=== PATIENT | female | born 1950 | race Caucasian/White ===

== ENCOUNTER → 2020-09-11 11:41 | Outpatient (BNVA) | payer MEDICARE, SELFPAY | PROVIDERS: PCP Family Medicine; Visit Provider Physician Assistant | DX: K90.49 Malabsorption due to intolerance, not elsewhere classified (principal); Z98.84 Bariatric surgery status | CPT/HCPCS: 99214 ==

== ENCOUNTER 2020-10-15 11:58 | Outpatient (REF) | payer MEDICARE, SELFPAY ==
--- NOTE | 2020-10-15 12:03 | MM_ITS ---
EXAMINATION: MM SCREENING DIGITAL BREAST TOMOSYNTHESIS, BILATERAL CLINICAL INFORMATION: Screening. Asymptomatic. The lifetime risk of breast cancer based on the Tyrer-Cuzick Model is 4%. COMPARISON: Outside mammography 09/11/2019, 08/22/2018, 08/21/2017 ([facility]). TECHNIQUE: Digital breast tomosynthesis is performed in both the craniocaudal and mediolateral oblique views along with computer-aided detection (CAD). Synthesized 2D images are generated from the tomosynthesis. FINDINGS: There are scattered areas of fibroglandular density (ACR BI-RADS breast composition Category b). Parenchymal pattern is similar to outside studies. There is no significant mass or architectural abnormality or abnormal calcifications. No developing density. Low left axillary tail nodes on MLO view is similar to prior studies 2017. Again, there are bilateral axillary lipomas, right side measuring approximately 5.0 x 5.7 cm and left side measuring 2.3 x 4.1 cm. MM/MM tomosynthesis screening BI IMPRESSION: 1. No mammographic evidence of malignancy. 2. Bilateral axillary lipomas similar to outside studies. ASSESSMENT: BI-RADS 2: Benign RECOMMENDATION: Routine annual mammography screening. This patient's information was entered into a reminder system with a target due date for their next mammogram.
== END 2020-10-15 11:59 | disposition home or self-care (01) ==
LOC: HO.MAMMO 11:58
PROVIDERS: PCP Internal Medicine; Visit Provider Internal Medicine
DX: Z12.31 Encounter for screening mammogram for malignant neoplasm of breast (principal)
CPT/HCPCS: 77063; 77067

== ENCOUNTER → 2020-11-10 08:21 | Outpatient (BNVA) | payer MEDICARE, SELFPAY | PROVIDERS: PCP Internal Medicine; Referring Provider Internal Medicine; Visit Provider Dietitian, Registered | DX: Z76.89 Persons encountering health services in other specified circumstances (principal) ==

== ENCOUNTER → 2020-11-17 08:19 | Outpatient (BNVA) | payer MEDICARE, SELFPAY | PROVIDERS: PCP Internal Medicine; Visit Provider Dietitian, Registered | DX: Z76.89 Persons encountering health services in other specified circumstances (principal) ==

== ENCOUNTER → 2020-12-08 11:21 | Outpatient (BNVA) | payer MEDICARE, SELFPAY | PROVIDERS: PCP Internal Medicine; Visit Provider Dietitian, Registered | DX: Z76.89 Persons encountering health services in other specified circumstances (principal) ==

== ENCOUNTER → 2020-12-15 11:24 | Outpatient (BNVA) | payer MEDICARE, SELFPAY | PROVIDERS: PCP Internal Medicine; Visit Provider Dietitian, Registered ==

== ENCOUNTER → 2021-01-04 08:19 | Outpatient (BNVA) | payer MEDICARE, SELFPAY | PROVIDERS: PCP Internal Medicine; Visit Provider Physician Assistant ==

== ENCOUNTER → 2021-01-21 08:19 | Outpatient (BNVA) | payer MEDICARE, SELFPAY | PROVIDERS: PCP Internal Medicine; Visit Provider Physician Assistant ==

== ENCOUNTER → 2021-01-22 13:20 | Outpatient (BNVA) | payer MEDICARE, SELFPAY | PROVIDERS: Visit Provider Physician Assistant | DX: K90.49 Malabsorption due to intolerance, not elsewhere classified (principal); Z90.3 Acquired absence of stomach [part of]; Z98.84 Bariatric surgery status | CPT/HCPCS: Q3014 ==

== ENCOUNTER → 2021-02-15 11:14 | Outpatient (BNVA) | payer MEDICARE, SELFPAY | PROVIDERS: PCP Internal Medicine; Visit Provider Internal Medicine Cardiovascular Disease | DX: I25.10 Atherosclerotic heart disease of native coronary artery without angina pectoris (principal) | CPT/HCPCS: 93005; 99212 ==

== ENCOUNTER → 2021-04-01 12:27 | Outpatient (BNVA) | payer MEDICARE, SELFPAY | PROVIDERS: PCP Internal Medicine; Visit Provider Physician Assistant | DX: K91.2 Postsurgical malabsorption, not elsewhere classified (principal); K90.49 Malabsorption due to intolerance, not elsewhere classified; Z98.84 Bariatric surgery status; Z90.3 Acquired absence of stomach [part of] | CPT/HCPCS: 99212 ==

== ENCOUNTER 2021-04-05 09:37 | Outpatient (REF) | payer MEDICARE, SELFPAY ==
[2021-04-05 10:24] LABS: MANUAL DIFF FLAG NO
[2021-04-05 10:28] LABS: Basophils Percent Auto 0.8 % (0-2); Eosinophils Absolute Auto 0.1 X10*3/uL (0.0-0.4); Eosinophils Percent Auto 3.3 % (0-4); Hematocrit 37.1 % (37-47); Hemoglobin 12.3 g/dl (12.0-16.0); Imm Gran Abs Auto 0.01 X10*3/uL (0.00-0.03); Imm Gran Pct Auto 0.3 % (0.0-0.4); Lymphocytes Absolute Auto 1.4 X10*3/uL (1.2-4.9); Lymphocytes Percent Auto 39.3 % (20-40); Mean Corpuscular HGB Conc 33.2 g/dl (31.0-35.0); Mean Corpuscular Volume 87.5 fL (80-98); Mean Platelet Volume 10.6 fL (9.4-12.3); Monocytes Absolute Auto 0.2 X10*3/uL (0.1-1.2); Monocytes Percent Auto 5.7 % (2-11); Neutrophils Absolute Auto 1.9 X10*3/uL (2.0-8.3); Neutrophils Percent Auto 50.6 % (45-73); Platelet Count 180 X10*3/uL (160-400); Red Blood Count 4.24 X10*6/uL (4.20-5.50); Red Cell Distribution Width 12.8 % (11.0-16.0); White Blood Count 3.7 X10*3/uL (4.8-10.8)
[2021-04-05 10:49] LABS: Estimated Average Glucose 103 mg/dL; Hemoglobin A1c % 5.2 %
[2021-04-05 10:52] LABS: Alanine Aminotransferase 17 U/L (0-31); Albumin Level 4.2 g/dL (3.5-5.0); Alkaline Phosphatase 86 U/L (39-117); Anion Gap 10 (12-20); Aspartate Amino Transferase 16 U/L (5-31); Blood Urea Nitrogen 23 mg/dL (9-16); C Reactive Protein 0.13 mg/dL (< or = 0.50); Calcium 9.4 mg/dL (8.4-10.2); Carbon Dioxide 29 mmol/L (22-29); Chloride 107 mmol/L (96-108); Cholesterol 109 mg/dL; Estimated Glomerular Filt Rate > 60; Glucose Fasting 106 mg/dL (60-99); HDL Cholesterol 33 mg/dL; Iron 103 mcg/dL (30-160); LDL Cholesterol Calculated 44 mg/dl; Percent Iron Saturation 31 % (15-50); Potassium 4.2 mmol/L (3.3-5.1); Sodium 142 mmol/L (135-145); Total Iron Binding Capacity 332 mcg/dL (228-428); Total Protein 6.6 g/dL (6.5-8.0); Triglycerides 161 mg/dL; Unsaturated Iron Binding 229 ug/dL
[2021-04-05 11:15] LABS: Ferritin 86 ng/mL (10-250); TSH reflex Free T4 1.32 uIU/mL (0.32-4.0)
[2021-04-05 11:30] LABS: Folate 17.5 ng/mL (> or = 4.0); Vitamin B12 456 pg/mL (200-900)
[2021-04-06 08:51] LABS: Insulin Level Total 21.5 uIU/mL
[2021-04-06 19:47] LABS: Calcium (PTHI) 9.5 mg/dL (8.6-10.4); PTHI 65 pg/mL (14-64)
[2021-04-08 06:51] LABS: Zinc 72 mcg/dL (60-130)
[2021-04-08 23:03] LABS: Vitamin A 38 mcg/dL (38-98)
[2021-04-09 11:32] LABS: Vitamin B1 16 nmol/L (8-30)
== END 2021-04-05 09:38 | disposition home or self-care (01) ==
LOC: HO.LAB 09:37
PROVIDERS: PCP Internal Medicine; Visit Provider Physician Assistant
DX: K91.2 Postsurgical malabsorption, not elsewhere classified (principal); E66.01 Morbid (severe) obesity due to excess calories; Z98.84 Bariatric surgery status; Z90.3 Acquired absence of stomach [part of]
CPT/HCPCS: 36415; 80053; 80061; 82306; 82607; 82728; 82746; 83036; 83525; 83540; 83970; 84425; 84443; 84590; 84630; 85025; 86140

== ENCOUNTER → 2021-04-19 14:17 | Outpatient (BNVA) | payer MEDICARE, SELFPAY | PROVIDERS: PCP Internal Medicine; Referring Provider Internal Medicine; Visit Provider Dietitian, Registered | DX: E66.9 Obesity, unspecified (principal); Z68.36 Body mass index [BMI] 36.0-36.9, adult | CPT/HCPCS: 97803 ==

== ENCOUNTER → 2021-05-19 08:14 | Outpatient (BNVA) | payer MEDICARE, SELFPAY | PROVIDERS: PCP Internal Medicine; Visit Provider Dietitian, Registered ==

== ENCOUNTER 2021-08-10 13:20 | Emergency (ER) | payer MEDICARE, SELFPAY ==
--- NOTE | ~2021-08-10 | CT_ITS ---
EXAMINATION: CT ABDOMEN AND PELVIS WITH CONTRAST CLINICAL INFORMATION: Right lower quadrant pain COMPARISON: None TECHNIQUE: Multidetector volumetric images were obtained from the superior aspect of the liver through the pubic symphysis following administration 85 mL of Omnipaque 350 intravenous contrast. Sagittal and coronal reformatted images were obtained on the technologist's workstation. Oral contrast: No This CT examination was performed using dose optimization techniques as appropriate, variously including the following: *Automated exposure control *Adjustment of mA and/or kV according to patient size (this includes techniques or standardized protocols for targeted exams where dose is matched to indication/reason for exam; i.e. extremities or head) *Use of iterative reconstruction technique DLP: 648 mGy-cm FINDINGS: LUNG BASES: The visualized lung bases are unremarkable. LIVER, GALLBLADDER, AND BILIARY TREE: The liver is normal in size, shape, and attenuation. Punctate calcification in the right hepatic lobe. No focal hepatic lesion or biliary ductal dilatation is present. The gallbladder is unremarkable with no evidence of radiopaque gallstones, gallbladder wall thickening, or obvious pericholecystic inflammatory changes. PANCREAS: Unremarkable. SPLEEN: Unremarkable. ADRENAL GLANDS: Unremarkable. KIDNEYS AND URETERS: The kidneys are normal in size, shape, and attenuation. No hydronephrosis, hydroureter, or calculi seen. No perinephric stranding. BLADDER: Unremarkable. GASTROINTESTINAL TRACT: Post surgical changes from sleeve gastrectomy. The small and large bowel are unremarkable. The appendix is not visualized. ABDOMINAL WALL: Small fat containing umbilical hernia. LYMPH NODES: Small mesenteric lymph nodes in the right lower quadrant. VASCULAR: Unremarkable. PELVIC VISCERA: Unremarkable. OSSEOUS STRUCTURES: Unremarkable. CT/CT abdomen pelvis w con IMPRESSION: Small mesenteric lymph nodes in the right lower quadrant, nonspecific. The appendix is not visualized.
[2021-08-10 13:43] VITALS: BP 123/78; PULSE 75; RESP 18; TEMP 36.8; O2SAT 96; BMI 36.6
[2021-08-10 14:33] LABS: MANUAL DIFF FLAG NO
[2021-08-10 14:35] LABS: Basophils Percent Auto 0.5 % (0-2); Eosinophils Absolute Auto 0.1 X10*3/uL (0.0-0.4); Eosinophils Percent Auto 2.1 % (0-4); Hematocrit 38.2 % (37-47); Hemoglobin 12.8 g/dl (12.0-16.0); Imm Gran Abs Auto 0.01 X10*3/uL (0.00-0.03); Imm Gran Pct Auto 0.2 % (0.0-0.4); Lymphocytes Absolute Auto 2.3 X10*3/uL (1.2-4.9); Lymphocytes Percent Auto 40.8 % (20-40); Mean Corpuscular HGB Conc 33.5 g/dl (31.0-35.0); Mean Corpuscular Hemoglobin 29.4 pg (27.0-33.0); Mean Corpuscular Volume 87.6 fL (80-98); Mean Platelet Volume 10.5 fL (9.4-12.3); Monocytes Absolute Auto 0.4 X10*3/uL (0.1-1.2); Monocytes Percent Auto 6.3 % (2-11); Neutrophils Absolute Auto 2.9 X10*3/uL (2.0-8.3); Neutrophils Percent Auto 50.1 % (45-73); Platelet Count 184 X10*3/uL (160-400); Red Blood Count 4.36 X10*6/uL (4.20-5.50); Red Cell Distribution Width 13.1 % (11.0-16.0); White Blood Count 5.7 X10*3/uL (4.8-10.8)
[2021-08-10 14:53] LABS: Alanine Aminotransferase 20 U/L (0-31); Albumin Level 4.3 g/dL (3.5-5.0); Alkaline Phosphatase 90 U/L (39-117); Anion Gap 11 (12-20); Aspartate Amino Transferase 19 U/L (5-31); Bilirubin Total 1.1 mg/dL (0.0-1.0); Blood Urea Nitrogen 14 mg/dL (9-16); Calcium 10.2 mg/dL (8.4-10.2); Carbon Dioxide 30 mmol/L (22-29); Chloride 104 mmol/L (96-108); Creatinine Clr Calc Pharmacy 71.1; Estimated Glomerular Filt Rate > 60; Glucose Random 99 mg/dL (60-115); Lipase 31 U/L (8-78); Potassium 4.7 mmol/L (3.3-5.1); Sodium 140 mmol/L (135-145); Total Protein 6.8 g/dL (6.5-8.0)
[2021-08-10 15:10] LABS: Appearance Urine CLEAR; Color Urine YELLOW; Glucose Urine UA NEG (NEG); Leukocyte Esterase Urine TRACE (NEG); Nitrite Urine NEG (NEG); PH 5.5 (5.0-8.0); Specific Gravity - Urine <= 1.005 (1.005-1.025); UACC Culture Trigger YES; Urine Blood NEG (NEG); Urine Ketones NEG (NEG); Urine Protein NEG (NEG-TRACE)
[2021-08-10 15:44] LABS: Bacteria Urine 1+ /LPF; RBC Urine 0 /HPF (0); Squamous Epithelial Cell Urine TRACE /LPF; Urine Talc Crystals TRACE /LPF; WBC Urine 0-2 /HPF (0-4)
--- NOTE | 2021-08-10 16:36 | ED.ABDPAIN ---
HPI - Abdominal Pain General Chief Complaint: Abdominal Pain Stated Complaint: R SIDE ABD PAIN Time Seen by Provider: 08/10/21 16:23 History of Present Illness HPI narrative: Patient is a 71-year-old female with a history of gastric sleeve surgery done 2 and half years ago. Presents today with having abdominal pain for last 3 days on the right side. Right lower quadrant. It is worsened with movement. Patient denies any nausea vomiting. No fever no chills. No diaphoresis. No pain on urination. Patient denies any coughing congestion upper respiratory symptoms. Patient is from home. No history of kidney stone. No vaginal discharge. No change in bowel movement. Pain is dull constant worse with movement. Related Data Home Medications Medication Instructions Recorded Confirmed calcium citrate malate-vitamin D3 tab PO 09/11/20 04/01/21 500 mg-200 unit tablet fluticasone propionate 50 1 spray INTRANASAL DAILY 09/11/20 04/01/21 mcg/actuation nasal spray,suspension mirtazapine 15 mg tablet 15 mg PO BEDTIME 09/11/20 04/01/21 [id number]-[id number]-[id number] 45 mg-folic cap PO 09/11/20 04/01/21 acid 800 mcg-vit K 120 mcg capsule (Bariatric Multivitamins) propylene glycol 0.6 % eye drops 1 drp OPHTHALMIC (EYE) DAILY PRN 09/11/20 04/01/21 (Systane Balance) saliva substitute combo no.9 15 ml MUCOUS MEMBRANE BID-QID PRN 09/11/20 04/01/21 (Biotene Dry Mouth Oral Rinse) atorvastatin 80 mg tablet 80 mg PO DAILY 02/15/21 04/01/21 loratadine 10 mg tablet 10 mg PO DAILY 02/15/21 04/01/21 Previous Rx's Medication Instructions Recorded clopidogrel 75 mg tablet (Plavix) 75 mg PO DAILY #90 tab 01/27/21 Allergies Allergy/AdvReac Type Severity Reaction Status Date / Time ketorolac [From TORADOL] Allergy Severe SWELLING-FACIAL, Verified 08/10/21 13:43 anaphylaxis aspirin Allergy Unknown blood in Verified 08/10/21 13:43 stool adhesive tape [ADHESIVE TAPE] AdvReac Intermediate RASH Verified 08/10/21 13:43 Seasonal Allergies Allergy Unknown itching Uncoded 04/01/21 12:54 Review of Systems Review of Systems No fever no chills no chest pain or shortness of breath No diaphoresis Positive abdominal pain Yes all other systems are reviewed and are negative Physical Exam Vital Signs: Vital Signs: Last Vital Signs Temp 98.3 F 08/10/21 13:43 Pulse 64 08/10/21 18:22 Resp 16 08/10/21 18:22 BP 108/65 08/10/21 18:22 Pulse Ox 99 08/10/21 18:22 Body Mass Index 36.6 MDM - Abdominal Pain MDM Narrative Medical decision making narrative: Patient well-appearing complaining of abdominal pain in the right lower quadrant. Will get labs. Will get CT scan of the abdomen to check for appendicitis. Will check electrolytes. Patient in no distress. Patient's CT scan of the abdomen grossly negative for any acute evidence of abscess, perforation. No evidence for appendicitis. Well-appearing no distress. Will discharge patient home. In stable condition. No evidence for obstruction noted on the CT scan. Differential Diagnosis Differential diagnosis: Likely abdominal pain, aortic dissection, acute appendicitis, bowel perforation, calculus of kidney, gastroenteritis, gastritis, mesenteric ischemia, ovarian cyst, pancreatitis and peptic ulcer disease Lab Data Result diagrams: 08/10/21 14:23 08/10/21 14:23 Labs: Lab Results 08/10/21 08/10/21 08/10/21 Range/Units 14:23 14:23 14:39 WBC 5.7 (4.8-10.8) X10*3/uL RBC 4.36 (4.20-5.50) X10*6/uL Hgb 12.8 (12.0-16.0) g/dl Hct 38.2 (37-47) % MCV 87.6 (80-98) fL MCH 29.4 (27.0-33.0) pg MCHC 33.5 (31.0-35.0) g/dl RDW 13.1 (11.0-16.0) % Plt Count 184 (160-400) X10*3/uL MPV 10.5 (9.4-12.3) fL Immature Gran % (Auto) 0.2 (0.0-0.4) % Neut % (Auto) 50.1 (45-73) % Lymph % (Auto) 40.8 H (20-40) % Swift % (Auto) 6.3 (2-11) % Eos % (Auto) 2.1 (0-4) % Baso % (Auto) 0.5 (0-2) % Lymph # (Auto) 2.3 (1.2-4.9) X10*3/uL Swift # (Auto) 0.4 (0.1-1.2) X10*3/uL Eos # (Auto) 0.1 (0.0-0.4) X10*3/uL Baso # (Auto) 0.0 (0.0-0.2) X10*3/uL Abs Immat Gran (auto) 0.01 (0.00-0.03) X10*3/uL Absolute Neuts (auto) 2.9 (2.0-8.3) X10*3/uL Absolute Nucleated RBC 0.000 (0.0-0.012) X10*3/uL Nucleated RBC % (auto) 0.0 (0.0-0.2) /100WBC Sodium 140 (135-145) mmol/L Potassium 4.7 (3.3-5.1) mmol/L Chloride 104 (96-108) mmol/L Carbon Dioxide 30 H (22-29) mmol/L Anion Gap 11 L (12-20) BUN 14 (9-16) mg/dL Creatinine 0.76 (0.5-1.4) mg/dL Estim Creat Clear Calc 71.1 Estimated GFR > 60 Random Glucose 99 (60-115) mg/dL Calcium 10.2 D (8.4-10.2) mg/dL Total Bilirubin 1.1 H (0.0-1.0) mg/dL AST 19 (5-31) U/L ALT 20 (0-31) U/L Alkaline Phosphatase 90 (39-117) U/L Total Protein 6.8 (6.5-8.0) g/dL Albumin 4.3 (3.5-5.0) g/dL Lipase 31 (8-78) U/L Urine Color YELLOW Urine Appearance CLEAR Urine pH 5.5 (5.0-8.0) Ur Specific Lawrence <= 1.005 (1.005-1.025) Urine Protein NEG (NEG-TRACE) MG/DL Urine Glucose (UA) NEG (NEG) MG/DL Urine Ketones NEG (NEG) MG/DL Urine Blood NEG (NEG) Urine Nitrite NEG (NEG) Ur Leukocyte Esterase TRACE H (NEG) Urine RBC 0 (0) /HPF Urine WBC 0-2 (0-4) /HPF Ur Squamous Epith Cells TRACE /LPF Talc Crystals TRACE /LPF Urine Bacteria 1+ /LPF Discharge Plan Discharge Clinical Impression: Abdominal pain Patient Disposition: Home, Self-Care Instructions: Abdominal Pain (ED) Prescriptions: No Action clopidogrel [Plavix] 75 mg tablet 75 mg PO DAILY Qty: 90 RF: 2 mirtazapine 15 mg tablet 15 mg PO BEDTIME RF: 0 fluticasone propionate 50 mcg/actuation spray,suspension 1 spray intranasal DAILY RF: 0 Bariatric Multivitamins 45 mg iron- 800 mcg-120 mcg capsule PO RF: 0 calcium citrate malate-vit D3 500-200 mg-unit tablet PO RF: 0 Biotene Dry Mouth Oral Rinse Mouthwash 15 ml mucous membrane BID-QID PRNRF: 0 Systane Balance 0.6 % drops 1 drp ophthalmic (eye) DAILY PRNRF: 0 atorvastatin 80 mg tablet 80 mg PO DAILY RF: 0 loratadine 10 mg tablet 10 mg PO DAILY RF: 0 Referrals: Jason Gunn MD [Primary Care Provider] - 2 days [facility] Past Medical History Attestation statement: The following information was validated with the patient. Medical History Asthma CAD (coronary artery disease) Constipation Diverticulosis Fracture of wrist GERD (gastroesophageal reflux disease) Intestinal malabsorption following gastrectomy Lactose intolerance Lymphoma Malabsorption due to intolerance, not elsewhere classified Obesity (BMI 30-39.9) HEATHER on CPAP Sciatica Sjogren's syndrome UTI (urinary tract infection) Surgical History H/O section History of eyelid surgery S/P laparoscopic sleeve gastrectomy Family History Family History Father No problems noted. Mother No problems noted. Brother No problems noted. Brother No problems noted. Brother No problems noted. Brother No problems noted. Brother No problems noted. Sister No problems noted. Sister No problems noted. Daughter No problems noted. Daughter No problems noted. Daughter No problems noted. Social History Social History Advance Directives: No Advance Directives Information Provided: Yes
[2021-08-10] MEDS: ondansetron HCL 4 MG/2 ML VIAL IVPUSH (16:48)
[2021-08-10] MEDS: HYDROmorphone HCl 0.5 MG/0.5 ML SYRINGE IVPUSH (16:48)
[2021-08-10] MEDS: iohexoL 350 MG/ML 100 ML INFUS..BTL IV (17:26)
[2021-08-10 18:22] VITALS: BP 108/65; PULSE 64; RESP 16; O2SAT 99
== END 2021-08-10 19:37 | disposition home or self-care (01) ==
PROVIDERS: Emergency Provider Emergency Medicine Emergency Medical Services; PCP Internal Medicine
DX: R10.31 Right lower quadrant pain (principal); I25.10 Atherosclerotic heart disease of native coronary artery without angina pectoris; Z98.84 Bariatric surgery status; Z79.899 Other long term (current) drug therapy
CPT/HCPCS: 36415; 74177; 80053; 81001; 81003; 83690; 85025; 87086; 87088; 87186; 96374; 96375; 99284; J1170; J2405; Q9967

== ENCOUNTER 2021-11-24 12:57 | Outpatient (REF) | payer MEDICARE, SELFPAY ==
--- NOTE | ~2021-11-24 | MM_ITS ---
EXAMINATION: MM SCREENING DIGITAL BREAST TOMOSYNTHESIS, BILATERAL CLINICAL INFORMATION: Screening. Asymptomatic. The lifetime risk of breast cancer based on the Tyrer-Cuzick Model is 4%. COMPARISON: Mammography: 10/15/2020, 09/11/2019, 08/22/2018 TECHNIQUE: Digital breast tomosynthesis is performed in both the craniocaudal and mediolateral oblique views along with computer-aided detection (CAD). Synthesized 2D images are generated from the tomosynthesis. FINDINGS: There are scattered areas of fibroglandular density (ACR BI-RADS breast composition Category b). There are no significant masses, abnormal calcifications, or other abnormalities. Skin contours are smooth. Previously noted axillary lipomas are less conspicuous. MM/MM tomosynthesis screening BI IMPRESSION: No mammographic evidence of malignancy. ASSESSMENT: BI-RADS 2: Benign RECOMMENDATION: Routine annual mammography screening. This patient's information was entered into a reminder system with a target due date for their next mammogram.
== END 2021-11-24 12:58 | disposition home or self-care (01) ==
LOC: HO.MAMMO 12:57
PROVIDERS: PCP Internal Medicine; Visit Provider Internal Medicine
DX: Z12.31 Encounter for screening mammogram for malignant neoplasm of breast (principal)
CPT/HCPCS: 77063; 77067

== ENCOUNTER 2022-04-05 14:50 | Outpatient (REF) | payer OTHER, SELFPAY ==
--- NOTE | ~2022-04-05 | MM_ITS ---
EXAMINATION: BONE DENSITOMETRY CLINICAL INDICATION: Menopause. COMPARISON: Baseline BD dated 10/11/2016. TECHNIQUE: Using a [employer] DXA System (software version: 13.1) manufactured by [employer], dual-energy x-ray absorptiometry was performed of the lumbar spine and left hip. The images are of good technical quality. Summary results are attached. FINDINGS: AP SPINE L1-L4: Current: BMD 1.042 g/cm2, Z-score -0.5, T-score -1.1, osteopenia, 4.6% decrease from baseline (<5% change is not significant). Baseline: BMD 1.092 g/cm2. LEFT FEMUR, NECK: Current: BMD 0.830 g/cm2, Z-score -0.4, T-score -1.5, osteopenia. Baseline: BMD 1.033 g/cm2. LEFT FEMUR, TOTAL: Current: BMD 0.918 g/cm2, Z-score 0.1, T-score -0.7, normal, 9.3% decrease from baseline (<5% change is not significant). Baseline: BMD 1.012 g/cm2. IDENTIFIED RISK FACTORS: Height loss, secondary osteoporosis, history of fracture (adult), menopause, right oophorectomy. HISTORY OF FRACTURE: Wrist. MEDICATIONS: Calcium supplements or multivitamin, vitamin D. MM/XR DEXA axial skeleton IMPRESSION: 1. DIAGNOSIS: Osteopenia based on the lowest T-score value of -1.5 in the femoral neck applying World Health Organization criteria. 2. 10-YEAR FRACTURE RISK PREDICTION, FRAX: Major osteoporotic fracture (clinical spine, forearm, hip or shoulder) 8.1%. Hip fracture 1.1%. 3. Treatment Recommendations: NOF guidelines recommend consideration for treatment in postmenopausal women and men age 50 and older presenting with the following: -A hip or vertebral (clinical or morphometric) fracture. -T-score less than or equal to -2.5 at the femoral neck or spine after appropriate evaluation to exclude secondary causes. -Low bone mass at the hip or spine and a 10-year fracture probability by FRAX of greater than or equal to 3% for hip fracture or greater than or equal to 20% for major osteoporotic fracture based on the [place] adapted WHO algorithm. 4. Other Recommendations: All treatment decisions require clinical judgment and consideration of individual patient factors, including patient preferences, comorbidities, previous drug use, risk factors not captured in the FRAX model (e.g. frailty, falls, vitamin D deficiency, increased bone turnover, interval significant decline in bone density) and possible under or overestimation of fracture risk by FRAX. Additional medical evaluation for secondary cause of low bone mineral density may be appropriate. FUTURE SCAN RECOMMENDATION: People with diagnosed cases of osteoporosis or at high risk for fracture should have regular bone mineral density tests. For patients eligible for Medicare, routine testing is allowed once every 2 years. The testing frequency can be increased to one year for patients who have rapidly progressing disease, those who are receiving or discontinuing medical therapy to restore bone mass, or have additional risk factors.
== END 2022-04-05 14:51 | disposition home or self-care (01) ==
LOC: HO.MAMMO 14:50
PROVIDERS: PCP Internal Medicine; Visit Provider Internal Medicine
DX: Z13.820 Encounter for screening for osteoporosis (principal); Z78.0 Asymptomatic menopausal state; M85.80 Other specified disorders of bone density and structure, unspecified site
CPT/HCPCS: 77080

== ENCOUNTER → 2022-04-07 13:46 | Outpatient (BNVA) | payer OTHER, SELFPAY | PROVIDERS: PCP Internal Medicine; Referring Provider Internal Medicine; Visit Provider Internal Medicine Cardiovascular Disease | DX: I20.8 Other forms of angina pectoris (principal) | CPT/HCPCS: 93005; 99212 ==

== ENCOUNTER 2022-11-07 14:46 | Outpatient (REF) | payer OTHER, SELFPAY ==
--- NOTE | ~2022-11-07 | US_ITS ---
EXAMINATION: US THYROID CLINICAL INFORMATION: Nontoxic single thyroid nodule. COMPARISON: Ultrasound thyroid 03/29/2017. TECHNIQUE: Linear transducer grayscale and color Doppler examination with attention to the region of the thyroid. FINDINGS: SIZE: Measurements of the thyroid lobes and nodules are given in sagittal, anteroposterior and transverse dimensions respectively. Right Thyroid Lobe: 3.8 x 1.2 x 1.6 cm, volume 3.8 mL. Previously 4.3 x 1.2 x 1.8 cm, volume 4.9 mL. Parenchyma: The gland echotexture is homogeneous. Thyroid vascularity is normal. Left Thyroid Lobe: 4.5 x 1.4 x 1.5 cm, volume 4.9 mL. Previously 4.2 x 1.2 x 1.6 cm, volume 4.3 mL. Parenchyma: The gland echotexture is homogeneous. Thyroid vascularity is normal. Isthmus: 0.3 cm in maximum AP dimension. Previously 0.3 cm. Estimated total number of nodules greater than or equal to 1 cm: 0. Dialysis Nurse nodules are described as follows: 1. Location: Left medial/inferior. Size: 0.9 x 0.4 x 0.6 cm, volume 0.1 mL. Previously: 0.9 x 0.4 x 0.5 cm, volume 0.09 mL. Nodule characteristics: Composition: Solid (2). Echogenicity: Isoechoic (1). Shape: Not taller than wide (0). Margins: Smooth (0). Echogenic Foci: Comet-tail artifacts (0). ACR TI-RADS total points: 3 ACR TI-RADS category: 3 = NODES: No lymphadenopathy is seen in the tissue surrounding the thyroid gland. US/US thyroid IMPRESSION: Left inferior nodule does not meet criteria for followup. ACR TI-RADS RECOMMENDATION REFERENCE: Ultrasound-guided fine-needle aspiration, followup ultrasound, no further follow up. * TR1 (0 point) and TR 2 (2 points): No FNA or follow up. * TR3 (3 points): FNA if more than or equal to 2.5 cm in maximum dimension, followup ultrasound in 1, 3 and 5 years if 1.5 to 2.4 cm in maximum dimension. * TR4 (4-6 points): FNA if more than or equal to 1.5 cm in maximum dimension, followup ultrasound in 1, 2, 3 and 5 years if 1 to 1.4 cm in maximum dimension. * TR5 (more than or equal to 7 points): FNA if more than or equal to 1 cm in maximum dimension, followup ultrasound every year for 5 years if 0.5 to 0.9 cm in maximum dimension. * TR3, TR4 or TR5 nodules that are below the size threshold for followup receive no follow up.
== END 2022-11-07 14:47 | disposition home or self-care (01) ==
LOC: HO.US 14:46
PROVIDERS: PCP Internal Medicine; Visit Provider Internal Medicine
DX: E04.1 Nontoxic single thyroid nodule (principal)
CPT/HCPCS: 76536

== ENCOUNTER 2022-11-25 13:54 | Outpatient (REF) | payer OTHER, SELFPAY ==
--- NOTE | ~2022-11-25 | MM_ITS ---
EXAMINATION: MM SCREENING DIGITAL BREAST TOMOSYNTHESIS, BILATERAL CLINICAL INFORMATION: Screening. Asymptomatic. The lifetime risk of breast cancer based on the Tyrer-Cuzick Model is 3%. COMPARISON: Mammography: 11/24/2021, 10/15/2020, 09/11/2019 TECHNIQUE: Digital breast tomosynthesis is performed in both the craniocaudal and mediolateral oblique views along with computer-aided detection (CAD). Synthesized 2D images are generated from the tomosynthesis. Additional right MLO view is provided. FINDINGS: There are scattered areas of fibroglandular density (ACR BI-RADS breast composition Category b). There are no significant masses, abnormal calcifications, or other abnormalities. Parenchymal pattern is similar to prior studies. The axilla and skin contours are unremarkable. MM/MM tomosynthesis screening BI IMPRESSION: No mammographic evidence of malignancy. ASSESSMENT: BI-RADS 1: Negative RECOMMENDATION: Routine annual mammography screening. This patient's information was entered into a reminder system with a target due date for their next mammogram.
== END 2022-11-25 13:55 | disposition home or self-care (01) ==
LOC: HO.MAMMO 13:54
PROVIDERS: PCP Internal Medicine; Visit Provider Internal Medicine
DX: Z12.31 Encounter for screening mammogram for malignant neoplasm of breast (principal)
CPT/HCPCS: 77063; 77067

== ENCOUNTER 2022-12-07 14:51 | Outpatient (REF) | payer OTHER, SELFPAY ==
[2022-12-07 17:22] LABS: Urine Cytology See Pathology rpt
== END 2022-12-07 14:52 | disposition home or self-care (01) ==
LOC: HO.LAB 14:51
PROVIDERS: PCP Internal Medicine; Visit Provider Urology
DX: N39.0 Urinary tract infection, site not specified (principal); N32.81 Overactive bladder
CPT/HCPCS: 51798; 88112; 99202

== ENCOUNTER 2023-01-10 12:09 | Outpatient (REF) | payer OTHER, SELFPAY ==
--- NOTE | ~2023-01-10 | US_ITS ---
EXAMINATION: US RETROPERITONEAL LIMITED (RENAL ONLY) CLINICAL INFORMATION: Overactive bladder. COMPARISON: CT abdomen and pelvis with contrast 08/10/2021. US abdomen complete with liver elastography 09/18/2019. TECHNIQUE: Real-time imaging of the kidneys. FINDINGS: RIGHT KIDNEY: 10.5 x 6.1 x 6.1 cm (SAG x AP x TRV). The kidney is normal in size, contour, and echogenicity. There may be mild cortical thinning. No calculi or focal parenchymal lesions. No hydronephrosis. LEFT KIDNEY: 13.2 x 6.6 x 5.6 cm (SAG x AP x TRV). The kidney is normal in size, contour, and echogenicity. There may be mild cortical thinning. No calculi or focal parenchymal lesions. No hydronephrosis. US/US renal BI IMPRESSION: There may be mild cortical thinning. No other significant abnormality is seen.
== END 2023-01-10 12:10 | disposition home or self-care (01) ==
LOC: HO.US 12:09
PROVIDERS: Visit Provider Urology
DX: N32.81 Overactive bladder (principal); N39.0 Urinary tract infection, site not specified
CPT/HCPCS: 76775

== ENCOUNTER → 2023-03-02 13:50 | Outpatient (BNVA) | payer OTHER, SELFPAY | PROVIDERS: PCP Internal Medicine; Visit Provider Urology | DX: N39.0 Urinary tract infection, site not specified (principal); N32.81 Overactive bladder | CPT/HCPCS: 51798; 52000; 99212 ==

== ENCOUNTER 2023-03-23 11:44 | Outpatient (REF) | payer OTHER, SELFPAY ==
[2023-03-23 13:04] LABS: Anion Gap 12 (12-20); Blood Urea Nitrogen 14 mg/dL (9-16); Calcium 9.3 mg/dL (8.4-10.2); Carbon Dioxide 29 mmol/L (22-29); Chloride 107 mmol/L (96-108); Estimated Glomerular Filt Rate > 60; Glucose Random 104 mg/dL (60-115); Potassium 4.3 mmol/L (3.3-5.1); Sodium 144 mmol/L (135-145)
== END 2023-03-23 11:45 | disposition home or self-care (01) ==
LOC: HO.LAB 11:44
PROVIDERS: PCP Internal Medicine; Visit Provider Internal Medicine
DX: R49.0 Dysphonia (principal)
CPT/HCPCS: 36415; 80048

== ENCOUNTER → 2023-05-02 13:30 | Outpatient (BNVA) | payer OTHER, SELFPAY | PROVIDERS: PCP Internal Medicine; Referring Provider Internal Medicine; Visit Provider Nurse Practitioner Family | DX: R07.89 Other chest pain (principal); I25.10 Atherosclerotic heart disease of native coronary artery without angina pectoris; E78.5 Hyperlipidemia, unspecified; G47.33 Obstructive sleep apnea (adult) (pediatric); Z79.899 Other long term (current) drug therapy; Z99.89 Dependence on other enabling machines and devices | CPT/HCPCS: 93005; 99212 ==

== ENCOUNTER → 2023-06-02 09:39 | Outpatient (REF) | payer OTHER, SELFPAY ==
--- NOTE | ~2023-06-02 | NM_ITS ---
Lexiscan Myocardial perfusion study Indication: Chest pain, shortness of breath, assess for ischemia Technique: The patient was brought in for a Lexiscan perfusion study on 06/02/2023 and was injected 0.4 mg of Lexiscan intravenously. Within a minute of this injection 35 mCi of sestamibi was given intravenously. Images were obtained using the SPECT gamma camera interlaced with the gating device. Images were obtained in supine position. Resting perfusion study was performed on 06/06/2023. Patient was administered 35 mCi of sestamibi intravenously at rest. Images were then obtained in supine position. Images were processed with the software and compared side to side in short axis, horizontal long axis and vertical long axis views. Total DLP 131mGy-cm. Findings: Raw acquisition reviewed. The stress perfusion study showed mildly diminished tracer uptake in the inferior septum towards the basal part. There is good improvement with CT attenuation correction suggestive of diaphragmatic attenuation artifact. The gated study shows normal LV systolic function with calculated LVEF of 62%. LV cavity is normal in size. The gated study shows normal wall thickening and contraction of segments. Resting study shows no significant perfusion defects. Gating at rest reveals normal wall motion with ejection fraction at 60%. The findings are consistent with no clear reversible or fixed perfusion defects. NM/NM cardiolite stress test Impression: 1. Myocardial perfusion imaging study shows likely normal myocardial perfusion. 2. Gated LVEF is 60% during stress and 60% during rest. 3. Transient ischemic dilatation not present. EKG component of the test reported separately.
--- NOTE | 2023-06-02 09:42 | CA_ITS ---
Acquisition Time: 2023-06-02 09:54:10 Total Exercise Time: 00:02:00 Test Indications: CHEST PAIN, SOB Medications: Protocol: LEXISCAN Max HR: 106 BPM 71% of Pred: 148 BPM Max BP: 128/076 mmHG Max Work Load: 1.0 METS Pharmacological stress test with Lexiscan injection while sitting and kicking her legs, with mild SOB, no chest discomfort, without arrhythmias, with normotensive response to injection, without non-diagnositic EKGs. Aminophylline 75mg IVP given to reverse Lexiscan injection. Nuclear images pending. Test reviewed with Dr. Espinoza. Referred By: Lisa Jason Overread By: Yoko Cerna
== END ==
LOC: HO.CARD 09:39
PROVIDERS: PCP Internal Medicine; Visit Provider Nurse Practitioner Family
DX: R07.89 Other chest pain (principal); I25.10 Atherosclerotic heart disease of native coronary artery without angina pectoris
CPT/HCPCS: 78452; 93017; A9500; J0280; J2785

== ENCOUNTER → 2023-06-02 09:49 | Outpatient (BNV) | payer OTHER, SELFPAY | PROVIDERS: PCP Internal Medicine; Visit Provider Internal Medicine | DX: R06.02 Shortness of breath (principal); R07.89 Other chest pain | CPT/HCPCS: 78452; 93016; 93018 ==

== ENCOUNTER → 2023-06-07 13:47 | Outpatient (REF) | payer OTHER, SELFPAY ==
--- NOTE | 2023-06-07 13:50 | CA_ITS ---
Transthoracic Echocardiogram Patient (Last, First, Middle): Yesenia Norris, Gender: Female Date of : 1950 Age: 72 Procedure Date: 06/07/2023 Procedure Type: Transthoracic Echocardiogram Location: OP Height: 160.02 cm Weight: 102.06 kg BSA: 2.03 m2 Heart Rate: 77 bpm BP: 122 / 74 mmHg Cabin Worker: REKHA Referring MD: Lisa Jason VP [employer]-Shanice Bulk Driver: Lyndon Geronimo MD Symptoms: R07.89 - Other chest pain Study Quality: Technically Difficult ECG Rhythm: Sinus Conclusions: - 1. Technically difficult study despite use of contrast agent 2. Hyperdynamic LV ejection fraction greater than 70% 3. Limited visualization of cardiac valve with normal cardiac valvular Dopplers 4. Mildly dilated ascending aorta at 3.7 cm 5. Normal measured RV systolic pressure Findings Procedure Information Contrast agent, definity, is being given per protocol without apparent complications. The quality of the study was technically difficult. The study quality is limited by patients body habitus. Left Ventricle The left ventricle was not well visualized. Normal left ventricular cavity size. The left ventricular systolic function is hyperdynamic. The visually estimated ejection fraction is >70%. Spectral Doppler is indicative of an impaired relaxation filling pattern. Right Ventricle The right ventricle was not well visualized. Atria The left atrium is normal in size. Interatrial shunt cannot be excluded. The right atrium was not well visualized. Aortic Valve The aortic valve was not well visualized. There is no aortic valve stenosis. There is no aortic valve regurgitation. Mitral Valve The mitral valve was not well visualized. There is no mitral valve stenosis. Pulmonic Valve The pulmonic valve was not well visualized. Tricuspid Valve The tricuspid valve was not well visualized. There is trace tricuspid valve regurgitation. The right ventricular systolic pressure is normal. The right ventricular systolic pressure is 28 mmHg. There is no evidence of pulmonary hypertension. Great Vessels The pulmonary artery was not well visualized. There is mild dilatation of the ascending aorta measuring 3.70 cm. Venous The inferior vena cava is normal in size and collapses greater than 50% with inspiration. Pericardium/Pleural There is no evidence of pericardial effusion. Prior Study Comparison difficult to compare due to poor quality of current study Measurements 2D Linear Measurements IVSd: 1.19 0.6-0.9/0.6-1.0 cm LVIDd: 4.06 3.9-5.3/4.2-5.9 cm LVIDd Index: 2.00 2.4-3.2/2.2-3.1 cm/m2 LVIDs: 3.01 2.0-3.6 cm LVPWd: 0.80 0.7-1.1 cm LA Diam: 3.70 2.7-3.8/3.0-4.0 cm LAIDs Index: 1.82 1.5-2.3 cm/m2 LV Mass: 160.25 67-162/88-224 g LV Mass Index: 78.94 43-95/49-115 g/m2 LVOT Diam: 2.20 3.0+(-)1.3 cm 2D Systolic Function EF 4C: 73.30 >55% Mitral Valve MV Pk E: 0.49 MV PK A: 0.69 MV Decel Time: 212.00 E/A: 0.70 E'Lateral: 8.05 E'Medial: 5.77 E/E' Med: 8.50 E/E' Lat: 6.10 PHT: 62.00 MVA PHT: 3.55 Decel Elk: 2.31 Aortic Valve AoV Pk Horacio: 0.97 AoV Pk Grad: 4.00 TRACEE: 3.68 LVOT LVOT Pk Horacio: 0.86 LVOT Mn Horacio: 0.61 LVOT VTI: 0.18 LVOT Pk Grad: 3.00 LVOT Mn Grad: 2.00 LVOT Diam: 2.20 LVOT Area: 3.80 Diastolic Function MV Pk E: 0.49 MV Pk A: 0.69 E/A: 0.70 E'Medial: 5.77 E/E' Med: 8.50 E' Laterial: 8.05 E/E' Lat: 6.10 Right Ventricle TAPSE (mm): 17.00 TVS' Horacio: 9.46 Tricuspid Valve TR Pk Horacio: 2.50 TR Pk Grad: 25.00 RA Press: 3.00 RVSP: 28.00 Great Vessels Aorta Sinus of Valsalva: 3.40 2.0-3.5 cm Ao Asc: 3.70 2.1-3.4 cm Pulmonary Veins Pulm Vein S/D 1.20 Pulmonary Valve PV Pk Horacio: 0.80 Peak PV Grad: 3.00 Updated in Other Vendor System with Status of Final Lyndon Geronimo MD electronically signed on 06/08/2023 4:43:03 PM with status of Final
== END ==
LOC: HO.CARD 13:47
PROVIDERS: PCP Internal Medicine; Visit Provider Nurse Practitioner Family
DX: R07.89 Other chest pain (principal); I25.10 Atherosclerotic heart disease of native coronary artery without angina pectoris; G47.33 Obstructive sleep apnea (adult) (pediatric)
CPT/HCPCS: 93306; Q9957

== ENCOUNTER → 2023-06-07 13:50 | Outpatient (BNV) | payer OTHER, SELFPAY | PROVIDERS: PCP Internal Medicine; Visit Provider Internal Medicine Cardiovascular Disease | DX: R07.89 Other chest pain (principal) | CPT/HCPCS: 93306 ==

== ENCOUNTER 2023-07-04 09:59 | Outpatient (REF) | payer OTHER, SELFPAY ==
[2023-07-04 14:31] LABS: MANUAL DIFF FLAG NO
[2023-07-04 14:36] LABS: Basophils Percent Auto 0.8 % (0-2); Eosinophils Absolute Auto 0.2 X10*3/uL (0.0-0.4); Eosinophils Percent Auto 3.7 % (0-4); Hematocrit 41.8 % (37.0-47.0); Lymphocytes Absolute Auto 2.2 X10*3/uL (1.2-4.9); Lymphocytes Percent Auto 44.5 % (20-40); Mean Corpuscular HGB Conc 33.5 g/dl (31.0-35.0); Mean Corpuscular Hemoglobin 29.5 pg (27.0-33.0); Mean Corpuscular Volume 88.2 fL (80.0-98.0); Mean Platelet Volume 11.3 fL (9.4-12.3); Monocytes Absolute Auto 0.3 X10*3/uL (0.1-1.2); Monocytes Percent Auto 6.7 % (2-11); Neutrophils Absolute Auto 2.2 x10*3/uL (2.0-8.3); Neutrophils Percent Auto 44.3 % (45-73); Platelet Count 191 X10*3/uL (160-400); Red Blood Count 4.74 X10*6/uL (4.20-5.50); Red Cell Distribution Width 12.6 % (11.0-16.0); White Blood Count 4.9 X10*3/uL (4.8-10.8)
[2023-07-04 14:50] LABS: Estimated Average Glucose 117 mg/dL; Hemoglobin A1c % 5.7 %
[2023-07-04 15:29] LABS: Alanine Aminotransferase 59 U/L (0-31); Albumin Level 4.1 g/dL (3.5-5.0); Alkaline Phosphatase 82 U/L (39-117); Anion Gap 14 (12-20); Aspartate Amino Transferase 51 U/L (5-31); Bilirubin Total 0.9 mg/dL (0.0-1.0); Blood Urea Nitrogen 13 mg/dL (9-16); Calcium 9.3 mg/dL (8.4-10.2); Carbon Dioxide 28 mmol/L (22-29); Chloride 104 mmol/L (96-108); Cholesterol 109 mg/dL; Estimated Glomerular Filt Rate > 60; Glucose Fasting 89 mg/dL (60-99); HDL Cholesterol 31 mg/dL; LDL Cholesterol Calculated 45 mg/dl; Potassium 3.9 mmol/L (3.3-5.1); Sodium 142 mmol/L (135-145); Total Protein 7.2 g/dL (6.5-8.0); Triglycerides 169 mg/dL
[2023-07-04 15:42] LABS: TSH reflex Free T4 3.09 uIU/mL (0.32-4.0)
== END 2023-07-04 10:00 | disposition home or self-care (01) ==
LOC: HO.CHCLDS 09:59
PROVIDERS: Visit Provider Internal Medicine
DX: I25.118 Atherosclerotic heart disease of native coronary artery with other forms of angina pectoris (principal); G47.00 Insomnia, unspecified
CPT/HCPCS: 36415; 80053; 80061; 83036; 84443; 85025

== ENCOUNTER 2023-08-30 13:45 | Outpatient (REF) | payer OTHER, SELFPAY | END 2023-08-30 13:46 | disposition home or self-care (01) | LOC: HO.XRAY 13:45 | PROVIDERS: Visit Provider Urology | DX: R10.31 Right lower quadrant pain (principal); N32.81 Overactive bladder; N39.0 Urinary tract infection, site not specified | CPT/HCPCS: 73502; 81003; 99212 ==

== ENCOUNTER 2023-08-30 13:45 | Outpatient (AMB) | payer OTHER, SELFPAY ==
--- NOTE | 2023-08-30 13:52 | A.OFFVIS_ITS ---
Intake Intake Visit Reasons: 6m/OAB/recurrant UTI Intake Note: Patient presents today for a follow-up on OAB (overactive bladder) Recurrent UTI: Meds- Fesoterodine Allergies to Antibiotic- No Known Allergies Blood Thinner- None Medical Coding Technician Required: No Accompanied by: Self / Same As Patient Allergies ketorolac [From TORADOL] Allergy (Severe, Verified 08/30/23 14:42) SWELLING-FACIAL, anaphylaxis aspirin Allergy (Unknown, Verified 08/30/23 14:42) blood in stool adhesive tape [ADHESIVE TAPE] Adverse Reaction (Intermediate, Verified 08/30/23 14:42) RASH Seasonal Allergies Allergy (Unknown, Uncoded 08/30/23 14:42) itching HPI HPI Comments History of Present Illness Details Yesenia is a 73-year-old female who presents today to the office for a follow-up. 08/30/2023? She is followed today for recurrent UTI.? She was last seen by me on 03/02/23 for recurrent urinary tract infections. Cystoscopy was performed, findings, No suspicious bladder lesions. Mild Bladder wall thickening.?I discussed that I want her to continue taking cranberry supplements and Toviaz perscribed for OAB symptoms. She was advised to follow- up in 6 months. Patient states that she went to ER at [facility] for acute abdominal pain. She has had a CAT scan during that time. Patient states that her doctor told her that she has a problem with her ureter, and she needs to discuss this with her urologist. She denies any irritative urinary symptoms at this time. The CT results are not available to me at this time. Review of charts: Last visit: 03/02/2023-- The patient is here for follow-up for recurrent UTIs.? She was given trial of medication for OAB symptoms and states having benefits with it.? The patient is taking cranberry supplements.? States having occasional urine leakage first void? in the morning? Denies episodes of nocturia. Denies having UTI in the interim.? Renal US results reviewed?01/10/2023--? Suggestive of mild cortical thinning bilaterally. Negative for parenchyma lesions, hydronephrosis or renal calculi. Evaluation today: Blood: negative, leukocytes: negative. The patient was provided naproxen 500 mg and ciprofloxacin 500 mg x 1 dose pre- procedure today. Cystoscopy: No suspicious bladder lesions. Mild Bladder wall thickening.? I discussed that I want her to continue taking cranberry supplements and Toviaz 08/30/2023: Plan: To obtain CAT scan results from [facility]. Telehealth Follow-up to discuss the pertinent findings of CAT scan. [facility] Medical History Asthma CAD (coronary artery disease) Constipation Diverticulosis Fracture of wrist GERD (gastroesophageal reflux disease) Intestinal malabsorption following gastrectomy Lactose intolerance Lymphoma Malabsorption due to intolerance, not elsewhere classified Obesity (BMI 30-39.9) HEATHER on CPAP Sciatica Sjogren's syndrome UTI (urinary tract infection) Surgical History History of eyelid surgery H/O section S/P laparoscopic sleeve gastrectomy Family History Father No problems noted. Mother No problems noted. Brother No problems noted. Brother No problems noted. Brother No problems noted. Brother No problems noted. Brother No problems noted. Sister No problems noted. Sister No problems noted. Daughter No problems noted. Daughter No problems noted. Daughter No problems noted. Social History Alcohol intake: never Patient Tobacco Use Status: Never used Tobacco Review of Systems Const All systems reviewed & are unremarkable except as noted in HPI and below Reports no additional complaints Eyes Reports no additional complaints ENT Reports no additional complaints Card Denies dyspnea Resp Denies cough and Denies dyspnea GI Reports no additional complaints Reports no additional complaints Musc Reports no additional complaints Skin/Breast Denies rash and Denies unusual bruising Neuro Reports no additional complaints Psych Reports no additional complaints Endo Reports no additional complaints Matthias/Lymph Reports no additional complaints Aller/Immun Reports no additional complaints Results AMB Urinalysis, Automated UA Leukoctes 0 Abdullahi/uL Last Edit by Porsche Green, A on 08/30/23 15:12 UA Nitrite Negative Last Edit by Porsche Green, [facility] on 08/30/23 15:12 UA Urobilinogen 0.2 mg/dL Last Edit by Porsche Green, A on 08/30/23 15:1 2 UA Protein 0 mg/dL Last Edit by Porsche Green, A on 08/30/23 15:12 UA pH 6.0 Last Edit by Porsche Green, A on 08/30/23 15:12 UA Blood 0 Cr/uL Last Edit by Porsche Green, A on 08/30/23 15:12 UA Specific Raymond 1.015 Last Edit by Porsche Green, [facility] on 08/30/23 15: 12 UA Ketone Negative Last Edit by Porsche Green, [facility] on 08/30/23 15:12 UA Bilirubin 0 mg/dL Last Edit by Porsche Green [facility] on 08/30/23 15:12 UA Glucose 0 mg/dL Last Edit by Porsche Green, [facility] on 08/30/23 15:12 Results Reviewed Results Reviewed: Laboratory Last Values Urine pH (Auto) 6.0 08/30/23 15:11 Specific Raymond (Auto) 1.015 08/30/23 15:11 Urine Protein (Auto) 0 mg/dL 08/30/23 15:11 Glucose (UA)(Auto) 0 mg/dL 08/30/23 15:11 Urine Ketones (Auto) Negative 08/30/23 15:11 Urine Blood (Auto) 0 Cr/uL 08/30/23 15:11 Urine Nitrite (Auto) Negative 08/30/23 15:11 Urine Bilirubin (Auto) 0 mg/dL 08/30/23 15:11 Urine Urobilinogen (Auto) 0.2 mg/dL 08/30/23 15:11 Leukocyte Esterase (Auto) 0 Abdullahi/uL 08/30/23 15:11 Assessment & Plan Assessment & Plan (1) OAB (overactive bladder): Code(s): N32.81 - Overactive bladder (2) Recurrent UTI: Code(s): N39.0 - Urinary tract infection, site not specified Plan To obtain CAT scan results from [facility].? Telehealth Follow-up to discuss the pertinent findings of CAT scan. Orders: Orders AMB Urinalysis Automated 08/30/23 Z13.9 - Encounter for screening, unspecified Patient Instructions: The patient had an opportunity to ask questions regarding treatment plan. All questions were answered. Imaging, Laboratory studies and physical exam results were discussed and reviewed in detail. No major barriers to understanding were identified. The patient expressed understanding and agreement with the above treatment plan.? ? ? The patient is aware they should contact our office by phone for worsening of their current condition or the appearance of new symptoms. Compliance is encouraged with any medications and followup testing that is ordered.? ? ? It is a privilege to be allowed the opportunity to participate in the urologic care of your patient. If you have any questions or concerns regarding treatment for the above conditions please do not hesitate to contact me. The office telephone contact is [phone].? ? ? This note is constructed in part using voice recognition software. While every effort has been made to ensure accuracy analysis engineer errors may have been included.? ? ? Yours sincerely,? ? ? Mino Lei MD? Coding Level of Care Code Est Pt Level 3 (29093) Diagnoses OAB (overactive bladder) N32.81 Recurrent UTI N39.0
== END 2023-08-30 15:18 | disposition home or self-care (01) ==
PROVIDERS: PCP Internal Medicine; Visit Provider Urology
DX: N32.81 Overactive bladder (principal); N39.0 Urinary tract infection, site not specified
CPT/HCPCS: 99213

== ENCOUNTER 2023-09-07 13:06 | Outpatient (AMB) | payer OTHER, SELFPAY ==
--- OUTSIDE RECORDS SUMMARY | 2023-09-07 13:08 | XMS_ITS | Continuity of Care Document ---
Author Name Unknown Organization [facility] Address [address] [place] [id number]- Care Team Providers Care Whizzer Operator Name Role Phone Jules Hammer MD, Jason Primary Care Phys ician Encounter [facility] [place] Date(s): 05/31/22 - 06/30/22 [facility] [address] [place] [id number]- Attending Physician: Fam Arreola Admitting Physician: AdmFam fonseca Referring Physician: AdmtrFam Allergies, Adverse Reactions, Alerts Substance Reaction Severity Status Toradol facial swelling, Active aspirin 1 swelling per pt bleeds Severe Active 1Facial swelling/bleeding Immunizations Given and Recorded Vaccine Date Status Refusal Reason pneumococcal 13-valent vaccine 07/31/15 Given Zoster Vaccine Live 09/29/14 Given influenza virus vaccine, inactivated 1 08/27/14 Re corded influenza virus vaccine, inactivated 09/11/13 Give n influenza virus vaccine, inactivated 2 07/23/12 Gi mei tetanus/diphtheria/pertussis, acel(Tdap) 3 05/14/12 Given 1Result Comment: [09/29/2014] ADMINISTERED AT [facility] 2Admin Note: VIS /2 3Admin Note: VIS 12/08 Medications atorvastatin 80 mg oral tablet 1 tablet = 80 mg, By Mouth, Daily, # 30 tablet, 11 Refills, Maintenance, Tablet, Route to Pharmacy Electronically, [id number], [facility]/pharmacy #[id number] Start Date: 09/29/16 Status: Ordered calcium carbonate 1250 mg (500 mg elemental calcium) oral tablet 1,250 mg, 1, tablet, By Mouth, 2 times a day, # 60 tablet, Refills 0, Maintenance, 02/15/18 11:40:00 Start Date: 02/15/18 Status: Ordered CPAP Machine See Instructions, # 1 each, Maintenance, . Patient should be started on CPAP 9 with a heated humidifier. Recommend ordering a machine with compliance data capabilities and following residual AHI. Include all related equipment DX: heather, 12/13/12 12:... Start Date: 12/13/12 Status: Ordered dicyclomine 20 mg oral tablet 1 tablet = 20 mg, By Mouth, 4 times a day, 0 Refills, Maintenance, 09/13/19 9:25:07 EDT Start Date: 09/13/19 Status: Ordered docusate sodium 100 mg oral capsule 200 mg, 2, capsule, By Mouth, Daily at bedtime, PRN, # 20 capsule, Refills 0, Maintenance, for constipation, 12/23/16 10:03:36 Start Date: 12/23/16 Status: Ordered lactulose 20 gm oral powder for reconstitution 1 each = 20 Gm, By Mouth, Daily, 0 Refills, Maintenance, 09/13/19 9:25:24 EDT Start Date: 09/13/19 Status: Ordered loratadine 10 mg oral tablet 10 mg, 1, tablet, By Mouth, Daily, Refills 0, Maintenance, 04/19/17 12:12:10 Start Date: 04/19/17 Status: Ordered Mirtazapine = 15 mg, By Mouth, Daily at bedtime, 0 Refills, Maintenance, 09/03/18 14:11:51 EDT Start Date: 09/03/18 Status: Ordered Omeprazole = 20 mg, By Mouth, Daily, 0 Refills, Maintenance, 03/15/19 13:12:06 EDT Start Date: 03/15/19 Status: Ordered omeprazole 40 mg oral enteric coated capsule 1 capsule = 40 mg, By Mouth, Daily, # 90 capsule, 1 Refills, Maintenance, 09/17/18 15:21:07 EDT, ECCapsule Start Date: 09/17/18 Status: Ordered omeprazole 40 mg oral enteric coated capsule 1 capsule = 40 mg, By Mouth, 2 times a day, hold omeprazole 40mg once daily dosing during 14 days of treatment, # 28 capsule, 0 Refills, Maintenance, 09/28/18 15:47:00 EDT Start Date: 09/28/18 Stop Date: 10/12/18 Status: Ordered pantoprazole 20 mg oral delayed release tablet 1 tablet = 20 mg, By Mouth, Daily, # 30 tablet, 0 Refills, Maintenance, 05/16/22 15:11:00 EDT, CR Tablet Start Date: 05/16/22 Status: Ordered PEG-3350 with Electrolytes (Eqv-NuLYTELY) oral powder for reconstitution 240 mL, By Mouth, Every 10 minutes, # 4,000 mL, 0 Refills, Maintenance, 06/21/22 13:59:00 EDT, [id number], Please fill with any available gallon colon prep, 240 mL By Mouth Every 10 minutes, 160, cm, 05/31/22 10:27:00 EDT, Height Start Date: 06/21/22 Status: Ordered Plavix 75 mg oral tablet 75 mg, 1, tablet, By Mouth, Daily, # 30 tablet, Refills 5, Maintenance, 05/16/22 15:25:00 EDT, Partial fill upon patient request if the prescription is for a schedule II opioid drug. Start Date: 05/16/22 Status: Ordered Systane Balance 2 drops, Eyes, Both, 4 times a day, PRN as needed for dry eyes, 0 Refills, Maintenance, 02/15/18 11:47:35 Start Date: 02/15/18 Status: Ordered Walker See Instructions, # 1 units, Maintenance, use walker to aid in ambulation, 06/08/15 19:38:34, Compound Start Date: 06/08/15 Status: Ordered Problem List Condition Effective Dates Status Health Status Inform ant Belching symptom(Confirmed) Active Cyst of ovary(Confirmed) 1 Active DDD (degenerative disc disea se), lumbar(Confirmed) Active Abdominal pain, acute, epigastric(Confirmed) Active H/O Sjogren's disease(Confirmed) 2 Active Heartburn symptom(Confirmed) Active Helicobacter pylori (H. pylo ri) infection(Confirmed) 09/26/18 Active Lactose intolerance(Confirmed) Active Left lumbar radiculopathy(Confirmed) Active [place] (nonalcoholic steatohepatitis)(Confirmed) Active HEATHER (obstructive sleep apnea)(Confirmed) Active Chronic insomnia(Confirmed) Active Thyroid nodule(Confirmed) 3 Active Tubular adenoma of colon(Confirmed) 4 09/06/12 Active Vitamin D deficiency(Confirmed) Active 11.2 cm cyst adjacent to the left ovary, presumably arising from the left ovary. In addition, a tubular anechoic region is noted nearby which may represent a focal hydrosalpinx or other cystic pathology such as an elongated paraovarian or paratubal cyst. Please note. ASYMPTOMATIC. seen by BUTTON DECORATING MACHINE OPERATOR and advised rpt US if develops symptoms. 2Needs yearly lymph node exam to screen for lymphoma ultrasound with subcentimeter left thyroid nodue 4needs repeat colonoscopy in 5 years ie 2016 Social History Social History Type Response Smoking Status Never smoker entered on: 01/30/14 Sex
--- OUTSIDE RECORDS SUMMARY | 2023-09-07 13:08 | XMS_ITS | Continuity of Care Document ---
Author Name Unknown Organization [facility] Address [address] [place] [id number]- Care Team Providers Care Long Distance Operator Name Role Phone Jules Hammer MD, Jason Primary Care Phys ician [place] [facility] [place] 09/13/22 - 09/13/22 [facility] [address] [place] [id number]- Discharge Disposition: A-D/C Home Attending Physician: Shaun Castanon MD Admitting Physician: Shaun Castanon MD Referring Physician: Shaun Castanon MD Allergies, Adverse Reactions, Alerts Substance Reaction Severity Status aspirin 1 swelling per pt bleeds Severe Active Toradol facial swelling, Active 1Facial swelling/bleeding Immunizations Given and Recorded Vaccine Date Status Refusal Reason pneumococcal 13-valent vaccine 07/31/15 Given Zoster Vaccine Live 09/29/14 Given influenza virus vaccine, inactivated 1 08/27/14 Re corded influenza virus vaccine, inactivated 09/11/13 Give n influenza virus vaccine, inactivated 2 07/23/12 Gi mei tetanus/diphtheria/pertussis, acel(Tdap) 3 05/14/12 Given 1Result Comment: [09/29/2014] ADMINISTERED AT [facility] 2Admin Note: VIS 05/28 3Admin Note: VIS 12/08 Medications atorvastatin 80 mg oral tablet 1 tablet = 80 mg, By Mouth, Daily, # 30 tablet, 11 Refills, Maintenance, Tablet, Route to Pharmacy Electronically, [id number], [facility]/pharmacy #[id number] Start Date: 09/29/16 Status: Ordered calcium [...] 12/13/12 12:... Start Date: 12/13/12 Status: Ordered loratadine 10 mg oral tablet 10 mg, 1, tablet, By Mouth, Daily, Refills 0, Maintenance, 04/19/17 12:12:10 Start Date: 04/19/17 Status: Ordered Mirtazapine = 15 mg, By Mouth, Daily at bedtime, 0 Refills, Maintenance, 09/03/18 14:11:51 EDT Start Date: 09/03/18 Status: Ordered pantoprazole 20 mg oral delayed release tablet 1 tablet = 20 mg, By Mouth, Daily, # 30 tablet, 0 Refills, Maintenance, 05/16/22 15:11:00 EDT, CR Tablet Start Date: 05/16/22 Status: Ordered Plavix 75 mg oral tablet [...] Date: 06/08/15 Status: Ordered Problem List Condition Confirmation Course Effective Dates Status H ealth Status Informant Belching symptom Confirmed Active Cyst of ovary 1 Confirmed Active DDD (degenerative disc disease), lumbar Confirmed Active Abdominal pain, acute, epigastric Confirmed Active H/O Sjogren's disease 2 Confirmed Active Heartburn symptom Confirmed Active Helicobacter pylori (H. pylori) infection Confirmed 09/26/18 Active Lactose intolerance Confirmed Active Left lumbar radiculopathy Confirmed Active [place] (nonalcoholic steatohepatitis) Confirmed Active HEATHER (obstructive sleep apnea) Confirmed Active Chronic insomnia Confirmed Active Severe obesity Confirmed Active Thyroid nodule 3 Confirmed Active Tubular adenoma of colon 4 Confirmed 09/06/12 Active Vitamin D deficiency Confirmed Active 11.2 cm cyst adjacent to the left ovary, presumably arising from the left ovary. In addition, a tubular anechoic region is noted nearby which may represent a focal hydrosalpinx or other cystic pathology such as an elongated paraovarian or paratubal cyst. Please note. ASYMPTOMATIC. seen by [facility] SPECIAL LIBRARY and advised rpt US if develops symptoms. 2Needs yearly lymph node exam to screen for lymphoma ultrasound with subcentimeter left thyroid nodue 4needs repeat colonoscopy in 5 years ie 2017 Procedures Procedure Date Related Diagnosis Body Site Status Colonoscopy, flexible; diagn ostic, including collection of specimen(s) by brushing or washing, when performed (separate procedure) 09/13/22 Completed Vital Signs Most recent to oldest [Reference Range]: 1 2 3 Height 157 cm (09/13/22 12:53 PM) Weight 99.6 kg (09/13/22 12:53 PM) Oxygen Saturation [94-100 %] 96 % (09/13/22 2:17 PM) 100 % (09/13/22 2:05 PM) 96 % (09/13/22 12:53 PM) Pulse Rate [55-90 bpm] 92 bpm *H* (09/13/22 12:53 PM) Body Mass Index [18.5-24.99 kg/m2] 40.41 kg/m2 *>HHI* (09/13/22 12:53 PM) Blood Pressure [90-138/55-84 mm Hg] 105/64mm Hg (09/13/22 2:17 PM) 103/61mm Hg (09/13/22 2:05 PM) 144/77mm Hg *H* (09/13/22 12:53 PM) Respiratory Rate [16-30 br/min] 18 br/min (09/13/22 2:17 PM) 16 br/min (09/13/22 2:05 PM) 21 br/min (09/13/22 12:53 PM) Temperature [96.8-100.4 DegF] 97.4 DegF (09/13/22 12:53 PM) Liters per Minute 6 L/min (09/13/22 2:05 PM) Mode of Delivery (Oxygen) Room air (09/13/22 2:17 PM) Simple face mask (09/13/22 2:05 PM) Room air (09/13/22 12:53 PM) Blood pressure sites Arm, left (09/13/22 2:17 PM) Arm, left (09/13/22 2:05 PM) Arm, left (09/13/22 12:53 PM) Temperature Route Temporal (09/13/22 12:53 PM) Social History Social History Type Response Smoking Status Never smoker entered on: 01/30/14 Sex Patient Care team information Personnel Name: Jason Gunn MD Address: Address: [address] [place] [id number]
--- OUTSIDE RECORDS SUMMARY | 2023-09-07 13:08 | XMS_ITS | Continuity of Care Document ---
Author Name Unknown Organization [facility] Address [address] [place] [address]- Care Team Providers Care Tool Engine Lathe Set Up Operator Name Role Phone Jules Hammer MD, Jason Primary Care Phys ician [id number] Date(s): 01/28/21 - 02/27/[address] [address] Attending Physician: Fam Arreola Admitting Physician: AdmFam fonseca Referring Physician: AdmtrFam Allergies, Adverse Reactions, Alerts Substance Reaction Severity Status Toradol facial swelling, Active Immunizations Given and Recorded Vaccine Date Status Refusal Reason pneumococcal 13-valent vaccine 07/31/15 Given Zoster Vaccine Live 09/29/14 Given influenza virus vaccine, inactivated 1 08/27/14 Re corded influenza virus vaccine, inactivated 09/11/13 Give n influenza virus vaccine, inactivated 2 07/23/12 Gi mei tetanus/diphtheria/pertussis, acel(Tdap) 3 05/14/12 Given 1Result Comment: [09/29/2014] ADMINISTERED AT [facility] 2Admin Note: VIS 05/28 3Admin Note: VIS 12/08 Medications Aspirin Enteric Coated 81 mg oral delayed release tablet 1 tablet = 81 mg, By Mouth, Daily, to replace previous aspirin 81 mgs Rx. with food, # 30 tablet, 11 Refills, Maintenance, 09/22/17 14:13:50 Start Date: 09/22/17 Status: Ordered atorvastatin 80 mg oral tablet 1 tablet = 80 mg, By Mouth, Daily, # 30 tablet, 11 Refills, Maintenance, Tablet, Route to Pharmacy Electronically, [id number], [facility]/pharmacy #[id number] Start Date: 09/29/16 Status: Ordered calcium [...] Date: 09/28/18 Stop Date: 10/12/18 Status: Ordered Systane Balance 2 drops, Eyes, [...] paratubal cyst. Please note. ASYMPTOMATIC. seen by OLDER ADULT SOCIAL WORK SPECIALIST and advised rpt US if develops symptoms. 2Needs yearly lymph node exam to screen for lymphoma ultrasound with subcentimeter left thyroid nodue 4needs repeat colonoscopy in 5 years ie 2016 Social History Social History Type Response Smoking Status Never smoker entered on: 01/30/14 Sex
--- OUTSIDE RECORDS SUMMARY | 2023-09-07 13:09 | XMS_ITS | Continuity of Care Document ---
Author Name Unknown Organization [facility] Address [address] [place] [address] ve [address] [place] [address]- Care Team Providers Care Fisheries Technician Name Role Phone Rich MOSCOSO, Day Judge Primary Care Physici an Encounter [facility] Date(s): 05/10/23 - 08/10/23 [facility] [address] [place] [address]- Attending Physician: David STEPHENS, Dayami Harris Referring Physician: Siddharth Chicas NP Allergies, Adverse Reactions, Alerts No Known Allergies Immunizations Given and Recorded Vaccine Date Status Refusal Reason influenza virus vaccine, inactivated 07/25/22 Clarke rded influenza virus vaccine, inactivated 08/25/21 Clarke rded influenza virus vaccine, inactivated 11/02/20 Clarke rded zoster vaccine, inactivated 12/14/21 Recorded zoster vaccine, inactivated 09/20/21 Recorded pneumococcal 13-valent vaccine 10/07/16 Given pneumococcal 23-valent vaccine 10/12/15 Given Tet/Diphth/Acel, Pertussis (oldterm) 1 11/05/12 Gi mei 1Admin Note: VIS 12/20/2011 Medications albuterol CFC free 90 mcg/inh inhalation aerosol 2, puffs, Inhalation, Every 4 hours, PRN, # 1 each, Refills 2, Tot. Refills 2, Maintenance, 02/17/23 8:54:00 EDT, Route to Pharmacy Electronically, [id number], [facility], 167.6, cm, 02/17/23 8:37:00 EDT, Heig... Start Date: 02/17/23 Status: Ordered calcium (as carbonate)-vitamin D 500 mg-600 intl units oral tablet 1 tablet, By Mouth, 2 times a day, # 60 tablet, 5 Refills, Maintenance, 02/17/23 8:44:00 EDT, Tablet, [facility], 1 tablet By Mouth 2 times a day, 167.6, cm, 02/17/23 8:37:00 EDT, Height, 79.4, kg, 03/24/22 12:47:00 EDT, Dry Weight Start Date: 02/17/23 Status: Ordered Carafate 1 gm oral tablet 1 Gm, 1, tablet, By Mouth, 3 times a day before meals and bedtime, # 120 tablet, Refills 2, Tot. Refills 2, Maintenance, 02/04/22 15:00:00 EST, Route to Pharmacy Electronically, [facility], Partial fill upon patient request if the pres... Start Date: 02/04/22 Stop Date: 05/05/22 Status: Ordered Colace sodium 100 mg oral capsule 100 mg, 1, capsule, By Mouth, 2 times a day, PRN, with plenty of water., # 60 capsule, Refills 3, Tot. Refills 3, Maintenance, Constipation, 02/17/23 8:44:00 EDT, Route to Pharmacy Electronically, [facility], Pls D/c Senna & all its re... Start Date: 02/17/23 Status: Ordered diclofenac 1% topical gel 1 application, Topically, 4 times a day, PRN for pain, # 100 Gm, 2 Refills, Maintenance, 04/04/22 10:16:00 EDT, Gel, [facility], 167.6, cm, 04/04/22 10:00:00 EDT, Height, 79.4, kg, 03/24/22 12:47:00 EDT, Dry Weight Start Date: 04/04/22 Stop Date: 07/03/22 Status: Ordered Melatonin See Instructions, 5 mg Daily at bedtime as needed fr insomnia, 0 Refills, Maintenance, 04/04/22 10:38:00 EDT, Partial fill upon patient request if the prescription is for a schedule II opioid drug. Start Date: 04/04/22 Status: Ordered Prevacid 30 mg oral enteric coated capsule 1 capsule = 30 mg, By Mouth, Daily, # 30 capsule, 2 Refills, Maintenance, 04/04/22 10:15:00 EDT, ECCapsule, [facility] 167.6, cm, 04/04/22 10:00:00 EDT, Height, 79.4, kg, 03/24/22 12:47:00 EDT, Dry Weight Start Date: 04/04/22 Status: Ordered Spacer Spacer, See Instructions, # 1 each, Refills 0, Tot. Refills 0, Maintenance, Use with albuterol inhaler, 02/17/23 8:56:00 EDT, Compound, 167.6, cm, 02/17/23 8:37:00 EDT, Height, 79.4, kg, 03/24/22 12:47:00 EDT, Dry Weight Start Date: 02/17/23 Status: Ordered Problem List Condition Confirmation Course Effective Dates Status Health Status Informant Asthma Confirmed Active Colonoscopy 1, 2 Confirmed 10/19/12 Active Constipation Confirmed Active Stress incontinence Confirmed Active H/O heartburn Confirmed Active Hypercholesterolemia Confirmed 01/25/13 Active Blood glucose elevated Confirmed Active Hyperlipidemia Confirmed Active Reflux Esophagitis Confirmed 10/19/12 Active Bumps on skin Confirmed Active Urinary incontinence Confirmed Active 1due January 2022 2on 02/05- repaert in 10 yrs ( normal) Social History Social History Type Response Smoking Status Never smoker entered on: 01/13/15 Sex Patient Care team information Care Team Personnel Name: Day Villanueva NP Position: [facility] PCO Associate Professional Member Role: PCP Address: Address: [address] [place] [address]- Care Team Related Persons Name: BANG KIDD Address: [place] [address]
--- OUTSIDE RECORDS SUMMARY | 2023-09-07 13:09 | XMS_ITS | Continuity of Care Document ---
Author Name Unknown Organization [facility] Address [address] [place] [address]- Care Team Providers Care Electrical Machinist Name Role Phone Rich MOSCOSO, Day Judge Primary Care Physici an Encounter [facility] R [id number] Date(s): 05/09/23 - 06/28/[address] [address]- Attending Physician: Genie Hoffman MD Admitting Physician: Genie Hoffman MD Allergies, Adverse Reactions, Alerts No Known Allergies [...] 02/17/23 8:54:00 EDT, Route to Pharmacy Electronically, [id number], [facility], 167.6, cm, 02/17/23 8:37:00 EDT, Heig... Start Date: 02/17/23 Status: Ordered calcium (as carbonate)-vitamin D 500 mg-600 intl units oral tablet 1 tablet, By Mouth, 2 times a day, # 60 tablet, 5 Refills, Maintenance, 02/17/23 8:44:00 EDT, Tablet, [facility] [place], 1 tablet By Mouth 2 times a day, 167.6, cm, 02/17/23 8:37:00 EDT, Height, 79.4, kg, 03/24/22 12:47:00 EDT, Dry Weight Start Date: 02/17/23 Status: Ordered Carafate 1 gm oral tablet 1 Gm, 1, tablet, By Mouth, 3 times a day before meals and bedtime, # 120 tablet, Refills 2, Tot. Refills 2, Maintenance, 02/04/22 15:00:00 EST, Route to Pharmacy Electronically, [facility] [place], Partial fill upon patient request if the pres... Start Date: 02/04/22 Stop Date: 05/05/22 Status: Ordered Colace sodium 100 mg oral capsule 100 mg, 1, capsule, By Mouth, 2 times a day, PRN, with plenty of water., # 60 capsule, Refills 3, Tot. Refills 3, Maintenance, Constipation, 02/17/23 8:44:00 EDT, Route to Pharmacy Electronically, [facility] [place], Pls D/c Senna & all its re... Start Date: 02/17/23 Status: Ordered diclofenac 1% topical gel 1 application, Topically, 4 times a day, PRN for pain, # 100 Gm, 2 Refills, Maintenance, 04/04/22 10:16:00 EDT, Gel, [facility] [place], 167.6, cm, 04/04/22 10:00:00 EDT, Height, 79.4, [...] 2 Refills, Maintenance, 04/04/22 10:15:00 EDT, ECCapsule, [facility] 167.6, cm, 04/04/22 10:00:00 EDT, [...] Team Personnel Name: Day Villanueva NP Position: [facility] PCO Associate Professional Member Role: PCP Address: Address: [address] [place] [address]- Care Team Related Persons Name: BANG KIDD Address: [place] [address]
--- OUTSIDE RECORDS SUMMARY | 2023-09-07 13:09 | XMS_ITS | Continuity of Care Document ---
Author Name Unknown Organization [facility] Address [address] [place] [address] Dr ve [address] [place] [address]- Care Team Providers Care Skinner Pelts Name Role Phone Rich MOSCOSO, Day Judge Primary Care Physici an Encounter [facility] [place] Date(s): 08/15/23 - 08/22/23 [facility] [address] [place] [address]- Attending Physician: David STEPHENS, Dayami Harris Referring Physician: Day Villanueva NP Allergies, Adverse Reactions, Alerts Substance Reaction Severity Status Latex 1 Rash Active 1From gloves Immunizations Given and Recorded Vaccine Date Status [...] 02/17/23 8:54:00 EDT, Route to Pharmacy Electronically, [id number], [facility], 167.6, cm, 02/17/23 8:37:00 EDT, [place]ie... Start Date: 02/17/23 Status: Ordered calcium (as carbonate)-vitamin D 500 mg-600 intl units oral tablet 1 tablet, By Mouth, 2 times a day, # 60 tablet, 5 Refills, Maintenance, 02/17/23 8:44:00 EDT, Tablet, [facility], 1 tablet By Mouth 2 times a day, 167.6, cm, 02/17/23 8:37:00 EDT, Height, 79.4, kg, 03/24/22 12:47:00 EDT, Dry Weight Start Date: 02/17/23 Status: Ordered Calcium 600 +D By Mouth, 0 Refills, Maintenance, 08/15/23 10:43:00 EDT, Partial fill upon patient request if the prescription is for a schedule II opioid drug. Start Date: 08/15/23 Status: Ordered Colace sodium 100 mg oral capsule 100 mg, 1, capsule, By Mouth, 2 times a day, PRN, with plenty of water., # 60 capsule, Refills 3, Tot. Refills 3, Maintenance, Constipation, 02/17/23 8:44:00 EDT, Route to Pharmacy Electronically, [facility], Pls D/c Senna & all its re... Start Date: 02/17/23 Status: Ordered Collagen 0 Refills, Maintenance, 08/15/23 10:43:00 EDT, Partial fill upon patient request if the prescription is for a schedule II opioid drug. Start Date: 08/15/23 Status: Ordered Lilli Krill Oil [place]-3 1200 mg oral capsule 1 capsule = 1,200 mg, By Mouth, Daily, # 30 capsule, 0 Refills, Maintenance, 08/15/23 10:43:00 EDT,Capsule, Partial fill upon patient request if the prescription is for a schedule II opioid drug. Start Date: 08/15/23 Status: Ordered Melatonin See Instructions, 5 mg Daily at bedtime as needed fr insomnia, 0 Refills, Maintenance, 04/04/22 10:38:00 EDT, Partial fill upon patient request if the prescription is for a schedule II opioid drug. Start Date: 04/04/22 Status: Ordered Spacer Spacer, [...] 02/05- repaert in 10 yrs ( normal) Vital Signs Most recent to oldest [Reference Range]: 1 Height 167.6 cm (08/15/23 10:44 AM) Weight 76.8 kg (08/15/23 10:44 AM) Pulse Rate [55-90 bpm] 55 bpm (08/15/23 10:44 AM) Body Mass Index [18.5-24.99 kg/m2] 27.34 kg/m2 *H* (08/15/23 10:44 AM) Blood Pressure [90-138/55-84 mm Hg] 116/ 70mm Hg (08/15/23 10:44 AM) Respiratory Rate [16-30 br/min] 16 br/mi n (08/15/23 10:44 AM) Temperature [96.8-100.4 DegF] 97.6 DegF (08/15/23 10:44 AM) Blood pressure sites Arm, right (08/15/23 10:44 AM) Temperature Route Temporal (08/15/23 10:44 AM) Weight Obtained Via Standing scale (08/15/23 10:44 AM) Social History Social History Type Response Smoking Status Never smoker entered on: 01/13/15 Sex Patient Care team information Care Team Personnel Name: Day Villanueva NP Position: [facility] PCO Associate Professional Member Role: PCP Address: Address: [address] [place] [address] Care Team Related Persons Name: BANG KIDD Address: [place] [address]
--- OUTSIDE RECORDS SUMMARY | 2023-09-07 13:09 | XMS_ITS | Continuity of Care Document ---
Author Name Unknown Organization [facility] Address [address] [place] [address]- Care Team Providers Care Street Department Dispatcher Name Role Phone Rich MOSCOSO, Day Judge Primary Care Physici an [place] [facility] [place] [place] [place] [id number] Date(s): 07/27/23 - 08/26/[address] [address]- Attending Physician: AdmFam fonseca Admitting Physician: AdmtrFam Referring Physician: Admtr ArTamir Allergies, Adverse Reactions, Alerts Substance Reaction Severity [...] 02/17/23 8:54:00 EDT, Route to Pharmacy Electronically, [id number], [facility], 167.6, cm, 02/17/23 8:37:00 EDT, Heig... Start Date: 02/17/23 Status: Ordered calcium (as carbonate)-vitamin D 500 mg-600 intl units oral tablet 1 tablet, By Mouth, 2 times a day, # 60 tablet, 5 Refills, Maintenance, 02/17/23 8:44:00 EDT, Tablet, [facility]., 1 tablet By Mouth 2 times a [...] 02/17/23 8:44:00 EDT, Route to Pharmacy Electronically, [facility] [place] [facility], Pls D/c Senna & all its re... Start Date: 02/17/23 Status: Ordered Collagen 0 Refills, Maintenance, 08/15/23 10:43:00 EDT, Partial fill upon patient request if the prescription is for a schedule II opioid drug. Start Date: 08/15/23 Status: Ordered Lilli Krill Oil [place]-3 1200 mg oral capsule 1 capsule = [...] Status Never smoker entered on: 01/13/15 Sex Radiology * Event Display: Non [facility] Radiology Results Authored Date: Note * Carla Garza: PERFORM, SIGN, VERIFY Event Display: Patient Education/Instruction Authored Date: [id number] [facility] Clinical Summary Person Information Name CARLOS ALBERTO KIDD Age 62 Years 1950 12:00 AM PCP Day Beauchamp [id number] Reason for Visit: Allergy Info: NKA Vital Signs Height Weight BMI Blood Pressure / Temperature Pulse Rate Respiratory Rate 02 Sat Mode of Delivery / Medication Information Calcium And Vitamin D Combination (calcium-vitamin D 600 mg-400 intl units oral tablet) , 1 tab, Oral, twice a day, Refills: 5 Estradiol Topical (estradiol 0.01 mg/g vaginal cream) , See Instructions, Vaginally Daily at bedtime, Refills: 2 Omeprazole (omeprazole 20 mg oral enteric coated capsule) 1 capsule, Oral, Daily, 30 days, Refills:5 Simvastatin (simvastatin 10 mg oral tablet) 1 tablet, Oral, Daily at Bedtime, Refills: 3 Problem List Date Problem 02/17/13 Hypercholesterolemia 10/19/12 Reflux Esophagitis 10/19/12 Colonoscopy If the following labs have been performed in the last year, the most recent result is displayed below. Diagnostic Results Lab Result Value Date Lead Hemoglobin A1C 5.5 10/19/12 LDL 141 01/25/13 HDL 80 01/25/13 Triglycerides 95 01/25/13 Total Cholesterol 240 01/25/13 Disclaimer: The information provided is of a general nature and is intended to be used in conjunction with the recommendations and advice of your health care practitioner. Every effort has been made to ensure that the information provided is accurate and complete at the time it is provided to you however, as your needs change, or, as new information becomes available, different or additional instructions may be required. If you have questions, please consult with your primary care provider or pharmacist, as appropriate. This information is not intended to serve as substitution for assessment and evaluation by a qualified health care provider. If you do not have a primary care provider, you may find a [facility] provider by calling [facility] at [phone]. Patient Education Information Follow-up Details: Patient Education Material: Patient Care team information Care Team Personnel Name: Day Villanueva NP Position: [facility] PCO Associate Professional Member Role: PCP Address: Address: [address] [place] [address]- Care Team Related Persons Name: BANG KIDD Address: [place] [address]
--- OUTSIDE RECORDS SUMMARY | 2023-09-07 13:09 | XMS_ITS | Continuity of Care Document ---
Author Name Unknown Organization [facility] Address [address] [place] [address]- Care Team Providers Care Life Tester Outboard Motors Name Role Phone Rich MOSCOSO, Day Judge Primary Care Physici an [place] [facility] 06/06/23 - 08/05/[address] [address]- Attending Physician: Not on Staff, Attending MD Referring Physician: Day Villanueva NP Allergies, Adverse Reactions, Alerts No Known [...] 02/17/23 8:54:00 EDT, Route to Pharmacy Electronically, [id number], [facility], 167.6, cm, 02/17/23 8:37:00 EDT, Heig... Start Date: 02/17/23 Status: Ordered calcium (as carbonate)-vitamin D 500 mg-600 intl units oral tablet 1 tablet, By Mouth, 2 times a day, # 60 tablet, 5 Refills, Maintenance, 02/17/23 8:44:00 EDT, Tablet, [facility], 1 tablet By Mouth 2 times a day, 167.6, cm, 02/17/23 8:37:00 EDT, Height, 79.4, kg, 03/24/22 12:47:00 EDT, Dry Weight Start Date: 02/17/23 Status: Ordered Carafate 1 gm oral tablet 1 Gm, 1, tablet, By Mouth, 3 times a day before meals and bedtime, # 120 tablet, Refills 2, Tot. Refills 2, Maintenance, 02/04/22 15:00:00 EST, Route to Pharmacy Electronically, [facility], Partial fill upon patient request if the pres... Start Date: 02/04/22 Stop Date: 05/05/22 Status: Ordered Colace sodium 100 mg oral capsule 100 mg, 1, capsule, By Mouth, 2 times a day, PRN, with plenty of water., # 60 capsule, Refills 3, Tot. Refills 3, Maintenance, Constipation, 02/17/23 8:44:00 EDT, Route to Pharmacy Electronically, [facility], Pls D/c Senna & all its re... Start Date: 02/17/23 Status: Ordered diclofenac 1% topical gel 1 application, Topically, 4 times a day, PRN for pain, # 100 Gm, 2 Refills, Maintenance, 04/04/22 10:16:00 EDT, Gel, [facility], 167.6, cm, 04/04/22 10:00:00 EDT, Height, [...] 2 Refills, Maintenance, 04/04/22 10:15:00 EDT, ECCapsule, [facility] 167.6, cm, 04/04/22 10:00:00 EDT, [...] Team Personnel Name: Day Villanueva NP Position: [facility] PCO Associate Professional Member Role: PCP Address: Address: [address] [place] [address]- Care Team Related Persons Name: BANG KIDD Address: [place] [address]
--- OUTSIDE RECORDS SUMMARY | 2023-09-07 13:10 | XMS_ITS | Continuity of Care Document ---
Author Name Unknown Organization [facility] Address [address] [place] [address]- Care Team Providers Care Food Service Aide Name Role Phone Rich MOSCOSO, Day Judge Primary [id number]27[facility]23 - 08/12/[address] [address]- Attending Physician: Not on Staff, Attending MD Allergies, Adverse Reactions, Alerts No Known [...] 02/17/23 8:54:00 EDT, Route to Pharmacy Electronically, [id number], [facility], 167.6, cm, 02/17/23 8:37:00 EDT, Brendan... Start Date: 02/17/23 Status: Ordered calcium (as carbonate)-vitamin D 500 mg-600 intl units oral tablet 1 tablet, By Mouth, 2 times a day, # 60 tablet, 5 Refills, Maintenance, 02/17/23 8:44:00 EDT, Tablet, [facility], 1 tablet By Mouth 2 times a day, 167.6, cm, 02/17/23 8:37:00 EDT, Height, 79.4, kg, 03/24/22 12:47:00 EDT, Dry Weight Start Date: 02/17/23 Status: Ordered Carafate 1 gm oral tablet 1 Gm, 1, tablet, By Mouth, 3 times a day before meals and bedtime, # 120 tablet, Refills 2, Tot. Refills 2, Maintenance, 02/04/22 15:00:00 EST, Route to Pharmacy Electronically, [facility], Partial fill upon patient request if the pres... Start Date: 02/04/22 Stop Date: 05/05/22 Status: Ordered Colace sodium 100 mg oral capsule 100 mg, 1, capsule, By Mouth, 2 times a day, PRN, with plenty of water., # 60 capsule, Refills 3, Tot. Refills 3, Maintenance, Constipation, 02/17/23 8:44:00 EDT, Route to Pharmacy Electronically, [facility], Pls D/c Senna & all its re... Start Date: 02/17/23 Status: Ordered diclofenac 1% topical gel 1 application, Topically, 4 times a day, PRN for pain, # 100 Gm, 2 Refills, Maintenance, 04/04/22 10:16:00 EDT, Gel, [facility], 167.6, cm, 04/04/22 10:00:00 EDT, Height, 79.4, [...] 2 Refills, Maintenance, 04/04/22 10:15:00 EDT, ECCapsule, [facility] 167.6, cm, 04/04/22 10:00:00 EDT, [...] Associate Professional Member Role: PCP Address: Address: [address] [place] [address]- Care Team Related Persons Name: BANG KIDD Address: [place] [address]
--- OUTSIDE RECORDS SUMMARY | 2023-09-07 13:10 | XMS_ITS | Continuity of Care Document ---
Author Name Unknown Organization [facility] antoinette Address [address] [place] [address] [address] [place] [address]- Care Team Providers Care Mechanical Assembly Technician Name Role Phone Day Villanueva NP Primary Care Physici an En[facility] Date(s): 05/10/23 - 06/09/[address] [place], [place] [address] Allergies, Adverse Reactions, Alerts No Known Allergies [...] 02/17/23 8:54:00 EDT, Route to Pharmacy Electronically, [id number], [facility], 167.6, cm, 02/17/23 8:37:00 EDT, [place]... Start Date: 02/17/23 Status: Ordered calcium (as carbonate)-vitamin D 500 mg-600 intl units oral tablet 1 tablet, By Mouth, 2 times a day, # 60 tablet, 5 Refills, Maintenance, 02/17/23 8:44:00 EDT, Tablet, [facility], 1 tablet By Mouth 2 times a day, 167.6, cm, 02/17/23 8:37:00 EDT, Height, 79.4, kg, 03/24/22 12:47:00 EDT, Dry Weight Start Date: 02/17/23 Status: Ordered Carafate 1 gm oral tablet 1 Gm, 1, tablet, By Mouth, 3 times a day before meals and bedtime, # 120 tablet, Refills 2, Tot. Refills 2, Maintenance, 02/04/22 15:00:00 EST, Route to Pharmacy Electronically, [facility], Partial fill upon patient request if the pres... Start Date: 02/04/22 Stop Date: 05/05/22 Status: Ordered Colace sodium 100 mg oral capsule 100 mg, 1, capsule, By Mouth, 2 times a day, PRN, with plenty of water., # 60 capsule, Refills 3, Tot. Refills 3, Maintenance, Constipation, 02/17/23 8:44:00 EDT, Route to Pharmacy Electronically, [facility], Pls D/c Senna & all its re... Start Date: 02/17/23 Status: Ordered diclofenac 1% topical gel 1 application, Topically, 4 times a day, PRN for pain, # 100 Gm, 2 Refills, Maintenance, 04/04/22 10:16:00 EDT, Gel, [facility], 167.6, cm, 04/04/22 10:00:00 EDT, Height, [...] 2 Refills, Maintenance, 04/04/22 10:15:00 EDT, ECCapsule, [facility] 167.6, cm, 04/04/22 10:00:00 EDT, Height, [...] Associate Professional Member Role: PCP Address: Address: [address] [place] [address]- Care Team Related Persons Name: BANG KIDD Address: [place] [address]
--- OUTSIDE RECORDS SUMMARY | 2023-09-07 13:10 | XMS_ITS | Continuity of Care Document ---
Author Name Unknown Organization [facility] Address [address] [place] [id number]- Care Team Providers Care Clarifier Operator Helper Name Role Phone Rich MOSCOSO, Day Judge Primary Care Physici an Encounter [facility] Date(s): 05/29/23 - 06/28/[address] [address]- Allergies, Adverse Reactions, Alerts No Known Allergies [...] 02/17/23 8:54:00 EDT, Route to Pharmacy Electronically, [id number], [facility], cm, 02/17/23 8:37:00 EDT, Heig... Start Date: 02/17/23 Status: Ordered calcium (as carbonate)-vitamin D 500 mg-600 intl units oral tablet 1 tablet, By Mouth, 2 times a day, # 60 tablet, 5 Refills, Maintenance, 02/17/23 8:44:00 EDT, Tablet, [facility]., 1 tablet By Mouth 2 times a day, 167.6, cm, 02/17/23 8:37:00 EDT, Height, 79.4, kg, 03/24/22 12:47:00 EDT, Dry Weight Start Date: 02/17/23 Status: Ordered Carafate 1 gm oral tablet 1 Gm, 1, tablet, By Mouth, 3 times a day before meals and bedtime, # 120 tablet, Refills 2, Tot. Refills 2, Maintenance, 02/04/22 15:00:00 EST, Route to Pharmacy Electronically, [facility], Partial fill upon patient request if the pres... Start Date: 02/04/22 Stop Date: 05/05/22 Status: Ordered Colace sodium 100 mg oral capsule 100 mg, 1, capsule, By Mouth, 2 times a day, PRN, with plenty of water., # 60 capsule, Refills 3, Tot. Refills 3, Maintenance, Constipation, 02/17/23 8:44:00 EDT, Route to Pharmacy Electronically, [facility], Pls D/c Senna & all its re... Start Date: 02/17/23 Status: Ordered diclofenac 1% topical gel 1 application, Topically, 4 times a day, PRN for pain, # 100 Gm, 2 Refills, Maintenance, 04/04/22 10:16:00 EDT, Gel, [facility], 167.6, cm, 04/04/22 10:00:00 EDT, Height, [...] Refills, Maintenance, 04/04/22 10:15:00 EDT, ECCapsule, [facility] 167.6, cm, 04/04/22 10:00:00 EDT, Height, [...] Associate Professional Member Role: PCP Address: Address: [address] [place] [address]- Care Team Related Persons Name: BANG KIDD Address: [place] [address]
--- OUTSIDE RECORDS SUMMARY | 2023-09-07 13:10 | XMS_ITS | Continuity of Care Document ---
Author Name Unknown Organization [facility] Jade antoinette Address [address] [place] [address] [address] [place] [address]- Care Team Providers Care M48 M60 Armor Crewman Name Role Phone Day Villanueva NP Primary Care Physici an Encounter [facility] [place] Date(s): 05/10/23 - 06/09/23 [facility] [address] [place], [place] [address] Allergies, Adverse Reactions, Alerts No Known Allergies [...] 02/17/23 8:54:00 EDT, Route to Pharmacy Electronically, [id number], [facility].6, cm, 02/17/23 8:37:00 EDT, Brendan... Start Date: 02/17/23 Status: Ordered calcium (as carbonate)-vitamin D 500 mg-600 intl units oral tablet 1 tablet, By Mouth, 2 times a day, # 60 tablet, 5 Refills, Maintenance, 02/17/23 8:44:00 EDT, Tablet, [facility], 1 tablet By Mouth 2 times a day, 167.6, cm, 02/17/23 8:37:00 EDT, Height, 79.4, kg, 03/24/22 12:47:00 EDT, Dry Weight Start Date: 02/17/23 Status: Ordered Carafate 1 gm oral tablet 1 Gm, 1, tablet, By Mouth, 3 times a day before meals and bedtime, # 120 tablet, Refills 2, Tot. Refills 2, Maintenance, 02/04/22 15:00:00 EST, Route to Pharmacy Electronically, [facility], Partial fill upon patient request if the pres... Start Date: 02/04/22 Stop Date: 05/05/22 Status: Ordered Colace sodium 100 mg oral capsule 100 mg, 1, capsule, By Mouth, 2 times a day, PRN, with plenty of water., # 60 capsule, Refills 3, Tot. Refills 3, Maintenance, Constipation, 02/17/23 8:44:00 EDT, Route to Pharmacy Electronically, [facility], Pls D/c Senna & all its re... Start Date: 02/17/23 Status: Ordered diclofenac 1% topical gel 1 application, Topically, 4 times a day, PRN for pain, # 100 Gm, 2 Refills, Maintenance, 04/04/22 10:16:00 EDT, Gel, [facility], 167.6, cm, 04/04/22 10:00:00 EDT, Height, [...] 2 Refills, Maintenance, 04/04/22 10:15:00 EDT, ECCapsule, [facility] 167.6, cm, 04/04/22 10:00:00 [...] Associate Professional Member Role: PCP Address: Address: [address] [place] [address]- Care Team Related Persons Name: BANG KIDD Address: home [address] [place] [address]
--- OUTSIDE RECORDS SUMMARY | 2023-09-07 13:10 | XMS_ITS | Continuity of Care Document ---
Author Name Unknown Organization [facility] Address [address] [place] [address]- Care Team Providers Care Basketball Referee Name Role Phone Rich MOSCOSO, Day Judge Primary Care Physici an [place] [facility] [place]/07/23 - 07/07/[address] [address]- Allergies, Adverse Reactions, Alerts No Known Allergies [...] 02/17/23 8:54:00 EDT, Route to Pharmacy Electronically, [id number], [facility], 167.6, cm, 02/17/23 8:37:00 EDT, Heig... Start Date: 02/17/23 Status: Ordered calcium (as carbonate)-vitamin D 500 mg-600 intl units oral tablet 1 tablet, By Mouth, 2 times a day, # 60 tablet, 5 Refills, Maintenance, 02/17/23 8:44:00 EDT, Tablet, [facility], 1 tablet By Mouth 2 times a day, 167.6, cm, 02/17/23 8:37:00 EDT, Height, 79.4, kg, 03/24/22 12:47:00 EDT, Dry Weight Start Date: 02/17/23 Status: Ordered Carafate 1 gm oral tablet 1 Gm, 1, tablet, By Mouth, 3 times a day before meals and bedtime, # 120 tablet, Refills 2, Tot. Refills 2, Maintenance, 02/04/22 15:00:00 EST, Route to Pharmacy Electronically, [facility], Partial fill upon patient request if the pres... Start Date: 02/04/22 Stop Date: 05/05/22 Status: Ordered Colace sodium 100 mg oral capsule 100 mg, 1, capsule, By Mouth, 2 times a day, PRN, with plenty of water., # 60 capsule, Refills 3, Tot. Refills 3, Maintenance, Constipation, 02/17/23 8:44:00 EDT, Route to Pharmacy Electronically, [facility], Pls D/c Senna & all its re... Start Date: 02/17/23 Status: Ordered diclofenac 1% topical gel 1 application, Topically, 4 times a day, PRN for pain, # 100 Gm, 2 Refills, Maintenance, 04/04/22 10:16:00 EDT, Gel, [facility], 167.6, cm, 04/04/22 10:00:00 EDT, Height, 79.4, [...] 2 Refills, Maintenance, 04/04/22 10:15:00 EDT, ECCapsule, [facility] 167.6, cm, 04/04/22 10:00:00 EDT, [...] Associate Professional Member Role: PCP Address: Address: [address] [place] [address]- Care Team Related Persons Name: BANG KIDD Address: [place] [address]
--- NOTE | 2023-09-07 13:25 | MHC.OFFVIS ---
Intake Intake Visit Reasons: follow up/CT results Intake Note: Patient presents today for a follow-up on: CT RESULTS, COMPLETED 08/30 Meds- TOVIAZ Allergies to Antibiotic- No Known Allergies Blood Thinner- PLAVIX Allergies ketorolac [From TORADOL] Allergy (Severe, Verified 09/07/23 13:27) SWELLING-FACIAL, anaphylaxis aspirin Allergy (Unknown, Verified 09/07/23 13:27) blood in stool adhesive tape [ADHESIVE TAPE] Adverse Reaction (Intermediate, Verified 09/07/23 13:27) RASH Seasonal Allergies Allergy (Unknown, Uncoded 09/07/23 13:27) itching HPI follow up/CT results HPI Details Yesenia is a 73-year-old female who presents today via tele-visit for a follow-up review of CT scan result. LV -- 08/30/2023? She was last seen by me on 03/02/23 for recurrent urinary tract infections. 08/30/23--Cystoscopy was performed, findings, No suspicious bladder lesions. Mild Bladder wall thickening. I discussed that I want her to continue taking cranberry supplements and Toviaz prescribed for OAB symptoms. She was advised to follow-up in 6 months. Patient states that she went to ER at [facility] for acute abdominal pain. She has had a CAT scan during that time. Patient states that her doctor told her that she has a problem with her ureter, and she needs to discuss this with her urologist. She denies any irritative urinary symptoms at this time. The CT results are not available to me at this time. 10/08/23: She has had chronic back pain. She had concerns regarding her kidneys. I reassured the patient that the pain is not related to kidneys. We reviewed the CTAP w contrast done at [facility]. OAB symptoms stable on Toviaz 4 mg. 08/22/23--CTAP with contrast result reviewed: Kidneys WNL with the impression of no acute abnormality. Plan: Follow-up for overactive bladder. Continue bladder medication as directed. Toviaz 4 mg daily The patient will follow up in 6-9 months. [facility] Medical History Intestinal malabsorption following gastrectomy Fracture of wrist Diverticulosis UTI (urinary tract infection) Lactose intolerance Asthma Constipation Sciatica Sjogren's syndrome HEATHER on CPAP Obesity (BMI 30-39.9) GERD (gastroesophageal reflux disease) CAD (coronary artery disease) Lymphoma Malabsorption due to intolerance, not elsewhere classified Surgical History History of eyelid surgery H/O section S/P laparoscopic sleeve gastrectomy Family History Father No problems noted. Mother No problems noted. Brother No problems noted. Brother No problems noted. Brother No problems noted. Brother No problems noted. Brother No problems noted. Sister No problems noted. Sister No problems noted. Daughter No problems noted. Daughter No problems noted. Daughter No problems noted. Social History Alcohol intake: never Patient Tobacco Use Status: Never used Tobacco Review of Systems Const All systems reviewed & are unremarkable except as noted in HPI and below Reports no additional complaints Eyes Reports no additional complaints ENT Reports no additional complaints Card Reports no additional complaints Resp Reports no additional complaints GI Reports no additional complaints Musc Reports no additional complaints Skin/Breast Reports system reviewed and no additional complaints, except as documented Neuro Reports no additional complaints Psych Reports no additional complaints Endo Reports no additional complaints Matthias/Lymph Reports no additional complaints Aller/Immun Reports no additional complaints Assessment & Plan Assessment & Plan (1) OAB (overactive bladder): Code(s): N32.81 - Overactive bladder (2) Recurrent UTI: Code(s): N39.0 - Urinary tract infection, site not specified (3) Back pain: Code(s): M54.9 - Dorsalgia, unspecified Plan Follow-up for overactive bladder. Continue bladder medication as directed. The patient will follow up in 6-9 months. Patient Instructions: The patient had an opportunity to ask questions regarding treatment plan. All questions were answered. Imaging, Laboratory studies and physical exam results were discussed and reviewed in detail. No major barriers to understanding were identified. The patient expressed understanding and agreement with the above treatment plan. The patient is aware they should contact our office by phone for worsening of their current condition or the appearance of new symptoms. Compliance is encouraged with any medications and followup testing that is ordered. It is a privilege to be allowed the opportunity to participate in the urologic care of your patient. If you have any questions or concerns regarding treatment for the above conditions please do not hesitate to contact me. The office telephone contact is [phone]. This note is constructed in part using voice recognition software. While every effort has been made to ensure accuracy telecommunication operator errors may have been included. Yours sincerely, Mino Lei MD Telehealth Telehealth Location of provider rendering services: practice address Location of patient: address on file Patient Identification confirmed using: Name, : Yes Telehealth method: voice only Patient verbally consented to treatment: Yes Patient verbally consented to billing insurance company: Yes Patient informed of any privacy concerns related to visit: Yes Coding Level of Care Code Tele Est Pt Level 3 (42837) Diagnoses OAB (overactive bladder) N32.81 Recurrent UTI N39.0 Back pain M54.9
== END 2023-09-07 16:29 | disposition home or self-care (01) ==
LOC: HO.HUSH 13:06
PROVIDERS: PCP Internal Medicine; Visit Provider Urology
DX: N32.81 Overactive bladder (principal); N39.0 Urinary tract infection, site not specified; M54.9 Dorsalgia, unspecified
CPT/HCPCS: 99442

== ENCOUNTER → 2023-09-07 13:06 | Outpatient (BNVA) | payer OTHER, SELFPAY | PROVIDERS: PCP Internal Medicine; Visit Provider Urology ==

== ENCOUNTER 2023-11-02 15:01 | Outpatient (AMB) | payer OTHER, SELFPAY ==
[2023-11-02 15:13] VITALS: BP 120/60; PULSE 69; BMI 41.9
--- NOTE | 2023-11-02 15:13 | MHC.OFFVIS ---
Intake Vital Signs 11/02/23 15:13 Height 5 ft 2 in Weight 229 lb 4.492 oz BMI 41.9 BP 120/60 Blood Pressure Location Lt brachial Position Sitting Pulse 69 Pulse Source Pulse Oximeter Intake Visit Reasons: 6 mth f/up Intake Note: 6 mth f/up Pt its fine Commissions Specialist Required: No Accompanied by: Self / Same As Patient Allergies ketorolac [From TORADOL] Allergy (Severe, Verified 11/02/23 15:26) SWELLING-FACIAL, anaphylaxis aspirin Allergy (Unknown, Verified 11/02/23 15:26) blood in stool adhesive tape [ADHESIVE TAPE] Adverse Reaction (Intermediate, Verified 11/02/23 15:26) RASH Seasonal Allergies Allergy (Unknown, Uncoded 11/02/23 15:26) itching Medication List - Last Reconciled 11/02/23 by Yoko Cerna NP atorvastatin 40 mg PO DAILY calcium carbonate (Ultra Strength Antacid) 0 mg PO calcium citrate malate-vit D3 500-200 mg-unit tabs PO DAILY cholecalciferol (vitamin D3) 25 mcg PO DAILY clopidogrel (Plavix) 75 mg PO DAILY fesoterodine ER (Toviaz) 4 mg PO DAILY 90 days fluticasone propionate 50 mcg/actuation 1 spray intranasal DAILY ketotifen fumarate 0.025%(0.035%) (Eye Itch Relief) 0 drps ophthalmic (eye) loratadine 10 mg PO DAILY magnesium gluconate 27 mg PO DAILY mirtazapine 15 mg PO BEDTIME opwpdxaeusos-zyj-nwbw-FA-vit K 45 mg iron- 800 mcg-120 mcg (Bariatric Multivitamins) caps PO pantoprazole 20 mg PO DAILY propylene glycol 0.6% (Systane Balance) 1 drp ophthalmic (eye) DAILY PRN saliva substitute combo no.9 (Biotene Dry Mouth Oral Rinse mouthwash) 15 mL mucous membrane BID-QID PRN trazodone 100 mg PO BEDTIME vitamin B complex (Vitamins B Complex capsule) 1 cap PO DAILY HPI HPI Comments History of Present Illness Details 73-year-old female presents for 6 month follow-up. She had past testing for a continuing chest pain. This is the same pain she has had for some time now. Echocardiogram and pharmacological stress test came back without significant findings. She had a cardiac catheterization in 2016 showing mid LAD 50% stenosis. She only intakes one cup of caffeine a day. [facility] Medical History Intestinal malabsorption following gastrectomy Fracture of wrist Diverticulosis UTI (urinary tract infection) Lactose intolerance Asthma Constipation Sciatica Sjogren's syndrome HEATHER on CPAP Obesity (BMI 30-39.9) GERD (gastroesophageal reflux disease) CAD (coronary artery disease) Lymphoma Malabsorption due to intolerance, not elsewhere classified Surgical History History of eyelid surgery H/O section S/P laparoscopic sleeve gastrectomy Family History Father No problems noted. Mother No problems noted. Brother No problems noted. Brother No problems noted. Brother No problems noted. Brother No problems noted. Brother No problems noted. Sister No problems noted. Sister No problems noted. Daughter No problems noted. Daughter No problems noted. Daughter No problems noted. Social History Alcohol intake: never Patient Tobacco Use Status: Never used Tobacco Review of Systems Const Denies chills, Denies fatigue, Denies fever(s), Denies frequent falls, Denies weakness, Denies weight gain and Denies weight loss ENT Denies dizziness Card Denies chest pain, Denies leg edema, Denies lightheadedness, Denies palpitations, Denies dyspnea and Denies dyspnea on exertion Resp Denies cough, Denies dyspnea and Denies dyspnea on exertion GI Denies hematochezia Musc Denies abnormal gait, Denies muscle weakness, Denies numbness, Denies radiating pain into limb and Denies tingling Neuro Denies abnormal gait, Denies dizziness, Denies frequent falls, Denies numbness, Denies tingling and Denies weakness Endo Denies fatigue and Denies palpitations Physical Exam Vital Signs: Last Vital Signs Pulse 69 11/02/23 15:13 BP 120/60 11/02/23 15:13 BMI result Body Mass Index 41.9 Const General: healthy appearing and no acute distress Orientation/consciousness: patient oriented x3 HEENT Head: Yes normal to inspection Eyes General: appearance normal, both eyes and all related structures Neck Neck: Yes normal visual inspection Chest Chest palpation & inspection: normal inspection of the chest Resp Effort & Inspection: normal respiratory effort Auscultation: clear to auscultation bilaterally Cardio Jugular venous distension: no JVD Palpation: normal PMI Rate: regular rate Rhythm: regular rhythm Heart sounds: S1 normal heart sound present, S2 normal heart sound present, no click, no gallops, no murmurs and no rubs GI Inspection: Yes normal to inspection Palpation (GI): Soft to palpation Skin General skin exam: no rashes or lesions noted Neuro General: patient oriented x3 Extrem General: Yes normal to inspection Psych Appearance: grossly normal Assessment & Plan Assessment & Plan (1) CAD (coronary artery disease): Comment: Stable. Code(s): I25.10 - Atherosclerotic heart disease of [place] coronary artery without angina pectoris (2) Stable angina: Code(s): I20.8 - Other forms of angina pectoris Plan Continue all medications as prescribed. ED care if needed. Will discuss wit Dr. Lindo. Heart heathy diet and weight loss discussed. Coding Level of Care Code Est Pt Level 3 (07873) Diagnoses CAD (coronary artery disease) I25.10 Stable angina I20.8
== END 2023-11-02 15:41 | disposition home or self-care (01) ==
PROVIDERS: PCP Internal Medicine; Visit Provider Nurse Practitioner
DX: I25.118 Atherosclerotic heart disease of native coronary artery with other forms of angina pectoris (principal)
CPT/HCPCS: 99213

== ENCOUNTER → 2023-11-02 15:01 | Outpatient (BNVA) | payer OTHER, SELFPAY | PROVIDERS: PCP Internal Medicine; Visit Provider Nurse Practitioner | DX: I25.118 Atherosclerotic heart disease of native coronary artery with other forms of angina pectoris (principal) | CPT/HCPCS: 99212 ==

== ENCOUNTER 2023-11-15 13:45 | Outpatient (REF) | payer OTHER, SELFPAY ==
[2023-11-15 18:05] LABS: Appearance Urine Cloudy; Color Urine Yellow; Glucose Urine UA Negative (Negative); Leukocyte Esterase Urine Small (1+) (Negative); Nitrite Urine Negative (Negative); PH 5.5 (5.0-9.0); UMIC TRIGGER UA YES; Urine Blood Moderate (2+) (Negative); Urine Ketones Negative (Negative); Urine Protein Trace mg/dL (Neg-Trace)
[2023-11-15 18:09] LABS: Bacteria Urine Trace (None Seen); Hyaline Casts Urine 0-2 /LPF (0-2); Squamous Epithelial Cell Urine 0-2 /HPF (0-2); WBC Urine >50 /HPF (0-5)
== END 2023-11-15 13:46 | disposition home or self-care (01) ==
LOC: HO.CHCLDS 13:45
PROVIDERS: Visit Provider Urology
DX: N39.0 Urinary tract infection, site not specified (principal)
CPT/HCPCS: 81001; 87086; 87088; 87186

== ENCOUNTER 2023-12-07 13:02 | Outpatient (REF) | payer OTHER, SELFPAY | END 2023-12-07 13:03 | disposition home or self-care (01) | LOC: HO.MAMMO 13:02 | PROVIDERS: PCP Internal Medicine; Visit Provider Internal Medicine | DX: Z12.31 Encounter for screening mammogram for malignant neoplasm of breast (principal) | CPT/HCPCS: 77063; 77067 ==

== ENCOUNTER → 2023-12-07 13:30 | Outpatient (BNV) | payer OTHER, SELFPAY | PROVIDERS: PCP Internal Medicine; Visit Provider Radiology Diagnostic Radiology | DX: Z12.31 Encounter for screening mammogram for malignant neoplasm of breast (principal) | CPT/HCPCS: 77063; 77067 ==

== ENCOUNTER 2024-05-23 12:11 | Outpatient (AMB) | payer OTHER, SELFPAY ==
--- NOTE | 2024-05-23 12:11 | MHC.OFFVIS ---
Intake Visit Reasons: 7m follow up Intake Note: Yesenia is a 73 year old female who is a established patient for a telehealth visit for her 7 month follow up. Patient reports she is doing well. Allergies ketorolac [From TORADOL] Allergy (Severe, Verified 05/23/24 12:12) SWELLING-FACIAL, anaphylaxis aspirin Allergy (Unknown, Verified 05/23/24 12:12) blood in stool adhesive tape [ADHESIVE TAPE] Adverse Reaction (Intermediate, Verified 05/23/24 12:12) RASH Seasonal Allergies Allergy (Unknown, Uncoded 11/02/23 15:26) itching Medication List - Last Reconciled 05/23/24 by Mino Lei MD atorvastatin 40 mg PO DAILY calcium carbonate (Ultra Strength Antacid) 0 mg PO calcium citrate malate-vit D3 500-200 mg-unit tabs PO DAILY cholecalciferol (vitamin D3) 25 mcg PO DAILY clopidogrel (Plavix) 75 mg PO DAILY fesoterodine ER (Toviaz) 4 mg PO DAILY 90 days fluticasone propionate 50 mcg/actuation 1 spray intranasal DAILY ketotifen fumarate 0.025%(0.035%) (Eye Itch Relief) 0 drps ophthalmic (eye) loratadine 10 mg PO DAILY magnesium gluconate 27 mg PO DAILY metoprolol tartrate 25 mg PO BID 30 days mirtazapine 15 mg PO BEDTIME gaegyfgtqelc-ves-ixak-FA-vit K 45 mg iron- 800 mcg-120 mcg (Bariatric Multivitamins) caps PO nitrofurantoin monohyd/m-cryst 100 mg (Macrobid) 100 mg PO BID 7 days pantoprazole 20 mg PO DAILY propylene glycol 0.6% (Systane Balance) 1 drp ophthalmic (eye) DAILY PRN saliva substitute combo no.9 (Biotene Dry Mouth Oral Rinse mouthwash) 15 mL mucous membrane BID-QID PRN trazodone 100 mg PO BEDTIME vitamin B complex (Vitamins B Complex capsule) 1 cap PO DAILY HPI Comments Details: 05/23/24--Yesenia is a 73-year-old female who presents today for telehealth follow-up. She is followed for overactive bladder and recurrent UTIs. She is prescribed Toviaz 4 mg for overactive bladder symptoms. She is using daily cranberry supplements and probiotics. She states that she had 1 UTI since her last visit in August. She states that her bladder symptoms are stable on the Toviaz. Will continue the Toviaz 4 mg daily, and I want her to continue to use the cranberry supplements. Follow-up in 1 year. Review of charts: 08/30/2023? She is followed today for recurrent UTI.?She was last seen by me on 03/02/23 for recurrent urinary tract infections. Cystoscopy was performed, findings, No suspicious bladder lesions. Mild Bladder wall thickening.?I discussed that I want her to continue taking cranberry supplements and Toviaz perscribed for OAB symptoms. She was advised to follow-up in 6 months. Patient states that she went to ER at [facility] for acute abdominal pain. She has had a CAT scan during that time. Patient states that her doctor told her that she has a problem with her ureter, and she needs to discuss this with her urologist. She denies any irritative urinary symptoms at this time. The CT results are not available to me at this time. 03/02/2023-- The patient is here for follow-up for recurrent UTIs.?She was given trial of medication for OAB symptoms and states having benefits with it.?The patient is taking cranberry supplements.?States having occasional urine leakage first void? in the morning? Denies episodes of nocturia. Denies having UTI in the interim.?Renal US results reviewed?01/10/2023--? Suggestive of mild cortical thinning bilaterally. Negative for parenchyma lesions, hydronephrosis or renal calculi. Evaluation today: Blood: negative, leukocytes: negative. The patient was provided naproxen 500 mg and ciprofloxacin 500 mg x 1 dose pre-procedure today. Cystoscopy: No suspicious bladder lesions. Mild Bladder wall thickening.?I discussed that I want her to continue taking cranberry supplements and Toviaz PENDING SALE TO [facility] Medical History Intestinal malabsorption following gastrectomy Fracture of wrist Diverticulosis UTI (urinary tract infection) Lactose intolerance Asthma Constipation Sciatica Sjogren's syndrome HEATHER on CPAP Obesity (BMI 30-39.9) GERD (gastroesophageal reflux disease) CAD (coronary artery disease) Lymphoma Malabsorption due to intolerance, not elsewhere classified Surgical History History of eyelid surgery H/O section S/P laparoscopic sleeve gastrectomy Family History Father No problems noted. Mother No problems noted. Brother No problems noted. Brother No problems noted. Brother No problems noted. Brother No problems noted. Brother No problems noted. Sister No problems noted. Sister No problems noted. Daughter No problems noted. Daughter No problems noted. Daughter No problems noted. Social History Alcohol intake: never Patient Tobacco Use Status: Never used Tobacco Review of Systems Const All systems reviewed & are unremarkable except as noted in HPI and below Reports no additional complaints Eyes Reports no additional complaints ENT Reports no additional complaints Card Reports no additional complaints Resp Reports no additional complaints GI Reports no additional complaints Reports as per HPI Musc Reports no additional complaints Skin/Breast Reports system reviewed and no additional complaints, except as documented Neuro Reports no additional complaints Psych Reports no additional complaints Endo Reports no additional complaints Matthias/Lymph Reports no additional complaints Aller/Immun Reports no additional complaints Telehealth Telehealth Telehealth Platform: [facility] Location of provider rendering services: practice address Location of patient: address on file Patient Identification confirmed using: Name, : Yes Telehealth method: voice only Patient verbally consented to treatment: Yes Patient verbally consented to billing insurance company: Yes Patient informed of any privacy concerns related to visit: Yes Minutes spent on Phone/Video with Pt.: 15 Assessment & Plan Assessment & Plan (1) OAB (overactive bladder): Code(s): N32.81 - Overactive bladder Category: Medical (2) Recurrent UTI: Code(s): N39.0 - Urinary tract infection, site not specified Category: Medical Plan Follow-up for overactive bladder. recurrent UTI's Continue bladder medication as directed. The patient will follow up in one year. Medications: Refilled fesoterodine ER (Toviaz) 4 mg PO DAILY 90 days 90 tabs 3RF Patient Instructions: The patient had an opportunity to ask questions regarding treatment plan. The patient expressed understanding and agreement with the above treatment plan. The patient is aware they should contact our office by phone for worsening of their current condition or the appearance of new symptoms. Compliance is encouraged with any medications and followup testing that is ordered. It is a privilege to be allowed the opportunity to participate in the urologic care of your patient. If you have any questions or concerns regarding treatment for the above conditions please do not hesitate to contact me. The office telephone contact is [phone]. This note is constructed in part using voice recognition software. While every effort has been made to ensure accuracy digital pre press operator errors may have been included. Yours sincerely, Mino Lei MD Coding Level of Care Code Tele Est Pt Level 3 (73775) Diagnoses OAB (overactive bladder) N32.81 Recurrent UTI N39.0
--- OUTSIDE RECORDS SUMMARY | 2024-05-23 12:12 | XMS_ITS | Continuity of Care Document ---
Author Organization [facility] Address [address] [place] [address]- Care Team Providers Care Compliance Associate Name Role Phone Day Villanueva NP Primary Care Physici an Encounter [facility] Date(s): 03/12/24 - 04/04/[address] [address]- Encounter Diagnosis Low back pain, unspecified(Final) - Discharge Disposition: A-D/C Home Attending Physician: Genie Hoffman MD Admitting Physician: Genie Hoffman MD Referring Physician: Genie Hoffman MD Allergies, Adverse Reactions, Alerts Substance Reaction Severity Status Latex 1 Rash Active 1From gloves Immunizations Given and Recorded Vaccine Date Status Refusal Reason influenza virus vaccine, inactivated 01/04/24 Give n influenza virus vaccine, inactivated 07/25/22 Clarke rded [...] 02/17/23 8:54:00 EDT, Route to Pharmacy Electronically, [id number], [facility], 167.6, cm, 02/17/23 8:37:00 EDT, [place]... Start Date: 02/17/23 Status: Ordered benzonatate 100 mg oral capsule 1 capsule = 100 mg, By Mouth, 3 times a day, # 30 capsule, 1 Refills, Maintenance, 03/04/24 14:59:00 EDT, [facility], Partial fill upon patient request if the prescription is for a schedule II opioid drug., 168, cm, 03/04/24 14:38:00 E... Start Date: 03/04/24 Stop Date: 03/24/24 Status: Ordered calamine-diphenhydramine 14%-2% topical cream See Instructions, Topically 3 times a day clean affected area before application apply pea sized amount to area of concern, # 60 Gm, 0 Refills, Maintenance, 12/06/23 15:13:00 EST, [facility], Partial fill upon patient request if the... Start Date: 12/06/23 Status: Ordered calcium (as carbonate)-vitamin D 500 mg-600 intl units oral tablet 1 tablet, By Mouth, 2 times a day, # 60 tablet, 11 Refills, Maintenance, 10/25/23 12:41:00 EST, Tablet, [facility], 1 tablet By Mouth 2 times a day, 167.6, cm, 08/15/23 10:44:00 EDT, Height, 79.4, kg, 03/24/22 12:47:00 EDT, Dry Weight Start Date: 10/25/23 Status: Ordered Calcium 600 +D By Mouth, 0 Refills, Maintenance, 08/15/23 10:43:00 EDT, Partial fill upon patient request if the prescription is for a schedule II opioid drug. Start Date: 08/15/23 Status: Ordered Colace sodium 100 mg oral capsule 100 mg, 1, capsule, By Mouth, 2 times a day, PRN, with plenty of water., # 60 capsule, Refills 5, Tot. Refills 5, Maintenance, Constipation, 10/23/23 9:20:00 EST, Route to Pharmacy Electronically, [facility], Pls D/c Senna & all its re... Start Date: 10/23/23 Status: Ordered Collagen 0 Refills, Maintenance, 08/15/23 10:43:00 EDT, Partial fill upon patient request if the prescription is for a schedule II opioid drug. Start Date: 08/15/23 Status: Ordered Lilli Krill Oil [place]-3 1200 mg oral capsule 1 capsule = 1,200 mg, By Mouth, Daily, # 30 capsule, 0 Refills, Maintenance, 08/15/23 10:43:00 EDT,Capsule, Partial fill upon patient request if the prescription is for a schedule II opioid drug. Start Date: 08/15/23 Status: Ordered lidocaine 5% topical ointment See Instructions, APPLY TO ANAL AREA evry 8 hrs NEEDED FOR PAIN, # 70 Gm, 1 Refills, Maintenance, 03/18/24 18:43:00 EDT[facility] APPLY TO ANAL AREA evry 8 hrs NEEDED FOR PAIN, 168, cm, 03/04/24 14:38:00 EDT, Height, 77.5,... Start Date: 03/18/24 Status: Ordered Melatonin See Instructions, 5 mg [...] Dry Weight Start Date: 02/17/23 Status: Ordered Zithromax Z-Ede 250 mg oral tablet 1 pack/packet, By Mouth, Once, # 6 tablet, 0 Refills, Soft Stop, 03/04/24 14:59:00 EDT, Tablet, [facility] Partial fill upon patient request if the prescription is for a schedule II opioid drug., 168, cm, 03/04/24 14:38:00 EDT, Height... Start Date: 03/04/24 Status: Ordered Problem List Condition Confirmation Course Effective Dates Status Health Status Informant Asthma Confirmed Active Colonoscopy 1, 2 Confirmed 10/19/12 Active Constipation Confirmed Active Osteopenia 3 Confirmed Active Stress incontinence Confirmed Active H/O heartburn Confirmed Active Hypercholesterolemia Confirmed 01/25/13 Active Blood glucose elevated Confirmed Active Hyperlipidemia Confirmed Active Reflux Esophagitis Confirmed 10/19/12 Active Bumps on skin Confirmed Active Urinary incontinence Confirmed Active 1due January 2022 2on 02/05- repaert in 10 yrs ( normal) 3Osteopenia of the Spine Social History Social History Type Response Smoking Status Never smoker entered on: 01/13/15 Sex Patient Care team information Care Team Personnel Name: Day Villanueva NP Position: [facility] PCO Associate Professional Member Role: PCP Address: Address: [address] [place] [address]- Care Team Related Persons Name: BANG KIDD Address: home [address] [place] [address]
--- OUTSIDE RECORDS SUMMARY | 2024-05-23 12:12 | XMS_ITS | Continuity of Care Document ---
Author Organization [facility] Address [address] [place] [address]- Care Team Providers Care Director Of Speech Pathology Name Role Phone Rich MOSCOSO, Day Crawford Tagtaylor Primary Care Physici an Encounter [facility] Date(s): 02/24/24 - 04/03/[address] [address] Attending Physician: Genie Hoffman MD Admitting Physician: [...] 02/17/23 8:54:00 EDT, Route to Pharmacy Electronically, [id number], [facility] 167.6, cm, 02/17/23 8:37:00 EDT, [place]... Start Date: 02/17/23 Status: Ordered benzonatate 100 mg oral capsule 1 capsule = 100 mg, By Mouth, 3 times a day, # 30 capsule, 1 Refills, Maintenance, 03/04/24 14:59:00 EDT, [facility], Partial fill upon patient request if the prescription is for a schedule II opioid drug., 168, cm, 03/04/24 14:38:00 E... Start Date: 03/04/24 Stop Date: 03/24/24 Status: Ordered calamine-diphenhydramine 14%-2% topical cream See Instructions, Topically 3 times a day clean affected area before application apply pea sized amount to area of concern, # 60 Gm, 0 Refills, Maintenance, 12/06/23 15:13:00 EST, [facility], Partial fill upon patient request if the... Start Date: 12/06/23 Status: Ordered calcium (as carbonate)-vitamin D 500 mg-600 intl units oral tablet 1 tablet, By Mouth, 2 times a day, # 60 tablet, 11 Refills, Maintenance, 10/25/23 12:41:00 EST, Tablet, [facility], 1 tablet By Mouth 2 times [...] 10/23/23 9:20:00 EST, Route to Pharmacy Electronically, [facility], Pls D/c Senna & all its re... Start Date: 10/23/23 Status: Ordered Collagen 0 Refills, Maintenance, 08/15/23 10:43:00 EDT, Partial fill upon patient request if the prescription is for a schedule II opioid drug. Start Date: 08/15/23 Status: Ordered Lilli Krill Oil [place]-3 1200 mg oral capsule 1 capsule = [...] Gm, 1 Refills, Maintenance, 03/18/24 18:43:00 EDT, [facility] APPLY TO ANAL AREA evry 8 hrs [...] Refills, Soft Stop, 03/04/24 14:59:00 EDT, Tablet, [facility]., Partial fill upon patient request if the [...] Team Personnel Name: Day Villanueva NP Position: [facility] PCO Associate Professional Member Role: PCP Address: Address: [address] [place] [address]- Care Team Related Persons Name: BANG KIDD Address: home [address] [place] [address]
--- OUTSIDE RECORDS SUMMARY | 2024-05-23 12:12 | XMS_ITS | Continuity of Care Document ---
Author Organization [facility] Address [address] [place] [address]- Care Team Providers Care Fraternity House Cook Name Role Phone Rich MOSCOSO, Day Judge Primary Care Physici an Encounter [facility] Date(s): 10/30/23 - 11/29/[address] [address]- Allergies, Adverse Reactions, Alerts Substance Reaction Severity [...] 02/17/23 8:54:00 EDT, Route to Pharmacy Electronically, [id number], [facility], 167.6, cm, 02/17/23 8:37:00 EDT, Brendan... Start Date: 02/17/23 Status: Ordered calcium (as carbonate)-vitamin D 500 mg-600 intl units oral tablet 1 tablet, By Mouth, 2 times a day, # 60 tablet, 11 Refills, Maintenance, 10/25/23 12:41:00 EST, Tablet, [facility]., 1 tablet By Mouth 2 times a [...] 10/23/23 9:20:00 EST, Route to Pharmacy Electronically, [facility], Pls D/c Senna & all its re... Start Date: 10/23/23 Status: Ordered Collagen 0 Refills, Maintenance, 08/15/23 10:43:00 EDT, Partial fill upon patient request if the prescription is for a schedule II opioid drug. Start Date: 08/15/23 Status: Ordered Lilli Krill Oil [place]-3 1200 mg oral capsule 1 capsule = [...] Associate Professional Member Role: PCP Address: Address: [address] [place] [address]- Care Team Related Persons Name: BANG KIDD Address: home [address] [place] [address]
--- OUTSIDE RECORDS SUMMARY | 2024-05-23 12:13 | XMS_ITS | Continuity of Care Document ---
Author Organization [facility] Address [address] [place] [address]- Care Team Providers Care Plug Overwrap Machine Tender Name Role Phone Rich MOSCOSO, Day Yvette Tagtaylor Primary Care Physici an Encounter [id number] Date(s): 02/11/24 - 03/21/[address] [address] Attending Physician: Genie Hoffman MD Admitting Physician: [...] 02/17/23 8:54:00 EDT, Route to Pharmacy Electronically, [id number], [facility], 167.6, cm, 02/17/23 8:37:00 EDT, [place]... Start Date: 02/17/23 Status: Ordered benzonatate 100 mg oral capsule 1 capsule = 100 mg, By Mouth, 3 times a day, # 30 capsule, 1 Refills, Maintenance, 03/04/24 14:59:00 EDT, [facility], Partial fill upon patient request if the prescription is for a schedule II opioid drug., 168, cm, 03/04/24 14:38:00 E... Start Date: 03/04/24 Stop Date: 03/24/24 Status: Ordered calamine-diphenhydramine 14%-2% topical cream See Instructions, Topically 3 times a day clean affected area before application apply pea sized amount to area of concern, # 60 Gm, 0 Refills, Maintenance, 12/06/23 15:13:00 EST, [facility], Partial fill upon patient request if the... Start Date: 12/06/23 Status: Ordered calcium (as carbonate)-vitamin D 500 mg-600 intl units oral tablet 1 tablet, By Mouth, 2 times a day, # 60 tablet, 11 Refills, Maintenance, 10/25/23 12:41:00 EST, Tablet, [facility], 1 tablet By Mouth 2 times [...] 10/23/23 9:20:00 EST, Route to Pharmacy Electronically, [facility], Pls D/c Senna & all its re... Start Date: 10/23/23 Status: Ordered Collagen 0 Refills, Maintenance, 08/15/23 10:43:00 EDT, Partial fill upon patient request if the prescription is for a schedule II opioid drug. Start Date: 08/15/23 Status: Ordered Lilli Krill Oil [place]-3 1200 mg oral capsule 1 capsule = [...] Gm, 1 Refills, Maintenance, 03/18/24 18:43:00 EDT, [facility] APPLY TO ANAL AREA evry 8 hrs [...] Refills, Soft Stop, 03/04/24 14:59:00 EDT, Tablet, [facility]., Partial fill upon patient request if the [...] Team Personnel Name: Day Villanueva NP Position: [facility] PCO Associate Professional Member Role: PCP Address: Address: [address] [place] [address]- Care Team Related Persons Name: BANG KIDD Address: home [address] [place] [address]
--- OUTSIDE RECORDS SUMMARY | 2024-05-23 12:13 | XMS_ITS | Continuity of Care Document ---
Author Organization [facility] Address [address] [place] [address]- Care Team Providers Care Sailing Instructor Name Role Phone Rich MOSCOSO, Day Judge Primary Care Physici an Encounter [facility] Date(s): 10/23/23 - 11/22/[address] [address]- Allergies, Adverse Reactions, Alerts Substance Reaction Severity [...] 02/17/23 8:54:00 EDT, Route to Pharmacy Electronically, [id number], [facility], 167.6, cm, 02/17/23 8:37:00 EDT, Brendan... Start Date: 02/17/23 Status: Ordered calcium (as carbonate)-vitamin D 500 mg-600 intl units oral tablet 1 tablet, By Mouth, 2 times a day, # 60 tablet, 11 Refills, Maintenance, 10/25/23 12:41:00 EST, Tablet, [facility]., 1 tablet By Mouth 2 times [...] 10/23/23 9:20:00 EST, Route to Pharmacy Electronically, [facility], Pls D/c Senna & all its re... Start Date: 10/23/23 Status: Ordered Collagen 0 Refills, Maintenance, 08/15/23 10:43:00 EDT, Partial fill upon patient request if the prescription is for a schedule II opioid drug. Start Date: 08/15/23 Status: Ordered Lilli Krill Oil [place]-3 1200 mg oral capsule 1 capsule = [...] Associate Professional Member Role: PCP Address: Address: [address] [place] [address]- Care Team Related Persons Name: BANG KIDD Address: home [address] [place] [address]
--- OUTSIDE RECORDS SUMMARY | 2024-05-23 12:13 | XMS_ITS | Continuity of Care Document ---
Author Organization [facility] Address [address] [place] [address]- Care Team Providers Care Pediatric Radiologist Name Role Phone Rich MOSCOSO, Day Judge Primary Care Physici an Encounter [facility] Date(s): 03/04/24 - 04/03/[address] [address] Attending Physician: Fam Arreola Admitting Physician: AdmtrFam Referring Physician: AdmtrFam Allergies, Adverse Reactions, Alerts [...] 02/17/23 8:54:00 EDT, Route to Pharmacy Electronically, [id number], [facility], 167.6, cm, 02/17/23 8:37:00 EDT, [place]... Start Date: 02/17/23 Status: Ordered benzonatate 100 mg oral capsule 1 capsule = 100 mg, By Mouth, 3 times a day, # 30 capsule, 1 Refills, Maintenance, 03/04/24 14:59:00 EDT, [facility], Partial fill upon patient request if the prescription is for a schedule II opioid drug., 168, cm, 03/04/24 14:38:00 E... Start Date: 03/04/24 Stop Date: 03/24/24 Status: Ordered calamine-diphenhydramine 14%-2% topical cream See Instructions, Topically 3 times a day clean affected area before application apply pea sized amount to area of concern, # 60 Gm, 0 Refills, Maintenance, 12/06/23 15:13:00 EST, [facility], Partial fill upon patient request if the... Start Date: 12/06/23 Status: Ordered calcium (as carbonate)-vitamin D 500 mg-600 intl units oral tablet 1 tablet, By Mouth, 2 times a day, # 60 tablet, 11 Refills, Maintenance, 10/25/23 12:41:00 EST, Tablet, [facility], 1 tablet By Mouth 2 times [...] 10/23/23 9:20:00 EST, Route to Pharmacy Electronically, [facility], Pls D/c Melinda & all its re... Start Date: 10/23/23 Status: Ordered Collagen 0 Refills, Maintenance, 08/15/23 10:43:00 EDT, Partial fill upon patient request if the prescription is for a schedule II opioid drug. Start Date: 08/15/23 Status: Ordered Lilli Krill Oil [place]-3 1200 mg oral capsule 1 capsule = [...] Gm, 1 Refills, Maintenance, 03/18/24 18:43:00 EDT, [facility] APPLY TO ANAL AREA evry 8 [...] Refills, Soft Stop, 03/04/24 14:59:00 EDT, Tablet, [facility] Partial fill upon patient request if [...] Display: Non BH Radiology Results Authored Date: [id number] Note * Carla Garza: PERFORM, SIGN, VERIFY Event Display: Patient Education/Instruction Authored Date: [id number] [facility] Clinical Summary Person Information Name CARLOS ALBERTO KIDD Age 62 Years 1950 12:00 AM PCP Nito MOSCOSO , Day Judge PCP Reason for Visit: Allergy Info: NKA Vital [...] primary care provider, you may find a [facility] provider by calling [facility] at [phone]. Patient Education Information Follow-up Details: Patient Education Material: Patient Care team information Care Team Personnel Name: Day Villanueva NP Position: [facility] PCO Associate Professional Member Role: PCP Address: Address: [address] [place] [address]- Care Team Related Persons Name: BANG KIDD Address: [place] [address]
--- OUTSIDE RECORDS SUMMARY | 2024-05-23 12:13 | XMS_ITS | Continuity of Care Document ---
Author Organization [facility] Address [address] [place] [id number]- Care Team Providers Care Police Chief Name Role Phone Rich MOSCOSO, Day Crawford Tagtaylor Primary Care Physici an [place] [facility] [place]/04[place]24 - 04/03/[address] [address] Attending Physician: Fam Arreola Admitting Physician: AdmFam [...] 02/17/23 8:54:00 EDT, Route to Pharmacy Electronically, [id number], [facility], 167.6, cm, 02/17/23 8:37:00 EDT, [place]... Start Date: 02/17/23 Status: Ordered benzonatate 100 mg oral capsule 1 capsule = 100 mg, By Mouth, 3 times a day, # 30 capsule, 1 Refills, Maintenance, 03/04/24 14:59:00 EDT, [facility], Partial fill upon patient request if the prescription is for a schedule II opioid drug., 168, cm, 03/04/24 14:38:00 E... Start Date: 03/04/24 Stop Date: 03/24/24 Status: Ordered calamine-diphenhydramine 14%-2% topical cream See Instructions, Topically 3 times a day clean affected area before application apply pea sized amount to area of concern, # 60 Gm, 0 Refills, Maintenance, 12/06/23 15:13:00 EST, [facility], Partial fill upon patient request if the... Start Date: 12/06/23 Status: Ordered calcium (as carbonate)-vitamin D 500 mg-600 intl units oral tablet 1 tablet, By Mouth, 2 times a day, # 60 tablet, 11 Refills, Maintenance, 10/25/23 12:41:00 EST, Tablet, [facility], 1 tablet By Mouth 2 [...] 10/23/23 9:20:00 EST, Route to Pharmacy Electronically, [facility], Pls D/c Senna & all its re... Start Date: 10/23/23 Status: Ordered Collagen 0 Refills, Maintenance, 08/15/23 10:43:00 EDT, Partial fill upon patient request if the prescription is for a schedule II opioid drug. Start Date: 08/15/23 Status: Ordered Lilli Krill Oil [place]-3 1200 mg oral capsule 1 capsule = [...] Gm, 1 Refills, Maintenance, 03/18/24 18:43:00 EDT, [facility] APPLY TO ANAL AREA evry 8 [...] Refills, Soft Stop, 03/04/24 14:59:00 EDT, Tablet, [facility]., Partial fill upon patient request if the [...] Team Personnel Name: Day Villanueva NP Position: [facility] PCO Associate Professional Member Role: PCP Address: Address: [address] [place] [address]- Care Team Related Persons Name: BANG KIDD Address: home [address] [place] [address]
--- OUTSIDE RECORDS SUMMARY | 2024-05-23 12:13 | XMS_ITS | Continuity of Care Document ---
Author Organization [facility] Address [address] [place] [id number]- Care Team Providers Care Bicycle Taxi Driver Name Role Phone Rich MOSCOSO, Day Judge Primary Care Physici an Encounter [facility] Date(s): 01/30/24 - 02/29/[address] [address]- Allergies, Adverse Reactions, Alerts Substance Reaction Severity Status Latex 1 Rash Active 1From gloves Immunizations Given and Recorded Vaccine Date Status Refusal Reason influenza virus vaccine, inactivated 01/04/24 Give n influenza virus vaccine, inactivated 07/25/22 Clarke rded influenza virus vaccine, inactivated 08/25/21 Clarke rded influenza virus vaccine, inactivated 11/02/20 Lcarke rded zoster vaccine, inactivated 12/14/21 Recorded zoster vaccine, inactivated 09/20/21 Recorded pneumococcal 13-valent vaccine 10/07/16 Given pneumococcal 23-valent vaccine 10/12/15 Given Tet/Diphth/Acel, Pertussis (oldterm) 1 11/05/12 Gi mei 1Admin Note: VIS 12/20/2011 Medications albuterol CFC free 90 mcg/inh inhalation aerosol 2, puffs, Inhalation, Every 4 hours, PRN, # 1 each, Refills 2, Tot. Refills 2, Maintenance, 02/17/23 8:54:00 EDT, Route to Pharmacy Electronically, [id number], [facility], 167.6, cm, 02/17/23 8:37:00 EDT, Brendan... Start Date: 02/17/23 Status: Ordered calamine-diphenhydramine 14%-2% topical cream See Instructions, Topically 3 times a day clean affected area before application apply pea sized amount to area of concern, # 60 Gm, 0 Refills, Maintenance, 12/06/23 15:13:00 EST, [facility], Partial fill upon patient request if the... Start Date: 12/06/23 Status: Ordered calcium (as carbonate)-vitamin D 500 mg-600 intl units oral tablet 1 tablet, By Mouth, 2 times a day, # 60 tablet, 11 Refills, Maintenance, 10/25/23 12:41:00 EST, Tablet, [facility], 1 tablet By Mouth 2 times [...] 10/23/23 9:20:00 EST, Route to Pharmacy Electronically, [facility], Pls D/c Melinda & all its re... Start Date: 10/23/23 Status: Ordered Collagen 0 Refills, Maintenance, 08/15/23 10:43:00 EDT, Partial fill upon patient request if the prescription is for a schedule II opioid drug. Start Date: 08/15/23 Status: Ordered Lilli Krill Oil [place]-3 1200 mg oral capsule 1 capsule = 1,200 mg, By Mouth, Daily, # 30 capsule, 0 Refills, Maintenance, 08/15/23 10:43:00 EDT,Capsule, Partial fill upon patient request if the prescription is for a schedule II opioid drug. Start Date: 08/15/23 Status: Ordered lidocaine 5% topical ointment See Instructions, APPLY TO ANAL AREA evry 8 hrs NEEDED FOR PAIN, # 70 Gm, 1 Refills, Maintenance, 01/04/24 15:20:00 EST, [facility], Partial fill upon patient request if the prescription is for a schedule II opioid drug., APPLY TO... Start Date: 01/04/24 Status: Ordered Melatonin See Instructions, 5 mg [...] Team Personnel Name: Day Villanueva NP Position: [facility] PCO Associate Professional Member Role: PCP Address: Address: [address] [place] [id number]- Care Team Related Persons Name: KIDDBANG Porter Address: home [address] [place] [address]
--- OUTSIDE RECORDS SUMMARY | 2024-05-23 12:13 | XMS_ITS | Continuity of Care Document ---
Author Organization [facility] Address [address] [place] [address]- Care Team Providers Care Fibreglass Gun Hand Name Role Phone Day Villanueva NP Primary Care Physici an Encounter [facility] Date(s): 01/30/24 - 01/30/[address] [address]- Encounter Diagnosis Musculoskeletal back pain(Final) - 01/30/24 Discharge Disposition: A-D/C Home Attending Physician: Krishna Woods MD Admitting Physician: Krishna Woods MD Referring Physician: Not on Staff, Referring MD Allergies, Adverse Reactions, Alerts Substance Reaction [...] 02/17/23 8:54:00 EDT, Route to Pharmacy Electronically, [id number], [facility], 167.6, cm, 02/17/23 8:37:00 EDT, [place]... Start Date: 02/17/23 Status: Ordered calamine-diphenhydramine 14%-2% topical cream See Instructions, Topically 3 times a day clean affected area before application apply pea sized amount to area of concern, # 60 Gm, 0 Refills, Maintenance, 12/06/23 15:13:00 EST, [facility], Partial fill upon patient request if the... Start Date: 12/06/23 Status: Ordered calcium (as carbonate)-vitamin D 500 mg-600 intl units oral tablet 1 tablet, By Mouth, 2 times a day, # 60 tablet, 11 Refills, Maintenance, 10/25/23 12:41:00 EST, Tablet, [facility], 1 tablet By Mouth [...] 10/23/23 9:20:00 EST, Route to Pharmacy Electronically, [facility], Pls D/c Senna & all its re... Start Date: 10/23/23 Status: Ordered Collagen 0 Refills, Maintenance, 08/15/23 10:43:00 EDT, Partial fill upon patient request if the prescription is for a schedule II opioid drug. Start Date: 08/15/23 Status: Ordered Lilli Krill Oil [place]-3 1200 mg oral capsule 1 capsule = [...] Gm, 1 Refills, Maintenance, 01/04/24 15:20:00 EST, [facility], Partial fill upon patient request [...] oldest [Reference Range]: 1 2 3 Height 168 cm (01/30/24 9:39 AM) 168 cm (01/30/24 7:39 AM) Oxygen Saturation [94-100 %] 98 % (01/30/24 9:39 AM) 100 % (01/30/24 7:39 AM) 99 % (01/30/24 7:36 AM) Pulse Rate [55-90 bpm] 18 bpm *L* (01/30/24 9:39 AM) 89 bpm (01/30/24 7:39 AM) 104 bpm *H* (01/30/24 7:36 AM) Blood Pressure [90-138/55-84 mm Hg] 96/63mm Hg (01/30/24 9:39 AM) 121/71mm Hg (01/30/24 7:39 AM) Respiratory Rate [16-30 br/min] 20 br/min (01/30/24 9:39 AM) 18 br/min (01/30/24 7:39 AM) 18 br/min (01/30/24 7:36 AM) Temperature [96.8-100.4 DegF] 98 DegF (01/30/24 9:39 AM) 98.2 DegF (01/30/24 7:39 AM) Mode of Delivery (Oxygen) Room air (01/30/24 9:39 AM) Room air (01/30/24 7:39 AM) Room air (01/30/24 7:36 AM) Blood pressure sites Arm, right (01/30/24 9:39 AM) Arm, left (01/30/24:39 AM) Temperature Route Oral (01/30/24 9:39 AM) Oral (01/30/24 7:39 AM) Dry Weight 77.5 kg (01/30/24 9:39 AM) 77.5 kg (01/30/24:39 AM) Dry Weight Obtained Via Patient/family s tated (01/30/24 7:39 AM) Social History Social History Type Response Smoking Status Never smoker entered on: 01/13/15 Sex Note * Krishna Woods MD: PERFORM Event Display: Patient Education Leaflets Authored Date: [id number] Back Pain (Acute or Chronic) ?? [id number] Back Pain (Acute or Chronic) Back pain is one of the most common problems. The good news is that most people feel better in 1 to2 weeks, and most of the rest in 1 to 2 months. Most people can remain active. People who have pain??describe it differently???not??everyone is the same. ??? The pain can be sharp, stabbing, shooting, aching, cramping or burning. ??? Movement, standing,bending, lifting, sitting, or walking may worsen pain. ??? It can be limited to one spot or area, or it can be more generalized. ??? It can spread upwards, to the front, or go down your arms or legs (sciatica). ??? It can cause muscle spasm. Most of the time, mechanical problems with the muscles??or spine cause the pain. Mechanical problems??are usually caused by an injury to the muscles or ligaments. Illness can cause back pain, but it's usually not caused by a serious illness. Mechanical problems include:? Physical activity such as sports, exercise, work, or normal activity ??? Overexertion, lifting,pushing, pulling incorrectly or too aggressively ??? Sudden twisting, bending, or stretching from an accident, or accidental movement ??? Poor posture ??? Stretching or moving wrong, without noticingpain at the time ??? Poor coordination, lack of regular exercise (check with your doctor about this) ??? Spinal disc disease or arthritis ??? Stress Pain can also be related to , or illness such as appendicitis, bladder or kidney infections, kidney stones, and pelvic infections. Acute back pain usually gets better in??1 to 2 weeks. Back pain related to disk disease, arthritis in the spinal joints, or narrowing of the spinal canal (spinal stenosis) can become chronic and lastfor months or years. Unless you had a physical injury such as a car accident or fall, X-rays are usually not needed for the first assessment of back pain. If pain continues and does not respond to medical treatment, you may need X-rays and other tests. Home care Try this home care advice: ??? When in bed, try??to find a position of comfort. A firm mattress is best. Try lying flat on your back with pillows under your knees. You can also try lying on your side with your knees bent up toward your chest and a pillow between your knees. ??? At first, don't try to stretch out the sore spots. If there is a strain, it's not like the good soreness you get after exercising without an injury. In this case, stretching may make it worse. ??? Don't sit for long periods, as in a long car ride or during other??travel. This puts more stress on the lower back than standing or walking. ??? During the first 24 to 72 hours after an acute injury or flare up of chronic back pain, apply an ice pack to the painful area for 20 minutes and then remove it for 20 minutes. Do this over a period of 60 to 90 minutes or several times a day. This will reduce swelling and pain. Wrap the ice pack in a thintowel or plastic to protect your skin. ??? You can start with ice, then switch to heat. Heat (hot shower, hot bath, or heating pad) reduces pain and works well for muscle spasms. Heat can be applied to the painful area for 20 minutes then remove it for 20 minutes. Do this over a period of 60 to 90 minutes or several times a day. Don't sleep on a heating pad. It can lead to skin estrada or tissue damage. ??? You can alternate ice and heat therapy. Talk with your doctor about??the best treatment for your back pain. ??? Therapeutic massage can help relax the back muscles without stretching them. ??? Be aware of safe lifting methods. Don't lift anything without stretching first. Medicines Talk to your doctor before using medicine, especially if you have other medical problems or are taking other medicines. ??? You may use [id number]-zeg-[id number] medicine as directed on the bottle to control pain, unless another pain medicine was prescribed. Talk with your healthcare provider before using these medicines if you have chronic conditions such as diabetes, liver or kidney disease, stomach ulcers, or digestive bleeding. Also talk with your provider if you take blood thinners. ??? Be careful if you are given a prescription medicines, narcotics, or medicine for muscle spasms. They can cause drowsiness, affect your coordination, reflexes, and judgment. Don't drive or operate heavy machinery. ?? Follow-up care Follow up with your healthcare provider, or as advised.?? If X-rays were taken, you will be told of any new findings that may affect your care. ?? Call 911 Call 911 if any of the following occur: ??? Trouble breathing ??? Confusion ??? Very drowsy or trouble awakening ??? Fainting or loss of consciousness ??? Rapid or very slow heart rate ??? Loss of bowel or bladder control ?? When to seek medical advice Call your healthcare provider right away if any of these occur:? Pain gets worse or spreads toyour legs ??? Your bowel or bladder control changes ??? Fever ??? Blood in your urine ??? Weakness or numbness in one or both legs ??? Numbness in the groin or genital area ?? Last Reviewed Date: 2021 ?? [id number] [employer]. All rights reserved. This information is not intended as a substitute for professional medical care. Always follow your healthcare professional's instructions. ?? Patient Care team information Care Team Personnel Name: Day Villanueva NP Position: [facility] PCO Associate Professional Member Role: PCP Address: Address: [address] [place] [address] Care Team Related Persons Name: BANG KIDD Address: [place] [address]
--- OUTSIDE RECORDS SUMMARY | 2024-05-23 12:14 | XMS_ITS | Continuity of Care Document ---
Author Organization [facility] ter Address [address] [place] [address]- Care Team Providers Care Cottage Master Name Role Phone Day Villanueva NP Primary Care Physici an [facility]counter [facility] Date(s): 12/06/23 - 12/07/[address] [address]- Encounter Diagnosis LLQ pain(Final) - 12/06/23 Discharge Disposition: A-D/C Walkout Attending Physician: Shira Nieto DO Admitting Physician: Shira Nieto DO Referring Physician: Not on Staff, Referring MD [...] 02/17/23 8:54:00 EDT, Route to Pharmacy Electronically, [id number][facility], cm, 02/17/23 8:37:00 EDT, He[place]... Start Date: 02/17/23 Status: Ordered calamine-diphenhydramine 14%-2% topical cream See Instructions, Topically 3 times a day clean affected area before application apply pea sized amount to area of concern, # 60 Gm, 0 Refills, Maintenance, 12/06/23 15:13:00 EST, [facility], Partial fill upon patient request if the... Start Date: 12/06/23 Status: Ordered calcium (as carbonate)-vitamin D 500 mg-600 intl units oral tablet 1 tablet, By Mouth, 2 times a day, # 60 tablet, 11 Refills, Maintenance, 10/25/23 12:41:00 EST, Tablet, [facility], 1 tablet By Mouth 2 times a [...] 10/23/23 9:20:00 EST, Route to Pharmacy Electronically, [facility] Pl[facility] D/c Senna & all its re... Start Date: 10/23/23 Status: Ordered Collagen 0 Refills, Maintenance, 08/15/23 10:43:00 EDT, Partial fill upon patient request if the prescription is for a schedule II opioid drug. Start Date: 08/15/23 Status: Ordered Lilli Krill Oil [place]-3 1200 mg oral capsule 1 capsule = [...] 02/05- repaert in 10 yrs ( normal) Results Radiology Reports * Exam Date Time Procedure Performing Provider Status 12/06/23 11:[address] Abd/Pelvis W/ IV Contrast Only Sakina Rojo; Auth (Verified) Notes: (CT Abd/Pelvis W/ IV Contrast Only) Reason For Exam: LLQ abdominal pain;Other: RESULT: CT Abd/Pelvis W/ IV Contrast Only CT Abd/Pelvis W/ IV Contrast Only Hx of Present Illness: pt failed treatment for UTI Kidney infection last month. Continued back pain, dysuria and frequency.; Reason: Other:; LLQ abdominal pain; Clinical Question(s): Diverticulitis; Order Comment: TECHNIQUE: Spiral CT through the abdomen and pelvis with IV contrast formatted in 3 planes. 100 cc of Omnipaque 300 was administered intravenously. This study was performed without oral contrast. Weight-based protocol using automatic tube modulation was used to optimize exposure parameters. COMPARISON: None. 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 Visualized Chest: Lung bases are clear. No pleural effusion. The heart is normal in size. No pericardial effusion. Diaphragm: Normal. Liver: A few subcentimeter low-attenuation liver lesions which are too small to fully characterize,but likely represent simple cysts. Gallbladder: Absent consistent with prior cholecystectomy. Bile ducts: Moderate intrahepatic bile duct dilatation with common bile duct measuring up to 1 cm with tapering within the pancreatic head. Spleen: Normal. Pancreas: Normal. Adrenal glands: Normal. Kidneys and ureters: No hydronephrosis, stones, or suspicious masses. There is simple cyst within the midpole of the right kidney. Bladder: Clinical thickening.. Reproductive organs: Unremarkable. Stomach, small bowel, and large bowel: There is moderate amount of stool throughout the colon. Appendix: Normal. Peritoneum and retroperitoneum: No ascites or pneumoperitoneum. No omental or mesenteric lesions. Lymph nodes: No enlarged lymph nodes. Blood vessels: Normal. No aneurysm. No evidence of venous thrombosis. Abdominal and pelvic wall: Unremarkable. Bones: No acute abnormality. IMPRESSION: Possible cystitis in the right clinical setting. Recommend correlation patient's urinalysis. Moderate intrahepatic bile dictation, Dr. 1 cm with tapering in the pancreatic head. WSN: [id number] Ordering Physician: Hailey Carmona Dictated By: Fernanda Huizar MD Dictated Date/Time: 12/06/23 11:11 p Reviewed By: Fernanda Huizar MD Signed By: Fernanda Huizar MD Signed Date/Time: 12/06/23 11:11 pm Transcribed By: JEANMARIE Transcribed Date/Time: 12/06/23 11:02 pm Vital Signs Most recent to oldest [Reference Range]: 1 2 3 Height 168 cm (12/06/23 10:33 PM) 168 cm (12/06/23 10:00 AM) Oxygen Saturation [94-100 %] 98 % (12/06/23 10:33 PM) 96 % (12/06/23 8:00 PM) 96 % (12/06/23 5:00 PM) Pulse Rate [55-90 bpm] 55 bpm (12/06/23 10:33 PM) 59 bpm (12/06/23 8:00 PM) 69 bpm (12/06/23 5:00 PM) Blood Pressure [90-138/55-84 mm Hg] 112/66mm Hg (12/06/23 10:33 PM) 120/80mm Hg (12/06/23 8:00 PM) 120/76mm Hg (12/06/23 5:00 PM) Respiratory Rate [16-30 br/min] 18 br/min (12/06/23 10:33 PM) 17 br/min (12/06/23 8:00 PM) 17 br/min (12/06/23 5:00 PM) Temperature [96.8-100.4 DegF] 98.3 DegF (12/06/23 8:00 PM) 98.3 DegF (12/06/23 5:00 PM) 98.5 DegF (12/06/23 4:00 PM) Mode of Delivery (Oxygen) Room air (12/06/23 10:33 PM) Room air (12/06/23 8:00 PM) Room air (12/06/23 5:00 PM) Blood pressure sites Arm, left (12/06/23 8:00 PM) Arm, left (12/06/23 5:00 PM) Arm, left (12/06/23 4:00 PM) Temperature Route Oral (12/06/23 8:00 PM) Oral (12/06/23 5:00 PM) Oral (12/06/23 4:00 PM) Dry Weight 79.4 kg (12/06/23 10:33 PM) 79.4 kg (12/06/23 10:00 AM) Dry Weight Obtained Via Patient/family s tated (12/06/23 10:00 AM) Social History Social History Type Response Smoking Status Never smoker entered on: 01/13/15 Sex Note * James JOHNSON, Yelitza aRya: PERFORM Event Display: Patient Education Leaflets Authored Date: [id number] Unknown Causes of Abdominal Pain(Adult) ?? [id number] Unknown Causes of Abdominal Pain(Adult) The exact cause of your belly (abdominal) pain is not clear. Your exam and tests don't suggest a dangerous cause at this time. This does not mean that this is something to worry about. Everyone likesto know the exact cause of the problem. But sometimes with belly pain, there is no clear-cut cause,and this could be a good thing. Your symptoms can be treated, and you should feel better.?? Your condition does not seem serious now. But sometimes the signs of a serious problem may take more time to appear. For this reason,??it's important for you to watch for any new symptoms, problems,??or worsening of your condition. Over the next few days, the abdominal pain may come and go. Or it may be constant. Other common symptoms can include nausea and vomiting. Sometimes it can be difficult to tell if you feel nauseous. You may just feel bad and not connect that feeling to nausea. Constipation, diarrhea, and a fever maygo along with the pain. The pain may continue even if treated correctly over the following days. Depending on how things go, sometimes the cause can become clear and you may need more??or different treatment. You may also need other evaluations, medicines, or tests. Home care Your healthcare provider may prescribe medicine for pain, symptoms, or an infection. ??Follow the healthcare provider's instructions for taking these medicines. General care ??? Rest as much as you can until your next exam. No strenuous activities. ??? Try to not do anything that may have caused your symptoms. This might be not taking any medicines unless otherwise directed by your healthcare provider. It might be not eating certain foods or doing certain activities. ??? Find positions that ease discomfort. A small pillow placed on your belly may help relieve pain. ??? Something warm on your belly such as a heating pad may help, but be careful not to burn yourself. Diet ??? Don???t??force yourself to eat, especially if having cramps, vomiting, or diarrhea. ??? Water is important so you don't get dehydrated. Soup may also be good. Sports drinks may also help, especially if they are not too acidic. Don't drink sugary drinks as this can make things worse. Take liquids in small amounts. Don???t??guzzle them. ??? Caffeine sometimes makes the pain and cramping worse. ??? Don???t take??dairy products if you have vomiting or diarrhea. ??? Don't eat large amounts at a time. Eat several small meals during the day instead of 2 or 3 larger meals. Wait a few minutesbetween bites. ??? Eat a diet low in fiber (called a low-residue diet). Foods allowed include refined breads, white rice, fruit and vegetable juices without pulp, tender meats. These foods will pass more easily through the intestine. ??? Don???t have??whole-grain foods, whole fruits and vegetables,meats, seeds and nuts, fried or fatty foods, dairy, alcohol and spicy foods until your symptoms go away. ?? Follow-up care Follow up with your healthcare provider, or as advised, if your pain does not begin to improve in the next 24 hours. ?? Call 911 Call?? 911 if any of these occur: ??? Trouble breathing ??? Confusion ??? Fainting or loss of consciousness ??? Rapid heart rate ??? Seizure ?? When to seek medical advice Call your healthcare provider right away if any of these occur: ??? Pain gets worse or moves to theright lower abdomen ??? New or worsening vomiting or diarrhea ??? Swelling of the abdomen ??? Unable to pass stool for more than??3 days ??? Fever of 100.4??F (38??C) or higher, or as directed by your healthcare provider ??? Blood in vomit or bowel movements (dark red or black color) ??? Yellow color of eyes and skin (jaundice) ??? Weakness, dizziness ??? Chest, arm, back, neck, or jaw pain ??? Can't keep down medicines, liquids, or water because of too much vomiting ??? If you have a vagina: unexpected vaginal bleeding or missed period ?? Last Reviewed Date: 2021 ?? [phone] [employer] All rights reserved. This information is not intended as a substitute for professional medical care. Always follow your healthcare professional's instructions. ?? Patient Care team information Care Team Personnel Name: Day Villanueva NP Position: [facility] PCO Associate Professional Member Role: PCP Address: Address: [address] [place] [address] Name: Shira Nieto DO Position: [facility] Resident Member Role: ED Attending Physician Address: Address: [address] [place] [address] Name: Yelitza Gomez Position: [facility] Associate Professional Member Role: ED Physician Traffic Line Painter Address: Address: [address] [place] [address] Name: Shanae Villagomez Position: [facility] ED [facility] Name: [facility] HERNANDEZ, Maryuri Position: S ED RN W/OE and Tasks Member Role: Research Care Team Related Persons Name: BANG KIDD Address: [address] [address]
--- OUTSIDE RECORDS SUMMARY | 2024-05-23 12:14 | XMS_ITS | Continuity of Care Document ---
Author Organization [facility] Address [address] [place] [address]- Care Team Providers Care Investment Manager Name Role Phone Day Villanueva NP Primary Care Physici an Encounter [facility] Date(s): 04/03/24 - 05/03/[address] [address] Attending Physician: AdmFam fonseca Admitting Physician: AdmtrFam Referring Physician: Admtr, Ar8 Allergies, Adverse Reactions, Alerts Substance Reaction Severity [...] 02/17/23 8:54:00 EDT, Route to Pharmacy Electronically, [id number], [facility], 167.6, cm, 02/17/23 8:37:00 EDT, Heig... Start Date: 02/17/23 Status: Ordered benzonatate 100 mg oral capsule 1 capsule = 100 mg, By Mouth, 3 times a day, # 30 capsule, 1 Refills, Maintenance, 03/04/24 14:59:00 EDT, [facility], Partial fill upon patient request if the prescription is for a schedule II opioid drug., 168, cm, 03/04/24 14:38:00 E... Start Date: 03/04/24 Stop Date: 03/24/24 Status: Ordered calamine-diphenhydramine 14%-2% topical cream See Instructions, Topically 3 times a day clean affected area before application apply pea sized amount to area of concern, # 60 Gm, 0 Refills, Maintenance, 12/06/23 15:13:00 EST, [facility], Partial fill upon patient request if the... Start Date: 12/06/23 Status: Ordered calcium (as carbonate)-vitamin D 500 mg-600 intl units oral tablet 1 tablet, By Mouth, 2 times a day, # 60 tablet, 11 Refills, Maintenance, 10/25/23 12:41:00 EST, Tablet, [facility], 1 tablet By Mouth 2 times a [...] 10/23/23 9:20:00 EST, Route to Pharmacy Electronically, [facility], Pl[facility] D/c Senna & all its re... Start Date: 10/23/23 Status: Ordered Collagen 0 Refills, Maintenance, 08/15/23 10:43:00 EDT, Partial fill upon patient request if the prescription is for a schedule II opioid drug. Start Date: 08/15/23 Status: Ordered Lilli Krill Oil [place]-3 1200 mg oral capsule 1 capsule = [...] Gm, 1 Refills, Maintenance, 03/18/24 18:43:00 EDT, [facility] APPLY TO ANAL AREA evry 8 hrs NEEDED FOR PAIN, 168, cm, 03/04/24 14:38:00 EDT, Height, 77.5,... Start Date: 03/18/24 Status: Ordered loratadine 10 mg oral tablet 10 mg, 1, tablet, By Mouth, Daily, PRN, # 30 tablet, Refills 0, Tot. Refills 0, Maintenance, Congestion, 04/30/24 15:23:00 EDT, Route to Pharmacy Electronically, [facility] 168, cm, 04/30/24 14:24:00 EDT, Height, 77.5, kg, 01/30/24 9:... Start Date: 04/30/24 Status: Ordered Melatonin See Instructions, 5 mg [...] Refills, Soft Stop, 03/04/24 14:59:00 EDT, Tablet[facility] upon patient request [...] Villanueva NP Position: [facility] PCO Associate Professional Member Role: PCP Address: Address: [address] [place] [address]- Care Team Related Persons Name: BANG KIDD Address: home [address] [place] [address]
--- OUTSIDE RECORDS SUMMARY | 2024-05-23 12:14 | XMS_ITS | Continuity of Care Document ---
Author Organization [facility] Address [address] [place] [address] [address] [place] [address]- Care Team Providers Care Family Preservation Caseworker Name Role Phone Rich MOSCOSO, Day Crawford Tagtaylor Primary Care Physici an Encounter [facility] Date(s): 08/15/23 - 09/14/[address] [place] [address]- Attending Physician: Fam Arreola Admitting Physician: AdmtrFam Referring Physician: Admtr Ar8 Allergies, Adverse Reactions, Alerts Substance Reaction [...] 02/17/23 8:54:00 EDT, Route to Pharmacy Electronically, [id number], [facility], 167.6, cm, 02/17/23 8:37:00 EDT, Heig... Start Date: 02/17/23 Status: Ordered calcium (as carbonate)-vitamin D 500 mg-600 intl units oral tablet 1 tablet, By Mouth, 2 times a day, # 60 tablet, 5 Refills, Maintenance, 02/17/23 8:44:00 EDT, Tablet, [facility], 1 tablet By Mouth 2 times [...] 02/17/23 8:44:00 EDT, Route to Pharmacy Electronically, [facility] D/c Senna & all its re... Start Date: 02/17/23 Status: Ordered Collagen 0 Refills, Maintenance, 08/15/23 10:43:00 EDT, Partial fill upon patient request if the prescription is for a schedule II opioid drug. Start Date: 08/15/23 Status: Ordered Lilli Krill Oil [place]-3 1200 mg oral capsule 1 capsule = [...] Associate Professional Member Role: PCP Address: Address: [address] [place] [address]- Care Team Related Persons Name: BANG KIDD Address: home [address] [place] [address]
== END 2024-05-23 13:39 | disposition home or self-care (01) ==
LOC: HO.HUSH 12:11
PROVIDERS: PCP Internal Medicine; Visit Provider Urology
DX: N32.81 Overactive bladder (principal); N39.0 Urinary tract infection, site not specified
CPT/HCPCS: 99213; 99442

== ENCOUNTER → 2024-05-23 12:11 | Outpatient (BNVA) | payer OTHER, SELFPAY | PROVIDERS: PCP Internal Medicine; Visit Provider Urology ==

== ENCOUNTER 2024-07-03 14:12 | Outpatient (AMB) | payer OTHER, SELFPAY ==
[2024-07-03 14:22] VITALS: BP 130/60; PULSE 81; BMI 42.4
--- NOTE | 2024-07-03 14:22 | MHC.OFFVIS ---
Vital Signs 07/03/24 14:22 Height 5 ft 2 in Weight 231 lb 14.821 oz BMI 42.4 BP 130/60 Blood Pressure Location Lt brachial Position Sitting Pulse 81 Pulse Source Monitor Intake Visit Reasons: follow up Intake Note: f/up Organic Preparation Analyst Required: No Accompanied by: Self / Same As Patient Allergies ketorolac [From TORADOL] Allergy (Severe, Verified 05/23/24 12:12) SWELLING-FACIAL, anaphylaxis aspirin Allergy (Unknown, Verified 05/23/24 12:12) blood in stool adhesive tape [ADHESIVE TAPE] Adverse Reaction (Intermediate, Verified 05/23/24 12:12) RASH Seasonal Allergies Allergy (Unknown, Uncoded 11/02/23 15:26) itching Medication List - Last Reconciled 07/03/24 by Jaime Lindo MD atorvastatin 40 mg PO DAILY calcium carbonate (Ultra Strength Antacid) 0 mg PO calcium citrate malate-vit D3 500-200 mg-unit tabs PO DAILY cholecalciferol (vitamin D3) 25 mcg PO DAILY clopidogrel (Plavix) 75 mg PO DAILY fesoterodine ER (Toviaz) 4 mg PO DAILY 90 days fluticasone propionate 50 mcg/actuation 1 spray intranasal DAILY ketotifen fumarate 0.025%(0.035%) (Eye Itch Relief) 0 drps ophthalmic (eye) loratadine 10 mg PO DAILY magnesium gluconate 27 mg PO DAILY metoprolol tartrate 25 mg PO BID 30 days mirtazapine 15 mg PO BEDTIME hrtbnfdelvbq-wji-wkna-FA-vit K 45 mg iron- 800 mcg-120 mcg (Bariatric Multivitamins) caps PO pantoprazole 20 mg PO DAILY propylene glycol 0.6% (Systane Balance) 1 drp ophthalmic (eye) DAILY PRN saliva substitute combo no.9 (Biotene Dry Mouth Oral Rinse mouthwash) 15 mL mucous membrane BID-QID PRN trazodone 100 mg PO BEDTIME vitamin B complex (Vitamins B Complex capsule) 1 cap PO DAILY HPI Comments Details: 73-year-old female here for follow-up. She has background history of coronary disease with 50% mid LAD stenosis. She was seen for perioperative cardiovascular risk assessment and underwent surgery successfully without any complications. She is on Plavix without any significant issues. She has hyperlipidemia has been taking atorvastatin. 07/03/2024: She is here for follow-up. She previously did not complain of any symptoms but on this visit she is saying she has been getting left-sided upper chest discomfort which happens at rest and with activities. She is unable to describe the character but is describing a discomfort. She previously had bleeding with aspirin and has tolerated Plavix better and has been taking Plavix instead of aspirin. Blood pressure is well controlled. [facility] Medical History Intestinal malabsorption following gastrectomy Fracture of wrist Diverticulosis UTI (urinary tract infection) Lactose intolerance Asthma Constipation Sciatica Sjogren's syndrome HEATHER on CPAP Obesity (BMI 30-39.9) GERD (gastroesophageal reflux disease) CAD (coronary artery disease) Lymphoma Malabsorption due to intolerance, not elsewhere classified Surgical History History of eyelid surgery H/O section S/P laparoscopic sleeve gastrectomy Family History Father No problems noted. Mother No problems noted. Brother No problems noted. Brother No problems noted. Brother No problems noted. Brother No problems noted. Brother No problems noted. Sister No problems noted. Sister No problems noted. Daughter No problems noted. Daughter No problems noted. Daughter No problems noted. Social History Alcohol intake: never Patient Tobacco Use Status: Never used Tobacco Review of Systems Const Denies chills, Denies fatigue, Denies fever(s), Denies frequent falls, Denies weakness, Denies weight gain and Denies weight loss ENT Denies dizziness Card Denies chest pain, Denies leg edema, Denies lightheadedness, Denies palpitations, Denies dyspnea and Denies dyspnea on exertion Resp Denies cough, Denies dyspnea and Denies dyspnea on exertion GI Denies hematochezia Musc Denies abnormal gait, Denies muscle weakness, Denies numbness, Denies radiating pain into limb and Denies tingling Neuro Denies abnormal gait, Denies dizziness, Denies frequent falls, Denies numbness, Denies tingling and Denies weakness Endo Denies fatigue and Denies palpitations Physical Exam Vital Signs: Last Vital Signs Pulse 81 08/07/24 14:22 BP 130/60 07/03/24 14:22 BMI result Body Mass Index 42.4 GENERAL APPEARANCE: in no acute distress, well developed, well nourished. NECK/THYROID: no carotid bruit, no jugular venous distention. SKIN: no suspicious lesions, warm and dry. HEART: no murmurs, regular rate and rhythm, S1, S2 normal. LUNGS: clear to auscultation bilaterally. ABDOMEN: normal, bowel sounds present, soft, nontender, nondistended. EXTREMITIES: no clubbing, cyanosis, or edema. PERIPHERAL PULSES: equal. NEUROLOGIC: nonfocal, alert and oriented. PSYCH: mood/affect full range. Office Procedures EKG Details: Sinus rhythm 81 beats per minute, normal axis, QTC 476 milliseconds. [id number], Complete Assessment & Plan Assessment & Plan (1) CAD (coronary artery disease): Comment: Stable. Code(s): I25.10 - Atherosclerotic heart disease of [place] coronary artery without angina pectoris Category: Medical (2) Chest pain: Code(s): R07.9 - Chest pain, unspecified Category: Medical Plan Pleasant 73 year female who is here for follow-up. She has known history of coronary disease with 50% mid LAD stenosis in the past. She previously did not have any symptoms but is returning now is complaining of left upper chest discomfort with activity and at rest. Given known history of coronary disease we will arrange a stress Mibi for her. She has some joint pains and we will use modified Ricardo protocol during the nuclear stress test. Obviously if she can not exercise for long then we may have to change to Lexiscan. This will be decided on the day of stress test. Blood pressure well controlled. Continue Plavix. Her should with aspirin is that she had bleeding on aspirin but has never bled on Plavix. Thank you for allowing me to participate in the care of your patient. Please feel free to contact me if you have any questions. Orders: Orders NM cardiolite stress test Today R07.9 - Chest pain, unspecified Coding Level of Care Code Est Pt Level 4 (05373) Diagnoses CAD (coronary artery disease) I25.10 Chest pain R07.9 CPT Codes EKG - CPT: 83532-[id number], Complete ([id number])
== END 2024-07-03 15:01 | disposition home or self-care (01) ==
PROVIDERS: PCP Internal Medicine; Visit Provider Internal Medicine Cardiovascular Disease
DX: I25.10 Atherosclerotic heart disease of native coronary artery without angina pectoris (principal); R07.9 Chest pain, unspecified
CPT/HCPCS: 93010; 99214

== ENCOUNTER → 2024-07-03 14:12 | Outpatient (BNVA) | payer OTHER, SELFPAY | PROVIDERS: PCP Internal Medicine; Visit Provider Internal Medicine Cardiovascular Disease | DX: I25.10 Atherosclerotic heart disease of native coronary artery without angina pectoris (principal); R07.9 Chest pain, unspecified | CPT/HCPCS: 93005; 99212 ==

== ENCOUNTER → 2024-08-09 07:49 | Outpatient (REF) | payer OTHER, SELFPAY ==
--- NOTE | ~2024-08-09 | NM_ITS ---
Lexiscan Myocardial perfusion study Indication: Chest pain Technique: The patient was brought in for a Lexiscan perfusion study on 08/09/2024 and was injected 0.4 mg of Lexiscan intravenously. Within a minute of this injection 30 mCi of sestamibi was given intravenously. Images were obtained using the SPECT gamma camera interlaced with the gating device. Images were obtained in supine position. Resting perfusion study was performed on 08/14/2024. Patient was administered 30 mCi of sestamibi intravenously at rest. Images were then obtained in supine position. Total DLP 141 mGy-cm. Images were processed with the software and compared side to side in short axis, horizontal long axis and vertical long axis views. Findings: Raw aquisition reviewed. The stress perfusion study showed no significant perfusion abnormality. Both uncorrected as well as CT attenuation corrected images were reviewed. The gated study shows normal LV systolic function with calculated LVEF of 66%. LV cavity is normal in size. The gated study shows normal wall thickening and contraction of segments. Resting study shows no significant perfusion abnormality. Gating at rest reveals normal wall motion with ejection fraction at 59%. The findings are consistent with no clear reversible or fixed perfusion abnormality. NM/NM cardiolite stress test Impression: 1. Myocardial perfusion imaging study shows normal myocardial perfusion. 2. Gated LVEF is 66% during stress and 59% during rest. 3. Transient ischemic dilatation not present. EKG component of the test reported separately. Electronically signed by: Dave Espinoza MD 08/14/2024 03:16 PM EDT
--- NOTE | 2024-08-09 08:02 | CA_ITS ---
Acquisition Time: 2024-08-09 08:19:32 Total Exercise Time: 00:01:37 Test Indications: CHEST PAIN Medications: Protocol: MOD QUINTON Max HR: 104 BPM 71% of Pred: 146 BPM Max BP: 148/086 mmHG Max Work Load: 2.0 METS Exercise stress test exercise 1 min 37 sec of modified Quinton protocol achieivng 71%, with request to stop due to knee pain and shortness of breab, with moderate SOB, without chest discomfort, without arrhythmias, with normotensive response to exercise, with nondiagnoisitic EKGs. Once breathing returned to baseline test changed to pharmacological stress test with Lexiscan injection. Pharmacological stress test with Lexiscan injection, with moderate SOB, 9/10 chest pressure, without arrhythmias, with normotensive response to injection, with nondiagnoitic EKGs. Aminophylline 75mg IVP given to reverse Lexisacn. Breathing and chest discomfort returned to baseline. Nuclear images pending. Test reviewed with Dr. Lindo. Referred By: Yoko Cerna Overread By: Yoko Cerna
== END ==
LOC: HO.CARD 07:49
PROVIDERS: PCP Internal Medicine; Visit Provider Internal Medicine Cardiovascular Disease
DX: R07.9 Chest pain, unspecified (principal)
CPT/HCPCS: 78452; 93017; A9500; J0280; J2785

== ENCOUNTER → 2024-08-09 08:02 | Outpatient (BNV) | payer OTHER, SELFPAY | PROVIDERS: PCP Internal Medicine; Visit Provider Nurse Practitioner | DX: R07.9 Chest pain, unspecified (principal) | CPT/HCPCS: 78452; 93016; 93018 ==

== ENCOUNTER 2024-08-14 10:48 | Outpatient (REF) | payer OTHER, SELFPAY ==
[2024-08-14 11:03] LABS: MANUAL DIFF FLAG NO
[2024-08-14 11:57] LABS: Basophils Absolute Auto 0.1 X10*3/uL (0.0-0.2); Basophils Percent Auto 1.1 % (0-2); Eosinophils Absolute Auto 0.1 X10*3/uL (0.0-0.4); Eosinophils Percent Auto 2.6 % (0-4); Hematocrit 40.2 % (37.0-47.0); Hemoglobin 13.8 g/dl (12.0-16.0); Imm Gran Abs Auto 0.01 X10*3/uL (0.00-0.03); Imm Gran Pct Auto 0.2 % (0.0-0.4); Lymphocytes Absolute Auto 2.2 X10*3/uL (1.2-4.9); Lymphocytes Percent Auto 46.2 % (20-40); Mean Corpuscular HGB Conc 34.3 g/dl (31.0-35.0); Mean Corpuscular Hemoglobin 30.1 pg (27.0-33.0); Mean Corpuscular Volume 87.8 fL (80.0-98.0); Mean Platelet Volume 10.7 fL (9.4-12.3); Monocytes Absolute Auto 0.4 X10*3/uL (0.1-1.2); Monocytes Percent Auto 7.4 % (2-11); Neutrophils Percent Auto 42.5 % (45-73); Platelet Count 185 X10*3/uL (160-400); Red Blood Count 4.58 X10*6/uL (4.20-5.50); Red Cell Distribution Width 12.8 % (11.0-16.0); White Blood Count 4.7 X10*3/uL (4.8-10.8)
[2024-08-14 12:29] LABS: Alanine Aminotransferase 42 U/L (0-31); Albumin Level 4.2 g/dL (3.5-5.0); Alkaline Phosphatase 73 U/L (39-117); Anion Gap 9 (12-20); Aspartate Amino Transferase 38 U/L (5-31); Bilirubin Total 0.5 mg/dL (0.0-1.0); Blood Urea Nitrogen 14 mg/dL (9-16); Calcium 9.2 mg/dL (8.4-10.2); Carbon Dioxide 30 mmol/L (22-29); Chloride 107 mmol/L (96-108); Cholesterol 137 mg/dL (<200); Estimated Glomerular Filt Rate > 60; Glucose Random 112 mg/dL (60-115); HDL Cholesterol 29 mg/dL (>40); LDL Cholesterol Calculated 53 mg/dL (<100); Potassium 4.3 mmol/L (3.3-5.1); Sodium 142 mmol/L (135-145); Total Protein 7.4 g/dL (6.5-8.0); Triglycerides 279 mg/dL (<150)
== END 2024-08-14 10:49 | disposition home or self-care (01) ==
LOC: HO.LAB 10:48
PROVIDERS: PCP Internal Medicine; Visit Provider Internal Medicine
DX: I25.118 Atherosclerotic heart disease of native coronary artery with other forms of angina pectoris (principal)
CPT/HCPCS: 36415; 80053; 80061; 85025

== ENCOUNTER → 2024-11-04 15:00 | Outpatient (AMB) | payer OTHER, SELFPAY ==
[2024-11-04 15:30] VITALS: BP 120/64; PULSE 75; BMI 41.4
--- NOTE | 2024-11-04 15:30 | A.OFFVIS_ITS ---
Vital Signs 11/04/24 15:30 Height 5 ft 2 in Weight 226 lb 10.163 oz BMI 41.4 BP 120/64 Blood Pressure Location Lt brachial Position Sitting Pulse 75 Pulse Source Pulse Oximeter Intake Visit Reasons: r/s 10/21/24 3 mos followup s/p mibi Intake Note: R/S 3 mth f/up/ mibi Liturgical Music Director Required: No Accompanied by: Self / Same As Patient Allergies ketorolac [From TORADOL] Allergy (Severe, Verified 07/25/24 15:41) SWELLING-FACIAL, anaphylaxis aspirin Allergy (Unknown, Verified 07/25/24 15:41) blood in stool adhesive tape [ADHESIVE TAPE] Adverse Reaction (Intermediate, Verified 07/25/24 15:41) RASH Seasonal Allergies Allergy (Unknown, Uncoded 07/25/24 15:41) itching Medication List - Last Reconciled 11/04/24 by Jaime Lindo MD atorvastatin 40 mg PO DAILY calcium carbonate (Ultra Strength Antacid) 0 mg PO calcium citrate malate-vit D3 500-200 mg-unit tabs PO DAILY cholecalciferol (vitamin D3) 25 mcg PO DAILY clopidogrel (Plavix) 75 mg PO DAILY fesoterodine ER (Toviaz) 4 mg PO DAILY 90 days fluticasone propionate 50 mcg/actuation 1 spray intranasal DAILY ketotifen fumarate 0.025%(0.035%) (Eye Itch Relief) 0 drps ophthalmic (eye) loratadine 10 mg PO DAILY magnesium gluconate 27 mg PO DAILY metoprolol tartrate 25 mg PO BID 90 days mirtazapine 15 mg PO BEDTIME [id number]-nat-mfem-FA-vit K 45 mg iron- 800 mcg-120 mcg (Bariatric Multivitamins) caps PO pantoprazole 20 mg PO DAILY propylene glycol 0.6% (Systane Balance) 1 drp ophthalmic (eye) DAILY PRN saliva substitute combo no.9 (Biotene Dry Mouth Oral Rinse mouthwash) 15 mL mucous membrane BID-QID PRN trazodone 100 mg PO BEDTIME vitamin B complex (Vitamins B Complex capsule) 1 cap PO DAILY HPI Comments Details: 74-year-old female here for follow-up. She has background history of coronary disease with 50% mid LAD stenosis. She was seen for perioperative cardiovascular risk assessment and underwent surgery successfully without any complications. She is on Plavix without any significant issues. She has hyper lipidemia has been taking atorvastatin. 07/03/2024: She is here for follow-up. She previously did not complain of any symptoms but on this visit she is saying she has been getting left-sided upper c hest discomfort which happens at rest and with activities. She is unable to describe the character but is describing a discomfort. She previously had bleeding with aspirin and has tolerated Plavix better and has been taking Plavix instead of aspirin. Blood pressure is well controlled. 11/04/2024: She returns for follow-up. She underwent exercise stress test where initially she tried exercise and was hardly able to exercise for 1-1/2 minute and stopped because of breathing issues. She was changed to Lexiscan and perfusion imaging was normal. She returns and continues to get atypical stabb ing sensation in the left upper chest and dyspnea on exertion. [facility] Medical History Intestinal malabsorption following gastrectomy Fracture of wrist Diverticulosis UTI (urinary tract infection) Lactose intolerance Asthma Constipation Sciatica Sjogren's syndrome HEATHER on CPAP Obesity (BMI 30-39.9) GERD (gastroesophageal reflux disease) CAD (coronary artery disease) Lymphoma Malabsorption due to intolerance, not elsewhere classified Surgical History History of eyelid surgery H/O section S/P laparoscopic sleeve gastrectomy Family History Father No problems noted. Mother No problems noted. Brother No problems noted. Brother No problems noted. Brother No problems noted. Brother No problems noted. Brother No problems noted. Sister No problems noted. Sister No problems noted. Daughter No problems noted. Daughter No problems noted. Daughter No problems noted. Social History Alcohol intake: never Patient Tobacco Use Status: Never used Tobacco Review of Systems Const Denies chills, Denies fatigue, Denies fever(s), Denies frequent falls, Denies weakness, Denies weight gain and Denies weight loss ENT Denies dizziness Card Denies chest pain, Denies leg edema, Denies lightheadedness, Denies palpitations, Denies dyspnea and Denies dyspnea on exertion Resp Denies cough, Denies dyspnea and Denies dyspnea on exertion GI Denies hematochezia Musc Denies abnormal gait, Denies muscle weakness, Denies numbness, Denies radiating pain into limb and Denies tingling Neuro Denies abnormal gait, Denies dizziness, Denies frequent falls, Denies numbness, Denies tingling and Denies weakness Endo Denies fatigue and Denies palpitations Physical Exam Vital Signs: Last Vital Signs Pulse 75 11/04/24 15:30 BP 120/64 11/04/24 15:30 BMI result Body Mass Index 41.4 GENERAL APPEARANCE: in no acute distress. NECK/THYROID: no carotid bruit, no jugular venous distention. SKIN: no suspicious lesions, warm and dry. HEART: no murmurs, regular rate and rhythm, S1, S2 normal. LUNGS: clear to auscultation bilaterally. ABDOMEN: normal, bowel sounds present, soft, nontender, nondistended. EXTREMITIES: no clubbing, cyanosis, or edema. PERIPHERAL PULSES: equal. NEUROLOGIC: nonfocal, alert and oriented. Office Procedures EKG Details: In error, please do not bill. [id number], Complete Assessment & Plan Assessment & Plan (1) CAD (coronary artery disease): Comment: Stable. Code(s): I25.10 - Atherosclerotic heart disease of [place] coronary artery without angina pectoris Category: Medical (2) Chest pain: Code(s): R07.9 - Chest pain, unspecified Category: Medical Plan Pleasant 74-year-old female who is here for follow-up. She has known history of coronary disease with 50% mid LAD stenosis in the past. She previously did not have any symptoms but is returning now is complaining of left upper chest d iscomfort with activity and at rest. The chest discomfort is quite atypical and she feels a stabbing sensation off and on. She had exercise MIBI where she had dyspnea but stopped her from exercising after 1-1/2 minutes. She was changed to Lexiscan which did not show any perfusion defect. She is quite sedentary due to knee arthritis. I think dyspnea could be deconditioning too. I have explained to her that the stress test did not show perfusion defect but her exercise part of the stress test is abnormal because she has very poor functional capacity. I have advised her to join a gym and do exercise bike or by an exercise bike because he is she is unable to exercise otherwise on a treadmill due to knee arthritis. She will see us back in few months. If dyspnea continues over said she will call us and we will arrange diagnostic angiogram otherwise at 3 months we will reassess her and consider diagnostic angiography if she has persistent symptoms. Blood pressure well controlled. Continue Plavix. Thank you for allowing me to participate in the care of your patient. Please feel free to contact me if you have any questions. Coding Level of Care Code Est Pt Level 4 (65770) Diagnoses CAD (coronary artery disease) I25.10 Chest pain R07.9 CPT Codes EKG - CPT: 59700-[id number], Complete ([id number])
== END ==
PROVIDERS: PCP Internal Medicine; Visit Provider Internal Medicine Cardiovascular Disease
DX: I25.10 Atherosclerotic heart disease of native coronary artery without angina pectoris (principal); R07.9 Chest pain, unspecified
CPT/HCPCS: 93010; 99214

== ENCOUNTER → 2024-11-04 15:00 | Outpatient (BNVA) | payer OTHER, SELFPAY | PROVIDERS: PCP Internal Medicine; Visit Provider Internal Medicine Cardiovascular Disease | DX: R07.9 Chest pain, unspecified (principal); I25.10 Atherosclerotic heart disease of native coronary artery without angina pectoris; I10 Essential (primary) hypertension; E78.5 Hyperlipidemia, unspecified | CPT/HCPCS: 93005; 99212 ==

== ENCOUNTER 2024-12-12 13:44 | Outpatient (REF) | payer OTHER, SELFPAY | END 2024-12-12 13:45 | disposition home or self-care (01) | LOC: HO.MAMMO 13:44 | PROVIDERS: PCP Internal Medicine; Visit Provider Internal Medicine | DX: Z12.31 Encounter for screening mammogram for malignant neoplasm of breast (principal) | CPT/HCPCS: 77063; 77067 ==

== ENCOUNTER 2025-02-17 13:26 | Outpatient (REF) | payer OTHER, SELFPAY ==
[2025-02-17 16:56] LABS: Hematocrit 39.5 % (37.0-47.0); Hemoglobin 13.4 g/dl (12.0-16.0); Mean Corpuscular HGB Conc 33.9 g/dl (31.0-35.0); Mean Corpuscular Hemoglobin 30.1 pg (27.0-33.0); Mean Corpuscular Volume 88.8 fL (80.0-98.0); Platelet Count 186 X10*3/uL (160-400); Red Blood Count 4.45 X10*6/uL (4.20-5.50); Red Cell Distribution Width 13.1 % (11.0-16.0); White Blood Count 5.8 X10*3/uL (4.8-10.8)
[2025-02-17 17:00] LABS: Prothrombin Time 11.8 SEC (10.9-12.4)
[2025-02-17 17:33] LABS: Anion Gap 13 (12-20); Blood Urea Nitrogen 20 mg/dL (9-16); Calcium 9.5 mg/dL (8.4-10.2); Carbon Dioxide 28 mmol/L (22-29); Chloride 106 mmol/L (96-108); Estimated Glomerular Filt Rate > 60; Glucose Random 90 mg/dL (60-115); Potassium 4.2 mmol/L (3.3-5.1); Sodium 143 mmol/L (135-145)
== END 2025-02-17 13:27 | disposition home or self-care (01) ==
LOC: HO.LAB 13:26
PROVIDERS: PCP Internal Medicine; Visit Provider Internal Medicine Cardiovascular Disease
DX: R07.9 Chest pain, unspecified (principal); I25.10 Atherosclerotic heart disease of native coronary artery without angina pectoris; R06.09 Other forms of dyspnea
CPT/HCPCS: 36415; 80048; 85027; 85610; 99212

== ENCOUNTER 2025-02-17 13:26 | Outpatient (AMB) | payer OTHER, SELFPAY ==
--- NOTE | 2025-02-17 14:18 | MHC.OFFVIS ---
Vital Signs 02/17/25 14:21 Height 5 ft 2 in Weight 222 lb 10.67 oz BMI 40.7 BP 120/64 Blood Pressure Location Lt brachial Position Sitting Pulse 76 Pulse Source Pulse Oximeter Intake Visit Reasons: 3 mth f/up Intake Note: 3 mth f/up Bowling Alley Manager Required: No Accompanied by: Self / Same As Patient Allergies ketorolac [From TORADOL] Allergy (Severe, Verified 07/25/24 15:41) SWELLING-FACIAL, anaphylaxis aspirin Allergy (Unknown, Verified 07/25/24 15:41) blood in stool adhesive tape [ADHESIVE TAPE] Adverse Reaction (Intermediate, Verified 07/25/24 15:41) RASH Seasonal Allergies Allergy (Unknown, Uncoded 07/25/24 15:41) itching Medication List - Last Reconciled 02/17/25 by Jaime Lindo MD atorvastatin 40 mg PO DAILY calcium carbonate (Ultra Strength Antacid) 0 mg PO calcium citrate malate-vit D3 500-200 mg-unit tabs PO DAILY cholecalciferol (vitamin D3) 25 mcg PO DAILY clopidogrel (Plavix) 75 mg PO DAILY fesoterodine ER (Toviaz) 4 mg PO DAILY 90 days fluticasone propionate 50 mcg/actuation 1 spray intranasal DAILY ketotifen fumarate 0.025%(0.035%) (Eye Itch Relief) 0 drps ophthalmic (eye) loratadine 10 mg PO DAILY magnesium gluconate 27 mg PO DAILY metoprolol tartrate 25 mg PO BID 90 days mirtazapine 15 mg PO BEDTIME dqztpvnexgdl-fhi-wynw-FA-vit K 45 mg iron- 800 mcg-120 mcg (Bariatric Multivitamins) caps PO pantoprazole 20 mg PO DAILY propylene glycol 0.6% (Systane Balance) 1 drp ophthalmic (eye) DAILY PRN saliva substitute combo no.9 (Biotene Dry Mouth Oral Rinse mouthwash) 15 mL mucous membrane BID-QID PRN trazodone 100 mg PO BEDTIME vitamin B complex (Vitamins B Complex capsule) 1 cap PO DAILY HPI Comments Details: 74-year-old female here for follow-up. She has background history of coronary disease with 50% mid LAD stenosis. She was seen for perioperative cardiovascular risk assessment and underwent surgery successfully without any complications. She is on Plavix without any significant issues. She has hyperlipidemia has been taking atorvastatin. 07/03/2024: She is here for follow-up. She previously did not complain of any symptoms but on this visit she is saying she has been getting left-sided upper chest discomfort which happens at rest and with activities. She is unable to describe the character but is describing a discomfort. She previously had bleeding with aspirin and has tolerated Plavix better and has been taking Plavix instead of aspirin. Blood pressure is well controlled. 11/04/2024: She returns for follow-up. She underwent exercise stress test where initially she tried exercise and was hardly able to exercise for 1-1/2 minute and stopped because of breathing issues. She was changed to Lexiscan and perfusion imaging was normal. She returns and continues to get atypical stabbing sensation in the left upper chest and dyspnea on exertion. 02/17/2025: She is here for follow-up. She continues to get shortness of breath with activities. She is saying this is ongoing for approximately couple of years but over the last year things are progressed for her. Denying any chest discomfort. [facility] Medical History Intestinal malabsorption following gastrectomy Fracture of wrist Diverticulosis UTI (urinary tract infection) Lactose intolerance Asthma Constipation Sciatica Sjogren's syndrome HEATHER on CPAP Obesity (BMI 30-39.9) GERD (gastroesophageal reflux disease) CAD (coronary artery disease) Lymphoma Malabsorption due to intolerance, not elsewhere classified Surgical History History of eyelid surgery H/O section S/P laparoscopic sleeve gastrectomy Family History Father No problems noted. Mother No problems noted. Brother No problems noted. Brother No problems noted. Brother No problems noted. Brother No problems noted. Brother No problems noted. Sister No problems noted. Sister No problems noted. Daughter No problems noted. Daughter No problems noted. Daughter No problems noted. Social History Alcohol intake: never Patient Tobacco Use Status: Never used Tobacco Review of Systems Const Denies chills, Denies fatigue, Denies fever(s), Denies frequent falls, Denies weakness, Denies weight gain and Denies weight loss ENT Denies dizziness Card Denies chest pain, Denies leg edema, Denies lightheadedness, Denies palpitations, Denies dyspnea and Denies dyspnea on exertion Resp Denies cough, Denies dyspnea and Denies dyspnea on exertion GI Denies hematochezia Musc Denies abnormal gait, Denies muscle weakness, Denies numbness, Denies radiating pain into limb and Denies tingling Neuro Denies abnormal gait, Denies dizziness, Denies frequent falls, Denies numbness, Denies tingling and Denies weakness Endo Denies fatigue and Denies palpitations Physical Exam Vital Signs: Last Vital Signs Pulse 76 02/17/25 14:21 BP 120/64 02/17/25 14:21 BMI result Body Mass Index 40.7 GENERAL APPEARANCE: in no acute distress. NECK/THYROID: no carotid bruit, no jugular venous distention. SKIN: no suspicious lesions, warm and dry. HEART: no murmurs, regular rate and rhythm, S1, S2 normal. LUNGS: clear to auscultation bilaterally. ABDOMEN: normal, bowel sounds present, soft, nontender, nondistended. EXTREMITIES: no clubbing, cyanosis, or edema. PERIPHERAL PULSES: equal. NEUROLOGIC: nonfocal, alert and oriented. Assessment & Plan Assessment & Plan (1) Chest pain: Code(s): R07.9 - Chest pain, unspecified Category: Medical (2) Dyspnea on exertion: Code(s): R06.09 - Other forms of dyspnea Category: Medical (3) CAD (coronary artery disease): Comment: Stable. Code(s): I25.10 - Atherosclerotic heart disease of [place] coronary artery without angina pectoris Category: Medical Plan Pleasant 74-year-old female who is here for follow-up. She has known history of coronary disease with 50% mid LAD stenosis in the past. She previously did not have any symptoms but recently started complaining of left upper chest discomfort with activity and at rest. The chest discomfort is quite atypical and she feels a stabbing sensation off and on. She had exercise MIBI where she had dyspnea but stopped her from exercising after 1-1/2 minutes. She was changed to Lexiscan which did not show any perfusion defect. Her main complaint is dyspnea with activities. She is hardly able to walk 1 block. This has been ongoing for couple of years but over the last year things have progressed for her. She has known history of coronary disease in the past with LAD 50% stenosis. I have discussed with her that we need to have some clarity about the coronary disease status. Given her dyspnea and known history of coronary disease-I am arranging a diagnostic angiogram for her to reassess the coronary artery disease. If LAD disease appear to be progressed on the angiogram then we will performed PCI. Blood pressure well controlled. Continue Plavix. Thank you for allowing me to participate in the care of your patient. Please feel free to contact me if you have any questions. Orders: Orders Cardiac Cath LT Diagnostic Today I25.10 - Atherosclerotic heart disease of [place] coronary artery without angina pectoris Complete Blood Count no Diff Today I25.10 - Atherosclerotic heart disease of [place] coronary artery without angina pectoris Basic Metabolic Panel Today I25.10 - Atherosclerotic heart disease of [place] coronary artery without angina pectoris Prothrombin Time INR Today I25.10 - Atherosclerotic heart disease of [place] coronary artery without angina pectoris Coding Level of Care Code Est Pt Level 4 (25895) Diagnoses Chest pain R07.9 Dyspnea on exertion R06.09 CAD (coronary artery disease) I25.10
[2025-02-17 14:21] VITALS: BP 120/64; PULSE 76; BMI 40.7
== END 2025-02-17 15:01 | disposition home or self-care (01) ==
LOC: HO.HCS 13:27
PROVIDERS: PCP Internal Medicine; Visit Provider Internal Medicine Cardiovascular Disease
DX: R07.9 Chest pain, unspecified (principal); R06.09 Other forms of dyspnea; I25.10 Atherosclerotic heart disease of native coronary artery without angina pectoris
CPT/HCPCS: 99214

== ENCOUNTER → 2025-03-13 23:59 | Outpatient (BNV) | payer OTHER, SELFPAY | PROVIDERS: PCP Internal Medicine; Visit Provider Internal Medicine Cardiovascular Disease | DX: I20.89 Other forms of angina pectoris (principal) | CPT/HCPCS: 93458; 99152 ==

== ENCOUNTER 2025-03-18 11:19 | Outpatient (REF) | payer OTHER, SELFPAY ==
--- OUTSIDE RECORDS SUMMARY | 2025-03-18 13:38 | XMS_ITS | Encounter Summary ---
Author Organization [employer] Address [address] [facility] [address] [facility] [address] [place] [address] Care Team Providers Care Polysomnography Technician Name Role Phone Jason Gunn MD Primary Care Prov ider Encounter Details Date Type Department Care Team (Late st Contact Info) Description 12/02/2022 Orders Only [facility] MEDICINE [address] [place] [address] Jason Gunn MD [address] [place] [address] Vitamin D deficiency (Primary Dx) Social History Tobacco Use Types Packs/Day Years Used Date Smoking Tobacco: Never Assessed Comments Unknown Sex and Gender Information Value Date Recorded Sex Assigned at Female 09/26/2022 10:22 AM EDT Legal Sex Female 10:22 AM EDT Gender Identity Female 09/26/2022 10:22 AM EDT Sexual Orientation Straight 09/26/2022 10 :22 AM EDT documented as of this encounter Plan of Treatment Upcoming Encounters Date Type Department Care Team (Late st Contact Info) Description 03/21/2025 10:00 AM EDT Office Visit [facility] [address] [place] [address] Karey Pisano, DDS [address] [place] [address] 05/13/2025 2:30 PM EDT Telemedicine [facility] MED & PEDS [address] [place] [address] Jason Gunn MD [address] [place] [address] documented as of this encounter Visit Diagnoses Diagnosis Vitamin D deficiency- Primary documented in this encounter Care Teams Polysomnography Technician Relationship Specialty Start Date End Date Jason Gunn MD [address] [place] [address] PCP - General Internal Medicine 04/17/20 documented as of this encounter
--- OUTSIDE RECORDS SUMMARY | 2025-03-18 13:38 | XMS_ITS | Encounter Summary ---
Author Organization [employer] Address [address] [facility] [address] [place] [address] Care Team Providers Care Systems Software Specialist Name Role Phone Jason Gunn MD Primary Care Prov ider Encounter Details Date Type Department Care Team (Late st Contact Info) Description 11/30/2022 Telephone [facility] MED[facility]INE [address] [place] [address] Jason Gunn MD [address] [place] [address] Social History Tobacco Use Types Packs/Day Years Used Date Smoking Tobacco: Never Assessed Comments Unknown Sex and Gender Information Value Date Recorded Sex Assigned at Female 09/26/2022 10:22 AM EDT Legal Sex Female 10:22 AM EDT Gender Identity Female 09/26/2022 10:22 AM EDT Sexual Orientation Straight 09/26/2022 10 :22 AM EDT documented as of this encounter Miscellaneous Notes * Telephone Encounter - Ania Palomares LPN - 11/30/2022 4:22 PM EST Please read message . Medication not on pt list * Telephone Encounter - Moustapha Patel - 11/30/2022 2:45 PM EST Tc from [facility] requesting med refill Cholecalciferol ( vitamin D3 ) 1000 documented in this encounter Plan of Treatment Upcoming Encounters Date Type Department Care Team (Late st Contact Info) Description 03/21/2025 10:00 AM EDT Office Visit [facility] AD[facility] [address] [place] [address] Karey Pisano, DDS [address] [place], [place] [phone] 05/13/2025 2:30 PM EDT Telemedicine [facility] MED [facility] PEDS [address] [place], [place] [phone] Jason Gunn MD [address] [place] [address] documented as of this encounter Visit Diagnoses Not on filedocumented in this encounter Care Teams Systems Software Specialist Relationship Specialty Start Date End Date Jason Gunn MD [address] [place], [place] [phone] PCP - General Internal Medicine 04/17/20 documented as of this encounter
--- OUTSIDE RECORDS SUMMARY | 2025-03-18 13:38 | XMS_ITS | Clinical Summary ---
Author Organization [employer] Address [address] [place] [address] Care Team Providers Care Juice Standardizer Name Role Phone Jason Gunn MD Primary Care Prov ider Allergies Active Allergy Reactions Criticality Noted Date Comments Aspirin Swelling High 04/14/2021 Facial swelling/bleeding Ketorolac Tromethamine 09/29/2015 Other reaction(s): facial swelling, Latex Rash Low 03/28/2022 Other reaction(s): Blister, Rash Medications * This document contains information received from the source organization and may not represent a complete record from that organization. clopidogrel (Plavix) 75 MG tablet Take 75 mg by mouth. 04/14/20 21 Active ibuprofen 600 MG tablet Take 1 tablet by mouth in the morning and 1 tablet in the evening. 04/04/20 19 Active Vitamins-Lipot ropics (B Complex Formula 1, Lipotrop,) tablet Take 1 tablet PO qdaily 10/04/20 22 Active Propylene Glycol 0.6 % solution apply 2 drops 4 times a day as needed 09/04/20 19 Active metoprolol tartrate (Lopressor) 25 MG tablet Take 25 mg by mouth 2 times daily. Active traZODone (Desyrel) 100 MG tabletIndicati ons:Adjustment insomnia Take 1 tablet (100 mg) by mouth at bedtime. 30 tablet 11 04/18/20 24 025 Active pseudoephedrin e (Sudafed) 60 MG tablet Take 1 tablet (60 mg) by mouth every 6 (six) hours if needed for congestion for up to 10 days. 30 tablet 07/16/20 24 Active loratadine (Claritin) 10 MG tablet Take 1 tablet (10 mg) by mouth Once per day. 90 tablet 3 09/27/20 24 025 Active magnesium, as gluconate, (Mag-G) 500 (27 Mg) MG tabletIndicati ons:Gastroesop hageal reflux disease without esophagitis TAKE 1 TABLET BY MOUTH EVERY DAY 30 tablet 5 10/07/20 24 Active chlorhexidine (Peridex) 0.12 % solution SWISH 15 ML IN THE MORNING AND AT BEDTIME FOR 1 MINUTE. SPIT, DO NOT SWALLOW. DO NOT EAT OR DRINK FOR 30 MINUTES AFTER USE. 473 mL 10/07/20 24 Active Additional Information Patient not taking.Reported on 10/10/2024 cholecalcifero l (Vitamin D-3) 25 MCG (1000 UT) tabletIndicati ons:Vitamin D deficiency TAKE 1 TABLET BY MOUTH EVERY DAY 30 tablet 5 10/07/20 24 Active senna-docusate sodium (Senokot-S) 8.6-50 MG tablet TAKE 1 TABLET BY MOUTH EVERY MORNING 30 tablet 11 11/01/20 24 Active pantoprazole (ProtoNix) 20 MG EC tabletIndicati ons:Gastroesop hageal reflux disease without esophagitis TAKE 1 TABLET BY MOUTH BEFORE BREAKFAST 90 tablet 3 11/28/19 25 Active atorvastatin (Lipitor) 40 MG tablet Take 1 tablet (40 mg) by mouth Once per day. 90 tablet 3 02/19/20 25 026 Active B Complex capsuleIndicat ions:Vitamin B deficiency TAKE 1 CAPSULE BY MOUTH EVERY DAY 30 capsule 5 02/19/20 25 Active mirtazapine (Remeron) 15 MG tablet TAKE 1 TABLET BY MOUTH AT BEDTIME 30 tablet 3 02/19/20 25 Active fluticasone (Flonase) 50 MCG/ACT nasal spray Administer 1 spray into each nostril Once per day. 16 g 03/18/20 25 Active Oyster Shell Calcium 500 MG tablet Take 1 tablet (500 mg) by mouth Once per day. 30 tablet 3 03/18/20 25 Active Semaglutide,0. 25 or 0.5MG/DOS, (Ozempic, 0.25 or 0.5 MG/DOSE,) 2 MG/3ML solution pen-injectorIn dications:Pred iabetes,Mello ry artery disease involving napaimute heart with other form of angina pectoris, unspecified vessel or lesion type (CMS/HCC) Inject 0.5 mg under the skin 1 (one) time per week. 3 mL 3 03/18/20 25 Active atorvastatin (Lipitor) 40 MG tablet Take 1 tablet (40 mg) by mouth in the morning. 90 tablet 3 02/26/20 24 025 Discontinued(R eorder (will not trigger notification to Pharmacy)) B Complex capsuleIndicat ions:Vitamin B deficiency TAKE 1 CAPSULE BY MOUTH EVERY DAY 30 capsule 5 04/12/20 24 025 Discontinued(R eorder (will not trigger notification to Pharmacy)) fluticasone (Flonase) 50 MCG/ACT nasal spray Administer 1 spray into each nostril Once per day. 16 g 5 08/07/20 24 025 Discontinued(R eorder (will not trigger notification to Pharmacy)) mirtazapine (Remeron) 15 MG tablet TAKE 1 TABLET BY MOUTH AT BEDTIME 30 tablet 3 11/01/20 24 025 Discontinued(R eorder (will not trigger notification to Pharmacy)) Oyster Shell Calcium 500 MG tablet Take 1 tablet (500 mg) by mouth Once per day. 30 tablet 3 01/23/20 25 025 Discontinued(R eorder (will not trigger notification to Pharmacy)) Active Problems Problem Noted Date Diagnosed Date Prediabetes 04/03/2024 Assessment & Plan (03/18/2025 10:43 AM EDT): Patient with prediabetes, elevated blood pressure, obesity and Coronary artery disease, will start on ozempic, risk vs benefits were discussed Assessment & Plan (12/16/2024 9:56 AM EST): Encouraged weight loss, exercise as tolerated, decrease carbohydrates and avoid sugars, will follow up on next visit Assessment & Plan (04/03/2024 11:32 PM EDT): Stable, continue low carb, no sugar diet, encouraged weight loss Abdominal pain, acute, epigastric 10/26/2023 10/26/2023 Belching symptom 10/26/2023 10/26/2023 Cyst of ovary 10/26/2023 10/26/2023 Overview (10/26/2023): 1.2 cm cyst adjacent to the left ovary, presumably arising from the left ovary. In addition, a tubular anechoic region is noted nearby which may represent a focal hydrosalpinx or other cystic pathology such as an elongated paraovarian or paratubal cyst. Please note. ASYMPTOMATIC. seen by ENERGY SYSTEMS ENGINEER and advised rpt US if develops symptoms. DDD (degenerative disc disease), lumbar 10/26/20 23 10/26/2023 Heartburn symptom 10/26/2023 10/26/2023 Left lumbar radiculopathy 10/26/20232022 Severe obesity 10/26/2023 10/26/2023 Vitamin D deficiency 10/26/2023 10/26/2023 Screening for colon cancer 07/03/2023 Assessment & Plan (07/03/2023 2:52 PM EDT): Done on 09/13/22 good for 10 years CHD (coronary heart disease) 07/03/2023 Assessment & Plan (03/18/2025 10:49 AM EDT): Patient underwent cardiac cath, coronary lesion has remained stable, will follow up cardiology reccomendations Assessment & Plan (12/16/2024 9:53 AM EST): Followed by cardiology, underwent stress test recently and was negative, Assessment & Plan (12/21/2023 2:44 PM EST): Followed by cardiology, she is taking metoprolol, no changes will be made, no reported anginal episode Chronic pain of left knee 07/03/2023 Assessment & Plan (07/03/2023 5:38 PM EDT): Chronic left knee pain, will refer to [facility]os, she used to get knee injections, last over 1 year, no erythema, no swelling Adjustment insomnia 07/03/2023 Assessment & Plan (07/03/2023 5:43 PM EDT): Will increase trazodone to 100mg, reinforced lifestyle changes Hoarseness 03/06/2023 Assessment & Plan (12/21/2023 2:49 PM EST): Ct scan performed did not showed any mass/lesions, will refer to ENT Assessment & Plan (03/06/2023 3:59 PM EDT): Patient symptoms started 2 months ago, most likely related to post nasal drip, she has hx of vocal cord nodules, ultrasound of thyroid found with small nodule that does not need follow up. Will order neck ct scan to evaluete vocal cords due to her hx Anxiety 03/06/2023 Assessment & Plan (03/06/2023 4:00 PM EDT): No suicidal/homicidal ideas, will refer to [facility] Helicobacter pylori (H. pylori) infection 201710/26/2023 Constipation 08/03/2018 10/26/2023 Diverticula of intestine 08/03/201810/26/ 023 Gastroesophageal reflux disease without esophagi tis 08/03/2018 10/26/2023 Hyperlipidemia 08/03/2018 10/26/2023 Assessment & Plan (03/18/2025 10:48 AM EDT): On atorvastatin, will order new labs for guidance of therapy Assessment & Plan (12/16/2024 9:57 AM EST): On statin therapy, her LDL is stable Assessment & Plan (04/03/2024 11:31 PM EDT): On atorvastatin therapy, new labs will be ordered, continue diet reccoemdations Assessment & Plan (01/09/2024 11:08 PM EST): On atorvastatin, reinforced diet and exercise as tolerated, continue current therapy Mood disorder 08/03/2018 10/26/2023 Nonalcoholic steatohepatitis ([place]) 08/03/2018 10/26/2023 Obstructive sleep apnea syndrome 08/03/2018 10/26/2023 Polyarthropathy 08/03/2018 10/26/2023 Sciatica 08/03/2018 10/26/2023 Seasonal allergies 08/03/2018 10/26/2023 Sjogren's syndrome with keratoconjunctivitis sic ca 08/03/2018 10/26/2023 Overview (10/26/2023): Needs yearly lymph node exam to screen for lymphoma Thyroid nodule 08/03/2018 10/26/2023 Overview (10/26/2023): 11/12/14 ultrasound with subcentimeter left thyroid nodue Xerostomia 08/03/2018 10/26/2023 Tubular adenoma of colon 09/06/2012 023 Overview (10/26/2023): needs repeat colonoscopy in 5 years ie 2017 Encounters Date Type Department Care Team Description 03/18/2025 10:30 AM EDT Office Visit [facility] [address] [place] [address] Jason Gunn MD Prediabetes (Primary Dx); Need for hepatitis C screening test; Mixed hyperlipidemia; Coronary artery disease involving napaimute heart with other form of angina pectoris, unspecified vessel or lesion type (CMS/HCC) 03/18/2025 Travel 03/11/2025 Telephone [facility] [address] [place] [address] Jason Gunn MD Reschedule appointment 02/26/2025 11:00 AM EDT Office Visit [facility] [address] [place] [address] Karey Pisano DDS 02/17/2025 Orders Only GENERIC EXTERNAL DATA DEPARTMENT Provider, Generic External Data 02/17/2025 Refill [facility] [address] [place] [address] Jason Gunn MD Vitamin B deficiency 01/23/2025 Refill [facility] [address] [place] [address] Jason Gunn MD 01/08/2025 10:45 AM EST Office Visit [facility] [address] [facility] [place] [address] Lio Lucas DMD from Last 3 Months Immunizations Name Administration Dates Next Due INFLUENZA VACCINE QUADRIVALE NT RECOMBINANT PRESERVATIVE FREE RIV4 08/22/2020 Influenza High-dose Quadriva lent Preservative Free 08/25/2023,08/24/2022 Influenza Quadrivalent Adjuvanted 08/30/2021 Influenza injectable quadriv alent IIV4 with preservative 08/22/2016 Influenza injectable quadriv alent preservative free 09/14/2017 Influenza, High Dose Seasona l, Preservative Free 08/22/2019,09/14/2018 Influenza, IIV3, injectable 08/27/2014, 3,07/23/2012 Pneumococcal Conjugate PCV 13 07/31/2015 Pneumococcal Polysaccharide PPSV23 10/03/2016 RSV Adjuvant 11/09/2023 Tdap 08/24/2022,03/18/2016,05/14/2012 Zoster, Recombinant 11/16/2021,09/01/2021 Zoster, live 09/29/2014 Social History Tobacco Use Types Packs/Day Years Used Date Smoking Tobacco: Never Passive Smoke Exposure: Never Smokeless Tobacco: Never Tobacco Cessation:Counseling Given: Not Answered Alcohol Use Standard Drinks/Week Comments Never 0 (1 standard drink = 0.6 oz pur e alcohol) Depression Answer Date Recorded Patient Health Questionnaire-9 Score 0 03/18/2025 Patient Health Questionnaire-9 Score 0 03/18/2025 Last PHQ-9: Questionnaire Data Not on file 0 03/18/2025 Housing Stability Answer Date Recorded What is your housing situation today? I have ida cheung 03/18/[address] you li ve. Do you have problems with any of the following? None of the above 03/18/2025 Food Insecurity Answer Date Recorded Within the past 12 months, y ou worried that your food would run out before you got money to buy more: Never True 03/18/2025 Within the past 12 months,th e food you bought just didn't last and you didn't have enough money to get more: Never True Transportation Answer Date Recorded In the past 12 months, has l ack of transportation kept you from medical appts, meetings, work or from getting things needed for daily living? No 03/18/2025 Utilities Answer Date Recorded In the past 12 months, has t he electric, gas, oil or water company threatened to shut off services in your home? No 03/18/2025 Depression Answer Date Recorded Patient Health Questionnaire-2 Score 0 03/18/2025 Internet Access Answer Date Recorded Internet Access Q1 Yes 03/18/2025 Internet Access Q2 Not on file 03/18/2025 Comments No Sex and Gender Information Value Date Recorded Sex Assigned at Female 09/26/2022 10:22 AM EDT Legal Sex Female 10:22 AM EDT Gender Identity Female 09/26/2022 10:22 AM EDT Sexual Orientation Straight 09/26/2022 10 :22 AM EDT Last Filed Vital Signs Vital Sign Reading Time Taken Comments Blood Pressure 125/63 03/18/2025 10:13 AM EDT Pulse 66 03/18/2025 10:13 AM EDT Temperature 36.7 ??C (98.1 ??F) 03/18/2025 10:13 AM E DT Respiratory Rate 20 03/18/2025 10:13 AM EDT Oxygen Saturation 98% 03/18/2025 10:13 AM EDT Inhaled Oxygen Concentration - - Weight 101 kg (222 lb 3.2 oz) 03/18/2025 10:13 A M EDT Height 157.5 cm (5' 2 ) 03/18/2025 10:13 AM EDT Body Mass Index 40.64 03/18/2025 10:13 AM EDT Plan of Treatment Upcoming Encounters Date Type Department Care Team (Late st Contact Info) Description 03/21/2025 10:00 AM EDT Office Visit [facility] [address] [place] [address] Karey Pisano, SHAUN [address] [place] [address] 05/13/2025 2:30 PM EDT Telemedicine [facility] [address] [place] [address] Jason Gunn MD [address] [place], [place] [phone] Health Maintenance Due Date Last Done Comments CT Colonography 1950 FIT DNA/Cologuard 1950 FIT 1950 FOBT 1950 Sigmoidoscopy 1950 Hepatitis C Screening 1968 Hepatitis A Vaccines (1 of 2 - Risk 2-dose series) 1969 Hepatitis B Vaccines (1 of 3 - Risk 3-dose series) 2010 COVID-19 Vaccine ( season) 2024 11/09/2023, 09/23/2021, 03/05/2021 Influenza Vaccine (#1) 2024 , 08/24/2022, 08/30/2021, Additional history exists Dental Oral Exam 04/10/2025 10/10/2024 Dental Prophylaxis 04/10/2025 10/10/2024, 06/29/2023 Dental X-Ray: Bitewings 10/11/2025 10/10/2024, 03/07 Dental X-Ray: Full Mouth 12/10/2025 12/09/2022 Tobacco Screening 02/26/2026 02/26/2025 Alcohol/Substance Use Screening 03/18/2026 03/18/2025 Depression Screening 03/18/2026 03/18/2025, 03/18/20 25 Diabetes: Hemoglobin A1C 03/18/2026 025, 04/02/2024, 01/02/2024, Additional history exists SDOH Screening 03/18/2026 03/18/2025 Mammogram 12/12/2026 12/12/2024, 11/27, 11/25/2022, Additional history exists Lipid Panel 08/14/2029 08/14/2024, 08/0 06/2023, 03/29/2022, Additional history exists DTaP/Tdap/Td Vaccines (4 - Td or Tdap) 08/24/2032 08/24/2022, 03/18/2016, 05/14/2012 Colonoscopy 09/13/2032 09/13/2022 Colorectal Cancer Screening 09/13/2032 Pneumococcal Vaccine: 50+ Years Completed 10/03/2016, 07/31/2015 Zoster Vaccines Completed 11/16/2021, 10/0 04/2021, 09/29/2014 RSV Patients and Patients Aged 60 years or older Completed 11/09/2023 HIB Vaccines Aged Out No longer eligi ble based on patient's age to complete this topic HPV Vaccines Aged Out No longer eligi ble based on patient's age to complete this topic IPV Vaccines Aged Out No longer eligi ble based on patient's age to complete this topic Meningococcal Vaccine Aged Out No ann marie glen eligible based on patient's age to complete this topic RSV under 20 months Aged Out No longe r eligible based on patient's age to complete this topic Rotavirus Vaccines Aged Out No longer eligible based on patient's age to complete this topic Procedures Procedure Name Priority Date/Time Associated Diagnosis Comments POCT GLYCATED HEMOGLOBIN, TOTAL Routine 03/18/2025 10:56 AM EDT Prediabetes POCT GLUCOSE Routine 03/18/2025 10:47 AM EDT Prediabetes DENTURE FOLLOWUP Routine 02/26/2025 11:0 0 AM EDT BASIC METABOLIC PANEL Routine 02/17/2025 3:19 PM EDT PROTHROMBIN TIME-INR Routine 02/17/2025 3:19 PM EDT CBC Routine 02/17/2025 3:19 PM EDT BI MAMMOGRAM SCREENING TOMOSYNTHESIS BILATERAL Routine 12/12/2024 2:00 PM EST PROPHYLAXIS - ADULT Routine 10/10/2024 2 :00 PM EST BITEWINGS - 4 RADIOGRAPHIC IMAGES Routine 10/10/2024 2:00 PM EST PERIODIC ORAL EVALUATION - ESTABLISHED PATIENT Routine 10/10/2024 2:00 PM EST LIPID PANEL, STANDARD Routine 08/14/2024 11:02 AM EDT Coronary artery disease involving napaimute heart with other form of angina pectoris, unspecified vessel or lesion type (CMS/HCC) PANORAMIC RADIOGRAPHIC IMAGE Routine 12/09/2022 11:00 AM EST HM COLONOSCOPY Routine 09/13/2022 12:11 PM EDT from Last 3 Months or Most Recently Relevant to Health Maintenance Results * POCT HGB A1C (03/18/2025 10:56 AM EDT) Pathologist [facility] [place] Hemoglobin A1C 5.9 4.0 - 6.0 % QC Media Lot # [id number] Lot# Expiration Date , Blood 03/18/2025 10:5 6 AM EDT Jason Hammer MD POINT OF CARE TEST ENTER/EDIT ORDERABLES Final Result * POCT Glucose (03/18/2025 10:47 AM EDT) Pathologist [facility] [place] Glucose Blood, POC 115 60 - 200 mg/dL QC Media Lot # [id number] Lot# Expiration Date 73,025 Blood Capillary blood specimen / Unknown 03/18/2025 10:47 AM EDT Jason Hammer MD POINT OF CARE TEST ENTER/EDIT ORDERABLES Final Result * Prothrombin Time-INR (02/17/2025 3:19 PM EDT) [facility] Prothrombin Time 11.8 10.9 - 12.4 SEC [facility] INTERNATIONAL NORM RATIO 1.0 0.9 - 1.1 [facility] Comment:INTERNATIONAL NORMAL IZED RATIO (INR) REFERENCE RANGES Reference RangeFor patients not on anticoagulant therapy: 0.9 - 1.1INR ranges for oral anticoagulanttherapy:For prevention and treatment of venous thrombosis and pulmonary embolism: 2.0 - 3.0For acute myocardial infarction with aspirin therapy: 2.0 - 3.0For acute myocardial infarction without aspirin therapy: 3.0 - 4.0For patients with mechanical prosthetic heart valves: 2.5 - 3.5 02/17/2025 3:19 PM EDT 02/17/2025 3:19 PM EDT Generic External Data Provider LAB BLOOD ORDERAB LES Final Result [facility] [address] [place] [address] [phone] * CBC (02/17/2025 3:19 PM EDT) [facility] White Blood Count 5.8 4.8 - 10.8 X10*3/uL [facility] Red Blood Count 4.45 4.20 - 5.50 X10*6/uL [facility] Hemoglobin 13.4 12.0 - 16.0 g/dl [facility] Hematocrit 39.5 37.0 - 47.0 % [facility] Mean Corpuscular Volume 88.8 80.0 - 98.0 fL [facility] Mean Corpuscular Hemoglobin 30.1 27.0 - 33.0 pg [facility] Mean Corpuscular HGB Conc 33.9 31.0 - 35.0 g/dl [facility] Red Cell Distribution Width 13.1 11.0 - 16.0 % [facility] Platelet Count 186 160 - 400 X10*3/uL [facility] Mean Platelet Volume 11.0 9.4 - 12.3 fL [facility] NRBC Pct Auto 0.0 0.0 - 0.2 /100WBC [facility] NRBC Abs Auto 0.000 0.0 - 0.012 X10*3/uL [facility] 02/17/2025 3:19 PM EDT 02/17/2025 3:19 PM EDT us Generic External Data Provider LAB BLOOD ORDERAB LES Final Result Performing Organization Address City/[facility]/ZIP Co de Phone Number [facility] [address] [place] [address] [phone] * (ABNORMAL) Basic Metabolic Panel (02/17/2025 3:19 PM EDT) [facility] Sodium 143 135 - 145 mmol/L [facility] Potassium 4.2 3.3 - 5.1 mmol/L [facility] Chloride 106 96 - 108 mmol/L [facility] Carbon Dioxide 28 22 - 29 mmol/L [facility] Anion Gap 13 12 - 20 [facility] Urea Nitrogen (BUN) 20(H) 9 - 16 mg/dL [facility] Creatinine, Serum 0.77 0.5 - 1.4 mg/dL [facility] Estimated Glomerular Filt Rate >60 [facility] Comment:Chronic Kidney Disea se: Estimated GFR < 60 mL/min/1.72h6Pylznf Kidney Disease: Estimated GFR < 15 mL/min/1.73m2 Glucose 90 60 - 115 mg/dL [facility] Calcium 9.5 8.4 - 10.2 mg/dL [facility] 02/17/2025 3:19 PM EDT 02/17/2025 3:19 PM EDT us Generic External Data Provider LAB BLOOD ORDERAB LES Final Result Performing Organization Address City/State/[facility] Co de Phone Number [facility] [address] [place] [address] [phone] * BI Mammogram Screening Tomosynthesis Bilateral (12/12/2024 2:00 PM EST) Anatomical Region Laterality Modality Breast Bilateral Mammography 12/12/2024 2:00 PM EST Narrative 12/22/2024 1:26 PM EST ? [facility] [place] ? [address] ?[place] [address] ? Mammography Report ? Signed ? Patient: Montoya Randell,Yesenia ?MR#: [id number] ?? [id number] ? : 1950 ?Acct:[id number] ? Age/Sex: 74 / F ?ADM Date: 01/16/25 ? Loc: HO.MAMMO ? Attending : Jason Hammer MD ? Ordering Physician: Jason Gunn MD ?Res ?? ults: 1Negative ? Date of Service: 12/12/24 ?Follow Up: 1 Year From Orig ?? inal Mammogram ? Procedure(s): MM tomosynthesis screening BI ?? Accession Number(s): [id number] ? cc: Jason Gunn MD ? EXAMINATION: ?? MM SCREENING DIGITAL BREAST TOMOSYNTHESIS, BILATERAL ? CLINICAL INFORMATION: ? Screening. Asymptomatic. ? COMPARISON: ?? Mammography: Comparison is made with available priors ? TECHNIQUE: ?? Digital breast mammography with tomosynthesis is performed in both the ?? craniocaudal and mediolateral oblique views along with computer-aided ?? detection (CAD). ? FINDINGS: ?? There are scattered areas of fibroglandular density (ACR BI-RADS breast ?? composition Category b). ? There are no significant masses, abnormal calcifications, or other ?? abnormalities. ? MM/MM tomosynthesis screening BI ?? IMPRESSION: ?? No mammographic evidence of malignancy. ? ASSESSMENT: ? BI-RADS BI-RADS 1 - Negative ? RECOMMENDATION: ?? Routine annual mammography screening. ? 1 year F/U ? This examination should not preclude the clinical evaluation of a ?? suspicious palpable abnormality. ? This patient's information was entered into a reminder system with a ?? target due date for their next mammogram. ? Electronically signed by: ??Anni Stinson DO ??12/22/2024 01:23 PM EST ?? RP ? Dictated By: ?Anni Stinson DO ? Signed By: ?<Electronically signed by Anni Stinson, DO in OV> ? 12/22/24 1323 ? DD/ 1400 ? TD/TT: 12/12/24 1412 ? Paper Slitter: ? Procedure Note Donotuseinterpreter, Image - 12/22/2024 [place] [facility] [address] [place], [place] [address] Mammography Report Signed Patient: Yesenia NorrisMR#: [id number] : 1950Acct:[id number] Age/Sex: 74 / FADM Date: 12/12/24 Loc: HO.MAMMO Attending Dr: Jason Hammer MD Ordering Physician: Jason Gunn ults: 1Negative Date of Service: 12/12/24Follow Up: 1 Year From Orig inal Mammogram Procedure(s): MM tomosynthesis screening BI Accession Number(s): [id number] cc: Jason Gunn MD EXAMINATION: MM SCREENING DIGITAL BREAST TOMOSYNTHESIS, BILATERAL CLINICAL INFORMATION: Screening. Asymptomatic. COMPARISON: Mammography: Comparison is made with available priors TECHNIQUE: Digital breast mammography with tomosynthesis is performed in both the craniocaudal and mediolateral oblique views along with computer-aided detection (CAD). FINDINGS: There are scattered areas of fibroglandular density (ACR BI-RADS breast composition Category b). There are no significant masses, abnormal calcifications, or other abnormalities. MM/MM tomosynthesis screening BI IMPRESSION: No mammographic evidence of malignancy. ASSESSMENT: BI-RADS BI-RADS 1 - Negative RECOMMENDATION: Routine annual mammography screening. 1 year F/U This examination should not preclude the clinical evaluation of a suspicious palpable abnormality. This patient's information was entered into a reminder system with a target due date for their next mammogram. Electronically signed by: Anni Stinson DO 12/22/2024 01:23 PM [facility] Dictated By: Anni Stinson DO Signed By: <Electronically signed by Anni Stinson DO in OV> 12/22/24 1323 DD/ 1400 TD/TT: 12/12/24 1412 Paper Slitter: Jason Hammer MD IMG BI PROCEDURES Edited Result - Final * (ABNORMAL) Lipid Panel, Standard (08/14/2024 11:02 AM EDT) Triglycerides 279(H) <150 mg/dL [facility] Comment:Desirable Triglyceri de: less than 150 mg/dLBorderline High Triglyceride 150-199 mg/dLHigh Triglyceride: 200-499 mg/dLVery High Triglyceride: greater than or equal to 5OO mg/dL Cholesterol 137 <200 mg/dL [facility] Comment:Desirable Cholestero l: less than 200 mg/dLBorderline High Cholesterol: 200-239 mg/dLHigh Cholesterol: greater than 239 mg/dL LDL Cholesterol Calculated 53 <100 mg/dL [facility] Comment:Desirable LDL: less than 100 mg/dLNear Optimal/Above Optimal LDL: 110- 129 mg/dLBorderline High LDL: 130-159 mg/dLHigh LDL: 160-189 mg/dLVery High LDL: greater than or equal to 190 mg/dL HDL Cholesterol 29(L) >40 mg/dL [facility] Comment:Desirable HDL: great er than 40 mg/dL Note: This HDL assay may give artificially low results in patients with liver disease. Blood Venous blood specimen / Unknown 08/14/2024 11:02 AM EDT 08/14/2024 11:02 AM EDT Jason Hammer MD LAB BLOOD ORDERABL ES Final Result [facility] [address] [place] [address] [phone] * Hm Colonoscopy (09/13/2022 12:11 PM EDT) Mike Smith MD HEALTH MAINTENANCE Final Result from Last 3 Months or Most Recently Relevant to Health Maintenance Insurance * Guarantor: Yesenia Montoya Account Type Relation to Patient Date of Phone Billing Address Personal/Family Self 1950 [address] [place] [address] [facility] Member Subscriber Plan / Payer (Ef fective 2016-Present) Name:Yesenia Montoya Relation to Subscriber:Self Name:Yesenia Montoya Payer ID:Not on file Group ID:[id number] Type:Not on file Address: [address] [employer] (O D-SNP) * Guarantor: Yesenia Montoya Account Type Relation to Patient Date of Phone Billing Address Dental Self [address] [place] [address] DENTAL - [facility] * Guarantor: Yesenia Montoya Account Type Relation to Patient Date of Phone Billing Address Personal/Family Self [address] [place] [address] * Guarantor: Yesenia Montoya Account Type Relation to Patient Date of Phone Billing Address Personal/Family Self [address] [place] [address] * Guarantor: Yesenia Montoya Account Type Relation to Patient Date of Phone Billing Address Personal/Family Self [address] [place] [address] Care Teams Juice Standardizer Relationship Specialty Start Date End Date Jason Gunn MD [address] [place] [address] PCP - General Internal Medicine 04/17/20
--- OUTSIDE RECORDS SUMMARY | 2025-03-18 13:38 | XMS_ITS | Clinical Summary ---
Author Organization [employer] [facility] ity Address [address] [place] [address] Care Team Providers Care Motor Assembler Name Role Phone Unavailable Primary Care Provider Unavailabl e Social History Tobacco Use Types Packs/Day Years Used Date Smoking Tobacco: Never Assessed Comments Unknown Sex and Gender Information Value Date Recorded Sex Assigned at Not on file Legal Sex Female 4:29 AM EST Gender Identity Not on file Sexual Orientation Not on file Plan of Treatment Health Maintenance Due Date Last Done Comments Breast Cancer Screening 1950 DTaP,Tdap,and Td Vaccines (1 - Tdap) 1969 Pneumococcal Vaccine: 50+ Ye ars (1 of 1 - PCV) 2000 Zoster Vaccines (1 of 2) 2000 Colorectal Cancer Screening: Colonoscopy 12/26/2023 Depression Screening 12/26/2023 Falls Risk Assessment 12/26/2023 Hepatitis C Screening 12/26/2023 Osteoporosis Screening (Bone Density Screening) 12/26/2023 Social Influencers of Health Screening 12/26/2023 COVID-19 Vaccine ( - 2023-2 5 season) 2024 RSV Immunization Adult Patie nts (1 - 1-dose 75+ series) 2025 Influenza Vaccine (Season Ended) 2025 HIB Vaccines Aged Out No longer eligi ble based on patient's age to complete this topic HPV Vaccines Aged Out No longer eligi ble based on patient's age to complete this topic Hepatitis A Vaccines Aged Out No long er eligible based on patient's age to complete this topic Hepatitis B Vaccines Aged Out No long er eligible based on patient's age to complete this topic IPV Vaccines Aged Out No longer eligi ble based on patient's age to complete this topic MMR Vaccines Aged Out No longer eligi ble based on patient's age to complete this topic Meningococcal ACWY Vaccine Aged Out N o longer eligible based on patient's age to complete this topic Meningococcal B Vaccine Aged Out No l onger eligible based on patient's age to complete this topic RSV Immunization Patients Un rolando 20 months Aged Out No longer eligible b ased on patient's age to complete this topic Varicella Vaccines Aged Out No longer eligible based on patient's age to complete this topic
--- OUTSIDE RECORDS SUMMARY | 2025-03-18 13:38 | XMS_ITS | Encounter Summary ---
Author Organization [employer] Address [address] [facility] 7t [place] [address] Care Team Providers Care Outpatient Clerk Name Role Phone Jsaon Gunn MD Primary Care Prov ider Encounter Details Date Type Department Care Team (Latest Contact Info) Description 04/14/2021 Abstract [facility] CONVERSIONS Dental, Provider, DDS Social History Tobacco Use Types Packs/Day Years [...] Description 03/21/2025 10:00 AM EDT Office Visit [facility] ADULT DENTAL [address] [place] [address] Karey Pisano, DDS [address] [place] [address] 05/13/2025 2:30 PM EDT Telemedicine [facility] [address] [place], [place] [phone] Jason Gunn MD 505 [place] [address] documented as of this encounter Visit Diagnoses Not on filedocumented in this encounter Care Teams Outpatient Clerk Relationship Specialty Start Date End Date Jason Gunn MD [address] [place] [phone] PCP - General Internal Medicine 04/17/20 documented as of this encounter
--- OUTSIDE RECORDS SUMMARY | 2025-03-18 13:38 | XMS_ITS | Encounter Summary ---
Author Organization [employer] Address 75 [facility] [address] 7t [place] [address] Care Team Providers Care Inspector Structural Bonding Name Role Phone Jason Gunn MD Primary Care Prov ider Reason for Visit * Reason Onset Date Comments Med Refill 04/18/2024 Encounter Details Date Type Department Care Team (Late st Contact Info) Description 04/18/2024 Refill [facility] MEDICINE [address] [place] [address] Jason Gunn MD [address] [place] [address] Adjustment insomnia Social History Tobacco Use Types Packs/Day Years Used Date Smoking Tobacco: Never Passive Smoke Exposure: Never Smokeless Tobacco: Never Alcohol Use Standard Drinks/Week Comments Never 0 (1 standard drink = 0.6 oz pur e alcohol) Depression Answer Date Recorded Patient Health Questionnaire-9 Score 0 03/06/2023 Housing Stability Answer Date Recorded What is your housing situation today? I have ida cheung 09/12/[address] you li ve. Do you have problems with any of the following? None of the above 09/12/2023 Food Insecurity Answer Date Recorded Within the past 12 months, y ou worried that your food would run out before you got money to buy more: Never True 09/12/2023 Within the past 12 months,th e food you bought just didn't last and you didn't have enough money to get more: Never True Transportation Answer Date Recorded In the past 12 months, has l ack of transportation kept you from medical appts, meetings, work or from getting things needed for daily living? No 09/12/2023 Utilities Answer Date Recorded In the past 12 months, has t he electric, gas, oil or water company threatened to shut off services in your home? No 09/12/2023 Depression Answer Date Recorded Patient Health Questionnaire-2 Score 0 03/06/2023 Comments No Sex and Gender Information Value Date Recorded Sex Assigned at Female 09/26/2022 10:22 AM EDT Legal Sex Female 10:22 AM EDT Gender Identity Female 09/26/2022 10:22 AM EDT Sexual Orientation Straight 09/26/2022 10 :22 AM EDT documented as of this encounter Miscellaneous Notes * Telephone Encounter - Osbaldo Santoro - 04/18/2024 9:15 AM EDT TC from pt requesting medication refill. Medications needing refill : traZODone (Desyrel) 100 MG tablet To be sent to: [facility] [address] [place] [address] - [facility] The patient will be leaving out of town starting 04/19 and would need a 2 month supply documented in this encounter Plan of Treatment Upcoming Encounters Date Type Department Care Team (Late st Contact Info) Description 03/21/2025 10:00 AM EDT Office Visit [facility] [address] [place] [address] Karey Pisano DDS 230 [place] [address] 05/13/2025 2:30 PM EDT Telemedicine [facility] [address] [place], [place] [phone] Jason Gunn MD [address] [place] [address] documented as of this encounter Visit Diagnoses Diagnosis Adjustment insomnia Insomnia, unspecified documented in this encounter Additional Health Concerns Assessment Noted Time PHQ-9 Depression Total Score: 0 03/06/20 23 1:43 PM EDT documented as of this encounter Care Teams Inspector Structural Bonding Relationship Specialty Start Date End Date Jason Gunn MD [address] [place] [id number] PCP - General Internal Medicine 04/17/20 documented as of this encounter
--- OUTSIDE RECORDS SUMMARY | 2025-03-18 13:38 | XMS_ITS | Encounter Summary ---
Author Organization [facility] Address 75 [facility] 7t [place] [address] Care Team Providers Care Street Light Cleaner Name Role Phone Jason Gunn MD Primary Care Prov ider Encounter Details Date Type Department Care Team (Latest Contact Info) Description 09/09/2022 Abstract [facility] CONVERSIONS Dental, Provider, DDS Social History [...] Description 03/21/2025 10:00 AM EDT Office Visit [facility] ADULT DENTAL 505 [place] [address] Karey Pisano, DDS 230 [place] [address] 05/13/2025 2:30 PM EDT Telemedicine [facility] [address] [place], [place] [phone] Jason Gunn MD 505 [place] [address] documented as of this encounter Visit Diagnoses Not on filedocumented in this encounter Care Teams Street Light Cleaner Relationship Specialty Start Date End Date Jason Gunn MD [address] [place] [address] PCP - General Internal Medicine 04/17/20 documented as of this encounter
--- OUTSIDE RECORDS SUMMARY | 2025-03-18 13:38 | XMS_ITS | Encounter Summary ---
Author Organization [employer] Address [address] [facility] [address] 7t [place] [address] Care Team Providers Care Test Kitchen Home Economist Name Role Phone Jason Gunn MD Primary Care Prov ider Encounter Details Date Type Department Care Team (Latest Contact Info) Description 03/18/2025 Travel Social History Tobacco Use Types Packs/Day Years [...] is your housing situation today? I have idajosette cheung 03/18/[address] you [...] the past 12 months, has t he [employer], gas, oil or water company threatened to [...] Description 03/21/2025 10:00 AM EDT Office Visit [facility] ADULT DENTAL [address] [place] [address] Karey Pisano, DDS 230 [place] [address] 05/13/2025 2:30 PM EDT Telemedicine [facility] PED[facility] [address] [place] [address] Jason Gunn MD [address] [place] [address] documented as of this encounter Visit Diagnoses Not on filedocumented in this encounter Additional Health Concerns Assessment Noted Time PHQ-9 Depression Total Score: 0 03/18/20 25 10:15 AM EDT documented as of this encounter Care Teams Test Kitchen Home Economist Relationship Specialty Start Date End Date Jason Gunn MD [address] [place] [address] PCP - General Internal Medicine 04/17/20 documented as of this encounter
--- OUTSIDE RECORDS SUMMARY | 2025-03-18 13:38 | XMS_ITS | Encounter Summary ---
Author Organization [employer] Address [address] [facility] [address] 7[address] [place] [address] Care Team Providers Care Family Intervention Specialist Name Role Phone Jason Gunn MD Primary Care Prov ider Reason for Visit * Reason Onset Date Comments Medication Question 11/13/2023 Encounter Details Date Type Department Care Team (Late st Contact Info) Description 11/13/2023 Telephone [facility] MEDICINE 230 [place] [address] Jason Gunn MD [address] [place] [address] Medication Question Social History Tobacco Use Types Packs/Day Years [...] Patient Health Questionnaire-2 Score 0 03/06/2023 Comments Unknown Sex and Gender Information Value Date Recorded Sex Assigned at Female 09/26/2022 10:22 AM EDT Legal Sex Female 10:22 AM EDT Gender Identity Female 09/26/2022 10:22 AM EDT Sexual Orientation Straight 09/26/2022 10 :22 AM EDT documented as of this encounter Miscellaneous Notes * Telephone Encounter - Tamie Lewis RN - 11/14/2023 1:48 PM EST Placed call to pt regarding message below. Pt states having appt with PCP on 10/23/23 and discussing need for senna. No mention of this in chart. Pt informed message will be sent to PCP for review and advise if pt can get Senna rx. * Telephone Encounter - Osbaldo Santoro - 11/13/2023 12:12 PM EST Tc from patient calling to see status on medication that was discussed and prescribed by PCP however consumer loan underwriter does not see anything on file please clarify documented in this encounter Plan of Treatment Upcoming Encounters Date Type Department Care Team (Late st Contact Info) Description 03/21/2025 10:00 AM EDT Office Visit [facility] ADULT [facility] [address] [place], [place] [phone] Karey Pisano DDS 230 [place] [address] 05/13/2025 2:30 PM EDT Telemedicine [facility] [address] [place], [place] [phone] Jason Gunn MD [address] [place] [address] documented as of this encounter Visit Diagnoses Not on filedocumented in this encounter Additional Health Concerns Assessment Noted Time PHQ-9 Depression Total Score: 0 03/06/20 23 1:43 PM EDT documented as of this encounter Care Teams Family Intervention Specialist Relationship Specialty Start Date End Date Vicente Jason Hammer MD [address] [place] [address] PCP - General Internal Medicine 04/17/20 documented as of this encounter
--- OUTSIDE RECORDS SUMMARY | 2025-03-18 13:38 | XMS_ITS | Encounter Summary ---
Author Organization [employer] [facility] Address 75 [facility] 7t [place] [address] Care Team Providers Care Scouring Machine Operator Name Role Phone Jason Gunn MD Primary Care Prov ider Encounter Details Date Type Department Care Team (Latest Contact Info) Description 07/11/2019 Abstract [facility] CONVERSIONS Dental, Provider, DDS Social History [...] AM EDT Office Visit [facility] ADULT DENTAL [address] [place] [address] Karey Pisano, DDS 230 [place] [address] 05/13/2025 2:30 PM EDT Telemedicine [facility] [address] [place], [place] [phone] Jason Gunn MD 505 [place] [address] documented as of this encounter Visit Diagnoses Not on filedocumented in this encounter Care Teams Scouring Machine Operator Relationship Specialty Start Date End Date Jason Gunn MD [address] [place] [address] PCP - General Internal Medicine 04/17/20 documented as of this encounter
--- OUTSIDE RECORDS SUMMARY | 2025-03-18 13:38 | XMS_ITS | Encounter Summary ---
Author Organization [employer] Address [address] [facility] [address] 7t [place] [address] Care Team Providers Care Net Developer Consultant Name Role Phone Jason Gunn MD Primary Care Prov ider Reason for Visit * Reason Onset Date Comments Medication Question 08/09/2024 Encounter Details Date Type Department Care Team (Late st Contact Info) Description 08/09/2024 Telephone [facility] MEDICINE [address] [place] [address] Jason Gunn MD [address] [place] [address] Medication Question Social History Tobacco Use Types Packs/Day Years Used Date Smoking Tobacco: Never Passive Smoke Exposure: Never Smokeless Tobacco: Never Alcohol Use Standard Drinks/Week Comments Never 0 (1 standard drink = 0.6 oz pur e alcohol) Depression Answer Date Recorded Patient Health Questionnaire-9 Score 0 07/16/2024 Patient Health Questionnaire-9 Score 0 07/16/2024 Last PHQ-9: Questionnaire Data Not on file 0 07/16/2024 Housing Stability Answer Date Recorded What is your housing situation today? I have idajosette cheung 09/12/[address] you [...] Date Recorded Patient Health Questionnaire-2 Score 0 07/16/2024 Comments No Sex and Gender Information Value Date Recorded Sex Assigned at Female 09/26/2022 10:22 AM EDT Legal Sex Female 10:22 AM EDT Gender Identity Female 09/26/2022 10:22 AM EDT Sexual Orientation Straight 09/26/2022 10 :22 AM EDT documented as of this encounter Miscellaneous Notes * Telephone Encounter - Shruthi Plummer - 08/20/2024 4:08 PM EDT Tc from norris with [facility] calling in regards to an alternative for B Complex capsule ( [employer] ). Please see notes. Please contact at [phone] * Telephone Encounter - Cale Morales - 08/09/2024 3:58 PM EDT Tc from [facility] calling in regards to Vitamins-Lipotropics (B Complex Formula 1, Lipotrop,) tablet stating medication is currently on back order and they're requesting [employer]caps as an alternative. If any questions you can contact pt at [phone]. documented in this encounter Plan of Treatment Upcoming Encounters Date Type Department Care Team (Late st Contact Info) Description 03/21/2025 10:00 AM EDT Office Visit [facility] ADULT DENTAL [address] [place] [address] Karey Pisano, DDS 230 [place] [address] 05/13/2025 2:30 PM EDT Telemedicine [facility] MED [facility] PEDS [address] [place] [address] Jason Gunn MD [address] [place] [address] documented as of this encounter Visit Diagnoses Not on filedocumented in this encounter Additional Health Concerns Assessment Noted Time PHQ-9 Depression Total Score: 0 07/16/20 24 1:04 PM EDT documented as of this encounter Care Teams Net Developer Consultant Relationship Specialty Start Date End Date Jason Gunn MD [address] [place] [address] PCP - General Internal Medicine 04/17/20 documented as of this encounter
--- OUTSIDE RECORDS SUMMARY | 2025-03-18 13:38 | XMS_ITS | Encounter Summary ---
Author Organization [employer] Address [address] [facility] [address] 7[address] [place] [address] Care Team Providers Care Dispatcher Street Department Name Role Phone Jason Gunn MD Primary Care Prov ider Encounter Details Date Type Department Care Team (Late st Contact Info) Description 03/12/2024 Orders Only [facility] MEDICINE [address] [place] [address] ProviderMike MD Social History Tobacco Use Types Packs/Day Years [...] Description 03/21/2025 10:00 AM EDT Office Visit [facility] ADULT DENTAL 505 [place], [place] [phone] Karey Pisano DDS 230 [place] [address] 05/13/2025 2:30 PM EDT Telemedicine [facility] MED [facility] PEDS 505 [place], [place] [phone] Jason Gunn MD [address] [place] [address] documented as of this encounter Procedures Procedure Name Priority Date/Time Associated Diagnosis Comments HM COLONOSCOPY Routine 09/13/2022 12:11 PM EDT documented in this encounter Results * Hm Colonoscopy (09/13/2022 12:11 PM EDT) Historical Provider HEALTH MAINTENANCE Final Result documented in this encounter Visit Diagnoses Not on filedocumented in this encounter Additional Health Concerns Assessment Noted Time PHQ-9 Depression Total Score: 0 03/06/20 23 1:43 PM EDT documented as of this encounter Care Teams Dispatcher Street Department Relationship Specialty Start Date End Date Jason Gunn MD [address] [place] [address] PCP - General Internal Medicine 04/17/20 documented as of this encounter
--- OUTSIDE RECORDS SUMMARY | 2025-03-18 13:38 | XMS_ITS | Encounter Summary ---
Author Organization [employer] Address [address] [facility] [address] [place] [address] Care Team Providers Care Jackspooler Name Role Phone Jason Gunn MD Primary Care Prov ider Reason for Visit * Reason Onset Date Comments medication 03/28/2024 Encounter Details Date Type Department Care Team (Late st Contact Info) Description 03/28/2024 Telephone [facility] ADULT DENTAL [address] [place] [address] Karey Pisano, DDS 230 [facility] [place] [address] medication Social History Tobacco Use Types Packs/Day Years [...] encounter Miscellaneous Notes * Telephone Encounter - Nakia Astudillo - 04/08/2024 9:00 AM EDT Patient having a lot pain .shes is out of antidotic and pain medicine.her apt w dr Lucas not till 05/22 . * Telephone Encounter - Karey Pisano DDS - 03/29/2024 10:42 AM EDT Prescription was resent * Telephone Encounter - Bette Montoya - 03/28/2024 4:16 PM EDT Patient states medication was to be sent to pharmacy and states that pharmacy has not received script documented in this encounter Plan of Treatment Upcoming Encounters Date Type Department Care Team (Late st Contact Info) Description 03/21/2025 10:00 AM EDT Office Visit [facility] ADULT DENTAL [address] [place] [address] Karey Pisano DDS 230 [place] [address] 05/13/2025 2:30 PM EDT Telemedicine [facility] MED & PEDS 505 [place] [address] Jason Gunn MD 505 [place] [address] documented as of this encounter Visit Diagnoses Not on filedocumented in this encounter Additional Health Concerns Assessment Noted Time PHQ-9 Depression Total Score: 0 03/06/20 23 1:43 PM EDT documented as of this encounter Care Teams Jackspooler Relationship Specialty Start Date End Date Jason Gunn MD 505 [place] [address] PCP - General Internal Medicine 04/17/20 documented as of this encounter
--- OUTSIDE RECORDS SUMMARY | 2025-03-18 13:38 | XMS_ITS | Encounter Summary ---
Author Organization [employer] Address [address] [facility] 7t [place] [address] Care Team Providers Care Rn Clinical Name Role Phone Jason Gunn MD Primary Care Prov ider Encounter Details Date Type Department Care Team (Late st Contact Info) Description 04/09/2024 Orders Only [facility] MED [facility] PEDS 505 [place], [place] [phone] Jason Gunn MD [address] [place] [address] Social History Tobacco Use Types Packs/Day Years [...] 10:00 AM EDT Office Visit [facility] ADULT DENTAL [address] [place] [address] Karey Pisano, DDS 230 [place], [place] [phone] 05/13/2025 2:30 PM EDT Telemedicine [facility] MED [facility] [address] [place] [address] Jason Gunn MD [address] [place] [address] documented as of this encounter Visit Diagnoses Not on filedocumented in this encounter Additional Health Concerns Assessment Noted Time PHQ-9 Depression Total Score: 0 03/06/20 23 1:43 PM EDT documented as of this encounter Care Teams Rn Clinical Relationship Specialty Start Date End Date Jason Gunn MD [address] [place] [address] PCP - General Internal Medicine 04/17/20 documented as of this encounter
--- OUTSIDE RECORDS SUMMARY | 2025-03-18 13:38 | XMS_ITS | Encounter Summary ---
Author Organization [employer] Address [address] [facility] [address] 7[address] [place] [address] Care Team Providers Care Acrobatic Dancer Name Role Phone Jason Gunn MD Primary Care Prov ider Reason for Visit * Reason Onset Date Comments Reschedule appointment 03/11/2025 Encounter Details Date Type Department Care Team (Late st Contact Info) Description 03/11/2025 Telephone [facility] MEDICINE [address] [place] [address] Jason Gunn MD [address] [place] [address] Reschedule appointment Social History Tobacco Use Types Packs/Day Years [...] encounter Miscellaneous Notes * Telephone Encounter - Brittney Cook - 03/11/2025 10:54 AM EDT Tc from pt requesting if appointment with pcp for f/u bp on 05/07 can be for March because she's going on vacation all summer to [place]. documented in this encounter Plan of Treatment Upcoming Encounters Date Type Department Care Team (Late st Contact Info) Description 03/21/2025 10:00 AM EDT Office Visit [facility] ADULT DENTAL [address] [place] [address] Karey Pisano DDS 230 [place] [address] 05/13/2025 2:30 PM EDT Telemedicine [facility] MED [facility] PEDS [address] [place], [place] [phone] Jason Gunn MD 505 [place], [place] [phone] documented as of this encounter Visit Diagnoses Not on filedocumented in this encounter Additional Health Concerns Assessment Noted Time PHQ-9 Depression Total Score: 0 07/16/20 24 1:04 PM EDT documented as of this encounter Care Teams Acrobatic Dancer Relationship Specialty Start Date End Date Jason Gunn MD [address] [place] [address] PCP - General Internal Medicine 04/17/20 documented as of this encounter
--- OUTSIDE RECORDS SUMMARY | 2025-03-18 13:38 | XMS_ITS | Encounter Summary ---
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, unspecified vessel or lesion type (CMS/HCC) Jason Gunn MD [address] [place] [address] Phone: tel: fax: Referral ID Status Reason Start Date Expiration Date Visits Re quested Visits Authorized [id number] Closed 03/18/2025 03/18/2026 1 1 Encounter Details Date Type Department Care Team (Late st Contact Info) Description 03/18/2025 10:30 AM EDT Office Visit [facility] MED & PEDS [address] [place] [address] Jason Gunn MD [address] [place] [id number] Prediabetes (Primary Dx); Need for hepatitis C screening test; Mixed hyperlipidemia; 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 female who presents for No chief complaint on file.. Diabetes She presents for her follow-up diabetic visit. She has type 2 diabetes mellitus. Pertinent negatives for diabetes include no fatigue, no foot paresthesias, no foot ulcerations, no polydipsia, no polyphagia and no polyuria. Review of Systems Constitutional: Negative for fatigue. Endocrine: Negative for polydipsia, polyphagia and polyuria. Objective Physical Exam Constitutional: Appearance: Normal appearance. Cardiovascular: Rate and Rhythm: Normal rate. Heart sounds: No murmur heard. Pulmonary: Effort: Pulmonary effort is normal. No respiratory distress. Breath sounds: No stridor. No wheezing or rhonchi. Neurological: General: No focal deficit present. Mental Status: She is alert and oriented to person, place, and time. Psychiatric: Mood and Affect: Mood normal. Behavior: Behavior normal. Assessment/Plan Problem List Items Addressed This Visit CHD (coronary heart disease) Patient underwent cardiac cath, coronary lesion has remained stable, will follow up cardiology reccomendations Relevant Medications Semaglutide,0.25 or 0.5MG/DOS, (Ozempic, 0.25 or 0.5 MG/DOSE,) 2 MG/3ML solution pen-injector Hyperlipidemia On atorvastatin, will order new labs for guidance of therapy Prediabetes - Primary Patient with prediabetes, elevated blood pressure, obesity and Coronary artery disease, will start on ozempic, risk vs benefits were discussed Relevant Medications Semaglutide,0.25 or 0.5MG/DOS, (Ozempic, 0.25 or 0.5 MG/DOSE,) 2 MG/3ML solution pen-injector Other Relevant Orders Lipid Panel, Standard Comprehensive Metabolic Panel Hemoglobin A1c POCT Glucose (Completed) POCT HGB A1C (Completed) Other Visit Diagnoses Need for hepatitis C screening test Relevant Orders Hepatitis C Antibody with Reflex to HCV, RNA, Quantitative, Real-Time PCR documented in this encounter Miscellaneous Notes * Assessment & Plan Note - Jason Hammer MD - 03/18/2025 10:49 AM EDTAssociated Problem(s): CHD (coronary heart disease) Patient underwent cardiac cath, coronary lesion has remained stable, will follow up cardiology reccomendations * Assessment & Plan Note - Jason Hammer MD - 03/18/2025 10:48 AM EDTAssociated Problem(s): Hyperlipidemia On atorvastatin, will order new labs for guidance of therapy * Assessment & Plan Note - Jason Hammer MD - 03/18/2025 10:43 AM EDTAssociated Problem(s): Prediabetes Patient with prediabetes, elevated blood pressure, obesity and Coronary artery disease, will start on ozempic, risk vs benefits were discussed documented in this encounter Plan of Treatment Upcoming Encounters Date Type Department Care Team (Late st Contact Info) Description 03/21/2025 10:00 AM EDT Office Visit [facility] ADULT DENTAL [address] [place] [address] Karey Pisano, SHAUN [address] [place] [address] 05/13/2025 2:30 PM EDT Telemedicine [facility] MED & PEDS [address] [place] [address] Jason Gunn MD [address] [place] [address] Scheduled Orders Name Type Priority Associated Diagnoses Orde r Schedule Lipid Panel, Standard Lab Routine Prediabetes Expected: 03/18/2025 (Approximate), Expires: 03/18/2026 Comprehensive Metabolic Panel Lab Routine Prediabetes Expected: 03/18/2025 (Approximate), Expires: 03/18/2026 Hemoglobin A1c Lab Routine Prediabetes Expected: 03/18/2025 (Approximate), Expires: 03/18/2026 Hepatitis C Antibody with Reflex to HCV, RNA, Quantitative, Real-Time PCR Lab Routine Need for hepatitis C screening test Expected: 03/18/2025, Expires: 03/18/2026 documented as of this encounter Procedures Procedure Name Priority Date/Time Associated Diagnosis Comments POCT GLYCATED HEMOGLOBIN, TOTAL Routine 03/18/2025 10:56 AM EDT Prediabetes POCT GLUCOSE Routine 03/18/2025 10:47 AM EDT Prediabetes documented in this encounter Results * POCT HGB A1C (03/18/2025 10:56 AM EDT) Hemoglobin A1C 5.9 4.0 - 6.0 % QC Media Lot # [id number] Lot# Expiration Date , Blood 03/18/2025 10:5 6 AM EDT Jason Hammer MD POINT OF CARE TEST ENTER/EDIT ORDERABLES Final Result * POCT Glucose (03/18/2025 10:47 AM EDT) Glucose Blood, POC 115 60 - 200 mg/dL QC Media Lot # [id number] Lot# Expiration Date ,025 Blood Capillary blood specimen / Unknown 03/18/2025 10:47 AM EDT us Jason Hammer MD POINT OF CARE TEST ENTER/EDIT ORDERABLES Final Result documented in this encounter Visit Diagnoses Diagnosis Prediabetes- Primary Other abnormal glucose Need for hepatitis C screening test Special screening examination for other specified viral diseases Mixed hyperlipidemia 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
[2025-03-18 14:40] LABS: Estimated Average Glucose 108 mg/dL; Hemoglobin A1C 119.6907 umol/L; Hemoglobin A1c % 5.4 % (<6.0); Total Hemoglobin (HGBA1C) 3380.9832 umol/L
[2025-03-18 14:45] LABS: Alanine Aminotransferase 32 U/L (0-31); Albumin Level 4.2 g/dL (3.5-5.0); Alkaline Phosphatase 70 U/L (39-117); Anion Gap 10 (12-20); Aspartate Amino Transferase 34 U/L (5-31); Bilirubin Total 0.7 mg/dL (0.0-1.0); Blood Urea Nitrogen 16 mg/dL (9-16); Calcium 9.4 mg/dL (8.4-10.2); Carbon Dioxide 27 mmol/L (22-29); Chloride 107 mmol/L (96-108); Cholesterol 112 mg/dL (<200); Estimated Glomerular Filt Rate > 60; Glucose Random 100 mg/dL (60-115); HDL Cholesterol 30 mg/dL (>40); LDL Cholesterol Calculated 43 mg/dL (<100); Sodium 140 mmol/L (135-145); Triglycerides 195 mg/dL (<150)
[2025-03-19 08:46] LABS: ~HepC Num1 0.11 S/CO (0.00-0.79); ~Hepatitis C Antibody Nonreactive (Nonreactive)
== END 2025-03-18 11:20 | disposition home or self-care (01) ==
LOC: HO.CHCLDS 11:19
PROVIDERS: Visit Provider Internal Medicine
DX: R73.03 Prediabetes (principal); Z11.59 Encounter for screening for other viral diseases; Z13.6 Encounter for screening for cardiovascular disorders
CPT/HCPCS: 36415; 80053; 80061; 83036; 86803

== ENCOUNTER 2025-03-28 13:48 | Outpatient (AMB) | payer OTHER, SELFPAY ==
[2025-03-28 14:01] VITALS: BP 114/62; PULSE 79; BMI 41.0
--- NOTE | 2025-03-28 14:01 | A.OFFVIS_ITS ---
Vital Signs 03/28/25 14:01 Height 5 ft 2 in Weight 223 lb 15.834 oz BMI 41.0 BP 114/62 Blood Pressure Location Lt brachial Position Sitting Pulse 79 Pulse Source Pulse Oximeter Intake Visit Reasons: 2 wk follow ups/p Cardiac cath Linen Tech Required: No Allergies ketorolac [From TORADOL] Allergy (Severe, Verified 03/28/25 14:05) SWELLING-FACIAL, anaphylaxis aspirin Allergy (Unknown, Verified 03/28/25 14:05) blood in stool adhesive tape [ADHESIVE TAPE] Adverse Reaction (Intermediate, Verified 03/28/25 14:05) RASH Seasonal Allergies Allergy (Unknown, Uncoded 03/28/25 14:05) itching Medication List - Last Reconciled 03/28/25 by SHANIQUA Russell atorvastatin 40 mg PO DAILY calcium carbonate (Ultra Strength Antacid) 0 mg PO calcium citrate malate-vit D3 500-200 mg-unit tabs PO DAILY cholecalciferol (vitamin D3) 25 mcg PO DAILY clopidogrel (Plavix) 75 mg PO DAILY fesoterodine ER (Toviaz) 4 mg PO DAILY 90 days fluticasone propionate 50 mcg/actuation 1 spray intranasal DAILY ketotifen fumarate 0.025%(0.035%) (Eye Itch Relief) 0 drps ophthalmic (eye) loratadine 10 mg PO DAILY magnesium gluconate 27 mg PO DAILY metoprolol tartrate 25 mg PO BID 90 days mirtazapine 15 mg PO BEDTIME rwlwivrfuhrb-rvs-vlmk-FA-vit K 45 mg iron- 800 mcg-120 mcg (Bariatric Multivitamins) caps PO pantoprazole 20 mg PO DAILY propylene glycol 0.6% (Systane Balance) 1 drp ophthalmic (eye) DAILY PRN saliva substitute combo no.9 (Biotene Dry Mouth Oral Rinse mouthwash) 15 mL mucous membrane BID-QID PRN trazodone 100 mg PO BEDTIME vitamin B complex (Vitamins B Complex capsule) 1 cap PO DAILY HPI HPI 2 wk follow ups/p Cardiac cath: Details: Yesenia is a 74 yo female with PMH of HLD, nonobstructive CAD who reported shortness of breath with exertion and underwent repeat cardiac catheterization for further evaluation showing stable CAD. Today she reports having some intermittent and random discomfort in her chest. No discomfort directly related to exertion. She will get some shortness of breath with exertion which is not new. She also reports left hip discomfort with prolonged walking. No PND, orthopnea or edema. No palpitations, lightheadeness, falls. Right radial cath site feels good. No bleeding issues with plavix use. Complaint with meds. [facility] Medical History Intestinal malabsorption following gastrectomy Fracture of wrist Diverticulosis UTI (urinary tract infection) Lactose intolerance Asthma Constipation Sciatica Sjogren's syndrome HEATHER on CPAP Obesity (BMI 30-39.9) GERD (gastroesophageal reflux disease) CAD (coronary artery disease) Lymphoma Malabsorption due to intolerance, not elsewhere classified Surgical History (Updated 03/31/25 @ 12:55 by Lisa Jason, PERSONNEL TECHNICIAN-C) History of cardiac cath History of eyelid surgery H/O section S/P laparoscopic sleeve gastrectomy Family History Father No problems noted. Mother No problems noted. Brother No problems noted. Brother No problems noted. Brother No problems noted. Brother No problems noted. Brother No problems noted. Sister No problems noted. Sister No problems noted. Daughter No problems noted. Daughter No problems noted. Daughter No problems noted. Social History Alcohol intake: never Patient Tobacco Use Status: Never used Tobacco Review of Systems Const All systems reviewed & are unremarkable except as noted in HPI and below ENT Denies dizziness Card Denies chest pain, Denies chest pain at rest, Denies chest pain with activity, Denies rapid heart rate, Denies pedal edema, Denies edema, Denies leg edema, Denies lightheadedness, Denies palpitations, Denies dyspnea, Denies dyspnea on exertion and Denies orthopnea Resp Denies cough, Denies dyspnea and Denies dyspnea on exertion GI Denies hematochezia and Denies change in stool character Musc Denies abnormal gait, Denies limited range of motion, Denies muscle cramps, Denies muscle weakness, Denies numbness, Denies radiating pain into limb, Denies stiffness and Denies tingling Neuro Denies abnormal gait, Denies dizziness, Denies numbness and Denies tingling Endo Denies palpitations Physical Exam Vital Signs: Last Vital Signs Pulse 79 03/28/25 14:01 BP 114/62 03/28/25 14:01 BMI result Body Mass Index 41.0 Const General: cooperative, healthy appearing, comfortable and no acute distress Orientation/consciousness: patient oriented x3 Neck Neck: Yes normal visual inspection Resp Effort & Inspection: normal respiratory effort Auscultation: clear to auscultation bilaterally, no crackles, no rales, no rhonchi and no wheezes Cardio Rate: regular rate Rhythm: regular rhythm Heart sounds: S1 normal heart sound present, S2 normal heart sound present, no gallops, no murmurs and no rubs Neuro General: patient oriented x3 Extrem Other: right radial pulse easily palpable - hand assessment normal General: Yes normal to inspection, No no pedal edema and No calf tenderness Psych Appearance: grossly normal Mental Status: mental status grossly normal Speech and movement: Normal speech and movement present Assessment & Plan Assessment & Plan (1) CAD (coronary artery disease): Comment: Stable. Code(s): I25.10 - Atherosclerotic heart disease of rosebud coronary artery without angina pectoris Category: Medical Plan: Hx of CAD with prior cardiac cath showing mid LAD 50% stenosis. Recently reported increasing sob with exertion and had nuclear stress test which showed normal myocardial perfusion imaging, however her exercise capacity was poor. Cardiac cath was done on 03/13/25 which showed mid LAD 40-50% stenosis. Last echo 06/07/23 showed EF > 70%, normal valve dopplers. Her is noncardiac and may shortness of breath may be related to morbid obesity, deconditioning. Reviewed with her. Signs and symptoms of angina reviewed. Continue Plavix and Metoprolol. Continue Atorvastatin with LDL goal 70. Labs done 03/18/25 shows LDL 43. Cardiology followup 6 mo sooner if needed (2) History of cardiac cath: Comment: 03/13/25 mid LAD 40-50% stenosis Code(s): Z98.890 - Other specified postprocedural states Category: Surgical (3) Chest pain: Code(s): R07.9 - Chest pain, unspecified Category: Medical (4) Hyperlipidemia: Code(s): E78.5 - Hyperlipidemia, unspecified Category: Medical Plan: LDL goal < 70. Continue atorvastatin. Plan Time spent on chart review, documentation, interview and assessment The patient's coronary artery disease is stable with no current indication for stenting. She will continue with Plavix, metoprolol, atorvastatin as part of her management plan to mitigate cardiovascular risks. The patient should report any new or worsening symptoms promptly. Her sleep apnea management through CPAP remains effective. Musculoskeletal pain hinders her activity level, yet regular walking should be maintained within her comfort level. Patient was informed and verbally consented to the use of an ambient scribe for clinic note documentation during this visit. . Medications: Discontinued clopidogrel (Plavix) Discontinued Reason: Doctor's Order 75 mg PO DAILY 90 tabs 3RF Patient Instructions: - Continue taking Plavix and metoprolol as prescribed. - Use CPAP every night for sleep apnea. - Engage in regular walking as tolerated by musculoskeletal pain. - Report any new chest pain or changes in symptom severity immediately. - Follow-up with Dr. Lindo in six months, or sooner if symptoms worsen. Coding Level of Care Code Est Pt Level 4 (30881) Diagnoses CAD (coronary artery disease) I25.10 History of cardiac cath Z98.890 Chest pain R07.9 Hyperlipidemia E78.5 Time Spent (min) 32
--- OUTSIDE RECORDS SUMMARY | 2025-03-28 14:05 | XMS_ITS | Encounter Summary ---
Author Organization [employer] Address [address] [place] [address] Care Team Providers Care Harm Reduction Worker Name Role Phone Jason Gunn MD Primary Care Prov ider Encounter Details Date Type Department Care Team (Late st Contact Info) Description 03/12/2024 Orders Only [facility] MEDICINE [address] [place] [address] ProviderMike MD Social History Tobacco Use Types [...] Care Team (Late st Contact Info) Description 04/17/2025 2:30 PM EDT Office Visit [facility] ADULT DENTAL [address] [place], [place] [phone] Karey Pisano DDS [address] [place] [address] 05/13/2025 2:30 PM EDT Telemedicine [facility] MED & PEDS [address] [place], [place] [phone] Jason Gunn MD [address] [place] [address] documented as of this encounter Procedures Procedure [...] documented as of this encounter Care Teams Harm Reduction Worker Relationship Specialty Start Date End Date Jason Gunn MD [address] [place], [place] [phone] PCP - General Internal Medicine 04/17/20 documented as of this encounter
--- OUTSIDE RECORDS SUMMARY | 2025-03-28 14:05 | XMS_ITS | Encounter Summary ---
Author Organization [employer] Address [address] [facility] [address] [facility] [address] [place] [address] Care Team Providers Care Talent Development Consultant Name Role Phone Jason Gunn MD Primary Care Prov ider Reason for Visit * Reason Onset Date Comments Reschedule appointment 03/11/2025 Encounter Details Date Type Department Care Team (Late st Contact Info) Description 03/11/2025 Telephone [facility] MEDICINE [address] [place] [address] Jason Gunn MD [address] [place] [address] Reschedule appointment Social History Tobacco Use Types [...] she's going on vacation all summer to [place]. documented in this encounter Plan of Treatment Upcoming Encounters Date Type Department Care Team (Late st Contact Info) Description 04/17/2025 2:30 PM EDT Office Visit [facility] ADULT DENTAL [address] [place] [address] Karey Pisano DDS [address] [place] [address] 05/13/2025 2:30 PM EDT Telemedicine [facility] MED & PEDS [address] [place], [place] [phone] Jason Gunn MD [address] [place], [place] [phone] documented as of this encounter Visit Diagnoses Not on filedocumented in this encounter Additional Health Concerns Assessment Noted Time PHQ-9 Depression Total Score: 0 07/16/20 24 1:04 PM EDT documented as of this encounter Care Teams Talent Development Consultant Relationship Specialty Start Date End Date Jason Gunn MD [address] [place] [phone] PCP - General Internal Medicine 04/17/20 documented as of this encounter
--- OUTSIDE RECORDS SUMMARY | 2025-03-28 14:05 | XMS_ITS | Encounter Summary ---
Author Organization [employer] Address [address] [facility] [address] [facility] [address] [address] 7[address] [place] [address] Care Team Providers Care Pearl Glue Operator Name Role Phone Jason Gunn MD Primary Care Prov ider Reason for Visit * Reason Onset Date Comments Prior Auth Prescription 03/26/2025 Encounter Details Date Type Department Care Team (Late st Contact Info) Description 03/26/2025 Telephone [facility] MEDICINE [address] [place] [address] Jason Gunn MD [address] [place] [address] Prior Auth Prescription Social History Tobacco Use Types Packs/Day Years [...] encounter Miscellaneous Notes * Telephone Encounter - Estuardo Damon - 03/26/2025 11:51 AM EDT TC from [facility] reports [place] needed for Semaglutide,0.25 or 0.5MG/DOS, (Ozempic, 0.25 or 0.5 MG/DOSE,) 2 MG/3ML solution pen-injector documented in this encounter Plan of Treatment Upcoming Encounters Date Type Department Care Team (Late st Contact Info) Description 04/17/2025 2:30 PM EDT Office Visit [facility] ADULT DENTAL [address] [place], [place] [phone] Karey Pisano DDS [address] [place] [address] 05/13/2025 2:30 PM EDT Telemedicine [facility] MED & PEDS [address] [place], [place] [phone] Jason Gunn MD [address] [place], [place] [phone] documented as of this encounter Visit Diagnoses Not on filedocumented in this encounter Additional Health Concerns Assessment Noted Time PHQ-9 Depression Total Score: 0 03/18/20 25 10:15 AM EDT documented as of this encounter Care Teams Pearl Glue Operator Relationship Specialty Start Date End Date Jason Gunn MD [address] [place] [address] PCP - General Internal Medicine 04/17/20 documented as of this encounter
--- OUTSIDE RECORDS SUMMARY | 2025-03-28 14:05 | XMS_ITS | Encounter Summary ---
Author Organization [employer] Address [address] [facility] 7t [place] [address] Care Team Providers Care Lead Technologist In Cytogenetics Name Role Phone Jason Gunn MD Primary Care Prov ider Encounter Details Date Type Department Care Team (Late st Contact Info) Description 12/02/2022 Orders Only [facility] MEDICINE [address] [place] [address] Jason Gunn MD [address] [place] [address] Vitamin D deficiency (Primary Dx) Social History [...] Description 04/17/2025 2:30 PM EDT Office Visit [facility] ADULT DENTAL [address] [place] [address] Karey Pisano, DDS [address] [place] [address] 05/13/2025 2:30 PM EDT Telemedicine [facility] MED & PEDS [address] [place] [address] Jason Gunn MD [address] [place] [address] documented as of this encounter Visit Diagnoses Diagnosis Vitamin D deficiency- Primary documented in this encounter Care Teams Lead Technologist In Cytogenetics Relationship Specialty Start Date End Date Jason Gunn MD [address] [place] [address] PCP - General Internal Medicine 04/17/20 documented as of this encounter
--- OUTSIDE RECORDS SUMMARY | 2025-03-28 14:05 | XMS_ITS | Encounter Summary ---
Author Organization [employer] Address [address] [place] [address] Care Team Providers Care Naval Aircrewman Tactical Helicopter Name Role Phone Jason Gunn MD Primary Care Prov ider Reason for Visit * Reason Onset Date Comments Medication Question 11/13/2023 Encounter Details Date Type Department Care Team (Late st Contact Info) Description 11/13/2023 Telephone [facility] MEDICINE [address] [place] [address] Jason Gunn MD [address] [place] [address] Medication Question Social History Tobacco Use Types [...] was discussed and prescribed by PCP however telegraphic typewriter repairer does not see anything on file please clarify documented in this encounter Plan of Treatment Upcoming Encounters Date Type Department Care Team (Late st Contact Info) Description 04/17/2025 2:30 PM EDT Office Visit [facility] ADULT DENTAL [address] [place], [place] [phone] Karey Pisano DDS [address] [place] [address] 05/13/2025 2:30 PM EDT Telemedicine [facility] MED & PEDS [address] [place], [place] [phone] Jason Gunn MD [address] [place] [address] documented as of this encounter Visit Diagnoses Not on filedocumented in this encounter Additional Health Concerns Assessment Noted Time PHQ-9 Depression Total Score: 0 03/06/20 23 1:43 PM EDT documented as of this encounter Care Teams Naval Aircrewman Tactical Helicopter Relationship Specialty Start Date End Date Vicente Jason Hammer MD [address] [place] [address] PCP - General Internal Medicine 04/17/20 documented as of this encounter
--- OUTSIDE RECORDS SUMMARY | 2025-03-28 14:05 | XMS_ITS | Encounter Summary ---
Author Organization [employer] Address [address] [place] [address] Care Team Providers Care Housing Project Manager Name Role Phone Jason Gunn MD Primary Care Prov ider Reason for Visit * Reason Onset Date Comments Med Refill 04/18/2024 Encounter Details Date Type Department Care Team (Late st Contact Info) Description 04/18/2024 Refill [facility] MEDICINE [address] [place] [address] Jason Gunn MD [address] [place] [address] Adjustment insomnia Social History Tobacco Use Types [...] tablet To be sent to: [facility] [address] [place] [address] - [facility] The patient will be leaving out of town starting 04/19 and would need a 2 month supply documented in this encounter Plan of Treatment Upcoming Encounters Date Type Department Care Team (Late st Contact Info) Description 04/17/2025 2:30 PM EDT Office Visit [facility] ADULT DENTAL [address] [place] [address] Karey Pisano DDS [address] [place] [address] 05/13/2025 2:30 PM EDT Telemedicine [facility] MED & PEDS [address] [place], [place] [phone] Jason Gunn MD [address] [place] [address] documented as of this encounter Visit Diagnoses Diagnosis Adjustment insomnia Insomnia, unspecified documented in this encounter Additional Health Concerns Assessment Noted Time PHQ-9 Depression Total Score: 0 03/06/20 23 1:43 PM EDT documented as of this encounter Care Teams Housing Project Manager Relationship Specialty Start Date End Date Jason Gunn MD [address] [place] [id number] PCP - General Internal Medicine 04/17/20 documented as of this encounter
--- OUTSIDE RECORDS SUMMARY | 2025-03-28 14:05 | XMS_ITS | Encounter Summary ---
Author Organization [employer] Address [address] [place] [address] Care Team Providers Care Puppy Trainer Name Role Phone Jason Gunn MD Primary Care Prov ider Reason for Visit * Reason Onset Date Comments medication 03/28/2024 Encounter Details Date Type Department Care Team (Late st Contact Info) Description 03/28/2024 Telephone [facility] ADULT DENTAL [address] [place] [address] Karey Pisano, DDS [address] [facility] [place] [address] medication Social History Tobacco Use Types Packs/Day [...] Description 04/17/2025 2:30 PM EDT Office Visit [facility] ADULT D[facility]AL [address] [place] [address] Karey Pisano DDS 230 [place] [address] 05/13/2025 2:30 PM EDT Telemedicine [facility] MED [facility] PEDS [address] [place] [address] Jason Gunn MD 505 [place] [address] documented as of this encounter Visit Diagnoses Not on filedocumented in this encounter Additional Health Concerns Assessment Noted Time PHQ-9 Depression Total Score: 0 03/06/20 23 1:43 PM EDT documented as of this encounter Care Teams Puppy Trainer Relationship Specialty Start Date End Date Jason Gunn MD 505 [place] [address] PCP - General Internal Medicine 04/17/20 documented as of this encounter
--- OUTSIDE RECORDS SUMMARY | 2025-03-28 14:05 | XMS_ITS | Clinical Summary ---
Author Organization [facility] [employer] [facility] ity Address [address] [place] [address] Care Team Providers Care Dinkey Engine Operator Name Role Phone Unavailable Primary Care Provider [...]
--- OUTSIDE RECORDS SUMMARY | 2025-03-28 14:05 | XMS_ITS | Clinical Summary ---
Author Organization [employer] Address [address] 7t [place] [address] Care Team Providers Care Epoxy Coatings Installer Name Role Phone Jason Gunn MD Primary [...] pen-injectorIn dications:Pred iabetes,Mello ry artery disease involving nondalton heart with other form of angina pectoris, unspecified vessel or lesion type (CMS/HCC) Inject 0.5 mg under the skin 1 (one) time per week. 3 mL 3 03/18/20 25 Active mometasone (Nasonex) 50 MCG/ACT nasal spray SPRAY 1 SPRAY INTO EACH NOSTRIL EVERY DAY 17 g 5 03/19/20 25 Active fluticasone (Flonase) 50 MCG/ACT nasal [...] paratubal cyst. Please note. ASYMPTOMATIC. seen by [facility] and advised rpt US if develops symptoms. [...] No suicidal/homicidal ideas, will refer to [facility] Helicobacter pylori (H. pylori) infection 201710/26/2023 Constipation 08/03/2018 10/26/2023 Diverticula of intestine 08/03/2018 023 Gastroesophageal reflux disease without esophagi tis [...] Encounters Date Type Department Care Team Description 03/26/2025 2:00 PM EDT Office Visit [facility] ADULT DENTAL [address] [place] [address] Karey Pisano DDS 03/26/2025 Telephone [facility] [address] [place] [phone] Jason Gunn MD Prior Auth Prescription 03/21/2025 1:00 PM EDT Office Visit [facility] ADULT DENTAL [address] [place] [address] Karey Pisano DDS 03/19/2025 Refill [facility] [address] [place] [address] Jason Gunn MD 03/19/2025 Telephone [facility] ADULT DENTAL [address] [place] [address] Lio Lucas, LIZA 03/18/2025 10:30 AM EDT Office Visit [facility] [address] [place] [address] Jason Gunn MD Prediabetes (Primary Dx); Need for hepatitis C screening test; Mixed hyperlipidemia; 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, unspecified vessel or lesion type (CMS/HCC) 03/18/2025 Telephone [facility] ADULT DENTAL [address] [place] [address] Karey Pisano DDS 03/18/2025 Travel 03/11/2025 Telephone [facility] [address] [place] [address] Jason Gunn MD Reschedule appointment 02/26/2025 11:00 AM EDT Office Visit [facility] ADULT DENTAL [address] [place] [address] Karey Pisano DDS 02/17/2025 Orders Only GENERIC EXTERNAL DATA DEPARTMENT Provider, Generic External Data 02/17/2025 Refill [facility] [address] [place] [address] Jason Gunn MD Vitamin B deficiency 01/23/2025 Refill [facility] [address] [place] [address] Jason Gunn MD 01/08/2025 10:45 AM EST Office Visit [facility] ADULT DENTAL [address] [place] [address] Lio Lucas DMD from Last 3 Months [...] Description 04/17/2025 2:30 PM EDT Office Visit [facility] ADULT DENTAL [address] [place] [address] Karey Pisano, SHAUN [address] [place] [address] 05/13/2025 2:30 PM EDT Telemedicine [facility] [address] [place] [address] Jason Gunn MD 505 [place] [address] Health Maintenance Due Date Last Done Comments CT Colonography 1950 FIT DNA/Cologuard 1950 FIT 1950 FOBT 1950 Sigmoidoscopy 1950 Hepatitis A Vaccines (1 of 2 - Risk 2-dose series) 1969 Hepatitis B Vaccines (1 of 3 - Risk 3-dose series) 2010 COVID-19 Vaccine ( season) 2024 11/09/2023, 09/23/2021, 03/05/2021 Influenza Vaccine (#1) 2024 , 08/24/2022, 08/30/2021, Additional history exists Dental Oral Exam 04/10/2025 10/10/2024 Dental Prophylaxis 04/10/2025 10/10/2024, 06/29/2023 Dental X-Ray: Bitewings 10/11/2025 10/10/2024, 03/07 Alcohol/Substance Use Screening 03/18/2026 03/18/2025 Depression Screening 03/18/2026 03/18/2025, 03/18/20 Diabetes: Hemoglobin A1C 03/18/2026 025, 03/18/2025, 04/02/2024, Additional history exists SDOH Screening 03/18/2026 03/18/2025 Tobacco Screening 03/26/2026 03/26/2025 Mammogram 12/12/2026 12/12/2024, 11/27, 11/25/2022, Additional history exists Dental X-Ray: Full Mouth 03/22/2028 03/21/2025, 11/27 Lipid Panel 03/18/2030 03/18/2025, 07/28, 07/04/2023, Additional history exists DTaP/Tdap/Td Vaccines (4 - Td or Tdap) 08/24/2032 08/24/2022, 03/18/2016, 05/14/2012 Colonoscopy 09/13/2032 09/13/2022, 09/13/2022 Colorectal Cancer Screening 09/13/2032 Pneumococcal Vaccine: 50+ Years Completed 10/03/2016, 07/31/2015 Zoster Vaccines Completed 11/16/2021, 04/2021, 09/29/2014 RSV Patients and Patients Aged 60 years or older Completed 11/09/2023 Hepatitis C Screening Completed 03/18/2025 HIB Vaccines Aged Out No longer eligi [...] Procedure Name Priority Date/Time Associated Diagnosis Comments DENTURE IMPRESSION Routine 03/26/2025 2: 00 PM EDT PANORAMIC RADIOGRAPHIC IMAGE Routine 03/21/2025 1:00 PM EDT HEPATITIS C AB W/REFL TO HCV RNA, QN, PCR Routine 03/18/2025 11:20 AM EDT Need for hepatitis C screening test HEMOGLOBIN A1C Routine 03/18/2025 11:20 AM EDT Prediabetes COMPREHENSIVE METABOLIC PANEL Routine 03/18/2025 11:20 AM EDT Prediabetes LIPID PANEL, STANDARD Routine 03/18/2025 11:20 AM EDT Prediabetes POCT GLYCATED HEMOGLOBIN, TOTAL Routine 03/18/2025 10:56 [...] ESTABLISHED PATIENT Routine 10/10/2024 2:00 PM EST HM COLONOSCOPY Routine 09/13/2022 12:11 PM EDT from Last 3 Months or Most Recently Relevant to Health Maintenance Results * Hepatitis C Antibody with Reflex to HCV, RNA, Quantitative, Real-Time PCR (03/18/2025 11:20 AM EDT) Hepatitis C Antibody Nonreactive Nonreactive [facility] Comment:Antibodies to HCV no t detected; does not exclude early acuteHCV infection. Blood Venous blood specimen / Unknown 03/18/2025 11:20 AM EDT 03/18/2025 2:04 PM EDT us Jason Hammer MD LAB BLOOD ORDERABL ES Final Result [facility] [address] [place] [address] [phone] * Hemoglobin A1c (03/18/2025 11:20 AM EDT) Hemoglobin A1c 5.4 <6.0 % [facility] Comment:Hemoglobin A1C Refer ence Range Adults: 4.8 - 6.0 % Non diabetic: < 6.0 % Goal: < 7.0 %Additional Action Suggested: > 8.0 %Note: Hemoglobin A1c results are invalid for patients with abnormal amounts of HbF. Blood transfusions may impact the HbA1c concentration in the patient sample. Estimated Average Glucose 108 mg/dL [facility] Comment:eAG = Estimated ave rage glucose which is %A1C expressed asaverage glucose, using the formula of the Z2W-OlpkscePtrdiug Glucose study (ADAG), Diabetes Care, Vol.31,#8,Jun. 2007 Blood Venous blood specimen / Unknown 03/18/2025 11:20 AM EDT 03/18/2025 2:04 PM EDT us Jason Hammer MD LAB BLOOD ORDERABL ES Final Result [facility] [address] [place] [phone] * (ABNORMAL) Lipid Panel, Standard (03/18/2025 11:20 AM EDT) Triglycerides 195(H) <150 mg/dL [facility] Comment:Desirable Triglyceri de: less than 150 mg/dLBorderline High Triglyceride 150-199 mg/dLHigh Triglyceride: 200-499 mg/dLVery High Triglyceride: greater than or equal to 5OO mg/dL Cholesterol 112 <200 mg/dL [facility] Comment:Desirable Cholestero l: less than 200 mg/dLBorderline High Cholesterol: 200-239 mg/dLHigh Cholesterol: greater than 239 mg/dL LDL Cholesterol Calculated 43 <100 mg/dL [facility] Comment:Desirable LDL: less than 100 mg/dLNear Optimal/Above Optimal LDL: 110- 129 mg/dLBorderline High LDL: 130-159 mg/dLHigh LDL: 160-189 mg/dLVery High LDL: greater than or equal to 190 mg/dL HDL Cholesterol 30(L) >40 mg/dL [facility] Comment:Desirable HDL: great er than 40 mg/dL Note: This HDL assay may give artificially low results in patients with liver disease. Blood Venous blood specimen / Unknown 03/18/2025 11:20 AM EDT 03/18/2025 2:04 PM EDT us Jason Hammer MD LAB BLOOD ORDERABL ES Final Result [facility] [address] [place] [address] [phone] * (ABNORMAL) Comprehensive Metabolic Panel (03/18/2025 11:20 AM EDT) Sodium 140 135 - 145 mmol/L [facility] Potassium 4.0 3.3 - 5.1 mmol/L [facility] Chloride 107 96 - 108 mmol/L [facility] Carbon Dioxide 27 22 - 29 mmol/L [facility] Anion Gap 10(L) 12 - 20 [facility] Urea Nitrogen (BUN) 16 9 - 16 mg/dL [facility] Creatinine, Serum 0.75 0.5 - 1.4 mg/dL [facility] Estimated Glomerular Filt Rate >60 [facility] Comment:Chronic Kidney Disea se: Estimated GFR < 60 mL/min/1.00y0Jsxwwx Kidney Disease: Estimated GFR < 15 mL/min/1.73m2 Glucose 100 60 - 115 mg/dL [facility] Calcium 9.4 8.4 - 10.2 mg/dL [facility] Bilirubin, Total 0.7 0.0 - 1.0 mg/dL [facility] Aspartate Amino Transferase 34(H) 5 - 31 U/L [facility] Alanine Aminotransferase 32(H) 0 - 31 U/L [facility] Total Protein 7.0 6.5 - 8.0 g/dL [facility] Albumin Level 4.2 3.5 - 5.0 g/dL [facility] Alkaline Phosphatase 70 39 - 117 U/L [facility] Blood Venous blood specimen / Unknown 03/18/2025 11:20 AM EDT 03/18/2025 2:04 PM EDT Jason Hammer MD LAB BLOOD ORDERABL ES Final Result [facility] [address] [place] [phone] * POCT HGB A1C (03/18/2025 10:56 AM [...] * Prothrombin Time-INR (02/17/2025 3:19 PM EDT) Prothrombin Time 11.8 10.9 - 12.4 SEC [facility] INTERNATIONAL NORM RATIO 1.0 0.9 - 1.1 [facility] Comment:INTERNATIONAL NORMAL IZED RATIO (INR) [...] ORDERAB LES Final Result Performing Organization Address City/[facility]/ZIP Co de Phone Number [facility] [address] [place] [address] [phone] * CBC (02/17/2025 3:19 PM EDT) White Blood Count 5.8 4.8 - 10.8 X10*3/uL [facility] Red Blood Count 4.45 4.20 - 5.50 X10*6/uL [facility] Hemoglobin 13.4 12.0 - 16.0 g/dl [facility] Hematocrit 39.5 37.0 - 47.0 % [facility] Mean Corpuscular Volume 88.8 80.0 - 98.0 fL [facility] Mean Corpuscular Hemoglobin 30.1 27.0 - 33.0 pg [facility] Mean Corpuscular HGB Conc 33.9 31.0 - 35.0 g/dl [facility] Red Cell Distribution Width 13.1 11.0 - 16.0 % [facility] Platelet Count 186 160 - 400 X10*3/uL [facility] Mean Platelet Volume 11.0 9.4 - 12.3 fL [facility] NRBC Pct Auto 0.0 0.0 - 0.2 /100WBC [facility] NRBC Abs Auto 0.000 0.0 - 0.012 X10*3/uL [facility] 02/17/2025 3:19 PM EDT 02/17/2025 3:19 PM EDT us Generic External Data Provider LAB BLOOD ORDERAB LES Final Result Performing Organization Address [facility] Co de Phone Number [facility] [address] [place] [address] [phone] * (ABNORMAL) Basic Metabolic Panel (02/17/2025 3:19 PM EDT) Sodium 143 135 - 145 mmol/L [facility] Potassium 4.2 3.3 - 5.1 mmol/L [facility] Chloride 106 96 - 108 mmol/L [facility] Carbon Dioxide 28 22 - 29 mmol/L [facility] Anion Gap 13 12 - 20 [facility] Urea Nitrogen (BUN) 20(H) 9 - 16 mg/dL [facility] Creatinine, Serum 0.77 0.5 - 1.4 mg/dL [facility] Estimated Glomerular Filt Rate >60 [facility] Comment:Chronic Kidney Disea se: Estimated GFR < 60 mL/min/1.80y2Hfyzbf Kidney Disease: Estimated GFR < 15 mL/min/1.73m2 Glucose 90 60 - 115 mg/dL [facility] Calcium 9.5 8.4 - 10.2 mg/dL [facility] 02/17/2025 3:19 PM EDT 02/17/2025 3:19 PM EDT us Generic External Data Provider LAB BLOOD ORDERAB LES Final Result Performing Organization Address [facility]/State/[facility] de Phone Number [facility] [address] [place] [phone] * BI Mammogram Screening Tomosynthesis Bilateral (12/12/2024 2:00 PM EST) Anatomical Region Laterality Modality Breast Bilateral Mammography 12/12/2024 2:00 PM EST Narrative 12/22/2024 1:26 PM EST ? [facility] ? [address] ?[place] [address] ? Mammography Report ? Signed ? Patient: Montoya Randell,Yesenia ?MR#: [id number] ?? [id number] ? : 1950 ?Acct:[id number] ? Age/Sex: 74 / F ?ADM Date: 01/16/25 ? Loc: HO.MAMMO ? Attending Dr: Jason Hammer MD ? Ordering Physician: Jason Gunn MD ?Res ?? ults: 1Negative ? Date of Service: 12/12/24 ?Follow Up: 1 Year From Orig ?? inal Mammogram ? Procedure(s): MM tomosynthesis screening BI ?? Accession Number(s): [id number] ? cc: Jason Gunn MD ? EXAMINATION: [...] DD/ 1400 ? TD/TT: 12/12/24 1412 ? Metal Spinner: ? Procedure Note Donotuseinterpreter, Image - 12/22/2024 [facility] [address] [place] [address] Dr. Cantu, [place] [address] Mammography Report Signed Patient: Yesenia NorrisMR#: [id number] : 1950Acct:[id number] Age/Sex: 74 / FADM Date: 12/12/24 Loc: HO.MAMMO Attending Dr: Jason Hammer MD Ordering Physician: Jason Gunn ults: 1Negative Date of Service: 12/12/24Follow Up: 1 Year From Orig inal Mammogram Procedure(s): MM tomosynthesis screening BI Accession Number(s): [id number] cc: Jason Gunn MD EXAMINATION: MM SCREENING [...] by: Anni Stinson DO 12/22/2024 01:23 PM [facility] Dictated By: Anni Stinson DO Signed By: <Electronically signed by Anni Stinson DO in OV> 12/22/24 1323 DD/ 1400 TD/TT: 12/12/24 1412 Metal Spinner: Jason Hammer MD IMG BI PROCEDURES Edited Result - Final * Hm Colonoscopy (09/13/2022 12:11 PM EDT) us Historical Provider HEALTH MAINTENANCE Final Result from Last 3 Months or Most Recently Relevant to Health Maintenance Insurance * Guarantor: Yesenia Montoya Account Type Relation to Patient Date of Phone Billing Address Personal/Family Self 1950 [address] [place] [address] [facility] [employer] OPT[employer] (O D-SNP) [place]ON[place] [id number] [facility] [employer] (O D-SNP) [place] [id number] * Guarantor: Yesenia Montoya Account Type Relation to Patient Date of Phone Billing Address Dental Self 1950 [address] [place] [address] [facility] * Guarantor: Yesenia Montoya Account Type Relation to Patient Date of Phone Billing Address Personal/Family Self [address] [place] [address] * Guarantor: Yesenia Montoya Account Type Relation to Patient Date of Phone Billing Address Personal/Family Self [address] [place] [address] * Guarantor: Yesenia Montoya Account Type Relation to Patient Date of Phone Billing Address Personal/Family Self [address] [place] [address] Care Teams Epoxy Coatings Installer Relationship Specialty Start Date End Date Jason Gunn MD [address] [place] [phone] PCP - General Internal Medicine 04/17/20
--- OUTSIDE RECORDS SUMMARY | 2025-03-28 14:05 | XMS_ITS | Encounter Summary ---
Author Organization [employer] [facility] Address [address] 7t [place] [address] Care Team Providers Care Smokehouse Operator Name Role Phone Jason Gunn MD Primary Care Prov ider Encounter Details Date Type Department Care Team (Latest Contact Info) Description 04/14/2021 Abstract [facility] CONVERSIONS Dental, Provider, DDS Social History Tobacco [...] Description 04/17/2025 2:30 PM EDT Office Visit [facility] ADULT DENTAL [address] [place] [address] Karey Pisano, DDS [address] [place] [address] 05/13/2025 2:30 PM EDT Telemedicine [facility] [address] [place], [place] [phone] Jason Gunn MD [address] [place] [address] documented as of this encounter Visit Diagnoses Not on filedocumented in this encounter Care Teams Smokehouse Operator Relationship Specialty Start Date End Date Jason Gunn MD [address] [place] [phone] PCP - General Internal Medicine 04/17/20 documented as of this encounter
--- OUTSIDE RECORDS SUMMARY | 2025-03-28 14:05 | XMS_ITS | Encounter Summary ---
Author Organization [employer] Address [address] [facility] 7t [place] [address] Care Team Providers Care Silk Screen Cutter Name Role Phone Jason Gunn MD Primary Care Prov ider Encounter Details Date Type Department Care Team (Late st Contact Info) Description 04/09/2024 Orders Only [facility] [address] [place], [place] [phone] Jason Gunn MD [address] [place] [address] Social History Tobacco Use Types Packs/Day Years [...] Description 04/17/2025 2:30 PM EDT Office Visit [facility] ADULT DENTAL [address] [place] [address] Karey Pisano, DDS [address] [place], [place] [phone] 05/13/2025 2:30 PM EDT Telemedicine [facility] MED & PEDS [address] [place] [address] Jason Gunn MD [address] [place] [address] documented as of this encounter Visit Diagnoses Not on filedocumented in this encounter Additional Health Concerns Assessment Noted Time PHQ-9 Depression Total Score: 0 03/06/20 23 1:43 PM EDT documented as of this encounter Care Teams Silk Screen Cutter Relationship Specialty Start Date End Date Jason Gunn MD [address] [place] [address] PCP - General Internal Medicine 04/17/20 documented as of this encounter
--- OUTSIDE RECORDS SUMMARY | 2025-03-28 14:05 | XMS_ITS | Encounter Summary ---
Author Organization [employer] Address [address] 7[address] [place] [address] Care Team Providers Care Production Proofreader Name Role Phone Jason Gunn MD Primary Care Prov ider Reason for Visit * Reason Comments Cochlear Implant Check Encounter Details Date Type Department Care Team (Late st Contact Info) Description 03/26/2025 2:00 PM EDT Office Visit [facility] ADULT DENTAL [address] [place] [address] Karey Pisano, DDS [address] [place] [address] Social History Tobacco Use Types Packs/Day Years [...] AM EDT documented as of this encounter Progress Notes * Karey Pisano DDS - 03/26/2025 2:00 PM EDT Patient ID: Yesenia Montoya is a 74 y.o. female. Time Out: Date: 03/26/2025 Location: [facility] Tooth: #30 Procedure: [place] Verified the above with patient, senior office support assistant sosa, and provider. Confirmed via patient's chart, intraorally and by radiographs. Mill Platform Supervisor: not applicable implant impression on [address] Karey Pisano DDS Risk, benefits, and alternatives discussed with the patient. CONSENT FORM INITIALED & SIGNED BY THE PATIENT AND COUNTERSIGNED BY Dr. Karey Pisano DDS Medical history: Reviewed in EHR Vitals: There were no vitals taken for this visit. Allergies: Reviewed in EHR Medications: Reviewed in EHR - LA used: none - Healing Abutment were removed using screwdriver Unigrip and by rotating it counterclockwise. - Area was irrigated wit saline water solution - Impression coping were inserted to implant - PA was taken to assure full engagement. - Proper seating of impression coping were confirmed with PA - Open tray was inserted - Open tray clearance confirmed for impression coping - Impression of implant crown recorded with light and heavy body PVS - Block out material from the unigrip water taxi driver were removed from impression coping - Impression coping was removed - PVS impression was taken out - Implant area was irrigated with saline water soltution - Healing Abutment was replaced - Upper /Lower Alginate impression was taken - Bite registration taken - Shade C1 selected Patient given post-op instructions Patient satisfied, left in stable condition NV: delivery implant crown Provider: Dr. Karey Pisano DDS Mud Trucker: Osman Bailey Supervising Dentist: Darrion * Nicole Maier DDS - 03/26/2025 2:00 PM EDT I have reviewed the documentation and dental procedures completed by the rendering provider, Karey Pisano DDS, and approve their chart entries for this visit. SHAUN Ballesteros DDS documented in this encounter Plan of Treatment Upcoming Encounters Date Type Department Care Team (Late st Contact Info) Description 04/17/2025 2:30 PM EDT Office Visit [facility] ADULT DENTAL [address] [place] [address] Karey Pisano DDS [address] [place] [address] 05/13/2025 2:30 PM EDT Telemedicine [facility] MED & PEDS [address] [place] [address] Jason Gunn MD [address] [place] [address] Scheduled Orders Name Type Priority Associated Diagnoses Orde r Schedule DENTAL LAB FIXED Dental Routine Ordered: 03/26/2025 documented as of this encounter Procedures Procedure Name Priority Date/Time Associated Diagnosis Comments DENTURE IMPRESSION Routine 03/26/2025 2:00 PM EDT documented in this encounter Visit Diagnoses Not on filedocumented in this encounter Additional Health Concerns Assessment Noted Time PHQ-9 Depression Total Score: 0 03/18/20 25 10:15 AM EDT documented as of this encounter Care Teams Production Proofreader Relationship Specialty Start Date End Date Jason Gunn MD [address] [place] [phone] PCP - General Internal Medicine 04/17/20 documented as of this encounter
--- OUTSIDE RECORDS SUMMARY | 2025-03-28 14:05 | XMS_ITS | Encounter Summary ---
Author Organization [facility] Address [address] [facility] 7t [place] [address] Care Team Providers Care Office Analyst Name Role Phone Jason Gunn MD Primary Care Prov ider Encounter Details Date Type Department Care Team (Latest Contact Info) Description 09/09/2022 Abstract [facility] CONVERSIONS Dental, Provider, DDS Social History [...] 04/17/2025 2:30 PM EDT Office Visit [facility] AD[facility] [address] [place] [address] Karey Pisano, DDS [address] [place] [address] 05/13/2025 2:30 PM EDT Telemedicine [facility] [address] [place], [place] [phone] Jason Gunn MD [address] [place] [address] documented as of this encounter Visit Diagnoses Not on filedocumented in this encounter Care Teams Office Analyst Relationship Specialty Start Date End Date Jason Gunn MD [address] [place] [phone] PCP - General Internal Medicine 04/17/20 documented as of this encounter
--- OUTSIDE RECORDS SUMMARY | 2025-03-28 14:05 | XMS_ITS | Encounter Summary ---
Author Organization [facility] Address [address] [place] [address] Care Team Providers Care Cutter And Presser Name Role Phone Jason Gunn MD Primary Care Prov ider Encounter Details Date Type Department Care Team (Latest Contact Info) Description 07/11/2019 Abstract [facility] CONVERSIONS Dental, Provider, DDS Social History [...] Visit [facility] [address] [place] [address] Karey Pisano DDS [address] [place] [address] 05/13/2025 2:30 PM EDT Telemedicine [facility] [address] [place], [place] [phone] Jason Gunn MD [address] [place] [address] documented as of this encounter Visit Diagnoses Not on filedocumented in this encounter Care Teams Cutter And Presser Relationship Specialty Start Date End Date Jason Gunn MD [address] [place] [id number] PCP - General Internal Medicine 04/17/20 documented as of this encounter
--- OUTSIDE RECORDS SUMMARY | 2025-03-28 14:05 | XMS_ITS | Encounter Summary ---
Author Organization [employer] Address [address] [place] [address] Care Team Providers Care Single Needle Tufting Machine Operator Name Role Phone Jason Gunn MD Primary Care Prov ider Reason for Visit * Reason Onset Date Comments Medication Question 08/09/2024 Encounter Details Date Type Department Care Team (Late st Contact Info) Description 08/09/2024 Telephone [facility] [address] [place] [address] Jason Gunn MD [address] [place] [address] Medication Question Social History Tobacco Use Types [...] an alternative for B Complex capsule ( [employer] ). Please see notes. Please contact at [phone] * Telephone Encounter - Cale Morales - 08/09/2024 3:58 PM EDT Tc from [facility] calling in regards to Vitamins-Lipotropics (B Complex Formula 1, Lipotrop,) tablet stating medication is currently on back order and they're requesting Arachnocaps as an alternative. If any questions you can contact pt at [phone]. documented in this encounter Plan of Treatment Upcoming Encounters Date Type Department Care Team (Late st Contact Info) Description 04/17/2025 2:30 PM EDT Office Visit [facility] [address] [place] [address] Karey Pisano, DDS [address] [place] [address] 05/13/2025 2:30 PM EDT Telemedicine [facility] [address] [place] [address] Jason Gunn MD [address] [place] [address] documented as of this encounter Visit Diagnoses Not on filedocumented in this encounter Additional Health Concerns Assessment Noted Time PHQ-9 Depression Total Score: 0 07/16/20 24 1:04 PM EDT documented as of this encounter Care Teams Single Needle Tufting Machine Operator Relationship Specialty Start Date End Date Jason Gunn MD [address] [place] [address] PCP - General Internal Medicine 04/17/20 documented as of this encounter
--- OUTSIDE RECORDS SUMMARY | 2025-03-28 14:05 | XMS_ITS | Encounter Summary ---
Author Organization [employer] Address [address] [facility] [address] [place] [address] Care Team Providers Care Building Services Technician Name Role Phone Jason Gunn MD Primary Care Prov ider Encounter Details Date Type Department Care Team (Late st Contact Info) Description 11/30/2022 Telephone [facility] [address] [place] [address] Jason Gunn MD [address] [place] [address] Social History Tobacco Use Types Packs/Day Years [...] 2:30 PM EDT Office Visit [facility] [address] [place] [address] Karey Pisano, DDS [address] [place], [place] [phone] 05/13/2025 2:30 PM EDT Telemedicine [facility] [address] [place], [place] [phone] Jason Gunn MD [address] [place], [place] [phone] documented as of this encounter Visit Diagnoses Not on filedocumented in this encounter Care Teams Building Services Technician Relationship Specialty Start Date End Date Jason Gunn MD [address] [place], [place] [phone] PCP - General Internal Medicine 04/17/20 documented as of this encounter
== END 2025-03-28 14:28 | disposition home or self-care (01) ==
LOC: HO.HCS 13:48
PROVIDERS: PCP Internal Medicine; Visit Provider Nurse Practitioner Family
DX: I25.10 Atherosclerotic heart disease of native coronary artery without angina pectoris (principal); Z98.890 Other specified postprocedural states; R07.9 Chest pain, unspecified; E78.5 Hyperlipidemia, unspecified
CPT/HCPCS: 99214

== ENCOUNTER → 2025-03-28 13:48 | Outpatient (BNVA) | payer OTHER, SELFPAY | PROVIDERS: PCP Internal Medicine; Visit Provider Nurse Practitioner Family | DX: I25.10 Atherosclerotic heart disease of native coronary artery without angina pectoris (principal); R07.9 Chest pain, unspecified; E78.5 Hyperlipidemia, unspecified; Z98.890 Other specified postprocedural states | CPT/HCPCS: 99212 ==

== ENCOUNTER 2025-09-22 13:37 | Outpatient (AMB) | payer OTHER, SELFPAY ==
--- NOTE | 2025-09-22 14:02 | A.OFFVIS_ITS ---
Intake Visit Reasons: Med/Follow up Intake Note: Patient presents today for a med follow-up Urology Meds- Fesoterodine Allergies to Antibiotic- No Known Allergies Blood Thinner- Clopidogrel PVR:0ml Mulling Machine Operator Required: No Allergies ketorolac (From TORADOL) Allergy (Severe, Verified 09/22/25 14:03) SWELLING-FACIAL, anaphylaxis aspirin Allergy (Unknown, Verified 09/22/25 14:03) blood in stool adhesive tape (ADHESIVE TAPE) Adverse Reaction (Intermediate, Verified 09/22/25 14:03) RASH Seasonal Allergies Allergy (Unknown, Uncoded 03/28/25 14:05) itching Medication List - Last Reconciled 09/22/25 by Mino Lei MD atorvastatin 40 mg PO DAILY calcium carbonate (Ultra Strength Antacid) 0 mg PO calcium citrate malate-vit D3 500-200 mg-unit tabs PO DAILY cholecalciferol (vitamin D3) 25 mcg PO DAILY clopidogrel (Plavix) 75 mg PO DAILY fesoterodine ER (Toviaz) 4 mg PO DAILY 90 days fluticasone propionate 50 mcg/actuation 1 spray intranasal DAILY ketotifen fumarate 0.025%(0.035%) (Eye Itch Relief) 0 drps ophthalmic (eye) loratadine 10 mg PO DAILY magnesium gluconate 27 mg PO DAILY metoprolol tartrate 25 mg PO BID 90 days mirtazapine 15 mg PO BEDTIME [id number]-puib-FA-vit K 45 mg iron- 800 mcg-120 mcg (Bariatric Multivitamins) caps PO pantoprazole 20 mg PO DAILY propylene glycol 0.6% (Systane Balance) 1 drp ophthalmic (eye) DAILY PRN saliva substitute combo no.9 (Biotene Dry Mouth Oral Rinse mouthwash) 15 mL mucous membrane BID-QID PRN trazodone 100 mg PO BEDTIME HPI Comments Details: 09/22/25--Britta is a 75-year-old female who is here for follow-up overactive bladder symptoms she is prescribed Toviaz 4 mg daily. Urinalysis today is negative bladder scan PVR 0 mL. History of Present Illness The patient is a 75-year-old female presenting for follow-up of overactive bladder symptoms. She has been prescribed Toviaz 4 mg daily, which she takes in the morning. The medication appears to be effective as she does not experience wetness during the day, although she uses pads. The urinalysis conducted today was negative for blood and infection, and the bladder scan showed a post-void residual volume of 0 mL. Additionally, the patient has been using Ozempic since June for borderline diabetes, resulting in a weight loss of 10 pounds. Her blood sugar levels have i mproved, which is expected to reduce pressure on the bladder and aid in bladder control. Results - Urinalysis: Negative for blood and infection - Bladder scan: Post-void residual volume 0 mL Plan 1. Overactive Bladder - Continue Toviaz 4 mg daily in the morning. - Refill prescription provided. - Follow-up via phone next year unless issues arise. 2. Borderline Diabetes - Continue Ozempic as prescribed. - Monitor weight and blood sugar levels. - Follow-up in office every other year or as needed. 05/23/24--Yesenia is a 73-year-old female who presents today for telehealth follow- up. She is followed for overactive bladder and recurrent UTIs. She is prescribed Toviaz 4 mg for overactive bladder symptoms. She is using daily cranberry supplements and probiotics. She states that she had 1 UTI since her last visit in August. She states that her bladder symptoms are stable on the Toviaz. Will continue the Toviaz 4 mg daily, and I want her to continue to use the cranberry supplements. Follow-up in 1 year. 08/30/2023? She is followed today for recurrent UTI.?She was last seen by me on 03/02/23 for recurrent urinary tract infections. Cystoscopy was performed, findings, No suspicious bladder lesions. Mild Bladder wall thickening.?I discussed that I want her to continue taking cranberry supplements and Toviaz perscribed for OAB symptoms. She was advised to follow-up in 6 months. Patient states that she went to ER at [facility] for acute abdominal pain. She has had a CAT scan during that time. Patient states that her doctor told her that she has a problem with her ureter, and she needs to discuss this with her urologist. She denies any irritative urinary symptoms at this time. The CT results are not available to me at this time. 03/02/2023-- The patient is here for follow-up for recurrent UTIs.?She was given trial of medication for OAB symptoms and states having benefits with it.?The patient is taking cranberry supplements.?States having occasional urine leakage first void? in the morning? Denies episodes of nocturia. Denies having UTI in the interim.?Renal US results reviewed?01/10/2023--? Suggestive of mild cortical thinning bilaterally. Negativ e for parenchyma lesions, hydronephrosis or renal calculi. Evaluation today: Blood: negative, leukocytes: negative. The patient was provided naproxen 500 mg and ciprofloxacin 500 mg x 1 dose pre-procedure today. Cystoscopy: No suspicious bladder lesions. Mild Bladder wall thickening.?I discussed that I want her to continue taking cranberry supplements and Toviaz [facility] Medical History Intestinal malabsorption following gastrectomy Fracture of wrist Diverticulosis UTI (urinary tract infection) Lactose intolerance Asthma Constipation Sciatica Sjogren's syndrome HEATHER on CPAP Obesity (BMI 30-39.9) GERD (gastroesophageal reflux disease) CAD (coronary artery disease) Lymphoma Malabsorption due to intolerance, not elsewhere classified Surgical History History of cardiac cath History of eyelid surgery H/O section S/P laparoscopic sleeve gastrectomy Family History Father No problems noted. Mother No problems noted. Brother No problems noted. Brother No problems noted. Brother No problems noted. Brother No problems noted. Brother No problems noted. Sister No problems noted. Sister No problems noted. Daughter No problems noted. Daughter No problems noted. Daughter No problems noted. Social History Alcohol intake: never Patient Tobacco Use Status: Never used Tobacco Review of Systems Const All systems reviewed & are unremarkable except as noted in HPI and below Reports no additional complaints Eyes Reports no additional complaints ENT Reports no additional complaints Card Reports no additional complaints Resp Reports no additional complaints GI Reports no additional complaints Reports as per HPI Musc Reports no additional complaints Skin/Breast Reports system reviewed and no additional complaints, except as documented Neuro Reports no additional complaints Psych Reports no additional complaints Endo Reports no additional complaints Matthias/Lymph Reports no additional complaints Aller/Immun Reports no additional complaints Office Procedures Post Void Residual Post Residual Void Post Void Residual (PVR): 0 [id number]-[id number] Void Residual by ultrasound Results AMB Urinalysis, Automated UA Leukoctes 0 Abdullahi/uL Last Edit by Virginia Elgin on 09/22/25 17:02 UA Nitrite Negative Last Edit by Virginia Eisenberg on 09/22/25 17:02 UA Urobilinogen 0.2 mg/dL Last Edit by Virginia Eisenberg on 09/22/25 17:02 UA Protein 0 mg/dL Last Edit by Virginia Eisenberg on 09/22/25 17:02 UA pH 6.0 Last Edit by Virginia Eisenberg on 09/22/25 17:02 UA Blood 0 Cr/uL Last Edit by Virginia Eisenberg on 09/22/25 17:02 UA Specific [place] 1.015 Last Edit by Virginia Eisenberg on 09/22/25 17:02 UA Ketone Negative Last Edit by Virginia Eisenberg on 09/22/25 17:02 UA Bilirubin 0 mg/dL Last Edit by Virginia Eisenberg on 09/22/25 17:02 UA Glucose 0 mg/dL Last Edit by Virginia Eisenberg on 09/22/25 17:02 Assessment & Plan Assessment & Plan (1) OAB (overactive bladder): Code(s): N32.81 - Overactive bladder Category: Medical (2) Recurrent UTI: Code(s): N39.0 - Urinary tract infection, site not specified Category: Medical Orders: Orders AMB Post Void Residual by ultrasound Today N32.81 - Overactive bladder, N39.0 - Urinary tract infection, site not specified AMB Urinalysis Automated Today Z13.9 - Encounter for screening, unspecified Medications: Refilled fesoterodine ER (Toviaz) 4 mg PO DAILY 90 days 90 tabs 3RF Coding Diagnoses OAB (overactive bladder) N32.81 Recurrent UTI N39.0 CPT Codes Post Residual Void - PVR CPT Code: 54023-Xhdp Void Residual by ultrasound ([id number])
--- OUTSIDE RECORDS SUMMARY | 2025-09-22 17:17 | XMS_ITS | Clinical Summary ---
Author Organization [employer] Address [address] [place] [address] Care Team Providers Care Motor Vehicle Clerk Name Role Phone Jason Gunn MD Primary [...] tablet in the evening. 04/04/20 19 Active Vitamins-Lipotr opics (B Complex Formula 1, Lipotrop,) tablet Take 1 tablet PO qdaily 10/04/20 22 Active Propylene Glycol 0.6 % solution apply 2 drops 4 times a day as needed 09/04/20 19 Active metoprolol tartrate (Lopressor) 25 MG tablet Take 25 mg by mouth 2 times daily. Active pseudoephedrine (Sudafed) 60 MG tablet Take 1 tablet (60 mg) by mouth every 6 (six) hours if needed for congestion for up to 10 days. 30 tablet 07/16/20 24 Active chlorhexidine (Peridex) 0.12 % solution SWISH 15 ML IN THE MORNING AND AT BEDTIME FOR 1 MINUTE. SPIT, DO NOT SWALLOW. DO NOT EAT OR DRINK FOR 30 MINUTES AFTER USE. 473 mL 10/07/20 24 Active senna-docusate sodium (Senokot-S) 8.6-50 MG tablet TAKE 1 TABLET BY MOUTH EVERY MORNING 30 tablet 11 11/01/20 24 Active pantoprazole (ProtoNix) 20 MG EC tabletIndicatio ns:Gastroesopha geal reflux disease without esophagitis TAKE 1 TABLET BY MOUTH BEFORE BREAKFAST 90 tablet 3 11/28/19 25 Active atorvastatin (Lipitor) 40 MG tablet Take 1 tablet (40 mg) by mouth Once per day. 90 tablet 3 02/19/20 25 026 Active B Complex capsuleIndicati ons:Vitamin B deficiency TAKE 1 CAPSULE BY MOUTH EVERY DAY 30 capsule 5 02/19/20 25 Active cholecalciferol (Vitamin D-3) 25 MCG (1000 UT) tabletIndicatio ns:Vitamin D deficiency TAKE 1 TABLET BY MOUTH EVERY DAY 30 tablet 5 04/18/20 25 Active magnesium, as gluconate, (Mag-G) 500 (27 Mg) MG tabletIndicatio ns:Gastroesopha geal reflux disease without esophagitis TAKE 1 TABLET BY MOUTH EVERY DAY 30 tablet 5 04/18/20 25 Active traZODone (Desyrel) 100 MG tabletIndicatio ns:Adjustment insomnia Take 1 tablet (100 mg) by mouth at bedtime. 30 tablet 11 04/18/20 25 026 Active fesoterodine ER (Toviaz) 4 MG 24 hr tablet 06/27/20 25 Active Oyster Shell Calcium 500 MG tablet TAKE 1 TABLET BY MOUTH ONCE DAILY 30 tablet 2 08/01/20 25 Active mirtazapine (Remeron) 15 MG tablet TAKE 1 TABLET BY MOUTH DAILY AT BEDTIME 30 tablet 2 08/01/20 25 Active B Ccrhxap-N-Ulvbb Acid (WesCaps) 1 MG capsule TAKE (1) CAPSULE BY MOUTH DAILY BEFORE BREAKFAST 30 capsule 2 08/01/20 25 Active fluticasone (Flonase) 50 MCG/ACT nasal spray Administer 1 spray into each nostril Once per day. 16 g 5 08/19/20 25 Active mometasone (Nasonex) 50 MCG/ACT nasal spray INSTILL 1 SPRAY INTO EACH NOSTRIL ONCE DAILY 17 g 08/21/20 25 Active loratadine (Claritin) 10 MG tablet TAKE 1 TABLET BY MOUTH ONCE DAILY IN THE MORNING 30 tablet 3 09/19/20 25 Active Ozempic, 0.25 or 0.5 MG/DOSE, 2 MG/3ML solution pen-injectorInd ications:Predia betes,Coronary artery disease involving chalkyitsik heart with other form of angina pectoris, unspecified vessel or lesion type INJECT 0.5MG UNDER THE SKIN ONCE PER WEEK 3 mL 3 09/19/20 25 Active loratadine (Claritin) 10 MG tablet Take 1 tablet (10 mg) by mouth Once per day. 90 tablet 3 09/27/20 24 025 Discontinued Semaglutide,0.2 5 or 0.5MG/DOS, (Ozempic, 0.25 or 0.5 MG/DOSE,) 2 MG/3ML solution pen-injectorInd ications:Predia betes,Coronary artery disease involving chalkyitsik heart with other form of angina pectoris, unspecified vessel or lesion type Inject 0.5 mg under the skin 1 (one) time per week. 3 mL 3 03/18/20 25 025 Discontinued acetic acid-hydrocorti sone (Vosol-HC) otic solution Administer 3 drops into the right ear 2 times daily for 10 days. 10 mL 08/19/20 25 025 Active Problems Problem Noted Date Diagnosed Date Right ear pain 08/19/2025 Prediabetes 04/03/2024 Assessment & Plan (03/18/2025 10:43 [...] paratubal cyst. Please note. ASYMPTOMATIC. seen by BACK DIGGER OPERATOR and advised rpt US if develops symptoms. DDD (degenerative disc disease), lumbar 10/26/20 23 10/26/2023 Heartburn symptom 10/26/2023 10/26/2023 Left lumbar radiculopathy 10/26/20232022 Severe obesity (CMS/HCC) 10/26/2023 023 Assessment & Plan (05/13/2025 2:54 PM EDT): Patient got approved ozempic, told to start therapy, will follow up in 2-3 months, Vitamin D deficiency 10/26/2023 10/26/2023 Screening for [...] EDT): No suicidal/homicidal ideas, will refer to [facility] Helicobacter pylori (H. pylori) infection 201710/26/2023 Constipation 08/03/2018 10/26/2023 Diverticula of intestine 08/03/2018 023 Gastroesophageal reflux disease without esophagi tis 08/03/2018 10/26/2023 Hyperlipidemia 08/03/2018 10/26/2023 Assessment & Plan (05/13/2025 2:56 PM EDT): Continue statin therapy, continue low cholesterol diet, follow up in 3 months Assessment & Plan (03/18/2025 10:48 AM EDT): [...] Encounters Date Type Department Care Team Description 09/18/2025 Refill [facility] [address] [place] [address] Jason Gunn MD Prediabetes; Coronary artery disease involving chalkyitsik heart with other form of angina pectoris, unspecified vessel or lesion type 08/19/2025 1:30 PM EDT Office Visit [facility] [address] [place] [address] Jason Gunn MD Right ear pain (Primary Dx); Encounter for immunization 08/19/2025 Refill [facility] [address] [place] [address] Jason Gunn MD 08/19/2025 Travel 08/18/2025 Telephone [facility] [address] [facility] [place] [place] [address] Jason Gunn MD chart prep 08/12/2025 Travel 07/31/2025 Refill [facility] [address] [place] [address] Jason Gunn MD 07/24/2025 Refill [facility] [address] [place] [address] Jason Gunn MD 07/04/2025 Refill [facility] [address] [place] [address] Jason Gunn MD 06/30/2025 1:00 PM EDT Office Visit [facility]ULT D[facility] [address] [place] [address] Carloz Briseno Dental calculus (Primary Dx) from Last 3 Months Immunizations Immunization Administration Dates Next Due INFLUENZA VACCINE QUADRIVALE NT RECOMBINANT PRESERVATIVE FREE RIV4 08/22/2020 Influenza High-dose Quadriva lent Preservative Free 08/25/2023,08/24/2022 Influenza Quadrivalent Adjuvanted 08/30/2021 Influenza injectable quadriv alent IIV4 with preservative 08/22/2016 Influenza injectable quadriv alent preservative free 09/14/2017 Influenza, High Dose Seasona l, Preservative Free 08/19/2025,08/22/2019,09/14/2018 Influenza, IIV3, injectable 08/27/2014, 3,07/23/2012 Pneumococcal Conjugate [...] Sign Reading Time Taken Comments Blood Pressure 148/81 08/19/2025 1:31 PM EDT Pulse 76 08/19/2025 1:31 PM EDT Temperature 36.6 C (97.8 F) 08/19/2025 1:31 PM EDT Respiratory Rate 16 08/19/2025 1:31 PM EDT Oxygen Saturation 98% 03/18/2025 10:13 AM EDT Inhaled Oxygen Concentration - - Weight 95.3 kg (210 lb) 08/19/2025 1:31 PM EDT Height 157.5 cm (5' 2 ) 08/19/2025 1:31 PM EDT Body Mass Index 38.41 08/19/2025 1:31 PM EDT Plan of Treatment Upcoming Encounters Date Type Department Care Team (Late st Contact Info) Description 10/20/2025 11:30 AM EST Telemedicine [facility] [address] [place] [address] Jason Gunn MD [address] [place] [address] 01/05/2026 2:15 PM EST Office Visit [facility] [address] [place] [address] Carloz Briseno Health Maintenance Due Date Last Done Comments CT Colonography 1950 FIT DNA/Cologuard 1950 FIT 1950 FOBT 1950 Sigmoidoscopy 1950 Hepatitis A Vaccines (1 of 2 - Risk 2-dose series) 1969 Hepatitis B Vaccines (1 of 3 - Risk 3-dose series) 2010 COVID-19 Vaccine ( season) 2025 11/09/2023, 09/23/2021, 03/05/2021 Dental X-Ray: Bitewings 10/11/2025 10/10/2024, 03/07 Dental Oral Exam 01/01/2026 06/30/2025, 10/10/2024 Dental Prophylaxis 01/01/2026 06/30/2025, 1 12/10/2023, 06/29/2023 Alcohol/Substance Use Screening 03/18/2026 03/18/2025 Depression Screening 03/18/2026 03/18/2025, 03/18/20 Diabetes: Hemoglobin A1C 03/18/2026 025, 03/18/2025, 04/02/2024, Additional history exists SDOH Screening 03/18/2026 03/18/2025 Tobacco Screening 06/30/2026 06/30/2025 Dental X-Ray: Full Mouth 03/22/2028 03/21/2025, 11/27 Lipid Panel 03/18/2030 03/18/2025, 07/28, 07/04/2023, Additional history exists DTaP/Tdap/Td Vaccines (4 - Td or Tdap) 08/24/2032 08/24/2022, 03/18/2016, 05/14/2012 Colonoscopy 09/13/2032 09/13/2022, 09/13/2022 Colorectal Cancer Screening 09/13/2032 Pneumococcal Vaccine: 50+ Years Completed 10/03/2016, 07/31/2015 Zoster Vaccines Completed 11/16/2021, 10/04/2021, 09/29/2014 RSV Patients and Patients Aged 60 years or older Completed 11/09/2023 Hepatitis C Screening Completed 03/18/2025 Influenza Vaccine Completed 08/19/2025, , 08/24/2022, Additional history exists HIB Vaccines Aged Out No longer eligi [...] Procedure Name Priority Date/Time Associated Diagnosis Comments COMPREHENSIVE PERIODONTAL EVALUATION - NEW OR ESTABLISHED PATIENT Routine 06/30/2025 1:00 PM EDT PERIODIC ORAL EVALUATION - ESTABLISHED PATIENT Routine 06/30/2025 1:00 PM EDT TOPICAL APPLICATION OF FLUORIDE VARNISH Routine 06/30/2025 1:00 PM EDT CASE PRESENTATION, DETAILED AND EXTENSIVE TREATMENT PLANNING Routine 06/30/2025 1:00 PM EDT ORAL HYGIENE INSTRUCTIONS Routine 06/30/2025 1:00 PM EDT PROPHYLAXIS - ADULT Routine 06/30/2025 1 :00 PM EDT PANORAMIC RADIOGRAPHIC IMAGE Routine 03/21/2025 1:00 PM EDT HEPATITIS C AB W/REFL TO HCV RNA, QN, PCR Routine 03/18/2025 11:20 AM EDT Need for hepatitis C screening test LIPID PANEL, STANDARD Routine 03/18/2025 11:20 AM EDT Prediabetes POCT GLYCATED HEMOGLOBIN, TOTAL Routine 03/18/2025 10:56 AM EDT Prediabetes BITEWINGS - 4 RADIOGRAPHIC IMAGES Routine 10/10/2024 2:00 PM EST HM COLONOSCOPY Routine 09/13/2022 12:11 PM EDT from Last 3 Months or Most Recently Relevant to Health Maintenance Results * Hepatitis C Antibody with Reflex to HCV, RNA, Quantitative, Real-Time PCR (03/18/2025 11:20 AM EDT) Hepatitis C Antibody Nonreactive Nonreactive [facility] Comment:Antibodies to HCV no t detected; does not exclude early acuteHCV infection. Blood Venous blood specimen / Unknown 03/18/2025 11:20 AM EDT 03/18/2025 2:04 PM EDT Jason Hammer MD LAB BLOOD ORDERABL ES Final Result [facility] [address] [place] [phone] * (ABNORMAL) Lipid Panel, Standard (03/18/2025 11:20 AM EDT) Triglycerides 195(H) <150 mg/dL [facility] Comment:Desirable Triglyceri de: less than 150 mg/dLBorderline High Triglyceride 150-199 mg/dLHigh Triglyceride: 200-499 mg/dLVery High Triglyceride: greater than or equal to 5OO mg/dL Cholesterol 112 <200 mg/dL [facility] Comment:Desirable Cholestero l: less than 200 mg/dLBorderline High Cholesterol: 200-239 mg/dLHigh Cholesterol: greater than 239 mg/dL LDL Cholesterol Calculated 43 <100 mg/dL [facility] Comment:Desirable LDL: less than 100 mg/dLNear Optimal/Above Optimal LDL: 110- 129 mg/dLBorderline High LDL: 130-159 mg/dLHigh LDL: 160-189 mg/dLVery High LDL: greater than or equal to 190 mg/dL HDL Cholesterol 30(L) >40 mg/dL [facility] Comment:Desirable HDL: great er than 40 mg/dL Note: This HDL assay may give artificially low results in patients with liver disease. Blood Venous blood specimen / Unknown 03/18/2025 11:20 AM EDT 03/18/2025 2:04 PM EDT Jason Hammer MD LAB BLOOD ORDERABL ES Final Result [facility] [address] [place] [phone] [phone] * POCT HGB A1C (03/18/2025 10:56 AM EDT) Hemoglobin A1C 5.9 4.0 - 6.0 % QC Media Lot # [id number] Lot# Expiration Date Blood 03/18/2025 10:5 6 AM EDT Jason Hammer MD POINT OF CARE TEST ENTER/EDIT ORDERABLES Final Result * Colonoscopy (09/13/2022 12:11 PM EDT) Mike Smith MD HEALTH MAINTENANCE Final Result from Last 3 Months or Most Recently Relevant to Health Maintenance Insurance * Guarantor: Yesenia Montoya Account Type Relation to Patient Date of Phone Billing Address Personal/Family Self 1950 [address] [place] [address] [facility] ASS[employer]ED OPTIONS (O D-SNP) [place] [phone] * Guarantor: Yesenia Montoya Account Type Relation to Patient Date of Phone Billing Address Dental Self 1950 [address] [place] [address] D[facility]AL - [facility] * Guarantor: Jan Yesenia Account Type Relation to Patient Date of Phone Billing Address Personal/Family Self [address] [place] [address] * Guarantor: Jan Yesenia Account Type Relation to Patient Date of Phone Billing Address Personal/Family Self [address] [place] [address] * Guarantor: MontoyaYesenia vail Account Type Relation to Patient Date of Phone Billing Address Personal/Family Self [address] [place] [address] Care Teams Motor Vehicle Clerk Relationship Specialty Start Date End Date Jason Gunn MD [address] [place] [address] PCP - General Internal Medicine 04/17/20
--- OUTSIDE RECORDS SUMMARY | 2025-09-22 17:17 | XMS_ITS | Encounter Summary ---
Author Organization [employer] Address [address] [place] [address] Care Team Providers Care Security Test Engineer Name Role Phone Jason Gunn MD Primary Care Prov ider Reason for Visit * Reason Onset Date Comments Med Refill 04/18/2024 Encounter Details Date Type Department Care Team (Late st Contact Info) Description 04/18/2024 Refill [facility] [address] [place] [address] Jason Gunn MD [address] [place] [address] Adjustment insomnia Social History Tobacco Use Types [...] tablet To be sent to: [facility] [address] [place] [address] The patient will be leaving out of town starting 04/19 and would need a 2 month supply documented in this encounter Plan of Treatment Upcoming Encounters Date Type Department Care Team (Late st Contact Info) Description 10/20/2025 11:30 AM EST Telemedicine [facility] [address] [place] [address] Jason Gunn MD [address] [place] [address] 01/05/2026 2:15 PM EST Office Visit [facility] [address] [place] [address] Carloz Briseno documented as of this encounter Visit Diagnoses Diagnosis Adjustment insomnia Insomnia, unspecified documented in this encounter Additional Health Concerns Assessment Noted Time PHQ-9 Depression Total Score: 0 03/06/20 1:43 PM EDT documented as of this encounter Care Teams Security Test Engineer Relationship Specialty Start Date End Date Jason Gunn MD [address] [place] [address] PCP - General Internal Medicine 04/17/20 documented as of this encounter
--- OUTSIDE RECORDS SUMMARY | 2025-09-22 17:17 | XMS_ITS | Clinical Summary ---
Author Organization [employer] Address [address] [place] [address] Care Team Providers Care Booth Cleaner Name Role Phone Unavailable Primary Care Provider Unavailabl e Social History Tobacco Use Types Packs/Day Years Used Date Smoking Tobacco: Never Assessed Comments Unknown Sex and Gender Information Value Date Recorded Sex Assigned at Not on file Legal Sex Female 4:29 AM EST Gender Identity Not on file Sexual Orientation Not on file Plan of Treatment Health Maintenance Due Date Last Done Comments Colorectal Cancer Screening: Colonoscopy 1950 DTaP,Tdap,and Td Vaccines (1 - Tdap) 1969 Pneumococcal Vaccine: 50+ Ye ars (1 of 1 - PCV) 2000 Zoster Vaccines (1 of 2) 2000 Falls Risk Assessment 12/26/2023 Hepatitis C Screening 12/26/2023 Osteoporosis Screening (Bone Density Screening) 12/26/2023 Social Influencers of Health Screening 12/26/2023 Depression Screening 11/27/2024 RSV Immunization Adult Patie nts (1 - 1-dose 75+ series) 2025 COVID-19 Vaccine (1 - 2023-2 5 season) 2025 Influenza Vaccine (#1) 2025 HIB Vaccines Aged Out No longer [...]
--- OUTSIDE RECORDS SUMMARY | 2025-09-22 17:17 | XMS_ITS | Encounter Summary ---
Author Organization [employer] Address [address] [facility] 7t [place] [address] Care Team Providers Care Curer Acid Drum Name Role Phone Jason Gunn MD Primary Care Prov ider Reason for Visit * Reason Comments Med Refill Encounter Details Date Type Department Care Team ([facility] Contact Info) Description 07/24/2025 Refill [facility] [address] [place], [place] [phone] Jason Gunn MD [address] [place] [address] Social History Tobacco Use Types Packs/Day Years [...] your housing situation today? I have ida sing 03/18/[address] you li [...] Info) Description 10/20/2025 11:30 AM EST Telemedicine [facility] [address] [place] [address] Jason Gunn MD [address] [place] [address] 01/05/2026 2:15 PM EST Office Visit [facility] ADULT D[facility] [address] [place] [address] Carloz Briseno documented as of this encounter Visit Diagnoses Not on filedocumented in this encounter Additional Health Concerns Assessment Noted Time PHQ-9 Depression Total Score: 0 03/18/20 25 10:15 AM EDT documented as of this encounter Care Teams Curer Acid Drum Relationship Specialty Start Date End Date Jason Gunn MD [address] [place] [address] PCP - General Internal Medicine 04/17/20 documented as of this encounter
--- OUTSIDE RECORDS SUMMARY | 2025-09-22 17:17 | XMS_ITS | Encounter Summary ---
Author Organization [employer] Address [address] [facility] [place] [address] Care Team Providers Care Motorcycle Sales Associate Name Role Phone Jason Gunn MD Primary Care Prov ider Reason for Visit * Reason Onset Date Comments medication 03/28/2024 Encounter Details Date Type Department Care Team ([facility] st Contact Info) Description 03/28/2024 Telephone [facility] ADULT D[facility]AL [address] [place] [address] Karey Pisano DDS medication Social History Tobacco Use Types Packs/Day [...] Info) Description 10/20/2025 11:30 AM EST Telemedicine [facility] [address] [place] [address] Jason Gunn MD [address] [place] [address] 01/05/2026 2:15 PM EST Office Visit [facility] [address] [place] [address] Carloz Briseno documented as of this encounter Visit Diagnoses Not on filedocumented in this encounter Additional Health Concerns Assessment Noted Time PHQ-9 Depression Total Score: 0 03/06/20 23 1:43 PM EDT documented as of this encounter Care Teams Motorcycle Sales Associate Relationship Specialty Start Date End Date Jason Gunn MD [address] [place] [address] PCP - General Internal Medicine 04/17/20 documented as of this encounter
--- OUTSIDE RECORDS SUMMARY | 2025-09-22 17:17 | XMS_ITS | Encounter Summary ---
Author Organization [employer] Address [address] [facility] [address] [place] [address] Care Team Providers Care Distance Education Director Name Role Phone Jason Gunn MD Primary Care Prov ider Encounter Details Date Type Department Care Team (Late st Contact Info) Description 03/12/2024 Orders Only [facility] [address] [place], [place] [phone] ProviderMike MD Social History Tobacco Use Types Packs/Day Years Used Date Smoking Tobacco: Never Passive Smoke Exposure: Never Smokeless Tobacco: Never Alcohol Use Standard Drinks/Week Comments Never 0 (1 standard drink = 0.6 oz pur e alcohol) Depression Answer Date Recorded Patient Health Questionnaire-9 Score 0 03/06/2023 Housing Stability Answer Date Recorded What is your housing situation today? I have ida skye 09/12/[address] you li [...] Info) Description 10/20/2025 11:30 AM EST Telemedicine [facility] [address] [place] [address] Jason Gunn MD [address] [place] [address] 01/05/2026 2:15 PM EST Office Visit [facility] [address] [place] [address] Carloz Briseno documented as of this encounter Procedures Procedure [...] documented as of this encounter Care Teams Distance Education Director Relationship Specialty Start Date End Date Jason Gunn MD [address] [place] [address] PCP - General Internal Medicine 04/17/20 documented as of this encounter
--- OUTSIDE RECORDS SUMMARY | 2025-09-22 17:17 | XMS_ITS | Encounter Summary ---
Author Organization [employer] Address [address] [facility] 7t [place] [address] Care Team Providers Care Helper/Driver Name Role Phone Jason Gunn MD Primary Care Prov ider Encounter Details Date Type Department Care Team (Late st Contact Info) Description 12/02/2022 Orders Only [facility] [address] [place], [place] [phone] Jason Gunn MD [address] [place] [address] Vitamin D deficiency (Primary Dx) Social History [...] Info) Description 10/20/2025 11:30 AM EST Telemedicine [facility] [address] [place] [address] Jason Gunn MD [address] [place] [address] 01/05/2026 2:15 PM EST Office Visit [facility] ADULT DENTAL [address] [place] [address] Carloz Briseno documented as of this encounter Visit Diagnoses Diagnosis Vitamin D deficiency- Primary documented in this encounter Care Teams Helper/Driver Relationship Specialty Start Date End Date Jason Gunn MD [address] [place] [address] PCP - General Internal Medicine 04/17/20 documented as of this encounter
--- OUTSIDE RECORDS SUMMARY | 2025-09-22 17:17 | XMS_ITS | Encounter Summary ---
Author Organization [employer] Address [address] [facility] 7t [place] [address] Care Team Providers Care Route Sales Delivery Driver Name Role Phone Jason Gunn MD Primary Care Prov ider Encounter Details Date Type Department Care Team (Late st Contact Info) Description 04/09/2024 Orders Only [facility] & PEDS [address] [place], [place] [phone] Jason Gunn MD [address] [place] [address] Social History Tobacco Use Types Packs/Day Years [...] Info) Description 10/20/2025 11:30 AM EST Telemedicine [facility] [address] [place] [address] Jason Gunn MD [address] [place] [address] 01/05/2026 2:15 PM EST Office Visit [facility] AD[facility] [address] [place] [address] Carloz Briseno documented as of this encounter Visit Diagnoses Not on filedocumented in this encounter Additional Health Concerns Assessment Noted Time PHQ-9 Depression Total Score: 0 03/06/20 23 1:43 PM EDT documented as of this encounter Care Teams Route Sales Delivery Driver Relationship Specialty Start Date End Date Jason Gunn MD [address] [place] [address] PCP - General Internal Medicine 04/17/20 documented as of this encounter
--- OUTSIDE RECORDS SUMMARY | 2025-09-22 17:17 | XMS_ITS | Encounter Summary ---
Author Organization [employer] Address [address] [facility] 7[address] [place] [address] Care Team Providers Care Clinical Reimbursement Specialist Name Role Phone Jason Gunn MD Primary Care Prov ider Encounter Details Date Type Department Care Team (Latest Contact Info) Description 07/11/2019 Abstract [facility] CON[facility]S Dental, Provider, DDS Social History Tobacco [...] Info) Description 10/20/2025 11:30 AM EST Telemedicine [facility] [address] [place] [address] Jason Gunn MD [address] [place] [address] 01/05/2026 2:15 PM EST Office Visit [facility] AD[facility] [address] [place] [address] Carloz Briseno documented as of this encounter Visit Diagnoses Not on filedocumented in this encounter Care Teams Clinical Reimbursement Specialist Relationship Specialty Start Date End Date Jason Gunn MD [address] [place] [address] PCP - General Internal Medicine 04/17/20 documented as of this encounter
--- OUTSIDE RECORDS SUMMARY | 2025-09-22 17:17 | XMS_ITS | Encounter Summary ---
Author Organization [employer] Address [address] [facility] [address] 7t [place] [address] Care Team Providers Care Cereal Supervisor Name Role Phone Jason Gunn MD Primary Care Prov ider Reason for Visit * Reason Onset Date Comments Reschedule appointment 03/11/2025 Encounter Details Date Type Department Care Team ([facility] st Contact Info) Description 03/11/2025 Telephone [facility] MEDICINE [address] [place] [address] Jason Gunn MD 505 [place] [address] Reschedule appointment Social History Tobacco Use Types [...] she's going on vacation all summer to [place]. documented in this encounter Plan of Treatment Upcoming Encounters Date Type Department Care Team (Late st Contact Info) Description 10/20/2025 11:30 AM EST Telemedicine [facility] MED & PEDS 505 [place] [address] Jason Gunn MD 505 [place] [address] 01/05/2026 2:15 PM EST Office Visit [facility] ADULT DENTAL 505 [place] [address] Carloz Briseno documented as of this encounter Visit Diagnoses Not on filedocumented in this encounter Additional Health Concerns Assessment Noted Time PHQ-9 Depression Total Score: 0 07/16/20 1:04 PM EDT documented as of this encounter Care Teams Cereal Supervisor Relationship Specialty Start Date End Date Jason Gunn MD [address] [place] [address] PCP - General Internal Medicine 04/17/20 documented as of this encounter
--- OUTSIDE RECORDS SUMMARY | 2025-09-22 17:17 | XMS_ITS | Encounter Summary ---
Author Organization [employer] Address [address] [facility] 7t [place] [address] Care Team Providers Care Rn Acute Name Role Phone Jason Gunn MD Primary Care Prov ider Encounter Details Date Type Department Care Team (Latest Contact Info) Description 04/14/2021 Abstract [facility] CONVERSIONS Dental, Provider, DDS Social History [...] 11:30 AM EST Telemedicine [facility] MED & PEDS 505 [place] [address] Jason Gunn MD 505 [place] [address] 01/05/2026 2:15 PM EST Office Visit [facility] ADULT DENTAL 505 [place] [address] Carloz Briseno documented as of this encounter Visit Diagnoses Not on filedocumented in this encounter Care Teams Rn Acute Relationship Specialty Start Date End Date Jason Gunn MD 505 [place] [address] PCP - General Internal Medicine 04/17/20 documented as of this encounter
--- OUTSIDE RECORDS SUMMARY | 2025-09-22 17:17 | XMS_ITS | Encounter Summary ---
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, unspecified vessel or lesion type Social History Tobacco Use Types Packs/Day Years [...] Description 10/20/2025 11:30 AM EST Telemedicine [facility] MED & PEDS [address] [place] [address] Jason Gunn MD 505 [place] [address] 01/05/2026 2:15 PM EST Office Visit [facility] ADULT DENTAL [address] [place] [address] Carloz Briseno documented as of this encounter Visit Diagnoses Diagnosis Prediabetes Other abnormal glucose 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
--- OUTSIDE RECORDS SUMMARY | 2025-09-22 17:17 | XMS_ITS | Encounter Summary ---
Author Organization [employer] Address [address] 7t [place] [address] Care Team Providers Care Hydroelectric Mechanic Name Role Phone Jason Gunn MD Primary Care Prov ider Reason for Visit * Reason Onset Date Comments Medication Question 11/13/2023 Encounter Details Date Type Department Care Team ([facility] st Contact Info) Description 11/13/2023 Telephone [facility] MEDICINE [address] [place] [address] Jason Gunn MD 505 [place] [address] Medication Question Social History Tobacco Use Types [...] was discussed and prescribed by PCP however commercial real estate underwriter does not see anything on file please clarify documented in this encounter Plan of Treatment Upcoming Encounters Date Type Department Care Team (Late st Contact Info) Description 10/20/2025 11:30 AM EST Telemedicine [facility] MED & PEDS 505 [place] [address] Jason Gunn MD 505 [place] [address] 01/05/2026 2:15 PM EST Office Visit [facility] ADULT DENTAL 505 [place] [address] Carloz Briseno documented as of this encounter Visit Diagnoses Not on filedocumented in this encounter Additional Health Concerns Assessment Noted Time PHQ-9 Depression Total Score: 0 03/06/20 23 1:43 PM EDT documented as of this encounter Care Teams Hydroelectric Mechanic Relationship Specialty Start Date End Date Jason Gunn MD [address] [place] [address] PCP - General Internal Medicine 04/17/20 documented as of this encounter
--- OUTSIDE RECORDS SUMMARY | 2025-09-22 17:17 | XMS_ITS | Encounter Summary ---
Author Organization [employer] Address [address] [facility] [address] 7t [place] [address] Care Team Providers Care Alarm Adjuster Name Role Phone Jason Gunn MD Primary Care Prov ider Reason for Visit * Reason Onset Date Comments Medication Question 08/09/2024 Encounter Details Date Type Department Care Team ([facility] st Contact Info) Description 08/09/2024 Telephone [facility] MEDICINE 230 [place] [address] Jason Gunn MD 505 [place] [address] Medication Question Social History Tobacco Use Types [...] an alternative for B Complex capsule ( Gelesiscap ). Please see notes. Please contact at [phone] * Telephone Encounter - Cale Morales - 08/09/2024 3:58 PM EDT Tc from [facility] calling in regards to Vitamins-Lipotropics (B Complex Formula 1, Lipotrop,) tablet stating medication is currently on back order and they're requesting Gelesiscaps as an alternative. If any questions you can contact pt at [phone]. documented in this encounter Plan of Treatment Upcoming Encounters Date Type Department Care Team (Late st Contact Info) Description 10/20/2025 11:30 AM EST Telemedicine [facility] MED & PEDS 505 [place] [address] Jason Gunn MD 505 [place] [address] 01/05/2026 2:15 PM EST Office Visit [facility] ADULT DENTAL 505 [place] [address] Carloz Briseno documented as of this encounter Visit Diagnoses Not on filedocumented in this encounter Additional Health Concerns Assessment Noted Time PHQ-9 Depression Total Score: 0 07/16/20 24 1:04 PM EDT documented as of this encounter Care Teams Alarm Adjuster Relationship Specialty Start Date End Date Jason Gunn MD 505 [place] [address] PCP - General Internal Medicine 04/17/20 documented as of this encounter
--- OUTSIDE RECORDS SUMMARY | 2025-09-22 17:17 | XMS_ITS | Encounter Summary ---
Author Organization [employer] Address [address] [facility] 7t [place] [address] Care Team Providers Care Assistant Boys Track Coach Name Role Phone Jason Gunn MD Primary Care Prov ider Encounter Details Date Type Department Care Team (Latest Contact Info) Description 09/09/2022 Abstract [facility] CONVERSIONS Dental, Provider, DDS Social [...] Info) Description 10/20/2025 11:30 AM EST Telemedicine [facility] MED & PEDS 505 [place] [address] Jason Gunn MD 505 [place] [address] 01/05/2026 2:15 PM EST Office Visit [facility] ADULT DENTAL 505 [place] [address] Carloz Briseno documented as of this encounter Visit Diagnoses Not on filedocumented in this encounter Care Teams Assistant Boys Track Coach Relationship Specialty Start Date End Date Jason Gunn MD 505 [place] [address] PCP - General Internal Medicine 04/17/20 documented as of this encounter
--- OUTSIDE RECORDS SUMMARY | 2025-09-22 17:17 | XMS_ITS | Encounter Summary ---
Author Organization [employer] Address [address] [facility] 7t [place] [address] Care Team Providers Care Photogrammetric Compilation Specialist Name Role Phone Jason Gunn MD Primary Care Prov ider Encounter Details Date Type Department Care Team (Late st Contact Info) Description 11/30/2022 Telephone [facility] MEDICINE 230 [place] [address] Jason Gunn MD 505 [place] [address] Social History Tobacco Use Types Packs/Day Years [...] EST Telemedicine [facility] MED & PEDS 505 [place] [address] Jason Gunn MD 505 [place] [address] 01/05/2026 2:15 PM EST Office Visit [facility] ADULT DENTAL 505 [place] [address] Carloz Briseno documented as of this encounter Visit Diagnoses Not on filedocumented in this encounter Care Teams Photogrammetric Compilation Specialist Relationship Specialty Start Date End Date Jason Gunn MD 505 [place] [address] PCP - General Internal Medicine 04/17/20 documented as of this encounter
--- OUTSIDE RECORDS SUMMARY | 2025-09-22 17:17 | XMS_ITS | Encounter Summary ---
Author Organization [employer] Address [address] 7[address] [place] [address] Care Team Providers Care Staple Laster Name Role Phone Jason Gunn MD Primary Care Prov ider Reason for Visit * Reason Onset Date Comments PA 03/31/2025 Encounter Details Date Type Department Care Team ([facility] st Contact Info) Description 03/31/2025 Telephone [facility] MEDICINE 230 [place] [address] Jason Gunn MD 505 [place] [address] PA Social History Tobacco Use Types Packs/Day Years [...] encounter Miscellaneous Notes * Telephone Encounter - Epi Wilcox - 03/31/2025 2:15 PM EDT Tc from [facility] requesting status of medication Ozempic as there no updates and they've been waiting on PA. Please return call if any questions [phone] documented in this encounter Plan of Treatment Upcoming Encounters Date Type Department Care Team (Late st Contact Info) Description 10/20/2025 11:30 AM EST Telemedicine [facility] MED & PEDS [address] [place] [address] Jason Gunn MD 505 [place] [address] 01/05/2026 2:15 PM EST Office Visit [facility] ADULT DENTAL [address] [place] [address] Carloz Briseno documented as of this encounter Visit Diagnoses Not on filedocumented in this encounter Additional Health Concerns Assessment Noted Time PHQ-9 Depression Total Score: 0 03/18/20 25 10:15 AM EDT documented as of this encounter Care Teams Staple Laster Relationship Specialty Start Date End Date Jason Gunn MD [address] [place] [address] PCP - General Internal Medicine 04/17/20 documented as of this encounter
== END 2025-09-22 14:48 | disposition home or self-care (01) ==
LOC: HO.HUSH 13:37
PROVIDERS: PCP Internal Medicine; Visit Provider Urology
DX: Z13.9 Encounter for screening, unspecified (principal)

== ENCOUNTER → 2025-09-22 13:37 | Outpatient (BNVA) | payer OTHER, SELFPAY | PROVIDERS: PCP Internal Medicine; Visit Provider Urology | DX: N32.81 Overactive bladder (principal); N39.0 Urinary tract infection, site not specified | CPT/HCPCS: 51798; 81003 ==

== ENCOUNTER 2025-09-25 13:09 | Outpatient (REF) | payer OTHER, SELFPAY ==
[2025-09-25 14:26] LABS: Appearance Urine Turbid; Glucose Urine UA Negative (Negative); PH 6.0 (5.0-9.0); Specific Gravity - Urine 1.025 (1.005-1.025); UMIC TRIGGER UA YES
--- OUTSIDE RECORDS SUMMARY | 2025-09-25 16:04 | XMS_ITS | Encounter Summary ---
Author Organization [employer] Address [address] [facility] [address] [address] 7t [place] [address] Care Team Providers Care Environmental Health Physician Name Role Phone Jason Gunn MD Primary Care Prov ider Reason for Visit * Reason Onset Date Comments Med Refill 04/18/2024 Encounter Details Date Type Department Care Team (Late st Contact Info) Description 04/18/2024 Refill [facility] MEDICINE 230 [place] [address] Jason Gunn MD 505 [place] [address] Adjustment insomnia Social History Tobacco Use Types [...] tablet To be sent to: [facility] [address] [place] [address] The patient will be leaving out of town starting 04/19 and would need a 2 month supply documented in this encounter Plan of Treatment Upcoming Encounters Date Type Department Care Team (Late st Contact Info) Description 10/20/2025 11:30 AM EST Telemedicine [facility] MED & PEDS 505 [place] [address] Jason Gunn MD 505 [place] [address] 01/05/2026 2:15 PM EST Office Visit [facility] ADULT DENTAL 505 [place] [address] Carloz Briseno documented as of this encounter Visit Diagnoses Diagnosis Adjustment insomnia Insomnia, unspecified documented in this encounter Additional Health Concerns Assessment Noted Time PHQ-9 Depression Total Score: 0 03/06/20 1:43 PM EDT documented as of this encounter Care Teams Environmental Health Physician Relationship Specialty Start Date End Date Jason Gunn MD 505 [place] [address] PCP - General Internal Medicine 04/17/20 documented as of this encounter
--- OUTSIDE RECORDS SUMMARY | 2025-09-25 16:05 | XMS_ITS | Encounter Summary ---
Author Organization [employer] Address [address] 7t [place] [address] Care Team Providers Care Furniture Upholsterer Name Role Phone Jason Gunn MD Primary Care Prov ider Reason for Visit * Reason Onset Date Comments Medication Question 08/09/2024 Encounter Details Date Type Department Care Team ([facility] st Contact Info) Description 08/09/2024 Telephone [facility] MEDICINE 230 [place] [address] Jason Gunn MD 505 [place] [address] Medication Question Social History Tobacco Use Types [...] an alternative for B Complex capsule ( [employer]one Corporationcap ). Please see notes. Please contact at [phone] * Telephone Encounter - Cale Morales - 08/09/2024 3:58 PM EDT Tc from [facility] calling in regards to Vitamins-Lipotropics (B Complex Formula 1, Lipotrop,) tablet stating medication is currently on back order and they're requesting Bit[employer]one Corporationcaps as an alternative. If any questions you can contact pt at [phone]. documented in this encounter Plan of Treatment Upcoming Encounters Date Type Department Care Team (Late st Contact Info) Description 10/20/2025 11:30 AM EST Telemedicine [facility] MED & PEDS [address] [place] [address] Jason Gunn MD 505 [place] [address] 01/05/2026 2:15 PM EST Office Visit [facility] ADULT DENTAL [address] [place] [address] Carloz Briseno documented as of this encounter Visit Diagnoses Not on filedocumented in this encounter Additional Health Concerns Assessment Noted Time PHQ-9 Depression Total Score: 0 07/16/20 24 1:04 PM EDT documented as of this encounter Care Teams Furniture Upholsterer Relationship Specialty Start Date End Date Jason Gunn MD 505 [place] [address] PCP - General Internal Medicine 04/17/20 documented as of this encounter
--- OUTSIDE RECORDS SUMMARY | 2025-09-25 16:05 | XMS_ITS | Encounter Summary ---
Author Organization [employer] Address [address] [facility] [address] 7t [place] [address] Care Team Providers Care National Sales Name Role Phone Jason Gunn MD Primary Care Prov ider Reason for Visit * Reason Onset Date Comments Reschedule appointment 03/11/2025 Encounter Details Date Type Department Care Team ([facility] st Contact Info) Description 03/11/2025 Telephone [facility] MEDICINE 230 [place] [address] Jason Gunn MD 505 [place] [address] Reschedule appointment Social History Tobacco Use Types [...] she's going on vacation all summer to [place]. documented in this encounter Plan of Treatment Upcoming Encounters Date Type Department Care Team (Late st Contact Info) Description 10/20/2025 11:30 AM EST Telemedicine [facility] MED & PEDS [address] [place] [address] Jason Gunn MD [address] [place] [address] 01/05/2026 2:15 PM EST Office Visit [facility] ADULT DENTAL [address] [place] [address] Carloz Briseno documented as of this encounter Visit Diagnoses Not on filedocumented in this encounter Additional Health Concerns Assessment Noted Time PHQ-9 Depression Total Score: 0 07/16/20 1:04 PM EDT documented as of this encounter Care Teams National Sales Relationship Specialty Start Date End Date Jason Gunn MD [address] [place] [id number] PCP - General Internal Medicine 04/17/20 documented as of this encounter
--- OUTSIDE RECORDS SUMMARY | 2025-09-25 16:05 | XMS_ITS | Encounter Summary ---
Author Organization [employer] Address [address] [facility] 7t [place] [address] Care Team Providers Care Orthotist Prosthetist Name Role Phone Jason Gunn MD Primary Care Prov ider Encounter Details Date Type Department Care Team (Latest Contact Info) Description 07/11/2019 Abstract [facility] CONVERSIONS Dental, Provider, DDS Social [...] Description 10/20/2025 11:30 AM EST Telemedicine [facility] MED & PEDS 505 [place] [address] Jason Gunn MD 505 [place] [address] 01/05/2026 2:15 PM EST Office Visit [facility] ADULT DENTAL [address] [place] [address] Carloz Briseno documented as of this encounter Visit Diagnoses Not on filedocumented in this encounter Care Teams Orthotist Prosthetist Relationship Specialty Start Date End Date Jason Gunn MD 505 [place] [address] PCP - General Internal Medicine 04/17/20 documented as of this encounter
--- OUTSIDE RECORDS SUMMARY | 2025-09-25 16:05 | XMS_ITS | Encounter Summary ---
Author Organization [employer] Address [address] [place] [address] Care Team Providers Care Senior Network Security Engineer Name Role Phone Jason Gunn MD Primary Care Prov ider Reason for Visit * Reason Onset Date Comments Medication Question 11/13/2023 Encounter Details Date Type Department Care Team ([facility] st Contact Info) Description 11/13/2023 Telephone [facility] MEDICINE 230 [place] [address] Jason Gunn MD 505 [place] [address] Medication Question Social History Tobacco Use Types [...] was discussed and prescribed by PCP however comic writer does not see anything on file please clarify documented in this encounter Plan of Treatment Upcoming Encounters Date Type Department Care Team (Late st Contact Info) Description 10/20/2025 11:30 AM EST Telemedicine [facility] MED & PEDS 505 [place] [address] Jason Gunn MD 505 [place] [address] 01/05/2026 2:15 PM EST Office Visit [facility] ADULT DENTAL 505 [place] [address] Carloz Briseno documented as of this encounter Visit Diagnoses Not on filedocumented in this encounter Additional Health Concerns Assessment Noted Time PHQ-9 Depression Total Score: 0 03/06/20 23 1:43 PM EDT documented as of this encounter Care Teams Senior Network Security Engineer Relationship Specialty Start Date End Date Jason Gunn MD [address] [place] [address] PCP - General Internal Medicine 04/17/20 documented as of this encounter
--- OUTSIDE RECORDS SUMMARY | 2025-09-25 16:05 | XMS_ITS | Encounter Summary ---
Author Organization [employer] Address [address] 7t [place] [address] Care Team Providers Care Wheel Cutter Name Role Phone Jason Gunn MD Primary Care Prov ider Encounter Details Date Type Department Care Team (Late st Contact Info) Description 03/12/2024 Orders Only [facility] MEDICINE 230 [place], [place] [phone] ProviderMike MD Social History Tobacco Use Types [...] Info) Description 10/20/2025 11:30 AM EST Telemedicine [facility] MED & PEDS [address] [place] [address] Jason Gunn MD 505 [place] [address] 01/05/2026 2:15 PM EST Office Visit [facility] ADULT DENTAL [address] [place] [address] Carloz Briseno documented as of this encounter [...] documented as of this encounter Care Teams Wheel Cutter Relationship Specialty Start Date End Date Jason Gunn MD [address] [place] [address] PCP - General Internal Medicine 04/17/20 documented as of this encounter
--- OUTSIDE RECORDS SUMMARY | 2025-09-25 16:05 | XMS_ITS | Encounter Summary ---
Author Organization [employer] Address [address] 7t [place] [address] Care Team Providers Care Supervisor [address] Name Role Phone Jason Gunn MD Primary Care Prov ider Reason for Visit * Reason Onset Date Comments PA 03/31/2025 Encounter Details Date Type Department Care Team ([facility] st Contact Info) Description 03/31/2025 Telephone [facility] MEDICINE [address] [place] [address] Jason Gunn MD [address] [place] [address] PA Social History Tobacco Use Types Packs/Day [...] PA. Please return call if any questions [phone] documented in this encounter Plan of Treatment Upcoming Encounters Date Type Department Care Team (Late st Contact Info) Description 10/20/2025 11:30 AM EST Telemedicine [facility] MED & PEDS 505 [place] [address] Jason Gunn MD 505 [place] [address] 01/05/2026 2:15 PM EST Office Visit [facility] ADULT DENTAL 505 [place] [address] Carloz Briseno documented as of this encounter Visit Diagnoses Not on filedocumented in this encounter Additional Health Concerns Assessment Noted Time PHQ-9 Depression Total Score: 0 03/18/20 25 10:15 AM EDT documented as of this encounter Care Teams Supervisor [address] Relationship Specialty Start Date End Date Jason Gunn MD [address] [place] [address] PCP - General Internal Medicine 04/17/20 documented as of this encounter
--- OUTSIDE RECORDS SUMMARY | 2025-09-25 16:05 | XMS_ITS | Encounter Summary ---
Author Organization [employer] Address [address] [facility] 7t [place] [address] Care Team Providers Care Performance Improvement Analyst Name Role Phone Jsaon Gunn MD Primary Care Prov ider Reason for Visit * Reason Comments Med Refill Encounter Details Date Type Department Care Team ([facility] Contact Info) Description 07/24/2025 Refill [facility] MED & PEDS 505 [place], [place] [id number] Jason Gunn MD [address] [place] [address] Social History Tobacco Use Types Packs/Day Years [...] Info) Description 10/20/2025 11:30 AM EST Telemedicine [facility] MED & PEDS 505 [place] [address] Jason Gunn MD [address] [place] [address] 01/05/2026 2:15 PM EST Office Visit [facility] ADULT DENTAL 505 [place] [address] Carloz Briseno documented as of this encounter Visit Diagnoses Not on filedocumented in this encounter Additional Health Concerns Assessment Noted Time PHQ-9 Depression Total Score: 0 03/18/20 25 10:15 AM EDT documented as of this encounter Care Teams Performance Improvement Analyst Relationship Specialty Start Date End Date Jason Gunn MD [address] [place] [address] PCP - General Internal Medicine 04/17/20 documented as of this encounter
--- OUTSIDE RECORDS SUMMARY | 2025-09-25 16:05 | XMS_ITS | Encounter Summary ---
Author Organization [employer] Address [address] [facility] 7t [place] [address] Care Team Providers Care Patient Access Name Role Phone Jason Gunn MD Primary Care Prov ider Encounter Details Date Type Department Care Team (Latest Contact Info) Description 09/09/2022 Abstract [facility] CONVERSIONS Dental, Provider, DDS Social History Tobacco [...] [facility] MED & PEDS [address] [place] [address] Jason Gunn MD [address] [place] [address] 01/05/2026 2:15 PM EST Office Visit [facility] ADULT DENTAL [address] [place] [address] Carloz Briseno documented as of this encounter Visit Diagnoses Not on filedocumented in this encounter Care Teams Patient Access Relationship Specialty Start Date End Date Jason Gunn MD [address] [place] [address] PCP - General Internal Medicine 04/17/20 documented as of this encounter
--- OUTSIDE RECORDS SUMMARY | 2025-09-25 16:05 | XMS_ITS | Encounter Summary ---
Author Organization [employer] Address [address] [facility] 7t [place] [address] Care Team Providers Care Assistant Manager Of Operations Name Role Phone Jason Gunn MD Primary Care Prov ider Encounter Details Date Type Department Care Team (Late st Contact Info) Description 12/02/2022 Orders Only [facility] MEDICINE [address] [place], [place] [phone] Jason Gunn MD [address] [place] [address] Vitamin D deficiency (Primary Dx) Social History [...] Info) Description 10/20/2025 11:30 AM EST Telemedicine [facility] MED & PEDS [address] [place] [address] Jason Gunn MD [address] [place] [address] 01/05/2026 2:15 PM EST Office Visit [facility] ADULT DENTAL [address] [place] [address] Carloz Briseno documented as of this encounter Visit Diagnoses Diagnosis Vitamin D deficiency- Primary documented in this encounter Care Teams Assistant Manager Of Operations Relationship Specialty Start Date End Date Jason Gunn MD [address] [place] [address] PCP - General Internal Medicine 04/17/20 documented as of this encounter
--- OUTSIDE RECORDS SUMMARY | 2025-09-25 16:05 | XMS_ITS | Clinical Summary ---
Author Organization [employer] [facility] ity Address [address] [place] [address] Care Team Providers Care Rn Clinical Name Role Phone Unavailable Primary Care Provider [...]
--- OUTSIDE RECORDS SUMMARY | 2025-09-25 16:05 | XMS_ITS | Encounter Summary ---
Author Organization [employer] Address [address] [facility] 7t [place] [address] Care Team Providers Care Supervisor Plastering Name Role Phone Jason Gunn MD Primary Care Prov ider Encounter Details Date Type Department Care Team (Latest Contact Info) Description 04/14/2021 Abstract [facility] CONVERSIONS Dental, Provider, DDS Social History [...] [facility] MED & PEDS [address] [place] [address] Jason Gunn MD [address] [place] [address] 01/05/2026 2:15 PM EST Office Visit [facility] ADULT DENTAL [address] [place] [address] Carloz Briseno documented as of this encounter Visit Diagnoses Not on filedocumented in this encounter Care Teams Supervisor Plastering Relationship Specialty Start Date End Date Jason Gunn MD [address] [place] [address] PCP - General Internal Medicine 04/17/20 documented as of this encounter
--- OUTSIDE RECORDS SUMMARY | 2025-09-25 16:05 | XMS_ITS | Encounter Summary ---
Author Organization [employer] Address [address] [facility] [address] 7[address] [place] [address] Care Team Providers Care Php Web Developer Name Role Phone Jason Gunn MD Primary Care Prov ider Reason for Visit * Reason Onset Date Comments medication 03/28/2024 Encounter Details Date Type Department Care Team ([facility] st Contact Info) Description 03/28/2024 Telephone [facility] ADULT DENTAL [address] [place] [address] Karey Pisano DDS medication Social History Tobacco [...] Info) Description 10/20/2025 11:30 AM EST Telemedicine [facility] MED & PEDS [address] [place] [address] Jason Gunn MD [address] [place] [address] 01/05/2026 2:15 PM EST Office Visit [facility] ADULT DENTAL [address] [place] [address] Carloz Briseno documented as of this encounter Visit Diagnoses Not on filedocumented in this encounter Additional Health Concerns Assessment Noted Time PHQ-9 Depression Total Score: 0 03/06/20 23 1:43 PM EDT documented as of this encounter Care Teams Php Web Developer Relationship Specialty Start Date End Date Jason Gunn MD [address] [place] [address] PCP - General Internal Medicine 04/17/20 documented as of this encounter
--- OUTSIDE RECORDS SUMMARY | 2025-09-25 16:05 | XMS_ITS | Encounter Summary ---
Author Organization [employer] Address [address] [facility] 7t [place] [address] Care Team Providers Care Rn Med Surg Name Role Phone Jason Gunn MD Primary Care Prov ider Encounter Details Date Type Department Care Team (Late st Contact Info) Description 11/30/[address] [facility] MEDICINE [address] [place] [address] Jason Gunn MD [address] [place] [address] Social History Tobacco Use Types Packs/Day Years [...] 10/20/2025 11:30 AM EST Telemedicine [facility] MED & PEDS [address] [place] [address] Jason Gunn MD [address] [place] [address] 01/05/2026 2:15 PM EST Office Visit [facility] ADULT DENTAL [address] [place] [address] Carloz Briseno documented as of this encounter Visit Diagnoses Not on filedocumented in this encounter Care Teams Rn Med Surg Relationship Specialty Start Date End Date Jason Gunn MD [address] [place] [address] PCP - General Internal Medicine 04/17/20 documented as of this encounter
--- OUTSIDE RECORDS SUMMARY | 2025-09-25 16:05 | XMS_ITS | Encounter Summary ---
Author Organization [employer] Address [address] [facility] 7t [place] [address] Care Team Providers Care Project Surveyor Name Role Phone Jason Gunn MD Primary Care Prov ider Encounter Details Date Type Department Care Team (Late st Contact Info) Description 04/09/2024 Orders Only [facility] MED & PEDS [address] [place], [place] [phone] Jason Gunn MD [address] [place] [address] Social History Tobacco Use Types Packs/Day Years [...] [facility] MED & PEDS [address] [place] [address] Jason Gunn MD [address] [place] [address] 01/05/2026 2:15 PM EST Office Visit [facility] ADULT DENTAL [address] [place] [address] Carlzo Briseno documented as of this encounter Visit Diagnoses Not on filedocumented in this encounter Additional Health Concerns Assessment Noted Time PHQ-9 Depression Total Score: 0 03/06/20 23 1:43 PM EDT documented as of this encounter Care Teams Project Surveyor Relationship Specialty Start Date End Date Jason Gunn MD [address] [place] [address] PCP - General Internal Medicine 04/17/20 documented as of this encounter
--- OUTSIDE RECORDS SUMMARY | 2025-09-25 16:05 | XMS_ITS | Clinical Summary ---
Author Organization [employer] Address [address] [facility] [address] [facility] [address] 7[address] [place] [address] Care Team Providers Care Manager Financial Name Role Phone Jason Gunn MD Primary [...] 30 tablet 2 08/01/20 25 Active B Nwcwgqa-G-Wboce Acid (WesCaps) 1 MG capsule TAKE (1) [...] solution pen-injectorInd ications:Predia betes,Coronary artery disease involving wales heart with other form of angina pectoris, [...] solution pen-injectorInd ications:Predia betes,Coronary artery disease involving wales heart with other form of angina pectoris, [...] paratubal cyst. Please note. ASYMPTOMATIC. seen by [employer]POR[employer] INTERN and advised rpt US if develops symptoms. [...] EDT): No suicidal/homicidal ideas, will refer to [facility] Helicobacter pylori (H. pylori) infection 201710/26/2023 [...] Type Department Care Team Description 09/18/2025 Refill [facility] MED & PEDS [address] [place] [address] Jason Gunn MD Prediabetes; Coronary artery disease involving wales heart with other form of angina pectoris, unspecified vessel or lesion type 08/19/2025 1:30 PM EDT Office Visit [facility] MED & PEDS [address] [facility] [place] [address] Jason Gunn MD Right ear pain (Primary Dx); Encounter for immunization 08/19/2025 Refill [facility] MED & PEDS [address] [facility] [place] [address] Jason Gunn MD 08/19/2025 Travel 08/18/2025 Telephone [facility] MED & PEDS [address] [place] [address] Jason Gunn MD chart prep 08/12/2025 Travel 07/31/2025 Refill [facility] MED & PEDS [address] [place] [address] Jason Gunn MD 07/24/2025 Refill [facility] MED & PEDS [address] [place] [address] Jason Gunn MD 07/04/2025 Refill [facility] MED & PEDS [address] [place] [address] Jason Gunn MD 06/30/2025 1:00 PM EDT Office Visit [facility] ADULT DENTAL [address] [place] [address] Carloz Briseno Dental calculus (Primary Dx) from [...] Info) Description 10/20/2025 11:30 AM EST Telemedicine [facility] MED & PEDS [address] [place] [address] Jason Gunn MD [address] [place] [address] 01/05/2026 2:15 PM EST Office Visit [facility] ADULT DENTAL [address] [place] [address] Carloz Briseno Health Maintenance Due Date Last [...] AM EDT) Hepatitis C Antibody Nonreactive Nonreactive [facility] Comment:Antibodies to HCV no t detected; does not exclude early acuteHCV infection. Blood Venous blood specimen / Unknown 03/18/2025 11:20 AM EDT 03/18/2025 2:04 PM EDT Jason Hammer MD LAB BLOOD ORDERABL ES Final Result [facility] [address] [place] [phone] * (ABNORMAL) Lipid Panel, Standard (03/18/2025 11:20 AM EDT) Triglycerides 195(H) <150 mg/dL [facility] Comment:Desirable Triglyceri de: less than 150 mg/dLBorderline High Triglyceride 150-199 mg/dLHigh Triglyceride: 200-499 mg/dLVery High Triglyceride: greater than or equal to 5OO mg/dL Cholesterol 112 <200 mg/dL [facility] Comment:Desirable Cholestero l: less than 200 mg/dLBorderline High Cholesterol: 200-239 mg/dLHigh Cholesterol: greater than 239 mg/dL LDL Cholesterol Calculated 43 <100 mg/dL [facility] Comment:Desirable LDL: less than 100 [...] MD LAB BLOOD ORDERABL ES Final Result [facility] [address] [place] [address] [phone] * POCT HGB A1C (03/18/2025 10:56 [...] Phone Billing Address Personal/Family Self 1950 [address] [facility] [address] [place] [address] FOR[facility]LY [facility] [employer] (O D-SNP) [place]IZ[place]ON[place] [phone] * Guarantor: Yesenia Montoya Account Type Relation to Patient Date of Phone Billing Address Dental Self 1950 [address] [place] [address] DENTAL - [facility] * Guarantor: Jan Yesenia Account Type Relation to Patient Date of Phone Billing Address Personal/Family Self [address] [place] [address] * Guarantor: Jan Yesenia Account Type Relation to Patient Date of Phone Billing Address Personal/Family Self [address] [place] [address] * Guarantor: MontoyaYesenia vail Account Type Relation to Patient Date of Phone Billing Address Personal/Family Self [address] [place] [address] Care Teams Manager Financial Relationship Specialty Start Date End Date Jason Gunn MD [address] [place] [address] PCP - General Internal Medicine 04/17/20
== END 2025-09-25 13:10 | disposition home or self-care (01) ==
LOC: HO.CHCLDS 13:09
PROVIDERS: Visit Provider Urology
DX: N39.0 Urinary tract infection, site not specified (principal)
CPT/HCPCS: 81001; 87086; 87088; 87186

== ENCOUNTER 2025-10-03 12:40 | Outpatient (AMB) | payer OTHER, SELFPAY ==
--- NOTE | 2025-10-03 13:02 | A.OFFVIS_ITS ---
Vital Signs 10/03/25 13:03 Height 5 ft 2 in Weight 207 lb 10.807 oz BMI 38.0 BP 110/62 Blood Pressure Location Lt brachial Position Sitting Pulse 76 Pulse Source Monitor Intake Visit Reasons: 6 month f/u Parking Enforcement Manager Required: No Allergies ketorolac (From TORADOL) Allergy (Severe, Verified 10/03/25 13:05) SWELLING-FACIAL, anaphylaxis aspirin Allergy (Unknown, Verified 10/03/25 13:05) blood in stool adhesive tape (ADHESIVE TAPE) Adverse Reaction (Intermediate, Verified 10/03/25 13:05) RASH Seasonal Allergies Allergy (Unknown, Uncoded 10/03/25 13:05) itching Medication List - Last Reconciled 10/03/25 by SHANIQUA Russell atorvastatin 40 mg PO DAILY calcium carbonate (Ultra Strength Antacid) 0 mg PO calcium citrate malate-vit D3 500-200 mg-unit tabs PO DAILY cholecalciferol (vitamin D3) 25 mcg PO DAILY clopidogrel (Plavix) 75 mg PO DAILY fesoterodine ER (Toviaz) 4 mg PO DAILY 90 days fluticasone propionate 50 mcg/actuation 1 spray intranasal DAILY ketotifen fumarate 0.025%(0.035%) (Eye Itch Relief) 0 drps ophthalmic (eye) loratadine 10 mg PO DAILY magnesium gluconate 27 mg PO DAILY metoprolol tartrate 25 mg PO BID 90 days mirtazapine 15 mg PO BEDTIME ldmpnngsfinf-xnd-eqcb-FA-vit K 45 mg iron- 800 mcg-120 mcg (Bariatric Multivit amins) caps PO nitrofurantoin monohyd/m-cryst 100 mg (Macrobid) 100 mg PO BID 7 days pantoprazole 20 mg PO DAILY propylene glycol 0.6% (Systane Balance) 1 drp ophthalmic (eye) DAILY PRN saliva substitute combo no.9 (Biotene Dry Mouth Oral Rinse mouthwash) 15 mL mucous membrane BID-QID PRN trazodone 100 mg PO BEDTIME HPI HPI 6 month f/u: Details: Yesenia is a 75 yo female with PMH of morbid obesity, HLD, nonobstructive CAD with moderate LAD stenosis who presents for follow-up. Today she reports that she has been doing well since her last visit in March. She is on Ozempic and is losing weight. She is walking routinely for exercise with no concerning symptoms. If she over exerts she will get some shortness of breath which is not new. No PND, orthopnea or edema. She is wearing CPAP each night. Random pains in her chest at times. No chest discomfort with exertion. No heart palpitations, lightheadedness, presyncope, syncope. No bleeding issues with Plavix use. Takes all meds as directed. [facility] Medical History Intestinal malabsorption following gastrectomy Fracture of wrist Diverticulosis UTI (urinary tract infection) Lactose intolerance Asthma Constipation Sciatica Sjogren's syndrome HEATHER on CPAP Obesity (BMI 30-39.9) GERD (gastroesophageal reflux disease) CAD (coronary artery disease) Lymphoma Malabsorption due to intolerance, not elsewhere classified Surgical History History of cardiac cath History of eyelid surgery H/O section S/P laparoscopic sleeve gastrectomy Family History Father No problems noted. Mother No problems noted. Brother No problems noted. Brother No problems noted. Brother No problems noted. Brother No problems noted. Brother No problems noted. Sister No problems noted. Sister No problems noted. Daughter No problems noted. Daughter No problems noted. Daughter No problems noted. Social History Alcohol intake: never Patient Tobacco Use Status: Never used Tobacco Review of Systems Const All systems reviewed & are unremarkable except as noted in HPI and below ENT Denies dizziness Card Denies chest pain, Denies chest pain at rest, Denies chest pain with activity, Denies rapid heart rate, Denies pedal edema, Denies edema, Denies leg edema, Denies lightheadedness, Denies palpitations, Denies dyspnea, Denies dyspnea on exertion and Denies orthopnea Resp Denies cough, Denies dyspnea and Denies dyspnea on exertion GI Denies hematochezia and Denies change in stool character Musc Denies abnormal gait, Denies limited range of motion, Denies muscle cramps, Denies muscle weakness, Denies numbness, Denies radiating pain into limb, Denies stiffness and Denies tingling Neuro Denies abnormal gait, Denies dizziness, Denies numbness and Denies tingling Endo Denies palpitations Physical Exam Vital Signs: BMI result Body Mass Index 38.0 Const General: cooperative, healthy appearing, comfortable and no acute distress Orientation/consciousness: patient oriented x3 Neck Neck: Yes normal visual inspection Resp Effort & Inspection: normal respiratory effort Auscultation: clear to auscultation bilaterally, no crackles, no rales, no rhonchi and no wheezes Cardio Rate: regular rate Rhythm: regular rhythm Heart sounds: S1 normal heart sound present, S2 normal heart sound present, no gallops, no murmurs and no rubs Neuro General: patient oriented x3 Extrem Other: right radial pulse easily palpable - hand assessment normal General: Yes normal to inspection, No no pedal edema and No calf tenderness Psych Appearance: grossly normal Mental Status: mental status grossly normal Speech and movement: Normal speech and movement present Office Procedures EKG Details: Today, read by me, normal sinus rhythm, no acute ST and T-wave abnormalities, rate 76, QTC 468 millisecond [id number], Complete Assessment & Plan Assessment & Plan (1) CAD (coronary artery disease): Comment: Stable. Code(s): I25.10 - Atherosclerotic heart disease of [place] coronary artery without angina pectoris Category: Medical Plan: Hx of CAD, last Cardiac cath was done on 03/13/25 which showed mid LAD 40-50% stenosis. Last echo 06/07/23 showed EF > 70%, normal valve dopplers. EKG today showing normal sinus rhythm, rate 76. No anginal symptoms. Signs and symptoms of angina reviewed. Continue risk factor modification. Not on aspirin, over she is on Plavix, continue atorvastatin with ideal LDL goal less than 70, continue metoprolol. Cardiology followup 6 mo sooner if needed (2) History of cardiac cath: Comment: 03/13/25 mid LAD 40-50% stenosis Code(s): Z98.890 - Other specified postprocedural states Category: Surgical Plan: As above (3) Chest pain: Code(s): R07.9 - Chest pain, unspecified Category: Medical Plan: Nonexertional and atypical sounding. EKG with no ischemia (4) Hyperlipidemia: Code(s): E78.5 - Hyperlipidemia, unspecified Category: Medical Plan: LDL goal < 70. Labs done 03/18/2025 showed LDL 43, AST 34, ALT 32. Continue atorvastatin. Plan Time spent on chart review, documentation, interview and assessment . Coding Level of Care Code Est Pt Level 4 (91151) Complex EM visit Add On G2211 Diagnoses CAD (coronary artery disease) I25.10 History of cardiac cath Z98.890 Chest pain R07.9 Hyperlipidemia E78.5 CPT Codes EKG - CPT: 27468-[id number], Complete ([id number]) Time Spent (min) 28
[2025-10-03 13:03] VITALS: BP 110/62; PULSE 76; BMI 38.0
--- OUTSIDE RECORDS SUMMARY | 2025-10-03 14:50 | XMS_ITS | Encounter Summary ---
Author Organization [employer] Address [address] [facility] 7t [place] [address] Care Team Providers Care Kst Operator Name Role Phone Jason Gunn MD Primary Care Prov ider Encounter Details Date Type Department Care Team (Late st Contact Info) Description 12/02/2022 Orders Only [facility] MEDICINE [address] [place], [place] [phone] Jason Gunn MD [address] [place] [address] Vitamin D deficiency (Primary Dx) Social History [...] Care Team (Late st Contact Info) Description 10/27/2025 11:30 AM EST Telemedicine [facility] MED & PEDS [address] [place] [address] Jason Gunn MD [address] [place] [address] 01/05/2026 2:15 PM EST Office Visit [facility] ADULT DENTAL [address] [place] [address] Carloz Briseno documented as of this encounter Visit Diagnoses Diagnosis Vitamin D deficiency- Primary documented in this encounter Care Teams Kst Operator Relationship Specialty Start Date End Date Jason Gunn MD [address] [place] [address] PCP - General Internal Medicine 04/17/20 documented as of this encounter
--- OUTSIDE RECORDS SUMMARY | 2025-10-03 14:50 | XMS_ITS | Clinical Summary ---
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 3 mL 3 03/18/20 25 025 Discontinued Active Problems Problem Noted Date Diagnosed Date [...] paratubal cyst. Please note. ASYMPTOMATIC. seen by [facility] and advised rpt US if develops symptoms. [...] EDT): No suicidal/homicidal ideas, will refer to [facility] Helicobacter pylori (H. 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, unspecified vessel or lesion type 08/19/2025 1:30 PM EDT Office Visit [facility] MED & [facility]EDS [address] [place] [address] Jason Gunn MD Right ear pain (Primary Dx); Encounter for immunization 08/19/2025 Refill [facility] MED & PEDS [address] [place] [address] Jason Gunn MD 08/19/2025 Travel 08/18/2025 Telephone [facility] MED & PEDS [address] [facility] [place] [address] Jason Gunn MD chart prep 08/12/2025 Travel 07/31/2025 Refill [facility] [address] [facility] [place] [address] Jason Gunn MD 07/24/2025 Refill [facility] [address] [place] [address] Jason Gunn MD 07/04/2025 Refill [facility] MED & PEDS [address] [place] [address] Jason Gunn MD from Last 3 Months Immunizations Immunization Administration [...] Info) Description 10/27/2025 11:30 AM EST Telemedicine [facility] MED & PEDS [address] [place] [address] Jason Gunn MD [address] [place] [address] 01/05/2026 2:15 PM EST Office Visit [facility] ADULT DENTAL [address] [place] [address] Carloz Briseno Health Maintenance Due Date Last [...] Completed 10/03/2016, 07/31/2015 Zoster Vaccines Completed 11/16/2021, 1004/2021, 09/29/2014 RSV Patients and Patients Aged 60 [...] Procedure Name Priority Date/Time Associated Diagnosis Comments PROPHYLAXIS - ADULT Routine 06/30/2025 1 :00 PM EDT PERIODIC ORAL EVALUATION - ESTABLISHED PATIENT Routine 06/30/2025 1:00 PM EDT PANORAMIC RADIOGRAPHIC IMAGE Routine 03/21/2025 [...] AM EDT) Hepatitis C Antibody Nonreactive Nonreactive [facility] Comment:Antibodies to HCV no t detected; does not exclude early acuteHCV infection. Blood Venous blood specimen / Unknown 03/18/2025 11:20 AM EDT 03/18/2025 2:04 PM EDT us Jason Hammer MD LAB BLOOD ORDERABL ES Final Result Performing Organization Address [facility] Co de Phone Number [facility] [address] [place] [address] [phone] * (ABNORMAL) Lipid Panel, Standard (03/18/2025 11:20 AM EDT) Triglycerides 195(H) <150 mg/dL [facility] Comment:Desirable Triglyceri de: less than 150 mg/dLBorderline High Triglyceride 150-199 mg/dLHigh Triglyceride: 200-499 mg/dLVery High Triglyceride: greater than or equal to 5OO mg/dL Cholesterol 112 <200 mg/dL [facility] Comment:Desirable Cholestero l: less than 200 mg/dLBorderline High Cholesterol: 200-239 mg/dLHigh Cholesterol: greater than 239 mg/dL LDL Cholesterol Calculated 43 <100 mg/dL [facility] Comment:Desirable LDL: less than 100 mg/dLNear Optimal/Above Optimal LDL: 110- 129 mg/dLBorderline High LDL: 130-159 mg/dLHigh LDL: 160-189 mg/dLVery High LDL: greater than or equal to 190 mg/dL HDL Cholesterol 30(L) >40 mg/dL [facility] Comment:Desirable HDL: great er than 40 mg/dL Note: This HDL assay may give artificially low results in patients with liver disease. Blood Venous blood specimen / Unknown 03/18/2025 11:20 AM EDT 03/18/2025 2:04 PM EDT us Jason Hammer MD LAB BLOOD ORDERABL ES Final Result Performing Organization Address [facility]/ZIP Co de Phone Number [facility] [address] [place] [address] [phone] * POCT HGB A1C (03/18/2025 10:56 AM EDT) Hemoglobin A1C 5.9 4.0 - 6.0 % QC Media Lot # [id number] Lot# Expiration Date ,323 Blood 03/18/2025 10:5 6 AM EDT Jason Hammer MD POINT OF CARE TEST ENTER/EDIT ORDERABLES Final Result * Colonoscopy (09/13/2022 12:11 PM EDT) Historical Provider HEALTH MAINTENANCE Final Result from Last 3 Months or Most Recently Relevant to Health Maintenance Insurance * Guarantor: Yesenia Montoya Account Type Relation to Patient Date of Phone Billing Address Personal/Family Self [address] [place] [address] [facility] [employer] (O D-SNP) ELIZABETH Gipson [phone] * Guarantor: Yesenia Montoya Account Type Relation to Patient Date of Phone Billing Address Dental Self 1950 [address] [place] [address] [facility] * Guarantor: MontoyaYesenia vail Account Type Relation to Patient Date of Phone Billing Address Personal/Family Self [address] [place] [address] * Guarantor: Yesenia Montoya Account Type Relation to Patient Date of Phone Billing Address Personal/Family Self [address] [place] [address] * Guarantor: Yesenia Montoya Account Type Relation to Patient Date of Phone Billing Address Personal/Family Self [address] [facility] [address] [address] [place] [address] Care Teams Electrogalvanizing Machine Operator Relationship Specialty Start Date End Date Jason Gunn MD [address] [place] [address] PCP - General Internal Medicine 04/17/20
--- OUTSIDE RECORDS SUMMARY | 2025-10-03 14:50 | XMS_ITS | Encounter Summary ---
Author Organization [employer] Address [address] [facility] 7t [place] [address] Care Team Providers Care Risk Assessment Analyst Name Role Phone Jason Gunn MD Primary Care Prov ider Encounter Details Date Type Department Care Team (Late st Contact Info) Description 04/09/2024 Orders Only [facility] MED & PEDS [address] [place], [place] [phone] Jason Gunn MD [address] [place] [address] Social History Tobacco Use Types Packs/Day Years [...] Info) Description 10/27/2025 11:30 AM EST Telemedicine [facility] MED & PEDS [address] [place] [address] Jason Gunn MD [address] [place] [address] 01/05/2026 2:15 PM EST Office Visit [facility] ADULT DENTAL [address] [place] [address] Carloz Briseno documented as of this encounter Visit Diagnoses Not on filedocumented in this encounter Additional Health Concerns Assessment Noted Time PHQ-9 Depression Total Score: 0 03/06/20 23 1:43 PM EDT documented as of this encounter Care Teams Risk Assessment Analyst Relationship Specialty Start Date End Date Jason Gunn MD [address] [place] [address] PCP - General Internal Medicine 04/17/20 documented as of this encounter
--- OUTSIDE RECORDS SUMMARY | 2025-10-03 14:50 | XMS_ITS | Encounter Summary ---
Author Organization [employer] Address [address] [place] [address] Care Team Providers Care Assurance Engineer Name Role Phone Jason Gunn MD Primary Care Prov ider Reason for Visit * Reason Onset Date Comments Medication Question 08/09/2024 Encounter Details Date Type Department Care Team ([facility] st Contact Info) Description 08/09/2024 Telephone [facility] MEDICINE [address] [place] [address] Jason Gunn MD [address] [place] [address] Medication Question Social History Tobacco Use Types [...] an alternative for B Complex capsule ( [email or web address] ). Please see notes. Please contact at [phone] * Telephone Encounter - Cale Morales - 08/09/2024 3:58 PM EDT Tc from [facility] calling in regards to Vitamins-Lipotropics (B Complex Formula 1, Lipotrop,) tablet stating medication is currently on back order and they're requesting [email or web address] as an alternative. If any questions you can contact pt at [phone]. documented in this encounter Plan of Treatment Upcoming Encounters Date Type Department Care Team (Late st Contact Info) Description 10/27/2025 11:30 AM EST Telemedicine [facility] MED & PEDS [address] [place] [address] Jason Gunn MD [address] [place] [address] 01/05/2026 2:15 PM EST Office Visit [facility] ADULT DENTAL [address] [place] [address] Carloz Briseno documented as of this encounter Visit Diagnoses Not on filedocumented in this encounter Additional Health Concerns Assessment Noted Time PHQ-9 Depression Total Score: 0 07/16/20 24 1:04 PM EDT documented as of this encounter Care Teams Assurance Engineer Relationship Specialty Start Date End Date Jason Gunn MD [address] [place] [address] PCP - General Internal Medicine 04/17/20 documented as of this encounter
--- OUTSIDE RECORDS SUMMARY | 2025-10-03 14:50 | XMS_ITS | Encounter Summary ---
Author Organization [employer] Address [address] [place] [address] Care Team Providers Care Thread Spooler Name Role Phone Jason Gunn MD Primary Care Prov ider Encounter Details Date Type Department Care Team (Late st Contact Info) Description 03/12/2024 Orders Only [facility] MEDICINE [address] [place], [place] [phone] ProviderMike MD Social History Tobacco Use Types [...] Info) Description 10/27/2025 11:30 AM EST Telemedicine [facility] MED & PEDS [address] [place] [address] Jason Gunn MD [address] [place] [address] 01/05/2026 2:15 PM EST Office Visit [facility] ADULT DENTAL [address] [place] [address] Carloz Briseno documented as of this encounter [...] documented as of this encounter Care Teams Thread Spooler Relationship Specialty Start Date End Date Jason Gunn MD [address] [place] [address] PCP - General Internal Medicine 04/17/20 documented as of this encounter
--- OUTSIDE RECORDS SUMMARY | 2025-10-03 14:50 | XMS_ITS | Encounter Summary ---
Author Organization [employer] Address [address] 7[address] [place] [address] Care Team Providers Care Survey Statistician Name Role Phone Jason Gunn MD Primary Care Prov ider Reason for Visit * Reason Onset Date Comments medication 03/28/2024 Encounter Details Date Type Department Care Team ([facility] st Contact Info) Description 03/28/2024 Telephone [facility] CH[facility] ADULT DENTAL [address] [place] [address] Karey Pisano DDS medication Social History Tobacco [...] Info) Description 10/27/2025 11:30 AM EST Telemedicine [facility] MED & PEDS [address] [place] [address] Jason Gunn MD [address] [place] [address] 01/05/2026 2:15 PM EST Office Visit [facility] ADULT DENTAL [address] [place] [address] Carloz Briseno documented as of this encounter Visit Diagnoses Not on filedocumented in this encounter Additional Health Concerns Assessment Noted Time PHQ-9 Depression Total Score: 0 03/06/20 23 1:43 PM EDT documented as of this encounter Care Teams Survey Statistician Relationship Specialty Start Date End Date Jason Gunn MD [address] [place] [address] PCP - General Internal Medicine 04/17/20 documented as of this encounter
--- OUTSIDE RECORDS SUMMARY | 2025-10-03 14:50 | XMS_ITS | Encounter Summary ---
Author Organization [employer] Address [address] [place] [address] Care Team Providers Care Dimmer Board Operator Name Role Phone Jason Gunn MD Primary Care Prov ider Reason for Visit * Reason Onset Date Comments Med Refill 04/18/2024 Encounter Details Date Type Department Care Team (Late st Contact Info) Description 04/18/2024 Refill [facility] MEDICINE [address] [place] [address] Jason Gunn MD [address] [place] [address] Adjustment insomnia Social History Tobacco Use Types [...] tablet To be sent to: [facility] [address] [place] [address] The patient will be leaving out of town starting 04/19 and would need a 2 month supply documented in this encounter Plan of Treatment Upcoming Encounters Date Type Department Care Team (Late st Contact Info) Description 10/27/2025 11:30 AM EST Telemedicine [facility] MED & PEDS [address] [place] [address] Jason Gunn MD 505 [place] [address] 01/05/2026 2:15 PM EST Office Visit [facility] ADULT DENTAL [address] [place] [address] Carloz Briseno documented as of this encounter Visit Diagnoses Diagnosis Adjustment insomnia Insomnia, unspecified documented in this encounter Additional Health Concerns Assessment Noted Time PHQ-9 Depression Total Score: 0 03/06/20 1:43 PM EDT documented as of this encounter Care Teams Dimmer Board Operator Relationship Specialty Start Date End Date Jason Gunn MD [address] [place] [address] PCP - General Internal Medicine 04/17/20 documented as of this encounter
--- OUTSIDE RECORDS SUMMARY | 2025-10-03 14:51 | XMS_ITS | Encounter Summary ---
Author Organization [employer] Address [address] [place] [address] Care Team Providers Care Blow Mold Technician Name Role Phone Jason Gunn MD Primary Care Prov ider Reason for Visit * Reason Onset Date Comments PA 03/31/2025 Encounter Details Date Type Department Care Team ([facility] st Contact Info) Description 03/31/2025 Telephone [facility] MEDICINE [address] [place] [address] Jason Gunn MD [address] [place] [address] PA Social History Tobacco Use Types Packs/Day [...] PA. Please return call if any questions [phone] documented in this encounter Plan of Treatment Upcoming Encounters Date Type Department Care Team (Late st Contact Info) Description 10/27/2025 11:30 AM EST Telemedicine [facility] MED & PEDS [address] [place] [address] Jason Gunn MD 505 [place] [address] 01/05/2026 2:15 PM EST Office Visit [facility] ADULT DENTAL [address] [place] [address] Carloz Briseno documented as of this encounter Visit Diagnoses Not on filedocumented in this encounter Additional Health Concerns Assessment Noted Time PHQ-9 Depression Total Score: 0 03/18/20 25 10:15 AM EDT documented as of this encounter Care Teams Blow Mold Technician Relationship Specialty Start Date End Date Jason Gunn MD [address] [place] [address] PCP - General Internal Medicine 04/17/20 documented as of this encounter
--- OUTSIDE RECORDS SUMMARY | 2025-10-03 14:51 | XMS_ITS | Encounter Summary ---
Author Organization [employer] Address [address] [facility] [address] [facility] [facility] [address]t [place] [address] Care Team Providers Care Coding Team Lead Name Role Phone Jason Gunn MD Primary Care Prov ider Reason for Visit * Reason Onset Date Comments Medication Question 11/13/2023 Encounter Details Date Type Department Care Team ([facility] st Contact Info) Description 11/13/2023 Telephone [facility] MEDICINE [address] [place] [address] Jason Gunn MD 505 [place] [address] Medication Question Social History Tobacco Use Types [...] was discussed and prescribed by PCP however writer editor does not see anything on file please clarify documented in this encounter Plan of Treatment Upcoming Encounters Date Type Department Care Team (Late st Contact Info) Description 10/27/2025 11:30 AM EST Telemedicine [facility] MED & PEDS [address] [place] [address] Jason Gunn MD 505 [place] [address] 01/05/2026 2:15 PM EST Office Visit [facility] ADULT DENTAL [address] [place] [address] Carloz Briseno documented as of this encounter Visit Diagnoses Not on filedocumented in this encounter Additional Health Concerns Assessment Noted Time PHQ-9 Depression Total Score: 0 03/06/20 23 1:43 PM EDT documented as of this encounter Care Teams Coding Team Lead Relationship Specialty Start Date End Date Jason Gunn MD [address] [place] [address] PCP - General Internal Medicine 04/17/20 documented as of this encounter
--- OUTSIDE RECORDS SUMMARY | 2025-10-03 14:51 | XMS_ITS | Encounter Summary ---
Author Organization [employer] Address [address] [facility] 7t [place] [address] Care Team Providers Care Wound Care Rn Name Role Phone Jason Gunn MD Primary Care Prov ider Encounter Details Date Type Department Care Team (Latest Contact Info) Description 09/09/2022 Abstract [facility] CONVERSIONS Dental, Provider, DDS Social History Tobacco [...] Info) Description 10/27/2025 11:30 AM EST Telemedicine [facility] MED & PEDS [address] [place] [address] Jason Gunn MD [address] [place] [address] 01/05/2026 2:15 PM EST Office Visit [facility] ADULT DENTAL [address] [place] [address] Carloz Briseno documented as of this encounter Visit Diagnoses Not on filedocumented in this encounter Care Teams Wound Care Rn Relationship Specialty Start Date End Date Jason Gunn MD [address] [place] [address] PCP - General Internal Medicine 04/17/20 documented as of this encounter
--- OUTSIDE RECORDS SUMMARY | 2025-10-03 14:51 | XMS_ITS | Encounter Summary ---
Author Organization [employer] Address [address] [facility] 7t [place] [address] Care Team Providers Care Road Freight Conductor Name Role Phone Jason Gunn MD Primary Care Prov ider Reason for Visit * Reason Comments Med Refill Encounter Details Date Type Department Care Team ([facility] Contact Info) Description 07/24/2025 Refill [facility] CHC MED & PEDS [address] [place], [place] [phone] Jason Gunn MD [address] [place] [address] Social History Tobacco Use Types Packs/Day Years [...] [facility] [address] [place] [address] Jason Gunn MD [address] [place] [address] 01/05/2026 2:15 PM EST Office Visit [facility] ADULT DENTAL [address] [place] [address] Carloz Briseno documented as of this encounter Visit Diagnoses Not on filedocumented in this encounter Additional Health Concerns Assessment Noted Time PHQ-9 Depression Total Score: 0 03/18/20 25 10:15 AM EDT documented as of this encounter Care Teams Road Freight Conductor Relationship Specialty Start Date End Date Jason Gunn MD [address] [place] [address] PCP - General Internal Medicine 04/17/20 documented as of this encounter
--- OUTSIDE RECORDS SUMMARY | 2025-10-03 14:51 | XMS_ITS | Encounter Summary ---
Author Organization [employer] Address [address] [facility] 7t [place] [address] Care Team Providers Care Window Installation Subcontractor Name Role Phone Jason Gunn MD Primary Care Prov ider Encounter Details Date Type Department Care Team (Late st Contact Info) Description 11/30/2022 Telephone [facility] MEDICINE [address] [place] [address] Jason Gunn MD [address] [place] [address] Social History Tobacco Use Types Packs/Day Years [...] 10/27/2025 11:30 AM EST Telemedicine [facility] MED & PEDS [address] [place] [address] Jason Gunn MD [address] [place] [address] 01/05/2026 2:15 PM EST Office Visit [facility] ADULT DENTAL [address] [place] [address] Carloz Briseno documented as of this encounter Visit Diagnoses Not on filedocumented in this encounter Care Teams Window Installation Subcontractor Relationship Specialty Start Date End Date Jason Gunn MD [address] [place] [address] PCP - General Internal Medicine 04/17/20 documented as of this encounter
--- OUTSIDE RECORDS SUMMARY | 2025-10-03 14:51 | XMS_ITS | Encounter Summary ---
Author Organization [employer] Address [address] [facility] 7t [place] [address] Care Team Providers Care Transit Mixer Driver Name Role Phone Jason Gunn MD Primary Care Prov ider Encounter Details Date Type Department Care Team (Latest Contact Info) Description 07/11/2019 Abstract [facility] CONVERSIONS Dental, Provider, DDS Social History Tobacco [...] Info) Description 10/27/2025 11:30 AM EST Telemedicine [facility] MED & PEDS [address] [place] [address] Jason Gunn MD [address] [place] [address] 01/05/2026 2:15 PM EST Office Visit [facility] ADULT DENTAL [address] [place] [address] Carloz Briseno documented as of this encounter Visit Diagnoses Not on filedocumented in this encounter Care Teams Transit Mixer Driver Relationship Specialty Start Date End Date Jason Gunn MD [address] [place] [address] PCP - General Internal Medicine 04/17/20 documented as of this encounter
--- OUTSIDE RECORDS SUMMARY | 2025-10-03 14:51 | XMS_ITS | Encounter Summary ---
Author Organization [employer] Address [address] [facility] 7t [place] [address] Care Team Providers Care County Engineer Name Role Phone Jason Gunn MD Primary Care Prov ider Encounter Details Date Type Department Care Team (Latest Contact Info) Description 04/14/2021 Abstract [facility] CONVERSIONS Dental, Provider, DDS Social History Tobacco [...] Info) Description 10/27/2025 11:30 AM EST Telemedicine [facility] MED & PEDS [address] [place] [address] Jason Gunn MD [address] [place] [address] 01/05/2026 2:15 PM EST Office Visit [facility] ADULT DENTAL [address] [place] [address] Carloz Briseno documented as of this encounter Visit Diagnoses Not on filedocumented in this encounter Care Teams County Engineer Relationship Specialty Start Date End Date Jason Gunn MD [address] [place] [address] PCP - General Internal Medicine 04/17/20 documented as of this encounter
--- OUTSIDE RECORDS SUMMARY | 2025-10-03 14:51 | XMS_ITS | Encounter Summary ---
Author Organization [employer] Address [address] [facility] [address] [place] [address] Care Team Providers Care Roll Reclaimer Name Role Phone Jason Gunn MD Primary Care Prov ider Reason for Visit * Reason Onset Date Comments Reschedule appointment 03/11/2025 Encounter Details Date Type Department Care Team ([facility] st Contact Info) Description 03/11/2025 Telephone [facility] MEDICINE [address] [place] [address] Jason Gunn MD [address] [place] [address] Reschedule appointment Social History Tobacco Use Types [...] she's going on vacation all summer to [place]. documented in this encounter Plan of Treatment Upcoming Encounters Date Type Department Care Team (Late st Contact Info) Description 10/27/2025 11:30 AM EST Telemedicine [facility] MED & PEDS [address] [place] [address] Jason Gunn MD [address] [place] [address] 01/05/2026 2:15 PM EST Office Visit [facility] ADULT DENTAL 505 [place] [address] Carloz Briseno documented as of this encounter Visit Diagnoses Not on filedocumented in this encounter Additional Health Concerns Assessment Noted Time PHQ-9 Depression Total Score: 0 07/16/20 24 1:04 PM EDT documented as of this encounter Care Teams Roll Reclaimer Relationship Specialty Start Date End Date Jason Gunn MD [address] [place] [address] PCP - General Internal Medicine 04/17/20 documented as of this encounter
== END 2025-10-03 13:28 | disposition home or self-care (01) ==
LOC: HO.HCS 12:41
PROVIDERS: PCP Internal Medicine; Visit Provider Nurse Practitioner Family
DX: I25.10 Atherosclerotic heart disease of native coronary artery without angina pectoris (principal); Z98.890 Other specified postprocedural states; R07.9 Chest pain, unspecified; E78.5 Hyperlipidemia, unspecified
CPT/HCPCS: 93010; 99214; G2211

== ENCOUNTER → 2025-10-03 12:40 | Outpatient (BNVA) | payer OTHER, SELFPAY | PROVIDERS: PCP Internal Medicine; Visit Provider Nurse Practitioner Family | DX: I25.10 Atherosclerotic heart disease of native coronary artery without angina pectoris (principal); I10 Essential (primary) hypertension; R07.9 Chest pain, unspecified; E78.5 Hyperlipidemia, unspecified; Z68.38 Body mass index [BMI] 38.0-38.9, adult; Z98.890 Other specified postprocedural states | CPT/HCPCS: 93005; 99212 ==